=== PATIENT | female | born 1940 | race Caucasian/White ===

== ENCOUNTER 2016-08-12 22:56 | Inpatient (IN) | payer MEDICARE ==
[2016-08-12] MEDS ORDERED: IPRATROPIUM-ALBUTEROL 3 ML NEB INHALATION STA (23:21)
--- NOTE | 2016-08-12 23:29 | ED ---
SOB HPI - General Chief Complaint: Shortness of Breath Stated Complaint: Diff Breathing Time Seen by Provider: 08/12/16 23:01 Source: patient Mode of arrival: EMS Limitations: no limitations - History of Present Illness Initial Comments: This patient is a 75-year-old woman who presents with days to weeks of shortness of breath that seems to be getting steadily worse. She is also having cough with some yellowish sputum. Patient denies fever or chills, chest pain, change in urination or bowel movements, leg pain or swelling. Patient comes in tonight because she is no longer able to get around her house due to severe shortness of breath. Patient is not aware of having any lung disease. She does not see a ecd regularly. She does admit to probably greater than [id number] smoking history and currently smoking approximately one pack of cigarettes per day. MD Complaint: shortness of breath, cough -: days(s) Consistency: constant Improves With: nothing Worsens With: exertion Treatments Prior to Arrival: none - Related Data Home Medications Medication Instructions Recorded Confirmed Diazepam [Valium] 10 mg PO DAILY PRN 01/31/16 01/31/16 Fluticasone Nasal [place] [Flonase 1 spray EA NOSTRIL DAILY 01/31/16 01/31/16 Nasal [place]] Gabapentin [Neurontin] 300 mg PO TID 01/31/16 01/31/16 Previous Rx's Medication Instructions Recorded Atorvastatin Calcium [Lipitor] 40 mg PO HS #1 tab 01/01/15 Clindamycin [Cleocin] 450 mg PO Q8HR #90 capsule 01/31/16 Ibuprofen [Motrin] 600 mg PO Q6HR PRN #20 tab 01/31/16 Allergies Allergy/AdvReac Type Severity Reaction Status Date / Time No Known Allergies Allergy Verified 08/12/16 23:20 Review of Systems ROS Statement: Those systems with pertinent positive or pertinent negative responses have been documented in the HPI. ROS Other: All systems not noted in ROS Statement are negative. Constitutional: Reports: weakness (Generalized). Denies: fever, chills Respiratory: Reports: cough, dyspnea, wheezes. Denies: hemoptysis Cardiovascular: Denies: chest pain, palpitations, edema, syncope Gastrointestinal: Denies: abdominal pain, vomiting, diarrhea Genitourinary: Denies: dysuria, hematuria Musculoskeletal: Denies: back pain Skin: Denies: rash Neurological: Denies: headache, weakness, numbness Hematological/Lymphatic: Denies: easy bleeding Past Medical History Past Medical History: COPD, CVA/TIA, GERD/Reflux, Hyperlipidemia, Hypertension, Neurologic Disorder, Osteoarthritis (OA), Pneumonia, Renal Disease Additional Past Medical History / Comment(s): This patient has history of multiple sclerosis, hypertension, hyperlipidemia, depression, chronic pain with potential for narcotic overdose History of Any Multi-Drug Resistant Organisms: None Reported Past Surgical History: Hysterectomy, Orthopedic Surgery Additional Past Surgical History / Comment(s): Hysterectomy; Bilateral cataract removal x2 on the left side. Past Anesthesia/Blood Transfusion Reactions: No Reported Reaction Past Psychological History: Unable to Obtain Smoking Status: Current every day smoker Past Alcohol Use History: None Reported Past Drug Use History: None Reported - Past Family History Mother History Unknown: Yes Family Medical History: Renal Disease Father History Unknown: Yes Family Medical History: Myocardial Infarction ([place]) General Exam Limitations: no limitations General appearance: alert, in distress (Mild tachypnea) Head exam: Present: atraumatic, normocephalic Eye exam: Present: normal appearance ENT exam: Present: mucous membranes dry Respiratory exam: Present: respiratory distress (Mild tachypnea), wheezes, rales (Bilateral bases), rhonchi, decreased breath sounds, prolonged expiratory. Absent: stridor, accessory muscle use Cardiovascular Exam: Present: normal rhythm, tachycardia, systolic murmur ( Grade 1/6 systolic ejection murmur). Absent: diastolic murmur, rubs, gallop GI/Abdominal exam: Present: soft. Absent: distended, tenderness, guarding, rebound, mass Extremities exam: Present: normal inspection, normal capillary refill. Absent: pedal edema, calf tenderness Back exam: Present: normal inspection. Absent: CVA tenderness (R), CVA tenderness (L) Neurological exam: Present: alert Skin exam: Present: warm, dry, intact, normal color. Absent: rash Course Vital Signs 08/12/16 08/12/16 08/12/16 23:15 23:44 23:54 Temperature 96.7 F L Pulse Rate 101 H 89 90 Respiratory 22 Rate Blood Pressure 185/94 O2 Sat by Pulse 92 L Oximetry 08/13/16 00:15 Temperature Pulse Rate 94 Respiratory 20 Rate Blood Pressure 153/97 O2 Sat by Pulse 98 Oximetry Medical Decision Making - Lab Data Result diagrams: 08/12/16 23:47 08/12/16 23:47 Lab Results 08/12/16 08/12/16 08/12/16 Range/Units 23:45 23:47 23:47 WBC 6.4 (3.8-10.6) k/uL RBC 5.33 (3.80-5.40) m/uL Hgb 14.7 (11.4-16.0) gm/dL Hct 47.8 H (34.0-46.0) % MCV 89.6 (80.0-100.0) fL MCH 27.5 (25.0-35.0) pg MCHC 30.7 L (31.0-37.0) g/dL RDW 14.8 (11.5-15.5) % Plt Count 190 (150-450) k/uL Neutrophils % (Manual) 71.0 % Band Neutrophils % 1.0 % Lymphocytes % (Manual) 17.0 % Monocytes % (Manual) 4.0 % Eosinophils % (Manual) 7.0 % Neutrophils # (Manual) 4.6 (1.3-7.7) k/uL Lymphocytes # (Manual) 1.1 (1.0-4.8) k/uL Monocytes # (Manual) 0.3 (0-1.0) k/uL Eosinophils # (Manual) 0.4 (0-0.7) k/uL Nucleated RBCs 0 (0-0) /100 WBC Manual Slide Review Performed PT (9.0-12.0) sec INR (<1.1) APTT (22.0-30.0) sec D-Dimer (<0.60) mg/L FEU Sample Site RBRAC ABG pH 7.46 H (7.35-7.45) ABG pCO2 29 L (35-45) mmHg ABG pO2 70 L (83-108) mmHg ABG HCO3 20 L (21-25) mmol/L ABG Total CO2 21 (19-24) mmol/L ABG O2 Saturation 95.0 (94-97) % ABG Base Excess -3.0 mmol/L FiO2 21 % Sodium (137-145) mmol/L Potassium (3.5-5.1) mmol/L Chloride (98-107) mmol/L Carbon Dioxide (22-30) mmol/L Anion Gap mmol/L BUN (7-17) mg/dL Creatinine (0.52-1.04) mg/dL Est GFR (MDRD) Af Amer (>60 ml/min/1.73 sqM) Est GFR (MDRD) Non-Af (>60 ml/min/1.73 sqM) Glucose (74-99) mg/dL Plasma Lactic Acid Go (0.7-2.0) mmol/L Calcium (8.4-10.2) mg/dL Total Bilirubin (0.2-1.3) mg/dL AST (14-36) U/L ALT (9-52) U/L Alkaline Phosphatase (38-126) U/L Total Creatine Kinase <20 L (30-135) U/L CK-MB (CK-2) 0.6 (0.0-2.4) ng/mL CK-MB (CK-2) Rel Index 0.0 Troponin I <0.012 (0.000-0.034) ng/mL NT-Pro-B Natriuret Pep pg/mL Total Protein (6.3-8.2) g/dL Albumin (3.5-5.0) g/dL 08/12/16 08/12/16 08/12/16 Range/Units 23:47 23:47 23:47 WBC (3.8-10.6) k/uL RBC (3.80-5.40) m/uL Hgb (11.4-16.0) gm/dL Hct (34.0-46.0) % MCV (80.0-100.0) fL MCH (25.0-35.0) pg MCHC (31.0-37.0) g/dL RDW (11.5-15.5) % Plt Count (150-450) k/uL Neutrophils % (Manual) % Band Neutrophils % % Lymphocytes % (Manual) % Monocytes % (Manual) % Eosinophils % (Manual) % Neutrophils # (Manual) (1.3-7.7) k/uL Lymphocytes # (Manual) (1.0-4.8) k/uL Monocytes # (Manual) (0-1.0) k/uL Eosinophils # (Manual) (0-0.7) k/uL Nucleated RBCs (0-0) /100 WBC Manual Slide Review PT 10.4 (9.0-12.0) sec INR 1.0 (<1.1) APTT 22.4 (22.0-30.0) sec D-Dimer 1.95 H (<0.60) mg/L FEU Sample Site ABG pH (7.35-7.45) ABG pCO2 (35-45) mmHg ABG pO2 (83-108) mmHg ABG HCO3 (21-25) mmol/L ABG Total CO2 (19-24) mmol/L ABG O2 Saturation (94-97) % ABG Base Excess mmol/L FiO2 % Sodium 147 H (137-145) mmol/L Potassium 3.5 (3.5-5.1) mmol/L Chloride 112 H (98-107) mmol/L Carbon Dioxide 23 (22-30) mmol/L Anion Gap 12 mmol/L BUN 13 (7-17) mg/dL Creatinine 0.60 (0.52-1.04) mg/dL Est GFR (MDRD) Af Amer >60 (>60 ml/min/1.73 sqM) Est GFR (MDRD) Non-Af >60 (>60 ml/min/1.73 sqM) Glucose 101 H (74-99) mg/dL Plasma Lactic Acid Go (0.7-2.0) mmol/L Calcium 9.3 (8.4-10.2) mg/dL Total Bilirubin 1.9 H (0.2-1.3) mg/dL AST 40 H (14-36) U/L ALT 80 H (9-52) U/L Alkaline Phosphatase 326 H (38-126) U/L Total Creatine Kinase (30-135) U/L CK-MB (CK-2) (0.0-2.4) ng/mL CK-MB (CK-2) Rel Index Troponin I (0.000-0.034) ng/mL NT-Pro-B Natriuret Pep 361 pg/mL Total Protein 6.5 (6.3-8.2) g/dL Albumin 3.4 L (3.5-5.0) g/dL 08/12/16 Range/Units 23:47 WBC (3.8-10.6) k/uL RBC (3.80-5.40) m/uL Hgb (11.4-16.0) gm/dL Hct (34.0-46.0) % MCV (80.0-100.0) fL MCH (25.0-35.0) pg MCHC (31.0-37.0) g/dL RDW (11.5-15.5) % Plt Count (150-450) k/uL Neutrophils % (Manual) % Band Neutrophils % % Lymphocytes % (Manual) % Monocytes % (Manual) % Eosinophils % (Manual) % Neutrophils # (Manual) (1.3-7.7) k/uL Lymphocytes # (Manual) (1.0-4.8) k/uL Monocytes # (Manual) (0-1.0) k/uL Eosinophils # (Manual) (0-0.7) k/uL Nucleated RBCs (0-0) /100 WBC Manual Slide Review PT (9.0-12.0) sec INR (<1.1) APTT (22.0-30.0) sec D-Dimer (<0.60) mg/L FEU Sample Site ABG pH (7.35-7.45) ABG pCO2 (35-45) mmHg ABG pO2 (83-108) mmHg ABG HCO3 (21-25) mmol/L ABG Total CO2 (19-24) mmol/L ABG O2 Saturation (94-97) % ABG Base Excess mmol/L FiO2 % Sodium (137-145) mmol/L Potassium (3.5-5.1) mmol/L Chloride (98-107) mmol/L Carbon Dioxide (22-30) mmol/L Anion Gap mmol/L BUN (7-17) mg/dL Creatinine (0.52-1.04) mg/dL Est GFR (MDRD) Af Amer (>60 ml/min/1.73 sqM) Est GFR (MDRD) Non-Af (>60 ml/min/1.73 sqM) Glucose (74-99) mg/dL Plasma Lactic Acid Go 1.1 (0.7-2.0) mmol/L Calcium (8.4-10.2) mg/dL Total Bilirubin (0.2-1.3) mg/dL AST (14-36) U/L ALT (9-52) U/L Alkaline Phosphatase (38-126) U/L Total Creatine Kinase (30-135) U/L CK-MB (CK-2) (0.0-2.4) ng/mL CK-MB (CK-2) Rel Index Troponin I (0.000-0.034) ng/mL NT-Pro-B Natriuret Pep pg/mL Total Protein (6.3-8.2) g/dL Albumin (3.5-5.0) g/dL - EKG Data -: EKG Interpreted by Me EKG shows normal: sinus rhythm, axis (Normal), intervals (Normal), ST-T waves Rate: normal (Rate approximately 88 bpm) Interpretation: other (Possible old inferior infarct.) Disposition Clinical Impression: COPD (chronic obstructive pulmonary disease), Pneumonia Disposition: ADMITTED IP TO THIS HOSP Condition: Fair
[2016-08-12 23:56] LABS: ABG HCO3 20 mmol/L (21-25); ABG PCO2 29 mmHg (35-45); ABG PH 7.46 (7.35-7.45); ABG PO2 70 mmHg (83-108); ABG TCO2 21 mmol/L (19-24)
[2016-08-13 00:01] LABS: Aty Lym Flag Slight; CH 29.1; CHCM 32.6; HCT 47.8 % (34.0-46.0); HDW 3.04; HGB 14.7 gm/dL (11.4-16.0); MCH 27.5 pg (25.0-35.0); MCHC 30.7 g/dL (31.0-37.0); MCV 89.6 fL (80.0-100.0); Mean Platelet Volume 7.5; RBC 5.33 m/uL (3.80-5.40); RDW 14.8 % (11.5-15.5); WBC 6.4 k/uL (3.8-10.6); WBC (Perox) 6.28
[2016-08-13 00:08] LABS: ALT 80 U/L (9-52); AST 40 U/L (14-36); Alkaline Phosphatase 326 U/L (38-126); Anion Gap 12 mmol/L; Blood Urea Nitrogen 13 mg/dL (7-17); Calcium 9.3 mg/dL (8.4-10.2); Carbon Dioxide 23 mmol/L (22-30); Chloride 112 mmol/L (98-107); Glucose 101 mg/dL (74-99); Non-African American GFR(MDRD) >60 (>60 ml/min/1.73 sqM); Potassium 3.5 mmol/L (3.5-5.1); Sodium 147 mmol/L (137-145); Total Bilirubin 1.9 mg/dL (0.2-1.3); Total Protein 6.5 g/dL (6.3-8.2)
[2016-08-13 00:10] LABS: Creatine Kinase <20 U/L (30-135)
[2016-08-13 00:14] LABS: Partial Thromboplastin Time 22.4 sec (22.0-30.0); Prothrombin Time 10.4 sec (9.0-12.0)
[2016-08-13] MEDS ORDERED: RX INFO: IV CONTRAST WAS GIVEN 1 EACH MISC MISCELLANE PRN (00:16)
[2016-08-13 00:23] LABS: Creatine Kinase MB 0.6 ng/mL (0.0-2.4); Troponin I <0.012 ng/mL (0.000-0.034)
--- NOTE | 2016-08-13 00:31 | XR ---
EXAMINATION TYPE: XR chest 1V portable DATE OF EXAM: 08/13/2016 12:06 AM COMPARISON: 12/31/2014 HISTORY: Difficulty in breathing TECHNIQUE: Single frontal view of the chest is obtained. FINDINGS: Suggestion of mild bilateral pleural effusions and bibasilar lung infiltrates and atelectasis with po ssible mild CHF changes. Moderate cardiomegaly and atherosclerotic calcification is noted in the aort ic arch. Chronic lung changes are suggested. The osseous structures are intact. IMPRESSION: 1. Mild bilateral pleural effusions and bibasilar lung infiltrate and atelectasis and mild CHF change s are suggested. 2. Cardiomegaly.
[2016-08-13 00:43] LABS: Add Differential Manual Differential
[2016-08-13 00:46] LABS: Manual Review Performed; Nucleated Red Blood Cells 0 /100 WBC (0-0); Total Cells Counted 100
[2016-08-13] MEDS ORDERED: LEVOFLOXACIN 750MG-D5W PMX 750 MG in DEXTROSE/WATER 1 150ML.BAG IVPB STA (00:49)
--- NOTE | 2016-08-13 01:11 | CT ---
EXAMINATION TYPE: CT chest angio for PE DATE OF EXAM: 08/13/2016 12:41 AM COMPARISON: NONE HISTORY: DONALDO, elevated d-dimer R/O PE CT DLP: 413 mGycm Automated exposure control for dose reduction was used. CONTRAST: CT Chest for pulmonary embolism performed with with IV Contrast, patient injected with 70 mL of Omnip aque 350. FINDINGS: PULMONARY ARTERIES: THERE are multiple artifacts in the central and peripheral pulmonary arterial bra nches limiting the evaluation. No significant filling defects are noted in the main pulmonary arterie s and central branches to represent acute pulmonary embolism. LUNGS: Emphysematous changes are noted in both lungs. Mild scarring and atelectatic changes are prese nt bilaterally. Mild infiltrates are also noted in both lung bases. No focal lung consolidation is no eli. There is no pleural effusion or pneumothorax seen. The tracheobronchial tree is patent. There i s a 8mm calcified granuloma in the right lower lobe of lung posteriorly in the axial image 67 seen in with bone window better. MEDIASTINUM: . The ascending aorta measures 3.8 cm in greatest AP diameter with mild ectatic changes. Mild atherosclerotic calcification is noted in the aortic arch. Coronary arterial calcification is n oted. There is mild cardiomegaly. There are no greater than 1 cm hilar or mediastinal lymph nodes. No pericardial effusion is seen. Multilevel degenerative changes are present in the thoracic spine. OTHER: No additional significant abnormality is seen. IMPRESSION: 1. No definite evidence of acute pulmonary embolism. 2. Emphysematous changes and chronic lung changes bilaterally. 3. Mild infiltrates in both lung bases. 4. Small calcified granuloma in the right lung base.
[2016-08-13] MEDS ORDERED: ALBUTEROL NEBULIZED 2.5 MG/3 ML INHALATION PRN (01:34)
[2016-08-13] MEDS ORDERED: DIAZEPAM 5 MG TAB PO STA (02:24)
[2016-08-13] MEDS ORDERED: traMADol 50 MG TAB PO STA (02:24)
[2016-08-13] MEDS: NICOTINE 14MG/24HR PATCH TRANSDERM SCH (02:54)
[2016-08-13] MEDS: IPRATROPIUM-ALBUTEROL 3 ML NEB INHALATION SCH ×6 (07:19→23:36)
[2016-08-13] MEDS ORDERED: FLUTICASONE 50MCG/SPRAY NASAL 16GM EA NOSTRIL PRN (09:30)
[2016-08-13] MEDS ORDERED: DIPHENOX-ATROP 2.5-0.025 MG 1 EACH TAB PO PRN (09:30)
[2016-08-13] MEDS: traMADol 50 MG TAB PO SCH ×3 (09:51→21:58)
[2016-08-13] MEDS: predniSONE 20 MG TAB PO SCH (10:29)
[2016-08-13] MEDS: FUROSEMIDE 20 MG TAB PO SCH (10:30)
[2016-08-13] MEDS: GABAPENTIN 300 MG CAP PO SCH ×3 (10:30→21:58)
[2016-08-13 16:08] LABS: Appearance,Urine Clear (Clear); Bilirubin,Urine Negative (Negative); Glucose,Urine (UA) Negative (Negative); Ketones,Urine Negative (Negative); Leukocyte Esterase,Urine Negative (Negative); Nitrite,Urine Negative (Negative); Protein,Urine Trace (Negative); Specific Gravity,Urine 1.028 (1.001-1.035); UA Billing (MACRO vs. MICRO) CHEM
--- NOTE | 2016-08-13 16:08 | HP ---
DATE OF ADMISSION: 08/13/2016 CHIEF COMPLAINT: Shortness of breath. HISTORY OF PRESENT ILLNESS: This 75-year-old woman with a past medical history of multiple medical problems, including COPD, history of CVA, TIA, history of GERD, hyperlipidemia, history of DJD, history of pneumonia, history of multiple sclerosis, history of CVA with right-sided weakness, being followed by a primary physician in [place] in the outpatient setting, was complaining of shortness of breath, and patient came to [facility] and was admitted for further evaluation and treatment. The shortness of breath was related to exertion. An occasional cough was also reported. The patient had evaluation, and D-dimer was elevated at 1.95. Spiral CT scan showed no evidence of pulmonary embolism, but pneumonia is suspected. Patient admitted for further evaluation and treatment. There is no history of any fever, rigor or chills, no history of headache, loss of consciousness, seizures. Influenza has been not tested. PAST MEDICAL HISTORY: 1. History of COPD. 2. History of CVA, TIA. 3. GERD. 4. Hyperlipidemia. 5. History of DJD. 6. History of pneumonia. 7. History of multiple sclerosis. 8. Hysterectomy. HOME MEDICATIONS: 1. Demadex 10 mg p.o. daily. 2. Ultram 50 mg p.o. q.i.d. 3. Risperdal 0.5 mg at bedtime. 4. Embeda 1 tablet p.o. daily. 5. Flonase 1 spray daily p.r.n. 6. Lomotil 1 tablet q.i.d. p.r.n. 7. Durezol 1 drop left eye b.i.d. 8. Zocor 20 mg at bedtime. 9. Neurontin 300 mg p.o. t.i.d. 10. Valium 10 mg p.o. at bedtime p.r.n. ALLERGIES: NONE. FAMILY HISTORY: History of renal disease in the family. SOCIAL HISTORY: History of smoking on a daily basis. No history of alcohol intake. REVIEW OF SYSTEMS: ENT: No diminished hearing. No diminished vision. CARDIOVASCULAR: No angina, palpitations. RESPIRATORY SYSTEM: As mentioned earlier. GI: As mentioned earlier. : No dysuria. NERVOUS SYSTEM: No numbness or weakness. ALLERGY/IMMUNOLOGY: No asthma or hayfever. MUSCULOSKELETAL: As mentioned earlier. HEMATOLOGY/ONCOLOGY: No history of anemia. ENDOCRINE: No history of diabetes, hypothyroidism. CONSTITUTIONAL: As mentioned earlier. DERMATOLOGY: Negative. RHEUMATOLOGY: Negative. PSYCHIATRY: As mentioned earlier. PHYSICAL EXAMINATION: Patient is alert and oriented x3. Pulse is 117, blood pressure 142/81, respiration 20, temperature normal, pulse ox 94% on 3 L. HEENT: Conjunctivae normal. Oral mucosa moist. NECK: No jugular venous distention. No carotid bruit. No lymph node enlargement. CARDIOVASCULAR SYSTEM: S1 normal. S2 normal. No S3. No S4. RESPIRATORY SYSTEM: Breath sounds diminished at the bases. Breathing efforts are markedly increased. Bilateral scattered rhonchi and crackles. ABDOMEN: Soft, non-tender. No mass palpable. LEGS: No edema. No swelling. NERVOUS SYSTEM: Higher functions as mentioned earlier. Moves all 4 limbs. No focal motor or sensory deficit. LYMPHATICS: No lymph node palpable in neck, axillae or groin. SKIN: No ulcer, rash, bleeding. LABS: D-dimer is 1.95. WBC 6.4. ABG: pH 7.46, pCO2 is 29. Total bilirubin is 1.9. AST is 14. ALT is 80. Alkaline phosphatase is 326. ASSESSMENT: 1. Chronic obstructive pulmonary disease, acute exacerbation, with acute bilateral pneumonia, possibly Gram-negative. 2. Increased D-dimer. 3. Hypernatremia and mild dehydration, present on admission. 4. Increased AST, ALT, alkaline phosphatase with mild hepatitis. 5. History of chronic obstructive pulmonary disease. 6. History of cerebrovascular accident, transient ischemic attack. 7. History of gastroesophageal reflux disease. 8. Hyperlipidemia. 9. History of degenerative joint disease. 10. History of pneumonia. 11. History of multiple sclerosis. 12. History of chronic pain syndrome. 13. Gait dysfunction. 14. History of PEG tube insertion and removal. 15. History of bilateral cataracts. 16. History of depression per chart. 17. History of nicotine dependence, continued, ongoing. RECOMMENDATIONS AND DISCUSSION: In this 75-year-old woman who presented with multiple complex medical issues, we will monitor the patient closely, continue the current medications, continue symptomatic treatment, bronchodilators, empiric antibiotics, steroids. Otherwise, I would also recommend pulmonary consultation. Guarded prognosis because of multiple complex medical issues. Further recommendations to follow. Monitor fluid and electrolyte balance closely also. Home medications were checked and medication reconciliation was obtained. See orders for further details. Prognosis guarded.
[2016-08-13 20:56] LABS: ABG Base Excess -1.8 mmol/L; ABG HCO3 22 mmol/L (21-25); ABG PCO2 34 mmHg (35-45); ABG PH 7.42 (7.35-7.45); ABG PO2 83 mmHg (83-108); ABG TCO2 23 mmol/L (19-24)
[2016-08-13 21:15] LABS: Glucose,Whole Blood 128 mg/dL (75-99)
[2016-08-13] MEDS: ATORVASTATIN 10 MG TAB PO SCH (21:57)
[2016-08-13] MEDS: risperiDONE 0.5 MG TAB PO SCH (21:58)
[2016-08-13] MEDS: HEPARIN SODIUM,PORCINE 5,000 UNIT/ML 1 ML VIAL SQ SCH (22:00)
[2016-08-14] MEDS: NICOTINE 14MG/24HR PATCH TRANSDERM SCH ×2 (00:51→23:18)
[2016-08-14] MEDS: GABAPENTIN 300 MG CAP PO SCH ×4 (01:34→21:11)
[2016-08-14] MEDS: traMADol 50 MG TAB PO SCH ×3 (01:34→13:05)
[2016-08-14] MEDS: DIAZEPAM 5 MG TAB PO PRN ×2 (01:34→21:11)
[2016-08-14] MEDS: IPRATROPIUM-ALBUTEROL 3 ML NEB INHALATION SCH ×5 (03:49→20:40)
[2016-08-14 05:47] LABS: Basophils % (A) 0 %; CH 28.6; CHCM 31.8; Eosinophils # (A) 0.1 k/uL (0-0.7); Eosinophils % (A) 1 %; HCT 43.5 % (34.0-46.0); HDW 2.95; HGB 13.6 gm/dL (11.4-16.0); Hypochromasia Slight; Luc # (Auto) 0.33; Luc % (Auto) 3; Lymphocytes # (A) 1.3 k/uL (1.0-4.8); Lymphocytes % (A) 13 %; MCH 28.3 pg (25.0-35.0); MCHC 31.4 g/dL (31.0-37.0); MCV 90.3 fL (80.0-100.0); Mean Platelet Volume 6.3; Monocytes # (A) 0.6 k/uL (0-1.0); Monocytes % (A) 6 %; Neutrophils # (A) 7.6 k/uL (1.3-7.7); Neutrophils % (A) 77 %; RBC 4.81 m/uL (3.80-5.40); RDW 14.7 % (11.5-15.5); WBC (Perox) 10.07
[2016-08-14 06:00] LABS: ALT 63 U/L (9-52); AST 40 U/L (14-36); Alkaline Phosphatase 225 U/L (38-126); Anion Gap 8 mmol/L; Blood Urea Nitrogen 14 mg/dL (7-17); Calcium 9.4 mg/dL (8.4-10.2); Carbon Dioxide 25 mmol/L (22-30); Chloride 110 mmol/L (98-107); Glucose 118 mg/dL (74-99); Non-African American GFR(MDRD) >60 (>60 ml/min/1.73 sqM); Potassium 3.7 mmol/L (3.5-5.1); Sodium 143 mmol/L (137-145); Total Bilirubin 1.1 mg/dL (0.2-1.3); Total Protein 5.8 g/dL (6.3-8.2)
[2016-08-14] MEDS: FUROSEMIDE 20 MG TAB PO SCH (08:59)
[2016-08-14] MEDS: ATORVASTATIN 10 MG TAB PO SCH (08:59)
[2016-08-14] MEDS: HEPARIN SODIUM,PORCINE 5,000 UNIT/ML 1 ML VIAL SQ SCH ×2 (08:59→21:11)
[2016-08-14] MEDS: predniSONE 20 MG TAB PO SCH (08:59)
[2016-08-14] MEDS: LEVOFLOXACIN 500 MG TAB PO SCH (09:18)
--- NOTE | 2016-08-14 12:10 | P.CNPUL ---
History of Present Illness Consult date: 08/14/16 Reason for consult: dyspnea, COPD, pneumonia, pleural effusion Chief complaint: Shortness of breath difficulty breathing, COPD exacerbation History of present illness: This is a 75-year-old female presents to the emergency department with a couple days with of increasing shortness of breath. She apparently is also coughing producing yellow phlegm. She apparently did not have any fever or chills or chest pain. No nausea vomiting or diarrhea. The patient was seen in the emergency department and admitted with a COPD exacerbation. She does have a primary doctor. Does not see any of us in the pulmonary division. She has a very heavy tobacco history of at least 50 years about a pack a day may be more. She was smoking up until time she came into the hospital. Her past medical history is positive for COPD CVA GERD hyperlipidemia hypertension DJD pneumonia renal disease orthopedic procedures hysterectomy and bilateral cataract surgery. The patient also apparently has a history of multiple sclerosis. Review of Systems A 12 point review of system is positive for shortness of breath cough difficulty breathing chest tightness wheezing and some phlegm production under the pulmonary system. The rest of the 12 point review of system is unremarkable. Past Medical History Past Medical History: COPD, CVA/TIA, GERD/Reflux, Hyperlipidemia, Musculoskeletal Disorder, Neurologic Disorder, Osteoarthritis (OA), Pneumonia Additional Past Medical History / Comment(s): Multiple sclerosis, 2015 CVA with some R sided weakness arm/leg and slow speech and slight difficulty swallowing, hypertension and renal disease per PMH but pt denies, chronic pain mostly in bilateral legs. History of Any Multi-Drug Resistant Organisms: None Reported Past Surgical History: Hysterectomy, Orthopedic Surgery Additional Past Surgical History / Comment(s): Peg tube insertion (since removed ), bilateral cataract removal and twice on the left side, colonoscopy, left lower abdominal cystectomy. Past Anesthesia/Blood Transfusion Reactions: No Reported Reaction Past Psychological History: No Psychological Hx Reported Additional Psychological History / Comment(s): Per PMH, pt has depression but pt denies ever having a problem with depression. Pt lives with her spouse of 57yrs. She ambulates without device. She is independent. Smoking Status: Current every day smoker Past Alcohol Use History: None Reported Additional Past Alcohol Use History / Comment(s): Pt started smoking in 1959. She is a ppd smoker. Past Drug Use History: None Reported - Past Family History Mother History Unknown: Yes Family Medical History: No Reported History, Renal Disease Additional Family Medical History / Comment(s): Mother was healthy and lived to be 88yrs old. Father History Unknown: Yes Family Medical History: Osteoarthritis (OA) Additional Family Medical History / Comment(s): Pt states her father at the age of 68yrs due to his debilitating arthritis. Medications and Allergies Home Medications Medication Instructions Recorded Confirmed Type Diazepam [Valium] 10 mg PO HS PRN 01/31/16 08/13/16 History Gabapentin [Neurontin] 300 mg PO TID 01/31/16 08/13/16 History Difluprednate [Durezol] 1 drop LEFT EYE BID 08/13/16 08/13/16 History Diphenoxylate HCl/Atropine 1 tab PO QID PRN 08/13/16 08/13/16 History [Lomotil] Fluticasone Nasal [place] [Flonase 1 spray EA NOSTRIL DAILY PRN 08/13/16 08/13/16 History Nasal [place]] Morphine Sulfate/Naltrexone 1 tab PO DAILY 08/13/16 08/13/16 History [Embeda ER 30-1.2 mg Capsule] Simvastatin [Zocor] 20 mg PO HS 08/13/16 08/13/16 History Torsemide [Demadex] 10 mg PO DAILY 08/13/16 08/13/16 History risperiDONE [RisperDAL] 0.5 mg PO HS 08/13/16 08/13/16 History traMADol HCL [Ultram] 50 mg PO QID 08/13/16 08/13/16 History Allergies Allergy/AdvReac Type Severity Reaction Status Date / Time No Known Allergies Allergy Verified 08/13/16 08:25 Physical Exam Osteopathic Statement: *. No significant issues noted on an osteopathic structural exam other than those noted in the History and Physical/Consult. Vitals: Vital Signs Temp Pulse Pulse Resp BP Pulse Ox 08/14/16 12:02 104 H 08/14/16 11:52 104 H 08/14/16 08:29 104 H 08/14/16 08:10 108 H 08/14/16 07:00 92 18 93 L 08/14/16 00:00 18 08/13/16 23:00 97.3 F L 89 18 120/66 93 L 08/13/16 20:19 95 08/13/16 20:02 94 08/13/16 17:08 94 08/13/16 16:57 94 96 08/13/16 16:00 92 19 08/13/16 15:00 98.5 F 92 19 144/90 96 Intake and Output 08/13/16 08/14/16 08/14/16 22:59 06:59 14:59 Intake Total 360 Output Total 550 Balance -190 Intake: Oral 360 Output: Urine 550 Other: # Voids 1 1 No acute distress. No audible wheezing. She is wearing nasal O2. Oriented 3. HEENT examination is grossly unremarkable. She is wearing nasal O2. Membranes are moist. Supple. Full range of motion. No adenopathy. Cardiovascular examination reveals regular rhythm rate. Mildly tachycardic. Heart rate about 100. S1 and S2 normal. There is no murmur. Lungs are difficult to auscultate. She does does not take deep breaths. I do not hear a few scattered rhonchi. No distinct wheezes. No crackles. Breath sounds are significantly diminished suggesting more severe COPD. Abdomen soft. Extremities are intact. Results - Laboratory Findings CBC and BMP: 08/14/16 05:27 08/14/16 05:27 ABG ABG pH 7.42 (7.35-7.45) 08/13/16 20:50 ABG pCO2 34 mmHg (35-45) L 08/13/16 20:50 ABG pO2 83 mmHg (83-108) 08/13/16 20:50 ABG O2 Saturation 97.0 % (94-97) 08/13/16 20:50 PT/INR, D-dimer PT 10.4 sec (9.0-12.0) 08/12/16 23:47 INR 1.0 (<1.1) 08/12/16 23:47 D-Dimer 1.95 mg/L FEU (<0.60) H 08/12/16 23:47 Abnormal lab findings: Abnormal Labs 08/13/16 08/13/16 08/13/16 15:45 20:50 21:14 ABG pCO2 34 L Chloride Glucose POC Glucose (mg/dL) 128 H AST ALT Alkaline Phosphatase Total Protein Albumin Urine Protein Trace H 08/14/16 05:27 ABG pCO2 Chloride 110 H Glucose 118 H POC Glucose (mg/dL) AST 40 H ALT 63 H Alkaline Phosphatase 225 H Total Protein 5.8 L Albumin 2.9 L Urine Protein - Diagnostic Findings Chest x-ray: image reviewed (Chest x-ray labs and medications are reviewed.) Assessment and Plan (1) GERD (gastroesophageal reflux disease) Status: Acute (2) Hyperlipidemia Status: Acute (3) Hypertension Status: Acute (4) Multiple sclerosis Status: Acute (5) Cerebral anoxic injury Status: Acute (6) COPD (chronic obstructive pulmonary disease) Status: Acute Plan: Plan The patient weeps placed on standard medications including albuterol and Atrovent updrafts 4 times a day and when necessary. We'll also place her on Pulmicort 1 mg and Perforomist twice a day. She also should be she also should be on Solu-Medrol 60 mg every 6. We'll review her x-rays. We'll put on some sort of antibiotic. Additional recommendations suggestions are forthcoming. Prognosis is guarded. She will need to see a lung doctor post discharge. Time with Patient: Greater than 30
[2016-08-14] MEDS ORDERED: DICLOFENAC 0.1% OPHTH SOLN 2.5 ML BTL LEFT EYE SCH (13:15)
[2016-08-14] MEDS: MORPHINE SULFATE PO SCH (15:50)
[2016-08-14] MEDS: NALTREXONE PO SCH (15:50)
--- NOTE | 2016-08-14 16:24 | PN ---
DATE OF SERVICE: 08/14/2016 This 75 -year-old woman is admitted to the hospital with COPD acute exacerbation, improved significantly. No chest pain or palpitation. No fever. Dr. Blanton is following the patient closely. On exam, alert and oriented times three. Pulse 113, blood pressure is 129/85, respiratory rate 18, temperature 97.4, pulse ox 91% on room air. HEENT: Conjunctivae normal. NECK: No jugular venous distention. CARDIOVASCULAR: S1, S2 muffled. No S3, no S4. Tachycardiac. RESPIRATORY: Breath sounds diminished at the bases. Bilateral scattered rhonchi and crackles. ABDOMEN: Soft, nontender. No mass palpable. LEGS: No edema. No swelling. CENTRAL NERVOUS SYSTEM: Higher functions as mentioned earlier. Moves all four limbs. No focal deficits. LYMPHATICS: No lymph nodes palpable in the neck, axillae or groin. SKIN: No ulcer, rash or bleeding. LABS: CBC within normal limits. Sodium is 143, AST is 14. ALT is 63, alk phos is 225. Albumin is 2.9. Influenza negative. ASSESSMENT: 1. Chronic obstructive pulmonary disease acute exacerbation with acute bilateral pneumonia, possibly gram-negative. 2. Increased d-dimer, present on admission. No evidence of pulmonary embolism. 3. Hyponatremia, mild dehydration present on admission. 4. Increased AST, ALT, alkaline phosphatase and with mild hepatitis. 5. Sinus tachycardia, possibly. 6. History of chronic obstructive pulmonary disease. 7. History of cerebrovascular accident, transient ischemic attack. 8. History of gastroesophageal reflux disease. 9. Hyperlipidemia. 10. History of degenerative joint disease. 11. History of pneumonia. 12. History of multiple sclerosis. 13. History of chronic pain syndrome. 14. Gait dysfunction. 15. History of PEG tube insertion and removal. 16. History of bilateral cataracts. 17. History of depression per chart. 18. History of nicotine dependence, continued ongoing. 19. FULL CODE. RECOMMENDATIONS AND DISCUSSION: This 75 -year-old woman presented with multiple complex medical issues, we will monitor the patient closely. Continue the current medications, continue symptomatic treatment. Continue the bronchodilators, continue with empiric antibiotics. The patient is also on IV steroids. We will continue to monitor. Guarded prognosis because of multiple complex medical issues. Dr. Blanton's input appreciated. Medications reconciliation was done. Further recommendations to follow.
[2016-08-14] MEDS: traMADol 50 MG TAB PO PRN ×2 (17:05→21:10)
[2016-08-14] MEDS: methylPREDNISolone SOD SUCCI 125 MG/2 ML VIAL IV SCH ×2 (18:46→23:18)
[2016-08-14] MEDS: POTASSIUM CHLORIDE ER 20 MEQ TAB.ER PO SCH ×3 (18:49→23:18)
[2016-08-14] MEDS: BUDESONIDE 1 MG/2 ML NEBU INHALATION SCH (20:40)
[2016-08-14] MEDS: FORMOTEROL FUMARATE 20 MCG/2 ML NEBU INHALATION SCH (20:40)
[2016-08-14] MEDS: DUREZOL 0.05% LEFT EYE SCH (21:11)
[2016-08-14] MEDS: risperiDONE 0.5 MG TAB PO SCH (21:11)
[2016-08-15] MEDS: traMADol 50 MG TAB PO PRN ×5 (04:10→20:50)
[2016-08-15] MEDS: IPRATROPIUM-ALBUTEROL 3 ML NEB INHALATION SCH ×6 (04:39→21:05)
[2016-08-15] MEDS: methylPREDNISolone SOD SUCCI 125 MG/2 ML VIAL IV SCH (05:55)
[2016-08-15] MEDS: FORMOTEROL FUMARATE 20 MCG/2 ML NEBU INHALATION SCH ×2 (07:55→20:59)
[2016-08-15] MEDS: BUDESONIDE 1 MG/2 ML NEBU INHALATION SCH ×2 (07:55→20:59)
[2016-08-15] MEDS: GABAPENTIN 300 MG CAP PO SCH ×3 (08:14→20:49)
[2016-08-15] MEDS: DUREZOL 0.05% LEFT EYE SCH ×2 (08:14→20:49)
[2016-08-15] MEDS: LEVOFLOXACIN 500 MG TAB PO SCH (08:15)
[2016-08-15] MEDS: HEPARIN SODIUM,PORCINE 5,000 UNIT/ML 1 ML VIAL SQ SCH ×2 (08:15→20:50)
[2016-08-15] MEDS: FUROSEMIDE 20 MG TAB PO SCH (08:17)
[2016-08-15 09:44] LABS: Basophils % (A) 0 %; CH 28.4; CHCM 30.9; Eosinophils % (A) 0 %; HCT 48.7 % (34.0-46.0); HDW 2.81; HGB 15.1 gm/dL (11.4-16.0); Hypochromasia Moderate; Luc # (Auto) 0.16; Luc % (Auto) 2; Lymphocytes % (A) 10 %; MCH 28.7 pg (25.0-35.0); MCHC 31.1 g/dL (31.0-37.0); MCV 92.2 fL (80.0-100.0); Monocytes # (A) 0.4 k/uL (0-1.0); Monocytes % (A) 3 %; Neutrophils # (A) 8.7 k/uL (1.3-7.7); Neutrophils % (A) 85 %; RBC 5.28 m/uL (3.80-5.40); RDW 14.6 % (11.5-15.5); WBC 10.2 k/uL (3.8-10.6); WBC (Perox) 10.14
[2016-08-15] MEDS: DICLOFENAC 0.1% OPHTH SOLN 2.5 ML BTL LEFT EYE SCH ×2 (09:49→20:49)
[2016-08-15 09:51] LABS: ALT 76 U/L (9-52); AST 44 U/L (14-36); Alkaline Phosphatase 223 U/L (38-126); Anion Gap 12 mmol/L; Blood Urea Nitrogen 22 mg/dL (7-17); Calcium 9.8 mg/dL (8.4-10.2); Carbon Dioxide 22 mmol/L (22-30); Chloride 106 mmol/L (98-107); Glucose 137 mg/dL (74-99); Non-African American GFR(MDRD) >60 (>60 ml/min/1.73 sqM); Potassium 4.7 mmol/L (3.5-5.1); Sodium 140 mmol/L (137-145); Total Bilirubin 1.3 mg/dL (0.2-1.3); Total Protein 6.6 g/dL (6.3-8.2)
[2016-08-15] MEDS: predniSONE 20 MG TAB PO SCH (12:31)
--- NOTE | 2016-08-15 13:33 | P.PN ---
Subjective This is a 75-year-old female presents to the emergency department with a couple days with of increasing shortness of breath. She apparently is also coughing producing yellow phlegm. She apparently did not have any fever or chills or chest pain. No nausea vomiting or diarrhea. The patient was seen in the emergency department and admitted with a COPD exacerbation. She does have a primary doctor. Does not see any of us in the pulmonary division. She has a very heavy tobacco history of at least 50 years about a pack a day may be more. She was smoking up until time she came into the hospital. Her past medical history is positive for COPD CVA GERD hyperlipidemia hypertension DJD pneumonia renal disease orthopedic procedures hysterectomy and bilateral cataract surgery. The patient also apparently has a history of multiple sclerosis. She is seen again today in follow-up on 08/15/2016 on the regular medical floor. She is awake and alert in no acute distress. She states she is breathing easier today as compared to yesterday. No worsening shortness of breath, cough or congestion. She has been afebrile. Hemodynamically stable. Maintaining good O2 saturations in the mid 90s on 2 L/m per nasal cannula. Blood cultures revealed no growth to date. Influenza screen is negative. No leukocytosis. Objective - Vital Signs Vital signs: Vital Signs Temp 97.2 F L 08/15/16 07:00 Pulse 100 08/15/16 12:00 Resp 18 08/15/16 07:00 BP 110/74 08/15/16 07:00 Pulse Ox 95 08/15/16 07:00 Intake & Output 08/14/16 08/15/16 08/15/16 18:59 06:59 18:59 Intake Total 480 Balance 480 Intake: Oral 480 Other: Voiding Method Toilet Toilet Toilet # Voids 1 2 # Bowel Movements 0 - Exam GENERAL EXAM: Alert, active, comfortable in no apparent distress. HEAD: Normocephalic. EYES: Normal reaction of pupils, equal size. NOSE: Clear with pink turbinates. THROAT: No erythema or exudates. NECK: No masses, no JVD. CHEST: No chest wall deformity. LUNGS: Equal air entry with faint end expiratory wheeze. Diminished.. CVS: S1 and S2 normal with no audible murmurs, regular rhythm. ABDOMEN: No hepatosplenomegaly, normal bowel sounds, no guarding or rigidity. SPINE: No scoliosis or deformity SKIN: No rashes CENTRAL NERVOUS SYSTEM: No focal deficits, tone is normal in all 4 extremities. Extremities: There is no significant peripheral edema. No clubbing, no cyanosis. Peripheral pulses are intact. - Labs CBC & Chem 7: 08/15/16 08:48 08/15/16 08:48 Labs: Abnormal Lab Results - Last 24 Hours (Table) 08/15/16 08/15/16 Range/Units 08:48 08:48 Hct 48.7 H (34.0-46.0) % Neutrophils # 8.7 H (1.3-7.7) k/uL BUN 22 H (7-17) mg/dL Glucose 137 H (74-99) mg/dL AST 44 H (14-36) U/L ALT 76 H (9-52) U/L Alkaline Phosphatase 223 H (38-126) U/L Microbiology - Last 24 Hours (Table) 08/13/16 02:39 Blood Culture - Preliminary Blood No Growth after 48 hours Assessment and Plan Plan: Impression: #1 Acute exacerbation of chronic obstructive pulmonary disease. #2 chronic and ongoing tobacco dependence for greater than 50 years at 1 pack per day. #3 Hyperlipidemia. #4 Hypertension. #5 Multiple sclerosis. Plan: The patient was seen and evaluated by Dr. Blanton. We'll discontinue her IV Solu- Medrol and start 40 mg of prednisone today. Plan is for most likely discharge in the a.m. In the interim, we will increase her activity as tolerated. We'll continue with her other medications including bronchodilators along with Pulmicort and Perforomist inhalations twice a day. She remains on empiric and antibiotics in the form of Levaquin. She would benefit from an outpatient workup including full pulmonary function testing to evaluate the severity of her COPD. She is also educated regarding the importance of complete smoking cessation. A NicoDerm patches in place. We will continue to follow and make further recommendations based on her clinical status.
--- NOTE | 2016-08-15 19:17 | PN ---
DATE OF SERVICE: 08/15/2016 This 75-year-old woman was admitted with COPD acute exacerbation is improving significantly. No chest pain, no palpitation. No fever. Dr. Blanton is following the patient closely. On exam, alert and oriented x3. Pulse 101, blood pressure 117/79, respirations 18, temperature 97.4, pulse ox 86% on room air. HEENT: Conjunctivae normal. NECK: No jugular venous distention. CARDIOVASCULAR: S1 and S2, muffled. RESPIRATORY: Breath sounds diminished at the bases. Bilateral scattered rhonchi and crackles. Breathing efforts are slightly increased. ABDOMEN: Soft, nontender. LEGS: No edema, no swelling. NERVOUS SYSTEM: No focal deficits. LABS: CBC within normal limits. Sodium 140, potassium 4.7. AST was 44, ALT 76 and alkaline phosphatase was 223. ASSESSMENT: 1. Chronic obstructive pulmonary disease, acute exacerbation with acute bilateral pneumonia, possibly gram-negative. 2. Increased d-dimer, present on admission. No evidence of pulmonary embolism. 3. Hyponatremia with mild dehydration present on admission. 4. Increased AST, ALT, alkaline phosphatase with mild hepatitis. 5. Sinus tachycardia, possibly. 6. History of chronic obstructive pulmonary disease. 7. History of cerebrovascular accident, transient ischemic attack. 8. History of gastroesophageal reflux disease. 9. Hyperlipidemia. 10. History of degenerative joint disease. 11. History of pneumonia. 12. History of multiple sclerosis. 13. History of chronic pain syndrome. 14. Gait dysfunction. 15. History of PEG tube insertion with removal. 16. History of bilateral cataracts. 17. History of depression per chart. 18. History of nicotine dependence, continued ongoing. 19. FULL CODE. RECOMMENDATIONS AND DISCUSSION: I recommend to continue current medications, continue to monitor, continue symptomatic treatment. Otherwise at this time, I recommend repeat labs. Closely monitor, follow with Dr. Blanton. Taper the steroids. Further recommendations to follow.
[2016-08-15] MEDS: risperiDONE 0.5 MG TAB PO SCH (20:49)
[2016-08-15] MEDS: ATORVASTATIN 10 MG TAB PO SCH (20:50)
[2016-08-15] MEDS: DIAZEPAM 5 MG TAB PO PRN (20:50)
[2016-08-15] MEDS ORDERED: IPRATROPIUM-ALBUTEROL 3 ML NEB INHALATION PRN (21:06)
[2016-08-16] MEDS: traMADol 50 MG TAB PO PRN ×6 (01:00→21:21)
[2016-08-16] MEDS: NICOTINE 14MG/24HR PATCH TRANSDERM SCH (01:02)
[2016-08-16 07:44] LABS: Basophils % (A) 0 %; CH 28.8; Eosinophils % (A) 0 %; HCT 43.2 % (34.0-46.0); HDW 2.75; HGB 13.5 gm/dL (11.4-16.0); Hypochromasia Slight; Luc # (Auto) 0.24; Luc % (Auto) 2; Lymphocytes # (A) 1.7 k/uL (1.0-4.8); Lymphocytes % (A) 16 %; MCH 28.3 pg (25.0-35.0); MCHC 31.3 g/dL (31.0-37.0); MCV 90.2 fL (80.0-100.0); Mean Platelet Volume 6.5; Monocytes # (A) 0.6 k/uL (0-1.0); Monocytes % (A) 5 %; Neutrophils # (A) 8.3 k/uL (1.3-7.7); Neutrophils % (A) 77 %; RBC 4.79 m/uL (3.80-5.40); RDW 14.7 % (11.5-15.5); WBC 10.9 k/uL (3.8-10.6); WBC (Perox) 11.48
[2016-08-16 07:53] LABS: ALT 72 U/L (9-52); AST 51 U/L (14-36); Alkaline Phosphatase 170 U/L (38-126); Anion Gap 9 mmol/L; Blood Urea Nitrogen 20 mg/dL (7-17); Calcium 9.1 mg/dL (8.4-10.2); Carbon Dioxide 26 mmol/L (22-30); Chloride 104 mmol/L (98-107); Glucose 94 mg/dL (74-99); Non-African American GFR(MDRD) >60 (>60 ml/min/1.73 sqM); Potassium 4.1 mmol/L (3.5-5.1); Sodium 139 mmol/L (137-145); Total Bilirubin 0.9 mg/dL (0.2-1.3)
[2016-08-16] MEDS: BUDESONIDE 1 MG/2 ML NEBU INHALATION SCH ×2 (08:20→20:26)
[2016-08-16] MEDS: IPRATROPIUM-ALBUTEROL 3 ML NEB INHALATION SCH ×4 (08:20→20:26)
[2016-08-16] MEDS: FORMOTEROL FUMARATE 20 MCG/2 ML NEBU INHALATION SCH ×2 (08:20→20:26)
[2016-08-16] MEDS: HEPARIN SODIUM,PORCINE 5,000 UNIT/ML 1 ML VIAL SQ SCH ×2 (09:43→21:11)
[2016-08-16] MEDS: GABAPENTIN 300 MG CAP PO SCH ×3 (09:43→21:10)
[2016-08-16] MEDS: LEVOFLOXACIN 500 MG TAB PO SCH (09:43)
[2016-08-16] MEDS: predniSONE 20 MG TAB PO SCH (09:43)
[2016-08-16] MEDS: DUREZOL 0.05% LEFT EYE SCH ×2 (09:44→21:11)
[2016-08-16] MEDS: FUROSEMIDE 20 MG TAB PO SCH (09:44)
[2016-08-16] MEDS: DICLOFENAC 0.1% OPHTH SOLN 2.5 ML BTL LEFT EYE SCH ×2 (09:44→21:11)
[2016-08-16] MEDS ORDERED: PNEUMOCOCCAL VACC-PNEUMOVAX 23 25 MCG/0.5 ML VIAL IM ONE (11:13)
[2016-08-16] MEDS ORDERED: INFLUENZA VACCINE (3YR+) 60 MCG/0.5 ML SYRINGE IM ONE (11:13)
--- NOTE | 2016-08-16 12:45 | P.PN ---
Subjective Progress note dated 08/16/2016 75-year-old female who was admitted with a diagnosis of COPD exacerbation. She also has a history of CVA GERD hyperlipidemia hypertension DJD chronic kidney disease pneumonia and hysterectomy. Anyway the patient is doing better. From our perspective could be discharged home today or tomorrow. She seems want to continue to stay here all of she seemed pretty comfortable. She does not appear to be any distress. No audible wheezing. Doesn't appear to be coughing up much. No phlegm production. We did speak to Dr. Sumner about her and did maintain that she could probably be discharged today. Objective - Vital Signs Vital signs: Vital Signs Temp 97.1 F L 08/16/16 07:00 Pulse 92 08/16/16 12:00 Resp 18 08/16/16 07:00 BP 116/78 08/16/16 07:00 Pulse Ox 90 L 08/16/16 10:46 Intake & Output 08/15/16 08/16/16 08/16/16 18:59 06:59 18:59 Intake Total 440 Balance 440 Intake: Oral 440 Other: Voiding Method Toilet # Voids 3 1 # Bowel Movements 0 - Exam No acute distress, oriented 3. Wearing nasal O2. HEENT examination is grossly unremarkable. Mucous membranes are moist. No oral lesions. Next Neck supple. Full range of motion. No adenopathy or thyromegaly. Cardiovascular examination reveals regular rhythm rate. S1 and S2 normal. No murmur. Lungs reveal few scattered mild rhonchi. No wheezes or crackles. Breath sounds are slightly diminished. Next Abdomen soft bowel sounds are heard. Extremities are intact. - Labs CBC & Chem 7: 08/16/16 07:21 08/16/16 07:21 Labs: Abnormal Lab Results - Last 24 Hours (Table) 08/16/16 08/16/16 Range/Units 07:21 07:21 WBC 10.9 H (3.8-10.6) k/uL Neutrophils # 8.3 H (1.3-7.7) k/uL BUN 20 H (7-17) mg/dL AST 51 H (14-36) U/L ALT 72 H (9-52) U/L Alkaline Phosphatase 170 H (38-126) U/L Total Protein 6.0 L (6.3-8.2) g/dL Albumin 3.2 L (3.5-5.0) g/dL Microbiology - Last 24 Hours (Table) 08/13/16 02:39 Blood Culture - Preliminary Blood No Growth after 72 hours Assessment and Plan (1) GERD (gastroesophageal reflux disease) Status: Acute (2) Hyperlipidemia Status: Acute (3) Hypertension Status: Acute (4) Multiple sclerosis Status: Acute (5) Cerebral anoxic injury Status: Acute (6) COPD (chronic obstructive pulmonary disease) Status: Acute Plan: Plan The patient weeps placed on standard medications including albuterol and Atrovent updrafts 4 times a day and when necessary. We'll also place her on Pulmicort 1 mg and Perforomist twice a day. She also should be she also should be on Solu-Medrol 60 mg every 6. We'll review her x-rays. We'll put on some sort of antibiotic. Additional recommendations suggestions are forthcoming. Prognosis is guarded. She will need to see a lung doctor post discharge. Plan dated 08/16/2016 The patient's doing well from our perspective. The patient could be discharged home. We'll allow Dr. Sumner to make that decision. She is discharged she should go home on a prednisone taper beginning with 40 mg for 4 days 30 mg 4 days 20 mg 4 days 10 mg 4 days and stop. She also go home on a short course of antibiotics. I would also favor one of the current combination medications which contain and inhaled corticosteroid and long-acting beta agonist. Either Advair or Symbicort will be adequate. Finally, she needs a short acting beta agonists and probably a short acting muscarinic antagonist her nebulizer machine. She should follow-up with one of us in the office. Time with Patient: Less than 30
[2016-08-16 14:58] LABS: Hepatitis B Surface Ag Index 0.08
[2016-08-16 15:03] LABS: Hepatitis B Core IgM Index 0.07
[2016-08-16 15:15] LABS: Hepatitis C Virus IgG Index 0.02
[2016-08-16 15:16] LABS: Hepatitis C Virus IgG Ab Negative (Negative)
--- NOTE | 2016-08-16 19:24 | PN ---
DATE OF SERVICE: 08/16/2016 This 75-year-old woman was admitted with COPD acute exacerbation, has improved significantly. Patient is still complaining of tiredness and weakness. No chest pain or palpitations. Patient's steroids have been tapered by Dr. Blanton, who is following the patient closely. On exam, alert and oriented x3. Pulse is 92, blood pressure is 116/78, respiration 18, temp 97.4, pulse ox 91% on 2L. HEENT: Conjunctivae normal. NECK: No jugular venous distension. CARDIOVASCULAR: S1 and S2 muffled. RESPIRATORY: Breath sounds diminished in the bases. Bilateral scattered rhonchi and expiratory wheezing and crackles. ABDOMEN: Soft, nontender. LEGS: No edema. NERVOUS: Nonfocal. LABS: WBC 10.9, hemoglobin is 13.5. AST 51, ALT 72, alk phos is 170. Albumin is 3.2. ASSESSMENT: 1. Chronic obstructive pulmonary disease acute exacerbation with acute bilateral pneumonia, possibly gram-negative with early sepsis, present on admission. 2. Increased D-dimer, present on admission. No evidence of pulmonary embolism. 3. Hyponatremia mild dehydration, present on admission. 4. Increased AST, ALT, alkaline phosphatase indicating mild hepatitis. 5. Sinus tachycardia possibly. 6. History of chronic obstructive pulmonary disease. 7. History of cerebrovascular accident, transient ischemic attack. 8. History of gastroesophageal reflux disease. 9. Hyperlipidemia. 10. History of degenerative joint disease. 11. History of pneumonia. 12. History of multiple sclerosis. 13. History of chronic pain syndrome. 14. History of gait dysfunction. 15. History of percutaneous endoscopic gastrostomy tube with insertion and removal. 16. History of bilateral cataracts. 17. History of depression per chart. 18. History of nicotine dependence, continued ongoing. 19. FULL CODE. RECOMMENDATIONS AND DISCUSSION: In this 75-year-old woman who presented with multiple complex medical issues, will monitor the patient closely. Continue with the bronchodilators. Continue with empiric antibiotics. Will taper the steroids. LFTs are still elevated. I would also recommend an acute hepatitis panel as well. Otherwise, continue to monitor. Will also obtain a PT, OT evaluation for possible ECF rehab. Prognosis guarded. Further recommendations to follow. Discussed with Dr. Blanton. [facility]
[2016-08-16] MEDS: risperiDONE 0.5 MG TAB PO SCH (21:10)
[2016-08-16] MEDS: ATORVASTATIN 10 MG TAB PO SCH (21:10)
[2016-08-16] MEDS: DIAZEPAM 5 MG TAB PO PRN (21:20)
[2016-08-17] MEDS: traMADol 50 MG TAB PO PRN ×6 (01:32→22:39)
[2016-08-17] MEDS: NICOTINE 14MG/24HR PATCH TRANSDERM SCH ×2 (01:33→21:02)
[2016-08-17] MEDS: DUREZOL 0.05% LEFT EYE SCH ×2 (07:48→21:03)
[2016-08-17] MEDS: GABAPENTIN 300 MG CAP PO SCH ×3 (07:49→21:02)
[2016-08-17] MEDS: DICLOFENAC 0.1% OPHTH SOLN 2.5 ML BTL LEFT EYE SCH ×2 (07:49→21:03)
[2016-08-17] MEDS: HEPARIN SODIUM,PORCINE 5,000 UNIT/ML 1 ML VIAL SQ SCH ×2 (07:49→21:03)
[2016-08-17] MEDS: predniSONE 20 MG TAB PO SCH (07:49)
[2016-08-17] MEDS: LEVOFLOXACIN 500 MG TAB PO SCH (07:50)
[2016-08-17] MEDS ORDERED: BISACODYL 5 MG TABLET.DR PO STA (07:53)
[2016-08-17] MEDS: BUDESONIDE 1 MG/2 ML NEBU INHALATION SCH ×2 (07:55→20:27)
[2016-08-17] MEDS: FORMOTEROL FUMARATE 20 MCG/2 ML NEBU INHALATION SCH ×2 (07:55→20:27)
[2016-08-17] MEDS: IPRATROPIUM-ALBUTEROL 3 ML NEB INHALATION SCH ×4 (07:55→20:27)
[2016-08-17 08:47] LABS: Basophils # (A) 0.1 k/uL (0-0.2); Basophils % (A) 1 %; CHCM 31.8; Eosinophils # (A) 0.1 k/uL (0-0.7); Eosinophils % (A) 1 %; HCT 43.7 % (34.0-46.0); HDW 2.67; HGB 13.8 gm/dL (11.4-16.0); Hypochromasia Slight; Luc % (Auto) 2; Lymphocytes % (A) 21 %; MCH 28.9 pg (25.0-35.0); MCHC 31.6 g/dL (31.0-37.0); MCV 91.5 fL (80.0-100.0); Mean Platelet Volume 7.6; Monocytes # (A) 0.6 k/uL (0-1.0); Monocytes % (A) 6 %; Neutrophils # (A) 6.6 k/uL (1.3-7.7); Neutrophils % (A) 70 %; RBC 4.78 m/uL (3.80-5.40); RDW 14.7 % (11.5-15.5); WBC 9.5 k/uL (3.8-10.6); WBC (Perox) 9.45
[2016-08-17 08:56] LABS: ALT 97 U/L (9-52); AST 61 U/L (14-36); Alkaline Phosphatase 189 U/L (38-126); Anion Gap 9 mmol/L; Blood Urea Nitrogen 18 mg/dL (7-17); Carbon Dioxide 27 mmol/L (22-30); Chloride 103 mmol/L (98-107); Glucose 72 mg/dL (74-99); Non-African American GFR(MDRD) >60 (>60 ml/min/1.73 sqM); Potassium 4.3 mmol/L (3.5-5.1); Sodium 139 mmol/L (137-145); Total Bilirubin 0.9 mg/dL (0.2-1.3); Total Protein 6.2 g/dL (6.3-8.2)
--- NOTE | 2016-08-17 13:57 | P.PN ---
Subjective Progress note dated 08/16/2016 75-year-old female who was admitted with a diagnosis of COPD exacerbation. She also has a history of CVA GERD hyperlipidemia hypertension DJD chronic kidney disease pneumonia and hysterectomy. Anyway the patient is doing better. From our perspective could be discharged home today or tomorrow. She seems want to continue to stay here all of she seemed pretty comfortable. She does not appear to be any distress. No audible wheezing. Doesn't appear to be coughing up much. No phlegm production. We did speak to Dr. Sumner about her and did maintain that she could probably be discharged today. Progress note dated 08/17/2016 75-year-old female with admitted with a diagnosis of COPD exacerbation. She has a history of CVA GERD hyperlipidemia hypertension DJD chronic kidney disease pneumonia and hysterectomy. The patient is doing much better. Feeling much better. She could be discharged home. She is hoping to Dr. Sumner lesser stay another day. Anyway, she is eating her lunch at the time of the evaluation. No respiratory distress. No audible wheezing. No coughing. Denies bringing up any phlegm. No fever no chills. No nausea vomiting or diarrhea. Objective - Vital Signs Vital signs: Vital Signs Temp 96.9 F L 08/17/16 07:00 Pulse 96 08/17/16 12:36 Resp 22 08/17/16 07:00 BP 98/62 08/17/16 07:00 Pulse Ox 92 L 08/17/16 07:00 Intake & Output 08/16/16 08/17/16 08/17/16 18:59 06:59 18:59 Intake Total 240 240 Balance 240 240 Intake: Oral 240 240 Other: # Voids 4 2 1 # Bowel Movements 1 - Exam No acute distress, oriented 3. Wearing nasal O2. HEENT examination is grossly unremarkable. Mucous membranes are moist. No oral lesions. Next Neck supple. Full range of motion. No adenopathy or thyromegaly. Cardiovascular examination reveals regular rhythm rate. S1 and S2 normal. No murmur. Lungs reveal few scattered mild rhonchi. No wheezes or crackles. Breath sounds are slightly diminished. Abdomen soft bowel sounds are heard. Extremities are intact. - Labs CBC & Chem 7: 08/17/16 07:18 08/17/16 07:18 Labs: Abnormal Lab Results - Last 24 Hours (Table) 08/17/16 Range/Units 07:18 BUN 18 H (7-17) mg/dL Glucose 72 L (74-99) mg/dL AST 61 H (14-36) U/L ALT 97 H (9-52) U/L Alkaline Phosphatase 189 H (38-126) U/L Total Protein 6.2 L (6.3-8.2) g/dL Albumin 3.3 L (3.5-5.0) g/dL Microbiology - Last 24 Hours (Table) 08/13/16 02:39 Blood Culture - Preliminary Blood No Growth after 96 hours Assessment and Plan (1) GERD (gastroesophageal reflux disease) Status: Acute (2) Hyperlipidemia Status: Acute (3) Hypertension Status: Acute (4) Multiple sclerosis Status: Acute (5) Cerebral anoxic injury Status: Acute (6) COPD (chronic obstructive pulmonary disease) Status: Acute Plan: Plan The patient weeps placed on standard medications including albuterol and Atrovent updrafts 4 times a day and when necessary. We'll also place her on Pulmicort 1 mg and Perforomist twice a day. She also should be she also should be on Solu-Medrol 60 mg every 6. We'll review her x-rays. We'll put on some sort of antibiotic. Additional recommendations suggestions are forthcoming. Prognosis is guarded. She will need to see a lung doctor post discharge. Plan dated 08/16/2016 The patient's doing well from our perspective. The patient could be discharged home. We'll allow Dr. Sumner to make that decision. She is discharged she should go home on a prednisone taper beginning with 40 mg for 4 days 30 mg 4 days 20 mg 4 days 10 mg 4 days and stop. She also go home on a short course of antibiotics. I would also favor one of the current combination medications which contain and inhaled corticosteroid and long-acting beta agonist. Either Advair or Symbicort will be adequate. Finally, she needs a short acting beta agonists and probably a short acting muscarinic antagonist her nebulizer machine. She should follow-up with one of us in the office. Plan dated 08/17/2016 The patient's doing well. From my perspective, the pulmonary perspective, the patient could be discharged home. The patient feels well. Waiting for Dr. Sumner. The patient's hoping Dr. Sumner keeps her 1 additional day. Again she is feeling much improved. No significant cough wheezing shortness of breath. Not coughing up any phlegm. She states that she is very weak and not ready to be discharged. Time with Patient: Less than 30
[2016-08-17] MEDS: DOCUSATE 100 MG CAP PO SCH ×2 (18:30→21:03)
[2016-08-17] MEDS: ATORVASTATIN 10 MG TAB PO SCH (21:02)
[2016-08-17] MEDS: risperiDONE 0.5 MG TAB PO SCH (21:02)
[2016-08-17] MEDS: DIAZEPAM 5 MG TAB PO PRN (21:03)
[2016-08-18] MEDS: traMADol 50 MG TAB PO PRN ×4 (02:34→13:48)
[2016-08-18 07:49] VITALS: RESP 20
[2016-08-18] MEDS: FORMOTEROL FUMARATE 20 MCG/2 ML NEBU INHALATION SCH (07:58)
[2016-08-18] MEDS: IPRATROPIUM-ALBUTEROL 3 ML NEB INHALATION SCH ×2 (07:58→12:05)
[2016-08-18] MEDS: BUDESONIDE 1 MG/2 ML NEBU INHALATION SCH (07:58)
--- NOTE | 2016-08-18 09:07 | PN ---
DATE OF SERVICE: 08/17/2016 This is a 75-year-old woman who was admitted with COPD, acute exacerbation, with acute bilateral pneumonia, is still complaining of tiredness and weakness. No chest pain, no palpitation, no fever. On exam, alert and oriented x3. Pulse 100, blood pressure 131/85, respirations 20, temperature is 97.7, pulse ox 94% on 2 L. HEENT: Conjunctivae normal. NECK: No jugular venous distension. CARDIOVASCULAR: S1, S2, muffled. RESPIRATIONS: Breath sounds diminished at the bases, bilateral scattered rhonchi, no crackles. Abdomen is soft, nontender. EXTREMITIES: Legs no edema, no swelling. Labs are CBC within normal limits. AST is 61, ALT is 97, the hepatitis panel is negative. ASSESSMENT: 1. Chronic obstructive pulmonary disease acute exacerbation with acute bilateral pneumonia, possibly gram-negative with early sepsis, present on admission. 2. Increased d-dimer present on admission. No evidence of pulmonary embolus. 3. Hyponatremia with mild dehydration present on admission. 4. Increased AST, ALT, alkaline phosphatase and possible mild hepatitis. 5. Sinus tachycardia possibly. 6. History of chronic obstructive pulmonary disease. 7. History of cerebrovascular accident, transient ischemic attack. 8. History of gastroesophageal reflux disease. 9. Hyperlipidemia. 10. History of degenerative joint disease. 11. History of pneumonia. 12. History of multiple sclerosis. 13. History of chronic pain syndrome. 14. History of gait dysfunction. 15. History of PEG tube placement and insertion and removal. 16. History of bilateral cataracts. 17. History of depression per chart. 18. History of nicotine dependence, continued ongoing. 19. FULL CODE. RECOMMENDATION: Recommend to continue with the current medications, continue with the symptomatic treatment. Continue to taper the steroids, bronchodilators and empiric antibiotics. Also recommend ultrasound of the abdomen also to complete the work-up because of the high LFTs. Will continue to monitor and further recommendations to follow.
[2016-08-18 09:26] LABS: Basophils % (A) 0 %; CH 28.8; CHCM 31.8; Eosinophils # (A) 0.2 k/uL (0-0.7); Eosinophils % (A) 2 %; HCT 47.2 % (34.0-46.0); HGB 14.5 gm/dL (11.4-16.0); Hypochromasia Slight; Luc # (Auto) 0.19; Luc % (Auto) 2; Lymphocytes % (A) 24 %; MCH 27.9 pg (25.0-35.0); MCHC 30.8 g/dL (31.0-37.0); MCV 90.7 fL (80.0-100.0); Mean Platelet Volume 6.6; Monocytes # (A) 0.4 k/uL (0-1.0); Monocytes % (A) 5 %; Neutrophils # (A) 5.6 k/uL (1.3-7.7); Neutrophils % (A) 66 %; RBC 5.21 m/uL (3.80-5.40); RDW 14.6 % (11.5-15.5); WBC 8.5 k/uL (3.8-10.6); WBC (Perox) 8.31
[2016-08-18] MEDS: DICLOFENAC 0.1% OPHTH SOLN 2.5 ML BTL LEFT EYE SCH (09:27)
[2016-08-18] MEDS: DOCUSATE 100 MG CAP PO SCH (09:28)
[2016-08-18] MEDS: HEPARIN SODIUM,PORCINE 5,000 UNIT/ML 1 ML VIAL SQ SCH (09:28)
[2016-08-18] MEDS: DUREZOL 0.05% LEFT EYE SCH (09:29)
[2016-08-18] MEDS: GABAPENTIN 300 MG CAP PO SCH (09:29)
[2016-08-18] MEDS ORDERED: BISACODYL 5 MG TABLET.DR PO STA (09:29)
[2016-08-18] MEDS: LEVOFLOXACIN 500 MG TAB PO SCH (09:29)
[2016-08-18] MEDS: predniSONE 20 MG TAB PO SCH (09:29)
[2016-08-18] MEDS ORDERED: BISACODYL 10 MG SUPP RECTAL STA (09:30)
[2016-08-18 09:47] LABS: ALT 103 U/L (9-52); AST 58 U/L (14-36); Alkaline Phosphatase 167 U/L (38-126); Anion Gap 9 mmol/L; Blood Urea Nitrogen 15 mg/dL (7-17); Carbon Dioxide 28 mmol/L (22-30); Chloride 103 mmol/L (98-107); Glucose 86 mg/dL (74-99); Non-African American GFR(MDRD) >60 (>60 ml/min/1.73 sqM); Potassium 4.2 mmol/L (3.5-5.1); Sodium 140 mmol/L (137-145); Total Bilirubin 0.9 mg/dL (0.2-1.3); Total Protein 6.4 g/dL (6.3-8.2)
--- NOTE | 2016-08-18 11:29 | US ---
EXAMINATION TYPE: US liver DATE OF EXAM: 08/18/2016 9:00 AM COMPARISON: NONE CLINICAL HISTORY: 75-year-old female with elevated LFTs. TECHNIQUE: Multiple sonographic images of the right upper quadrant are obtained. FINDINGS: Liver Length: 16.4 cm Gallbladder Wall: 0.2 cm CBD: 0.5 cm Right Kidney: 12.0 x 4.0 x 5.3 cm Pancreas: Tail obscured by overlying bowel gas. Visualized portions show no gross abnormality. Liver: Limited visualization of some portions of the liver due to patient breathing. Visualized port ions show no gross abnormality. Gallbladder: No abnormal gallbladder distention, wall thickening, or pericholecystic fluid. There is an echogenic focus measuring 11 x 9 mm along the posterior gallbladder wall not seen on left lateral decubitus view. Evidence for sonographic Vela's sign: no CBD: Within normal limits. Right Kidney: No hydronephrosis. IMPRESSION: 1. Limited views of the liver due to patient breathing. No gross abnormality of the visualized portio ns of the liver. 2. Either an 11 x 9 mm polyp or calculus along the posterior gallbladder wall. Recommend 3-6 month fo llow-up gallbladder ultrasound to reassess.
[2016-08-18 15:41] VITALS: BP 119/73; PULSE 97; TEMP 97.4
--- NOTE | 2016-08-18 16:17 | DS ---
DATE OF ADMISSION: 08/13/2016 DATE OF DISCHARGE: FINAL DIAGNOSES: 1. Chronic obstructive pulmonary disease exacerbation, with acute bilateral pneumonia, possibly gram-negative with early sepsis present on admission. 2. Increased d-dimer present on admission no history of pulmonary embolism. 3. Possible gallbladder polyp. 4. Hyponatremia with mild dehydration present on admission. 5. Hypovolemic hyponatremia. 6. Increased AST, ALT and alkaline phosphatase with possible mild hepatitis. 7. Sinus tachycardia possibly. 8. History of chronic obstructive pulmonary disease. 9. Cerebrovascular accident, transient ischemic attack. 10. History of gastroesophageal reflux disease. 11. Hyperlipidemia. 12. History of degenerative joint disease. 13. History of pneumonia. 14. History of multiple sclerosis. 15. History of chronic pain syndrome. 16. History of gait dysfunction. 17. History of PEG tube placement and insertion removal. 18. History of bilateral cataracts. 19. History of depression. 20. Remote history of nicotine dependence, continued ongoing. 21. FULL CODE. DISCHARGE DISPOSITION: The patient will be discharged in stable condition with guarded prognosis. Total time taken 35 minutes. HISTORY OF PRESENT ILLNESS: This 75-year-old woman with past medical history of multiple medical problems, was admitted with COPD exacerbation, also on multiple other medical issues including hyponatremia, increased LFTs also which is improving. The patient underwent an ultrasound of the liver, which showed possibly polyp or calculus along the posterior gallbladder wall, recommended outpatient follow-up. On examination, vital signs stable. CARDIOVASCULAR: S1, S2 muffled. Respiratory: A few scattered rhonchi. ABDOMEN: Soft. Nervous system: No focal deficits. The patient was seen Dr. Blanton who recommended the patient can be discharged. DISCHARGE ADVICE AND MEDICATIONS: 1. Diet is cardiac. 2. Activity limited until follow-up. 3. Follow-up with the primary physician in 2 to 3 days in [place]. 4. Follow-up with Dr. Blanton as recommended. 5. Symbicort 160/4.5, 2 puffs b.i.d. 6. Valium 10 mg q.h.s. p.r.n. 7. Diclofenac 0.1% b.i.d. 8. Durezol one drop left eye. 9. Diphenoxylate 1 tablets q.i.d. p.r.n. 10. Fluticasone spray daily p.r.n. 11. Neurontin 300 mg p.o. t.i.d. 12. Albuterol/Atrovent nebulizer q.i.d. and p.r.n. 13. Levaquin 500 mg p.o. daily for 5 days. 14. Morphine sulfate naltrexone 1 tablet p.o. daily. 15. Habitrol 14 daily. 16. Zocor 20 mg q.h.s. 17. Demadex 10 mg p.o. daily. 18. Prednisone 40 mg daily for 3 days, 30 for 3 days, 20 for 3 days, 10 for 3 days and stop. 19. Risperdal 0.5 mg q.h.s. 20. Ultram 50 mg q.4 p.r.n.
== END 2016-08-18 16:11 | disposition home health service (06) | DRG 871 ==
LOC: EC 22:56 → 4MS4W 08-13 01:34 → 6SEL 08-13 07:31 → 4MS4W 08-14 12:05
PROVIDERS: ADMIT Hospitalist; ATTEND Hospitalist
PROC: 3E0234Z Introduction of Serum, Toxoid and Vaccine into Muscle, Percutaneous Approach (ICD-10-PCS; principal; 2016-08-16)
PROC: 3E0234Z Introduction of Serum, Toxoid and Vaccine into Muscle, Percutaneous Approach (ICD-10-PCS; 2016-08-16)
DX: A41.50 Gram-negative sepsis, unspecified (principal); J18.9 Pneumonia, unspecified organism; E87.0 Hyperosmolality and hypernatremia; I69.351 Hemiplegia and hemiparesis following cerebral infarction affecting right dominant side; G35 Multiple sclerosis; K75.9 Inflammatory liver disease, unspecified; I69.328 Other speech and language deficits following cerebral infarction; J44.0 Chronic obstructive pulmonary disease with (acute) lower respiratory infection; J44.1 Chronic obstructive pulmonary disease with (acute) exacerbation; E86.0 Dehydration; E86.1 Hypovolemia; G89.4 Chronic pain syndrome; N18.9 Chronic kidney disease, unspecified; I12.9 Hypertensive chronic kidney disease with stage 1 through stage 4 chronic kidney disease, or unspecified chronic kidney disease; R93.2 Abnormal findings on diagnostic imaging of liver and biliary tract; R00.0 Tachycardia, unspecified; K21.9 Gastro-esophageal reflux disease without esophagitis; F17.210 Nicotine dependence, cigarettes, uncomplicated; E78.5 Hyperlipidemia, unspecified; F32.9 Major depressive disorder, single episode, unspecified; M19.90 Unspecified osteoarthritis, unspecified site; R53.1 Weakness; Z82.49 Family history of ischemic heart disease and other diseases of the circulatory system; Z23 Encounter for immunization; Z87.01 Personal history of pneumonia (recurrent); Z71.6 Tobacco abuse counseling; Z79.891 Long term (current) use of opiate analgesic; Z79.51 Long term (current) use of inhaled steroids; Z79.899 Other long term (current) drug therapy; Z98.42 Cataract extraction status, left eye; Z98.41 Cataract extraction status, right eye; Z90.710 Acquired absence of both cervix and uterus; Z84.1 Family history of disorders of kidney and ureter
CPT/HCPCS: 36415; 36600; 71010; 71275; 76705; 80053; 80074; 81003; 82550; 82553; 82805; 83605; 83735; 83880; 84484; 85025; 85379; 85610; 85730; 87040; 87502; 90686; 90732; 93005; 94640; 96365; 96366; 99285

== ENCOUNTER 2016-12-01 02:44 | Inpatient (IN) | payer MEDICARE ==
[2016-12-01] MEDS ORDERED: SODIUM CHLORIDE 0.9% 500 ML IV ONE (03:29)
[2016-12-01 03:38] LABS: Glucose,Whole Blood 129 mg/dL (75-99)
[2016-12-01 04:27] LABS: INR 1.3 (<1.1); Partial Thromboplastin Time 24.7 sec (22.0-30.0); Prothrombin Time 12.6 sec (9.0-12.0)
--- NOTE | 2016-12-01 04:27 | CT ---
EXAM: CT Head Without Intravenous Contrast CLINICAL HISTORY: Reason: altered mental status TECHNIQUE: Axial computed tomography images of the head/brain without intravenous contrast. CTDI is 57.4 mGy and DLP is 978.2 mGy-cm. This CT exam was performed using one or more of the following dose reduction techniques: automated exposure control, adjustment of the mA and/or kV according to patient size, and/or use of iterative reconstruction technique. COMPARISON: CT head dated 12/26/2014 FINDINGS: Brain: Marked areas of hypoattenuation within the supratentorial white matter, which has increased as compared to the prior, suggesting chronic small vessel ischemic disease. Remote infarct with left MCA territory and age indeterminate infarct within the left occipital lobe. A small superimposed acute infarct is not excluded. No hemorrhage. Ventricles: Unremarkable. No ventriculomegaly. Bones/joints: Unremarkable. No acute fracture. Soft tissues: Unremarkable. Sinuses: Mild mucosal thickening of the paranasal sinuses. Mastoid air cells: Unremarkable as visualized. No mastoid effusion. IMPRESSION: Marked areas of hypoattenuation within the supratentorial white matter, which has increased as compared to the prior, suggesting chronic small vessel ischemic disease. Remote infarct with left MCA territory and age indeterminate infarct within the left occipital lobe. A small superimposed acute infarct is not excluded. Consider MRI for further evaluation.
--- NOTE | 2016-12-01 04:29 | XR ---
EXAM: XR Chest, 1 View CLINICAL HISTORY: Reason: altered mental status TECHNIQUE: Frontal view of the chest. COMPARISON: Chest x-ray dated 12/31/2014 FINDINGS: Lungs: Bibasilar opacities which may represent a combination of pleural effusion and atelectasis. Pneumonia is not excluded. Probable mild pulmonary vascular congestion. Pleural space: See above. Heart: Moderate enlargement of the cardiomediastinal silhouette, which is unchanged. Mediastinum: See above. Bones/joints: Unremarkable. IMPRESSION: 1. Bibasilar opacities which may represent a combination of pleural effusion and atelectasis. Pneumonia is not excluded. 2. Probable mild pulmonary vascular congestion.
[2016-12-01 04:30] LABS: Anisocytosis Slight; Basophils % (A) 0 %; CHCM 32.6; Eosinophils # (A) 0.1 k/uL (0-0.7); Eosinophils % (A) 2 %; HDW 3.62; HGB 12.9 gm/dL (11.4-16.0); Hypochromasia Slight; Luc # (Auto) 0.23; Luc % (Auto) 3; Lymphocytes # (A) 1.1 k/uL (1.0-4.8); Lymphocytes % (A) 15 %; MCH 27.4 pg (25.0-35.0); MCV 83.1 fL (80.0-100.0); Monocytes # (A) 0.5 k/uL (0-1.0); Monocytes % (A) 7 %; Neutrophils # (A) 5.2 k/uL (1.3-7.7); Neutrophils % (A) 73 %; Poikilocytosis Slight; WBC 7.2 k/uL (3.8-10.6); WBC (Perox) 7.53
[2016-12-01 04:39] LABS: Appearance,Urine Cloudy (Clear); Bacteria,Urine Moderate /hpf; Bilirubin,Urine Negative (Negative); Glucose,Urine (UA) Negative (Negative); Ketones,Urine Negative (Negative); Leukocyte Esterase,Urine Large (Negative); Mucus,Urine Few /hpf; Nitrite,Urine Positive (Negative); PH, Urine 6.5 (5.0-8.0); Particle Count 118931; Protein,Urine 1+ (Negative); RBC,Urine 20 /hpf (0-5); Specific Gravity,Urine 1.015 (1.001-1.035); UA Billing (MACRO vs. MICRO) MICRO; WBC,Urine >182 /hpf (0-5)
[2016-12-01] MEDS ORDERED: IPRATROPIUM-ALBUTEROL 3 ML NEB INHALATION STA (05:23)
[2016-12-01 05:27] LABS: ALT 27 U/L (9-52); AST 12 U/L (14-36); Alkaline Phosphatase 84 U/L (38-126); Anion Gap 6 mmol/L; Blood Urea Nitrogen 16 mg/dL (7-17); Calcium 7.8 mg/dL (8.4-10.2); Carbon Dioxide 28 mmol/L (22-30); Chloride 105 mmol/L (98-107); Glucose 83 mg/dL (74-99); Non-African American GFR(MDRD) >60 (>60 ml/min/1.73 sqM); Potassium 4.3 mmol/L (3.5-5.1); Sodium 139 mmol/L (137-145); Total Bilirubin 0.9 mg/dL (0.2-1.3)
[2016-12-01] MEDS ORDERED: NALOXONE 0.4 MG/ML 1 ML VIAL IV PRN (06:52)
[2016-12-01] MEDS ORDERED: ACETAMINOPHEN TAB 325 MG TAB PO PRN (06:52)
--- NOTE | 2016-12-01 06:56 | ED ---
Altered Mental Status HPI - General Chief Complaint: Altered Mental Status Stated Complaint: Overdose Time Seen by Provider: 12/01/16 03:05 Source: patient, EMS Mode of arrival: EMS Limitations: altered mental status - History of Present Illness Initial Comments: This patient is a 75-year-old woman brought in after her felt that she was not having adequate improvement in her mental status. The patient's has reportedly taken a number of extra doses of gabapentin approximately 3-4 days ago. She was very somnolent and sleeping for most of the past 2 days. The patient does have history of overusing her a prescription medications that she does take for back pain. The patient's became concerned because she has just been sleeping for the most part the past 2 days. The patient is denying complaints. MD Complaint: altered mental status, confusion Onset/Timin -: days(s) Severity: moderate Consistency of Symptoms: constant Context: other (Prescription medication abuse) Associated Symptoms: denies other symptoms - Related Data Home Medications Medication Instructions Recorded Confirmed Diazepam [Valium] 10 mg PO HS PRN 01/31/16 12/01/16 Gabapentin [Neurontin] 300 mg PO TID 01/31/16 12/01/16 risperiDONE [RisperDAL] 0.5 mg PO HS 08/13/16 12/01/16 Morphine Sulfate/Naltrexone 1 tab PO DAILY 12/01/16 12/01/16 [Embeda ER 50-2 mg Capsule] metroNIDAZOLE [Metronidazole] 500 mg PO Q8HR 12/01/16 12/01/16 Allergies Allergy/AdvReac Type Severity Reaction Status Date / Time No Known Allergies Allergy Verified 12/01/16 02:47 Review of Systems ROS Statement: Those systems with pertinent positive or pertinent negative responses have been documented in the HPI. ROS Other: All systems not noted in ROS Statement are negative. Limitations: ROS unobtainable due to patients medical condition Respiratory: Denies: cough, dyspnea Cardiovascular: Denies: chest pain Gastrointestinal: Denies: abdominal pain, vomiting Musculoskeletal: Reports: back pain (Chronic) Skin: Denies: rash Neurological: Denies: headache Psychiatric: Denies: suicidal thoughts Past Medical History Past Medical History: COPD, CVA/TIA, GERD/Reflux, Hyperlipidemia, Musculoskeletal Disorder, Neurologic Disorder, Osteoarthritis (OA), Pneumonia Additional Past Medical History / Comment(s): Multiple sclerosis, 2015 CVA with some R sided weakness arm/leg and slow speech and slight difficulty swallowing, hypertension and renal disease per PMH but pt denies, chronic pain mostly in bilateral legs. History of Any Multi-Drug Resistant Organisms: None Reported Past Surgical History: Hysterectomy, Orthopedic Surgery Additional Past Surgical History / Comment(s): Peg tube insertion (since removed ), bilateral cataract removal and twice on the left side, colonoscopy, left lower abdominal cystectomy. Past Anesthesia/Blood Transfusion Reactions: No Reported Reaction Past Psychological History: No Psychological Hx Reported Additional Psychological History / Comment(s): Per PMH, pt has depression but pt denies ever having a problem with depression. Pt lives with her spouse of 57yrs. She ambulates without device. She is independent. Smoking Status: Current every day smoker Past Alcohol Use History: None Reported Additional Past Alcohol Use History / Comment(s): Pt started smoking in 1959. She is a ppd smoker. Past Drug Use History: None Reported - Past Family History Mother History Unknown: Yes Family Medical History: No Reported History, Renal Disease Additional Family Medical History / Comment(s): Mother was healthy and lived to be 88yrs old. Father History Unknown: Yes Family Medical History: Osteoarthritis (OA) Additional Family Medical History / Comment(s): Pt states her father at the age of 68yrs due to his debilitating arthritis. General Exam Limitations: altered mental status General appearance: appears intoxicated, other (Patient is somnolent but arousable to verbal stimuli.) Head exam: Present: atraumatic, normocephalic Eye exam: Present: normal appearance, nystagmus. Absent: scleral icterus, conjunctival injection ENT exam: Present: mucous membranes dry Neck exam: Present: normal inspection, full ROM. Absent: tenderness Respiratory exam: Present: rhonchi. Absent: respiratory distress, wheezes, rales, chest wall tenderness Cardiovascular Exam: Present: regular rate, normal rhythm, normal heart sounds. Absent: bradycardia, tachycardia, systolic murmur, diastolic murmur, rubs, gallop GI/Abdominal exam: Present: soft. Absent: distended, tenderness, guarding, rebound, rigid Extremities exam: Present: normal capillary refill, other (There are mild chronic venous stasis changes bilaterally). Absent: pedal edema, calf tenderness Back exam: Present: normal inspection. Absent: CVA tenderness (R), CVA tenderness (L) Neurological exam: Present: altered (Patient is somnolent but does arouse to verbal stimuli.), CN II-XII intact. Absent: oriented X3 (Oriented to person and place but not the exact date.), motor sensory deficit Skin exam: Present: warm, dry, intact, normal color. Absent: rash Course Vital Signs 12/01/16 12/01/16 12/01/16 02:47 04:18 04:55 Temperature 100.2 F H Pulse Rate 99 96 101 H Respiratory 20 18 18 Rate Blood Pressure 123/57 99/56 96/71 O2 Sat by Pulse 91 L 95 96 Oximetry 12/01/16 12/01/16 12/01/16 05:33 05:41 05:50 Temperature 98.9 F Pulse Rate 99 96 82 Respiratory 18 Rate Blood Pressure 96/57 O2 Sat by Pulse 96 Oximetry 12/01/16 07:32 Temperature 98.6 F Pulse Rate 107 H Respiratory 20 Rate Blood Pressure 117/67 O2 Sat by Pulse 98 Oximetry Medical Decision Making - Lab Data Result diagrams: 12/01/16 03:06 12/01/16 04:45 Lab Results 12/01/16 12/01/16 12/01/16 Range/Units 03:06 03:06 03:06 WBC 7.2 (3.8-10.6) k/uL RBC 4.70 (3.80-5.40) m/uL Hgb 12.9 (11.4-16.0) gm/dL Hct 39.0 (34.0-46.0) % MCV 83.1 (80.0-100.0) fL MCH 27.4 (25.0-35.0) pg MCHC 33.0 (31.0-37.0) g/dL RDW 17.0 H (11.5-15.5) % Plt Count 209 (150-450) k/uL Neutrophils % 73 % Lymphocytes % 15 % Monocytes % 7 % Eosinophils % 2 % Basophils % 0 % Neutrophils # 5.2 (1.3-7.7) k/uL Lymphocytes # 1.1 (1.0-4.8) k/uL Monocytes # 0.5 (0-1.0) k/uL Eosinophils # 0.1 (0-0.7) k/uL Basophils # 0.0 (0-0.2) k/uL Hypochromasia Slight Poikilocytosis Slight Anisocytosis Slight PT 12.6 H (9.0-12.0) sec INR 1.3 (<1.1) APTT 24.7 (22.0-30.0) sec Sodium (137-145) mmol/L Potassium (3.5-5.1) mmol/L Chloride (98-107) mmol/L Carbon Dioxide (22-30) mmol/L Anion Gap mmol/L BUN (7-17) mg/dL Creatinine (0.52-1.04) mg/dL Est GFR (MDRD) Af Amer (>60 ml/min/1.73 sqM) Est GFR (MDRD) Non-Af (>60 ml/min/1.73 sqM) Glucose (74-99) mg/dL POC Glucose (mg/dL) (75-99) mg/dL POC Glu [employer]dnance Engineering Technician ID Plasma Lactic Acid Go 0.8 (0.7-2.0) mmol/L Calcium (8.4-10.2) mg/dL Total Bilirubin (0.2-1.3) mg/dL AST (14-36) U/L ALT (9-52) U/L Alkaline Phosphatase (38-126) U/L Ammonia 32 H (<30) umol/L Troponin I (0.000-0.034) ng/mL Total Protein (6.3-8.2) g/dL Albumin (3.5-5.0) g/dL Urine Color Urine Appearance (Clear) Urine pH (5.0-8.0) Ur Specific [place] (1.001-1.035) Urine Protein (Negative) Urine Glucose (UA) (Negative) Urine Ketones (Negative) Urine Blood (Negative) Urine Nitrite (Negative) Urine Bilirubin (Negative) Urine Urobilinogen (<2.0) mg/dL Ur Leukocyte Esterase (Negative) Urine RBC (0-5) /hpf Urine WBC (0-5) /hpf Urine WBC Clumps (None) /hpf Urine Bacteria (None) /hpf Urine Mucus (None) /hpf Urine Opiates Screen (NotDetected) Ur Oxycodone Screen (NotDetected) Urine Methadone Screen (NotDetected) Ur Propoxyphene Screen (NotDetected) Ur Barbiturates Screen (NotDetected) U Tricyclic Antidepress (NotDetected) Ur Phencyclidine Scrn (NotDetected) Ur Amphetamines Screen (NotDetected) U Methamphetamines Scrn (NotDetected) U Benzodiazepines Scrn (NotDetected) Urine Cocaine Screen (NotDetected) U Marijuana (THC) Screen (NotDetected) 12/01/16 12/01/16 12/01/16 Range/Units 03:36 04:12 04:45 WBC (3.8-10.6) k/uL RBC (3.80-5.40) m/uL Hgb (11.4-16.0) gm/dL Hct (34.0-46.0) % MCV (80.0-100.0) fL MCH (25.0-35.0) pg MCHC (31.0-37.0) g/dL RDW (11.5-15.5) % Plt Count (150-450) k/uL Neutrophils % % Lymphocytes % % Monocytes % % Eosinophils % % Basophils % % Neutrophils # (1.3-7.7) k/uL Lymphocytes # (1.0-4.8) k/uL Monocytes # (0-1.0) k/uL Eosinophils # (0-0.7) k/uL Basophils # (0-0.2) k/uL Hypochromasia Poikilocytosis Anisocytosis PT (9.0-12.0) sec INR (<1.1) APTT (22.0-30.0) sec Sodium 139 (137-145) mmol/L Potassium 4.3 (3.5-5.1) mmol/L Chloride 105 (98-107) mmol/L Carbon Dioxide 28 (22-30) mmol/L Anion Gap 6 mmol/L BUN 16 (7-17) mg/dL Creatinine 0.80 (0.52-1.04) mg/dL Est GFR (MDRD) Af Amer >60 (>60 ml/min/1.73 sqM) Est GFR (MDRD) Non-Af >60 (>60 ml/min/1.73 sqM) Glucose 83 (74-99) mg/dL POC Glucose (mg/dL) 129 H (75-99) mg/dL POC Glu Ordnance Engineering Technician ID Kercher, Sara Plasma Lactic Acid Go (0.7-2.0) mmol/L Calcium 7.8 L (8.4-10.2) mg/dL Total Bilirubin 0.9 (0.2-1.3) mg/dL AST 12 L (14-36) U/L ALT 27 (9-52) U/L Alkaline Phosphatase 84 (38-126) U/L Ammonia (<30) umol/L Troponin I (0.000-0.034) ng/mL Total Protein 5.0 L (6.3-8.2) g/dL Albumin 2.5 L (3.5-5.0) g/dL Urine Color Yellow Urine Appearance Cloudy H (Clear) Urine pH 6.5 (5.0-8.0) Ur Specific [place] 1.015 (1.001-1.035) Urine Protein 1+ H (Negative) Urine Glucose (UA) Negative (Negative) Urine Ketones Negative (Negative) Urine Blood Small H (Negative) Urine Nitrite Positive H (Negative) Urine Bilirubin Negative (Negative) Urine Urobilinogen 3.0 (<2.0) mg/dL Ur Leukocyte Esterase Large H (Negative) Urine RBC 20 H (0-5) /hpf Urine WBC >182 H (0-5) /hpf Urine WBC Clumps Few H (None) /hpf Urine Bacteria Moderate H (None) /hpf Urine Mucus Few H (None) /hpf Urine Opiates Screen Detected H (NotDetected) Ur Oxycodone Screen Not Detected (NotDetected) Urine Methadone Screen Not Detected (NotDetected) Ur Propoxyphene Screen Not Detected (NotDetected) Ur Barbiturates Screen Not Detected (NotDetected) U Tricyclic Antidepress Not Detected (NotDetected) Ur Phencyclidine Scrn Not Detected (NotDetected) Ur Amphetamines Screen Not Detected (NotDetected) U Methamphetamines Scrn Not Detected (NotDetected) U Benzodiazepines Scrn Detected H (NotDetected) Urine Cocaine Screen Not Detected (NotDetected) U Marijuana (THC) Screen Not Detected (NotDetected) 12/01/16 Range/Units 04:45 WBC (3.8-10.6) k/uL RBC (3.80-5.40) m/uL Hgb (11.4-16.0) gm/dL Hct (34.0-46.0) % MCV (80.0-100.0) fL MCH (25.0-35.0) pg MCHC (31.0-37.0) g/dL RDW (11.5-15.5) % Plt Count (150-450) k/uL Neutrophils % % Lymphocytes % % Monocytes % % Eosinophils % % Basophils % % Neutrophils # (1.3-7.7) k/uL Lymphocytes # (1.0-4.8) k/uL Monocytes # (0-1.0) k/uL Eosinophils # (0-0.7) k/uL Basophils # (0-0.2) k/uL Hypochromasia Poikilocytosis Anisocytosis PT (9.0-12.0) sec INR (<1.1) APTT (22.0-30.0) sec Sodium (137-145) mmol/L Potassium (3.5-5.1) mmol/L Chloride (98-107) mmol/L Carbon Dioxide (22-30) mmol/L Anion Gap mmol/L BUN (7-17) mg/dL Creatinine (0.52-1.04) mg/dL Est GFR (MDRD) Af Amer (>60 ml/min/1.73 sqM) Est GFR (MDRD) Non-Af (>60 ml/min/1.73 sqM) Glucose (74-99) mg/dL POC Glucose (mg/dL) (75-99) mg/dL POC Glu Ordnance Engineering Technician ID Plasma Lactic Acid Go (0.7-2.0) mmol/L Calcium (8.4-10.2) mg/dL Total Bilirubin (0.2-1.3) mg/dL AST (14-36) U/L ALT (9-52) U/L Alkaline Phosphatase (38-126) U/L Ammonia (<30) umol/L Troponin I 0.166 H* (0.000-0.034) ng/mL Total Protein (6.3-8.2) g/dL Albumin (3.5-5.0) g/dL Urine Color Urine Appearance (Clear) Urine pH (5.0-8.0) Ur Specific [place] (1.001-1.035) Urine Protein (Negative) Urine Glucose (UA) (Negative) Urine Ketones (Negative) Urine Blood (Negative) Urine Nitrite (Negative) Urine Bilirubin (Negative) Urine Urobilinogen (<2.0) mg/dL Ur Leukocyte Esterase (Negative) Urine RBC (0-5) /hpf Urine WBC (0-5) /hpf Urine WBC Clumps (None) /hpf Urine Bacteria (None) /hpf Urine Mucus (None) /hpf Urine Opiates Screen (NotDetected) Ur Oxycodone Screen (NotDetected) Urine Methadone Screen (NotDetected) Ur Propoxyphene Screen (NotDetected) Ur Barbiturates Screen (NotDetected) U Tricyclic Antidepress (NotDetected) Ur Phencyclidine Scrn (NotDetected) Ur Amphetamines Screen (NotDetected) U Methamphetamines Scrn (NotDetected) U Benzodiazepines Scrn (NotDetected) Urine Cocaine Screen (NotDetected) U Marijuana (THC) Screen (NotDetected) - EKG Data -: EKG Interpreted by Me EKG shows normal: sinus rhythm, axis (Normal), QRS complexes (Low voltage QRS complexes) Rate: normal Interpretation: other (Underlying rhythm is sinus with a few PVCs) Disposition Clinical Impression: Altered mental status, Drug overdose, Urinary tract infection Disposition: ADMITTED IP TO THIS [facility] Condition: Fair
[2016-12-01] MEDS ORDERED: LORazepam 2 MG/ML SYRINGE IV STA (07:00)
[2016-12-01] MEDS ORDERED: LORazepam 2 MG/ML SYRINGE IM STA (07:17)
[2016-12-01] MEDS: SODIUM CHLORIDE 0.9% 1,000 ML IV SCH (09:24)
[2016-12-01] MEDS: FAMOTIDINE 20 MG TAB PO SCH ×2 (11:37→21:02)
[2016-12-01 11:44] LABS: Acetaminophen <10.0 ug/mL; Salicylate <1.0 mg/dL
[2016-12-01] MEDS ORDERED: DIAZEPAM 5 MG TAB PO PRN (15:25)
[2016-12-01] MEDS: GABAPENTIN 300 MG CAP PO SCH ×2 (17:06→21:02)
[2016-12-01] MEDS ORDERED: ASPIRIN 81 MG CHEW PO STA (18:19)
[2016-12-01] MEDS ORDERED: IPRATROPIUM-ALBUTEROL 3 ML NEB INHALATION PRN (18:28)
[2016-12-01] MEDS ORDERED: risperiDONE 0.5 MG TAB PO SCH (21:00)
[2016-12-01] MEDS: METOPROLOL TARTRATE 12.5 MG TAB PO SCH (21:02)
[2016-12-01] MEDS: ENOXAPARIN 40 MG/0.4 ML SYRINGE SQ SCH (21:07)
[2016-12-02] MEDS ORDERED: FUROSEMIDE 10 MG/ML 4 ML VIAL IV STA (00:12)
--- NOTE | 2016-12-02 05:44 | HP ---
DATE OF ADMISSION: REASON FOR ADMISSION: Change in mental status. HISTORY OF PRESENTING ILLNESS: This is a 75-year-old female known to have a diagnosis of multiple sclerosis, peripheral neuropathy, was brought into the hospital by her who felt that patient has been progressively getting worse over the last few weeks. Patient's states that she has been sleeping pretty much the entire month. Her mental status and her functional status has gotten progressively worse. Patient apparently has taken a total of 450, 300 mg gabapentin tablets within a period of month. Patient is recommended to take gabapentin 300 mg 5 times daily, however, states that she has not been having a good day, hence then overusing the medication. Patient is on other narcotics. However, those are apparently locked away in a safe by the patient's . States that she was not trying to hurt herself. However, states she does not feel well hence takes the medications to help her get over her condition. The patient's is at bedside states that he is extremely worried that he would find her and hence brought her in to the hospital for ongoing care. Patient has had a history of previous stroke with right-sided residual weakness. However, is able to perform all her ADLs and is able to ambulate with a walker at home. The patient denies having any headaches, blurry vision, nausea, vomiting, urinary urgency or frequency. Patient's UA does appear to be abnormal. Due to her mental status, will start the patient empirically on Rocephin at this time. Fourteen-point review of systems was done; none pertinent other than what was mentioned above. Home medications include: 1. Diazepam. 2. Gabapentin. 3. Risperdal. 4. Morphine. 5. Naltrexone. 6. Flagyl. ALLERGIES: No known drug allergies. PAST MEDICAL HISTORY: COPD, CVA, ongoing tobacco use, dyslipidemia, multiple sclerosis.CKD stage II. Surgeries include previous PEG tube insertion, colonoscopy, abdominal cystectomy, bilateral cataract removal, hysterectomy, orthopedic surgery. SOCIAL HISTORY: Ongoing tobacco use. No significant alcohol use and drug use as reported above. FAMILY HISTORY: Not pertinent to the current admission. PHYSICAL EXAM: VITALS: Temperature is 100.2, heart rate is 96, blood pressures 99/56, saturating 95% on 3 L supplemental oxygen. GENERAL APPEARANCE: NSAID he is drowsy. Oral were is arousable to verbal stimuli. HEAD: Atraumatic, normocephalic. Pupils equal, round, and react to light and accommodation. LUNGS: Silent chest, however, no wheezing, rhonchi or crackles appreciated. Does appear to have a cough on deep inspiration. CARDIOVASCULAR EXAM: Regular rate and rhythm. No murmurs appreciated. ABDOMEN: Soft, nontender, no organomegaly. LOWER EXTREMITIES: No edema noted. NEURO: No focal motor or sensory deficits noted. Strength is 5 out of 5. Cranial nerves 2 through 12 grossly intact. Laboratory data include hemoglobin 12.9, hematocrit 39, white count of 7.2, platelets of 209. Sodium 139, potassium 4.3, chloride 105, bicarb 28. BUN 16, creatinine 0.80. Troponin of ( ). Drug screen was positive for benzodiazepines. ASSESSMENT AND PLAN: 1. Acute toxic encephalopathy due to overuse of Neurontin. 2. Sinus tachyarrhythmia with multiple premature ventricular contractions. 3. Indeterminate troponin leak. 4. History of multiple sclerosis. 5. Previous history of stroke. 6. Hypertension. 7. Urinary tract infection. 8. Chronic back pain with opioid overuse. PLAN: With the patient's above-stated reason for overuse of Neurontin and causing significant danger to her health, I did discuss with the patient that she will be evaluated by psychiatrist if she would benefit from an admission for her current situation. We will start the patient on Rocephin at this time. Await urine cultures. Due to the PVCs, an echocardiogram will be obtained and the patient will be started on metoprolol 12.5 mg p.o. b.i.d. The patient denies having chest pain. The troponin leak is likely due to altered mental status and some degree of hypoxia. Chronic hypoxic respiratory failure. Deep venous thrombosis prophylaxis will be ensured. PT, OT consultation will be obtained. Social work consult will also be obtained. This was discussed with the patient and the family.
[2016-12-02 07:02] LABS: Anisocytosis Slight; Basophils % (A) 0 %; Eosinophils # (A) 0.1 k/uL (0-0.7); Eosinophils % (A) 2 %; HCT 39.9 % (34.0-46.0); HDW 3.68; HGB 12.6 gm/dL (11.4-16.0); Hypochromasia Moderate; Luc # (Auto) 0.17; Luc % (Auto) 3; Lymphocytes # (A) 0.7 k/uL (1.0-4.8); Lymphocytes % (A) 14 %; MCH 26.8 pg (25.0-35.0); MCHC 31.7 g/dL (31.0-37.0); MCV 84.6 fL (80.0-100.0); Mean Platelet Volume 7.1; Monocytes # (A) 0.3 k/uL (0-1.0); Monocytes % (A) 5 %; Neutrophils # (A) 3.7 k/uL (1.3-7.7); Neutrophils % (A) 76 %; Poikilocytosis Slight; RBC 4.71 m/uL (3.80-5.40); RDW 16.9 % (11.5-15.5); WBC 4.9 k/uL (3.8-10.6); WBC (Perox) 5.29
[2016-12-02 07:06] LABS: ALT 26 U/L (9-52); AST 16 U/L (14-36); Alkaline Phosphatase 77 U/L (38-126); Anion Gap 8 mmol/L; Blood Urea Nitrogen 13 mg/dL (7-17); Calcium 7.8 mg/dL (8.4-10.2); Carbon Dioxide 25 mmol/L (22-30); Chloride 105 mmol/L (98-107); Glucose 65 mg/dL (74-99); Non-African American GFR(MDRD) >60 (>60 ml/min/1.73 sqM); Potassium 3.9 mmol/L (3.5-5.1); Sodium 138 mmol/L (137-145); Total Bilirubin 0.9 mg/dL (0.2-1.3); Total Protein 5.1 g/dL (6.3-8.2)
[2016-12-02] MEDS: METOPROLOL TARTRATE 12.5 MG TAB PO SCH ×2 (08:30→21:55)
[2016-12-02] MEDS: FAMOTIDINE 20 MG TAB PO SCH ×2 (08:30→21:55)
[2016-12-02] MEDS: GABAPENTIN 300 MG CAP PO SCH ×3 (08:30→21:56)
[2016-12-02] MEDS: SODIUM CHLORIDE 0.9% 1,000 ML IV SCH (08:31)
[2016-12-02] MEDS: ASPIRIN 81 MG CHEW PO SCH (08:31)
[2016-12-02] MEDS: ENOXAPARIN 40 MG/0.4 ML SYRINGE SQ SCH (08:31)
--- NOTE | 2016-12-02 09:26 | XR ---
EXAMINATION TYPE: XR chest 1V portable DATE OF EXAM: 12/02/2016 CLINICAL HISTORY: Difficulty breathing progress study. TECHNIQUE: Single AP portable upright view of the chest is obtained. COMPARISON: Chest x-ray from one day earlier FINDINGS: There is persistent cardiomegaly with small bilateral pleural effusions and bibasilar atel ectasis and/or infiltrate. Upper lungs remain clear without pneumothorax. There is atherosclerotic th oracic aorta. Osseous structures are demineralized. IMPRESSION: Overall stable findings, cardiomegaly with small bilateral pleural effusions and patchy bibasilar atelectasis and/or infiltrate all redemonstrated.
--- NOTE | 2016-12-02 10:28 | ECHOF ---
Referral Reason:HTN MEASUREMENTS -------- HEIGHT: 165.1 cm WEIGHT: 113.4 kg BP: RVIDd: 2.8 cm (< 3.3) IVSd: 1.4 cm (0.6 - 1.1) LVIDd: 5.4 cm (3.9 - 5.3) LVPWd: 0.9 cm (0.6 - 1.1) IVSs: 1.5 cm LVIDs: 3.9 cm LVPWs: 1.3 cm Ao Diam: 3.0 cm (2.0 - 3.7) AV Cusp: 2.0 cm (1.5 - 2.6) LA Diam: 4.4 cm (2.7 - 3.8) MV EXCURSION: 17.701 mm (> 18.000) MV EF SLOPE: 70 mm/s (70 - 150) EPSS: 0.7 cm MV E Camron: 0.80 m/s MV DecT: 214 ms MV A [place]ron: 0.96 m/s MV E/A Ratio: 0.83 RAP: 5.00 mmHg RVSP: 47.20 mmHg FINDINGS -------- Sinus rhythm. This was a technically adequate study. There is mild concentric left ventricular hypertrophy. Overall left ventricular systolic function is low-normal with, an EF between 50 - 55 %. The right ventricle is normal in size. The right atrial size is normal. There is mild aortic valve sclerosis. There is no evidence of aortic regurgitation. Mild mitral annular calcification present. Mild mitral regurgitation is present. Mild tricuspid regurgitation present. There is no evidence of pulmonary hypertension. The right ventricular systolic pressure, as measured by Doppler, is 47.20mmHg. There is no pulmonic regurgitation present. The aortic root size is normal. There is a small, generalized pericardial effusion present. CONCLUSIONS -------- 1. There is mild concentric left ventricular hypertrophy. 2. Overall left ventricular systolic function is low-normal with, an EF between 50 - 55 %. 3. There is mild aortic valve sclerosis. 4. Mild mitral annular calcification present. 5. Mild mitral regurgitation is present. 6. Mild tricuspid regurgitation present. 7. There is no evidence of pulmonary hypertension. 8. The right ventricular systolic pressure, as measured by Doppler, is 47.20mmHg. 9. There is a small, generalized pericardial effusion present. FIG CAPRIFIER: Mona Rodriguez RDCS
[2016-12-02] MEDS ORDERED: DIAZEPAM 5 MG TAB PO PRN (11:44)
--- NOTE | 2016-12-02 14:49 | CONS ---
DATE OF CONSULTATION: REASON FOR CONSULTATION: Change in mental status. Rule out depression. HISTORY OF PRESENT ILLNESS: Patient is 75-year-old white female living with her of more than 57 years who was admitted to the hospital for change in her mental status. Patient stated that she was diagnosed with multiple sclerosis more than 25 years ago and she was stable on injection; however, she could not afford the talavera and since then she has been feeling physically worse. Patient denied any depressive symptoms, but she stated that for the last 3 or 4 months, she started having trouble sleeping at night, very restless and nervous and anxious especially at night and her primary care physician did start her on Redcgs20 mg at bedtime, Risperdal 0.5 at bedtime and he increased her Neurontin from 300 mg 3 times a day to 5 times daily. Patient stated that since then she has been feeling more tired, more fatigued, very forgetful and confused. She denied any suicidal or homicidal ideation, but she does not feel that her medication is helping her multiple sclerosis. Patient stated that she has been on morphine for many years for chronic pain and according to her "my is keeping the morphine and I don't overuse it." Regarding past psychiatric history, she denied any previous inpatient or outpatient treatment; however, as I mentioned before it seems that she was started on Risperdal and Valium just 3 months ago. She stated that she has been having chronic anxiety and chronic insomnia, but this is related to her physical condition. ALLERGIES: There is no known drug allergy. PAST MEDICAL HISTORY: There is history of CVA, multiple sclerosis COPD, dyslipidemia, chronic kidney disease stage II, substance abuse history. She has been smoking between 1 to 2 packs a day. BRIEF SOCIAL HISTORY: She stated that she has been for 59 years. They have 4 grownup children, 3 daughters and 1 son. 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 She stated that her has been main support for her. He is the one who is doing most of the house chores. LAB DATA: At the time of the admission, the drug screen was positive for opiate and benzodiazepine, but as I mentioned before, patient has been on morphine and Valium. MENTAL STATUS EXAMINATION: Patient is overweight, white female who looks her stated age, short hair. She is pleasant, cooperative; however, she is confused. She could not tell me what is today's date, but she was able to tell me that she is in [facility]. There is some dysarthria. Her speech is nonspontaneous, decreased in productivity. She denied any suicidal or homicide ideation. She denied any depressive symptoms. She denied any psychotic feature. As I mentioned before, she stated that she has been having chronic insomnia. She was concerned about not able to afford treatment for her multiple sclerosis and as she said, "it seems that my current indications are not working." COGNITIVE FUNCTION: Patient is not able to remember any objects after 5 minutes. She is able to spell world forward but backwards she could not. As I mentioned before, she was alert, oriented to place, and person but not to the date. Insight and judgment are limited. IMPRESSION AND ASSESSMENT: 1. Delirium reaction or acute encephalomyopathy, multifactorial due to opium, benzodiazepine, Neurontin. 2. Urinary tract infection. RECOMMENDATION: 1. Treatment of underlying reason. 2. I discontinued the Valium as long-acting benzodiazepine and I did start her on low dose of Ativan. Will monitor any withdrawal symptoms from benzodiazepine as she has been on Valium for 3 months. 3. I do recommend to wean her off morphine. 4. I do not recommend high dose of Neurontin. 5. Patient needs to be referred back neurologist regarding treatment of her multiple sclerosis. Patient does not need any inpatient psychiatric hospitalization as she is not in danger to hurt herself or hurt others. Her cognitive function need to be reevaluated when we cut down the morphine and her Valium and Neurontin. Thank you for this consultation.
--- NOTE | 2016-12-02 18:34 | P.PN ---
Subjective REASON FOR ADMISSION: Change in mental status. HISTORY OF PRESENTING ILLNESS: This is a 75-year-old female known to have a diagnosis of multiple sclerosis, peripheral neuropathy, was brought into the hospital by her who felt that patient has been progressively getting worse over the last few weeks. Patient's states that she has been sleeping pretty much the entire month. Her mental status and her functional status has gotten progressively worse. Patient apparently has taken a total of 450, 300 mg gabapentin tablets within a period of month. Patient is recommended to take gabapentin 300 mg 5 times daily, however, states that she has not been having a good day, hence then overusing the medication. Patient is on other narcotics. However, those are apparently locked away in a safe by the patient's . States that she was not trying to hurt herself. However, states she does not feel well hence takes the medications to help her get over her condition. The patient's is at bedside states that he is extremely worried that he would find her and hence brought her in to the hospital for ongoing care. Patient has had a history of previous stroke with right-sided residual weakness. However, is able to perform all her ADLs and is able to ambulate with a walker at home. The patient denies having any headaches, blurry vision, nausea, vomiting, urinary urgency or frequency. Patient's UA does appear to be abnormal. Due to her mental status, will start the patient empirically on Rocephin at this time. Fourteen-point review of systems was done; none pertinent other than what was mentioned above. 12/02/16 sitter at bedside arousable gets angry when I started discussing her medication overdose states she wants to go home PHYSICAL EXAM: GENERAL APPEARANCE: she is drowsy. arousable to verbal stimuli. HEAD: Atraumatic, normocephalic. Pupils equal, round, and react to light and accommodation. LUNGS: Silent chest, however, no wheezing, rhonchi or crackles appreciated. Does appear to have a cough on deep inspiration. CARDIOVASCULAR EXAM: Regular rate and rhythm. No murmurs appreciated. ABDOMEN: Soft, nontender, no organomegaly. LOWER EXTREMITIES: No edema noted. NEURO: No focal motor or sensory deficits noted. Strength is 5 out of 5. Cranial nerves 2 through 12 grossly intact. Objective - Vital Signs Vital signs: Vital Signs Temp 97.7 F 12/02/16 16:00 Pulse 81 12/02/16 16:00 Resp 16 12/02/16 16:00 BP 142/84 12/02/16 16:00 Pulse Ox 94 L 12/02/16 16:00 Intake & Output 12/01/16 12/02/16 12/02/16 18:59 06:59 18:59 Intake Total 120 Balance 120 Weight 191 kg Intake: Oral 120 Other: Voiding Method Bedpan Bedpan Incontinent Incontinent # Voids 2 3 # Bowel Movements 0 - Labs CBC & Chem 7: 12/02/16 06:25 12/02/16 06:25 Labs: Abnormal Lab Results - Last 24 Hours (Table) 12/02/16 12/02/16 Range/Units 06:25 06:25 RDW 16.9 H (11.5-15.5) % Lymphocytes # 0.7 L (1.0-4.8) k/uL Glucose 65 L (74-99) mg/dL Calcium 7.8 L (8.4-10.2) mg/dL Total Protein 5.1 L (6.3-8.2) g/dL Albumin 2.6 L (3.5-5.0) g/dL TSH 0.407 L (0.465-4.680) mIU/L Microbiology - Last 24 Hours (Table) 12/01/16 04:12 Urine Culture - Preliminary Urine,Catheterized Gram Neg Bacilli 12/01/16 03:06 Blood Culture - Preliminary Blood No Growth after 24 hours Assessment and Plan Plan: ASSESSMENT AND PLAN: 1. Acute toxic encephalopathy due to overuse of Neurontin. 2. Sinus tachyarrhythmia with multiple premature ventricular contractions. 3. Indeterminate troponin leak. 4. History of multiple sclerosis. 5. Previous history of stroke. 6. Hypertension. 7. Urinary tract infection. 8. Chronic back pain with opioid overuse. 7. Moderate pulmonary HTN RVSP 47. PLAN: reviewed psychiatry recs neurontin dose was decreased ativan was restarted in place of valium slow taper of morphine PT/OT recs will discuss disposition cristal Deep venous thrombosis prophylaxis will be ensured. PT, OT consultation will be obtained. Social work consult will also be obtained. This was discussed with the patient and the family.
[2016-12-02] MEDS ORDERED: LORazepam 2 MG/ML SYRINGE IM ONE (20:00)
[2016-12-02] MEDS ORDERED: HALOPERIDOL 1 MG TAB PO ONE (20:00)
--- NOTE | 2016-12-02 20:14 | P.CNNES ---
History of Present Illness Consult date: 12/02/16 Requesting physician: Amelia Villavicencio Reason for Consult: Altered Mental Status, Overdose, UTI Chief complaint: Altered Mental Status History of Present Illness: Neurology is being requested to consult on a 75-year-old female Her altered mental status. The patient has known diagnosis of multiple sclerosis, peripheral neuropathy was brought to the hospital by her spouse. Spouse felt that over the past several weeks patient has been declining. Patient has been sleeping most hours a day for approximately an entire month. Mental status, functional status have gotten progressively worse. Patient is prescribed gabapentin 300 mg 5 times a day. However the patient consumed 450 300 mg gabapentin tablets within a period of 3-4 weeks. Patient is on narcotics/ opioids for pain. Spouse has those medications locked away in a household safe. Spouse also states she has been extremely agitated over the last several weeks. Psychiatry has been consulted on the patient and has discontinued medication while she has been inpatient. Patient denies that she is trying to hurt herself. However he states that she is not feeling well and is taking medication to help her get over her physical complaints. Patient has a history of prior CVA with right-sided deficits including right residual weakness. is at the bedside with the patient. Patient is in no acute distress. Patient is alert and oriented 2. Patient was extremely agitated was provider and much of the information obtained was obtained from the spouse at the bedside. Review of Systems All systems not noted previously in HPI are negative. 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 History of Any Multi-Drug Resistant Organisms: None Reported Past Surgical History: Hysterectomy, Orthopedic Surgery Additional Past Surgical History / Comment(s): Peg tube insertion (since removed ), bilateral cataract removal and twice on the left side, colonoscopy, left lower abdominal cystectomy. Past Anesthesia/Blood Transfusion Reactions: No Reported Reaction Past Psychological History: No Psychological Hx Reported Additional Psychological History / Comment(s): Per PMH, pt has depression but pt has denied in past admission. Pt lives with her spouse of 57yrs. She ambulates without device. She is independent. Smoking Status: Current every day smoker Past Alcohol Use History: None Reported Additional Past Alcohol Use History / Comment(s): Pt started smoking in 1959. She is a ppd smoker. Past Drug Use History: Prescription Drug Abuse - Past Family History Mother History Unknown: Yes Family Medical History: No Reported History, Renal Disease Additional Family Medical History / Comment(s): Mother was healthy and lived to be 88yrs old. Father History Unknown: Yes Family Medical History: Osteoarthritis (OA) Additional Family Medical History / Comment(s): Pt states her father at the age of 68yrs due to his debilitating arthritis. Medications and Allergies Home Medications Medication Instructions Recorded Confirmed Type Diazepam [Valium] 10 mg PO HS PRN 01/31/16 12/01/16 History Gabapentin [Neurontin] 300 mg PO 5XD 01/31/16 12/01/16 History risperiDONE [RisperDAL] 0.5 mg PO HS 08/13/16 12/01/16 History Atorvastatin [Lipitor] 40 mg PO DAILY 12/01/16 12/01/16 History Fluticasone Nasal [place] [Flonase 1 spray EA NOSTRIL DAILY 12/01/16 12/01/16 History Nasal [place]] Morphine Sulfate/Naltrexone 1 tab PO DAILY PRN 12/01/16 12/01/16 History [Embeda ER 50-2 mg Capsule] Qnasl 40mcg 1 spray EA NOSTRIL DAILY 12/01/16 12/01/16 History metroNIDAZOLE [Flagyl] 500 mg PO Q8HR 12/01/16 12/01/16 History Allergies Allergy/AdvReac Type Severity Reaction Status Date / Time No Known Allergies Allergy Verified 12/01/16 02:47 Physical Examination - Vital Signs Vital Signs: Vital Signs Temp Pulse Resp BP Pulse Ox 12/02/16 16:00 97.7 F 81 16 142/84 94 L 12/02/16 12:15 16 95 12/02/16 12:09 97.5 F L 64 16 128/78 96 12/02/16 08:00 97.6 F 63 16 121/71 95 12/02/16 04:18 97.8 F 81 20 108/71 95 12/02/16 00:00 108 H 22 110/71 92 L 12/01/16 20:00 98.1 F 75 18 107/73 94 L Intake and Output 12/02/16 12/02/16 12/02/16 06:59 14:59 22:59 Intake Total 120 Balance 120 Intake: Oral 120 Other: Voiding Method Bedpan Bedpan Incontinent Incontinent # Voids 2 1 3 # Bowel Movements 0 0 Weight 191 kg Constitutional: AOx2, extremely uncooperative, used profanity toward provider HEENT: NC/AT, no facial asymmetry is seen. Throat: Supple, no masses Respiratory: No increased work of breathing Cardiac: Regular rate and Rhythm GI: non tender, non distended Musculoskeletal: Unable to perform physical exam due to patient lack of cooperation and family assistance in patient's room. Neurological: CN II-XII in tact, patient was AOx2, mild dysarthria, no seizure activity note on physical exam. Integementary: no rash, no erythema Psychiatric: angry/agitated, uncooperative Unable to perform comprehensive physical exam due to patient lack of cooperation and family assistance in patient's room. Results - Laboratory Findings CBC and BMP: 12/02/16 06:25 12/02/16 06:25 Abnormal Lab Findings: Abnormal Labs 12/01/16 12/01/16 12/01/16 03:06 03:06 03:06 RDW 17.0 H Lymphocytes # PT 12.6 H Glucose POC Glucose (mg/dL) Calcium AST Ammonia 32 H Troponin I Total Protein Albumin TSH Urine Appearance Urine Protein Urine Blood Urine Nitrite Ur Leukocyte Esterase Urine RBC Urine WBC Urine WBC Clumps Urine Bacteria Urine Mucus Urine Opiates Screen U Benzodiazepines Scrn 12/01/16 12/01/16 12/01/16 03:36 04:12 04:45 RDW Lymphocytes # PT Glucose POC Glucose (mg/dL) 129 H Calcium 7.8 L AST 12 L Ammonia Troponin I Total Protein 5.0 L Albumin 2.5 L TSH Urine Appearance Cloudy H Urine Protein 1+ H Urine Blood Small H Urine Nitrite Positive H Ur Leukocyte Esterase Large H Urine RBC 20 H Urine WBC >182 H Urine WBC Clumps Few H Urine Bacteria Moderate H Urine Mucus Few H Urine Opiates Screen Detected H U Benzodiazepines Scrn Detected H 12/01/16 12/02/16 12/02/16 04:45 06:25 06:25 RDW 16.9 H Lymphocytes # 0.7 L PT Glucose 65 L POC Glucose (mg/dL) Calcium 7.8 L AST Ammonia Troponin I 0.166 H* Total Protein 5.1 L Albumin 2.6 L TSH 0.407 L Urine Appearance Urine Protein Urine Blood Urine Nitrite Ur Leukocyte Esterase Urine RBC Urine WBC Urine WBC Clumps Urine Bacteria Urine Mucus Urine Opiates Screen U Benzodiazepines Scrn Assessment and Plan (1) Misuse of prescription only drugs Status: Acute (2) CVA (cerebrovascular accident) Status: Acute (3) Altered mental status Status: Acute (4) Multiple sclerosis Status: Acute Plan: 1. Misuse of prescription medications/drugs 2. Possible CVA/rule out acute infarct 3. Altered mental status secondary to urinary tract infection and misuse of prescription drugs 4. Multiple sclerosis Patient has a documented misuse of gabapentin verified by patient admission and family present stating that prescription medications are also kept in a secured environment away from the patient. Psychiatric consult has been placed and psych has evaluated the patient. Defer to their recommendations regarding ongoing management. CT of the brain notes remote infarct with a left MCA territory and age- indeterminate infarct within the left occipital lobe. Small superimposed acute infarct is not excluded. Consider MRI. Based on radiology suggestion and recommendations, MRI of the brain with and without contrast has been ordered. Further recommendations once the results of imaging are received and reviewed. Serum Homocystine level, lipid panel have been ordered. Continue neuro checks as ordered. Continue aspirin as ordered. Patient's altered mental status is multifactorial due to misuse of prescription medication and noted urinary tract infection based on urinalysis. Recommend ongoing treatment for underlying cause. Patient's history of multiple sclerosis is somewhat unclear. Patient states she does have a history of multiple sclerosis but is unwilling to provide any further information. It is noted that she is not currently on multiple sclerosis-related medications. At this time we're unable to confirm the diagnosis and/or severity of her multiple sclerosis. Further workup and management outpatient can be conducted at a later date. It does not appear that the patient is any acute distress related to her multiple sclerosis at this time. Neurology will continue to follow and provide updates as needed or warranted. Please feel free to contact our office with any further questions.
[2016-12-02] MEDS ORDERED: LORazepam 0.5 MG TAB PO SCH (21:00)
[2016-12-02 21:08] LABS: Cholesterol 104 mg/dL (<200); HDL Cholesterol 22 mg/dL (40-60); Triglycerides 94 mg/dL (<150)
[2016-12-03 03:35] VITALS: RESP 18
[2016-12-03 06:12] LABS: Anisocytosis Slight; Basophils % (A) 1 %; CH 26.6; Eosinophils # (A) 0.1 k/uL (0-0.7); Eosinophils % (A) 1 %; HCT 41.8 % (34.0-46.0); HDW 3.67; Hypochromasia Moderate; Luc # (Auto) 0.15; Luc % (Auto) 3; Lymphocytes # (A) 0.7 k/uL (1.0-4.8); Lymphocytes % (A) 12 %; MCH 26.8 pg (25.0-35.0); MCHC 31.1 g/dL (31.0-37.0); MCV 86.2 fL (80.0-100.0); Mean Platelet Volume 7.3; Monocytes # (A) 0.4 k/uL (0-1.0); Monocytes % (A) 6 %; Neutrophils # (A) 4.5 k/uL (1.3-7.7); Neutrophils % (A) 77 %; Poikilocytosis Slight; RBC 4.84 m/uL (3.80-5.40); RDW 16.8 % (11.5-15.5); WBC 5.8 k/uL (3.8-10.6); WBC (Perox) 6.07
[2016-12-03] MEDS: SODIUM CHLORIDE 0.9% 1,000 ML IV SCH (09:28)
[2016-12-03] MEDS: ASPIRIN 81 MG CHEW PO SCH (09:29)
[2016-12-03] MEDS: ENOXAPARIN 40 MG/0.4 ML SYRINGE SQ SCH (09:29)
[2016-12-03] MEDS: GABAPENTIN 300 MG CAP PO SCH (09:29)
[2016-12-03] MEDS: FAMOTIDINE 20 MG TAB PO SCH (09:29)
[2016-12-03] MEDS: METOPROLOL TARTRATE 12.5 MG TAB PO SCH (09:30)
[2016-12-03] MEDS ORDERED: LORazepam 2 MG/ML SYRINGE ONE (11:42)
[2016-12-03 12:59] VITALS: BP 133/74; PULSE 73; TEMP 96.1
--- NOTE | 2016-12-03 19:16 | P.DS ---
Providers Date of admission: 12/01/16 06:52 Attending physician: Fabio Sumner Consults: 12/01/16 15:07 Consult Physician Urgent Consulting Provider: Chelle Lechuga Consult Reason/Comments: overdose Do you want consulting provider notified?: Already Contacted 12/01/16 21:22 Consult Physician Urgent Consulting Provider: Donal Hill Consult Reason/Comments: AMS, r/o stroke/tia Do you want consulting provider notified?: Yes Primary care physician: [facility] Hospital Course: REASON FOR ADMISSION: Change in mental status. HISTORY OF PRESENTING ILLNESS: This is a 75-year-old female known to have a diagnosis of multiple sclerosis, peripheral neuropathy, was brought into the hospital by her who felt that patient has been progressively getting worse over the last few weeks. Patient's states that she has been sleeping pretty much the entire month. Her mental status and her functional status has gotten progressively worse. Patient apparently has taken a total of 450, 300 mg gabapentin tablets within a period of month. Patient is recommended to take gabapentin 300 mg 5 times daily, however, states that she has not been having a good day, hence then overusing the medication. Patient is on other narcotics. However, those are apparently locked away in a safe by the patient's . States that she was not trying to hurt herself. However, states she does not feel well hence takes the medications to help her get over her condition. The patient's is at bedside states that he is extremely worried that he would find her and hence brought her in to the hospital for ongoing care. Patient has had a history of previous stroke with right-sided residual weakness. However, is able to perform all her ADLs and is able to ambulate with a walker at home. The patient denies having any headaches, blurry vision, nausea, vomiting, urinary urgency or frequency. Patient's UA does appear to be abnormal. Due to her mental status, will start the patient empirically on Rocephin at this time. Fourteen-point review of systems was done; none pertinent other than what was mentioned above. 12/02/16 sitter at bedside arousable gets angry when I started discussing her medication overdose states she wants to go home 12/03/16 more awake doing well denies having any problems PHYSICAL EXAM: GENERAL APPEARANCE: she is drowsy. arousable to verbal stimuli. HEAD: Atraumatic, normocephalic. Pupils equal, round, and react to light and accommodation. LUNGS: Silent chest, however, no wheezing, rhonchi or crackles appreciated. Does appear to have a cough on deep inspiration. CARDIOVASCULAR EXAM: Regular rate and rhythm. No murmurs appreciated. ABDOMEN: Soft, nontender, no organomegaly. LOWER EXTREMITIES: No edema noted. NEURO: No focal motor or sensory deficits noted. Strength is 5 out of 5. Cranial nerves 2 through 12 grossly intact. ASSESSMENT AND PLAN: 1. Acute toxic encephalopathy due to overuse of Neurontin. 2. Sinus tachyarrhythmia with multiple premature ventricular contractions. 3. Indeterminate troponin leak. 4. History of multiple sclerosis. 5. Previous history of stroke. 6. Hypertension. 7. Urinary tract infection. 8. Chronic back pain with opioid overuse. 7. Moderate pulmonary HTN RVSP 47. PLAN: discussed with the neurontin dose is decreased dc valium pt will need monitered medication intake, which the the pt verbalized to work on discussed placement with concern for safety Psych and neurology has evaluated the pt MRI was recommended however no focal signs clinically improved hence will dc home Patient Condition at Discharge: Fair Plan - Discharge Summary New Discharge Prescriptions: New Gabapentin [Neurontin] 300 mg PO TID #30 cap LORazepam [Ativan] 0.5 mg PO HS #10 tab Cefuroxime [Ceftin] 250 mg PO BID #10 tablet Continue risperiDONE [RisperDAL] 0.5 mg PO HS Morphine Sulfate/Naltrexone [[place] ER 50-2 mg Capsule] 1 tab PO DAILY PRN PRN Reason: Pain Atorvastatin [Lipitor] 40 mg PO DAILY Fluticasone Nasal [place] [Flonase Nasal [place]] 1 spray EA NOSTRIL DAILY Qnasl 40mcg 1 spray EA NOSTRIL DAILY Discontinued Diazepam [Valium] 10 mg PO HS PRN PRN Reason: Anxiety Gabapentin [Neurontin] 300 mg PO 5XD metroNIDAZOLE [Flagyl] 500 mg PO Q8HR Discharge Medication List risperiDONE [RisperDAL] 0.5 mg PO HS 08/13/16 [History] Atorvastatin [Lipitor] 40 mg PO DAILY 12/01/16 [History] Fluticasone Nasal [place] [Flonase Nasal [place]] 1 spray EA NOSTRIL DAILY 12/01/16 [History] Morphine Sulfate/Naltrexone [[place] ER 50-2 mg Capsule] 1 tab PO DAILY PRN 12/01 [History] Qnasl 40mcg 1 spray EA NOSTRIL DAILY 12/01/16 [History] Cefuroxime [Ceftin] 250 mg PO BID #10 tablet 12/03/16 [Rx] Gabapentin [Neurontin] 300 mg PO TID #30 cap 12/03/16 [Rx] LORazepam [Ativan] 0.5 mg PO HS #10 tab 12/03/16 [Rx] Follow up Appointment(s)/Referral(s): Joby Champagne MD [Primary Care Provider] - 1-2 days (office closed, call to make an appointment) Discharge Disposition: HOME WITH HOME HEALTH SERVICES
== END 2016-12-03 14:08 | disposition home health service (06) | DRG 917 ==
LOC: EC 02:44 → 6SEL 06:52
PROVIDERS: ADMIT Hospitalist; ATTEND Hospitalist
DX: T42.6X1A Poisoning by other antiepileptic and sedative-hypnotic drugs, accidental (unintentional), initial encounter (principal); G92 Toxic encephalopathy; J96.11 Chronic respiratory failure with hypoxia; I69.351 Hemiplegia and hemiparesis following cerebral infarction affecting right dominant side; Z68.44 Body mass index [BMI] 60.0-69.9, adult; N39.0 Urinary tract infection, site not specified; G35 Multiple sclerosis; I27.2 Other secondary pulmonary hypertension; J44.9 Chronic obstructive pulmonary disease, unspecified; G62.9 Polyneuropathy, unspecified; I49.3 Ventricular premature depolarization; E78.5 Hyperlipidemia, unspecified; N18.2 Chronic kidney disease, stage 2 (mild); I12.9 Hypertensive chronic kidney disease with stage 1 through stage 4 chronic kidney disease, or unspecified chronic kidney disease; F32.9 Major depressive disorder, single episode, unspecified; G89.29 Other chronic pain; M54.9 Dorsalgia, unspecified; K21.9 Gastro-esophageal reflux disease without esophagitis; M19.91 Primary osteoarthritis, unspecified site; Z90.710 Acquired absence of both cervix and uterus; Z98.42 Cataract extraction status, left eye; Z98.41 Cataract extraction status, right eye; Y92.019 Unspecified place in single-family (private) house as the place of occurrence of the external cause; F17.200 Nicotine dependence, unspecified, uncomplicated; Z79.899 Other long term (current) drug therapy; F41.9 Anxiety disorder, unspecified; F51.04 Psychophysiologic insomnia; E66.3 Overweight
CPT/HCPCS: 36415; 70450; 71010; 80053; 80061; 80306; 81001; 82140; 83090; 83520; 83605; 83880; 84439; 84443; 84484; 85025; 85610; 85730; 87040; 87077; 87086; 87186; 93005; 93306; 94640; 96365; 96372; 96375; 99285

== ENCOUNTER 2016-12-04 00:55 | Inpatient (IN) | payer MEDICARE ==
[2016-12-04] MEDS ORDERED: SODIUM CHLORIDE 0.9% 1,000 ML IV STA (01:58)
[2016-12-04] MEDS ORDERED: methylPREDNISolone SOD SUCCI 125 MG/2 ML VIAL IV STA (01:58)
[2016-12-04] MEDS ORDERED: FUROSEMIDE 10 MG/ML 4 ML VIAL IV STA (01:58)
[2016-12-04] MEDS ORDERED: IPRATROPIUM-ALBUTEROL 3 ML NEB INHALATION STA (01:58)
[2016-12-04] MEDS ORDERED: MORPHINE SULFATE 4 MG/ML SYRINGE IVP STA ×2 (02:00→05:23)
[2016-12-04] MEDS ORDERED: NITROGLYCERIN OINT 1 INCH/GM PACKET TOPICAL STA (02:05)
[2016-12-04 02:26] LABS: Anion Gap 11 mmol/L; Calcium 8.5 mg/dL (8.4-10.2); Carbon Dioxide 25 mmol/L (22-30); Chloride 107 mmol/L (98-107); Glucose 83 mg/dL (74-99); Non-African American GFR(MDRD) >60 (>60 ml/min/1.73 sqM); Sodium 143 mmol/L (137-145); Total Bilirubin 0.9 mg/dL (0.2-1.3); Total Protein 6.2 g/dL (6.3-8.2)
[2016-12-04 02:30] LABS: Anisocytosis Slight; Basophils % (A) 1 %; CH 26.9; CHCM 31.2; Eosinophils # (A) 0.1 k/uL (0-0.7); Eosinophils % (A) 1 %; HCT 46.5 % (34.0-46.0); HDW 3.78; HGB 14.4 gm/dL (11.4-16.0); Hypochromasia Moderate; Luc # (Auto) 0.16; Luc % (Auto) 2; Lymphocytes # (A) 0.8 k/uL (1.0-4.8); Lymphocytes % (A) 11 %; MCH 26.7 pg (25.0-35.0); MCHC 30.9 g/dL (31.0-37.0); MCV 86.3 fL (80.0-100.0); Mean Platelet Volume 6.9; Monocytes # (A) 0.4 k/uL (0-1.0); Monocytes % (A) 5 %; Neutrophils # (A) 5.9 k/uL (1.3-7.7); Neutrophils % (A) 80 %; Poikilocytosis Slight; RBC 5.39 m/uL (3.80-5.40); RDW 17.1 % (11.5-15.5); WBC 7.3 k/uL (3.8-10.6); WBC (Perox) 7.14
[2016-12-04 02:34] LABS: ALT 24 U/L (9-52); AST 18 U/L (14-36); Alkaline Phosphatase 98 U/L (38-126); Blood Urea Nitrogen 17 mg/dL (7-17); Potassium 4.5 mmol/L (3.5-5.1)
[2016-12-04 02:42] LABS: INR 1.3 (<1.1); Prothrombin Time 12.6 sec (9.0-12.0)
[2016-12-04 02:53] LABS: Troponin I 0.069 ng/mL (0.000-0.034)
[2016-12-04 02:57] LABS: Partial Thromboplastin Time 20.4 sec (22.0-30.0)
[2016-12-04] MEDS ORDERED: RX INFO: IV CONTRAST WAS GIVEN 1 EACH MISC MISCELLANE PRN (03:56)
--- NOTE | 2016-12-04 03:58 | XR ---
EXAM: XR Chest, 2 Views CLINICAL HISTORY: Reason: difficulty breathing TECHNIQUE: Frontal and lateral views of the chest. COMPARISON: Chest x-ray dated 12/31/2014 FINDINGS: Lungs: Bibasilar opacities likely representing pleural effusions and adjacent atelectasis. Pneumonia is not excluded. Mild pulmonary vascular congestion. Pleural space: See above. Heart: Stable enlargement of the cardiomediastinal silhouette. Bones/joints: Degenerative changes of the osseous structures. IMPRESSION: 1. Bibasilar opacities likely representing pleural effusions and adjacent atelectasis. Pneumonia is not excluded. 2. Mild pulmonary vascular congestion.
[2016-12-04] MEDS ORDERED: AZITHROMYCIN 500 MG in SODIUM CHLORIDE 0.9% 250 ML IVPB STA (04:03)
[2016-12-04] MEDS ORDERED: cefTRIAXone 2,000 MG in SODIUM CHLORIDE 0.9% 100 ML IVPB STA (04:03)
--- NOTE | 2016-12-04 05:43 | CT ---
EXAM: CT Angiography Chest With Intravenous Contrast CLINICAL HISTORY: Rule out pulmonary embolus TECHNIQUE: Axial computed tomographic angiography images of the chest with intravenous contrast using pulmonary embolism protocol. CTDI is 3.2, 3.2, 71, 12.2 mGy and DLP is 476.10 mGy-cm. This CT exam was performed using one or more of the following dose reduction techniques: automated exposure control, adjustment of the mA and/or kV according to patient size, and/or use of iterative reconstruction technique. MIP reconstructed images were created and reviewed. COMPARISON: CT chest. Protocol dated 08/13/2016 FINDINGS: Pulmonary arteries: Bilateral central and segmental pulmonary emboli. No saddle embolus. Mild right heart strain. Aorta: No acute findings. No thoracic aortic aneurysm. Lungs: Moderate right and small left pleural effusion. Bibasilar atelectasis. Subpleural consolidation within the right middle lobe which may represent pulmonary infarct. Centrilobular emphysema. Pleural space: See above. Heart: Small pericardial effusion. Coronary artery calcifications. No evidence of RV dysfunction. Bones/joints: Multiple remote healed anterior right rib fractures. No dislocation. Soft tissues: Unremarkable. Lymph nodes: Unremarkable. No enlarged lymph nodes. Kidneys and ureters: Probable simple cyst within the right kidney. IMPRESSION: 1. Bilateral central and segmental pulmonary emboli. No saddle embolus. Mild right heart strain. 2. Moderate right and small left pleural effusion. Bibasilar atelectasis. 3. Subpleural consolidation within the right middle lobe which likely represents a pulmonary infarct. [employer] 12/04/16 05:57 Verify Receipt Verified receipt with MANJINDER Laboy. Report given to Dr. Ogden on 12/04 05:57 (-04:00)
--- NOTE | 2016-12-04 06:08 | ED ---
SOB HPI - General Chief Complaint: Shortness of Breath Stated Complaint: DONALDO Time Seen by Provider: 12/04/16 01:15 Source: patient Mode of arrival: EMS Limitations: no limitations - History of Present Illness Initial Comments: 25 years old female presents with a chest pain or shortness of breath chest pain or shortness of breath started this afternoon, she was quite distressed on arrival respiratory rate is 26. Chest pain gets worse when she takes a deep breath and some fever and chills and chest pain is 10 over 10. Denies any abdominal pain no frequency urgency dysuria - Related Data Home Medications Medication Instructions Recorded Confirmed risperiDONE [RisperDAL] 0.5 mg PO HS 08/13/16 12/04/16 Morphine Sulfate/Naltrexone 1 each PO DAILY 12/04/16 12/04/16 [Embeda ER 50-2 mg Capsule] Previous Rx's Medication Instructions Recorded Cefuroxime [Ceftin] 250 mg PO BID #10 tablet 12/03/16 LORazepam [Ativan] 0.5 mg PO HS #10 tab 12/03/16 Allergies Allergy/AdvReac Type Severity Reaction Status Date / Time No Known Allergies Allergy Verified 12/01/16 02:47 Review of Systems ROS Statement: Those systems with pertinent positive or pertinent negative responses have been documented in the HPI. ROS Other: All systems not noted in ROS Statement are negative. 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 History of Any Multi-Drug Resistant Organisms: None Reported Past Surgical History: Hysterectomy, Orthopedic Surgery Additional Past Surgical History / Comment(s): Peg tube insertion (since removed ), bilateral cataract removal and twice on the left side, colonoscopy, left lower abdominal cystectomy. Past Anesthesia/Blood Transfusion Reactions: No Reported Reaction Past Psychological History: No Psychological Hx Reported Additional Psychological History / Comment(s): Per PMH, pt has depression but pt has denied in past admission. Pt lives with her spouse of 57yrs. She ambulates without device. She is independent. Smoking Status: Current every day smoker Past Alcohol Use History: None Reported Additional Past Alcohol Use History / Comment(s): Pt started smoking in 1959. She is a ppd smoker. Past Drug Use History: Prescription Drug Abuse - Past Family History Mother History Unknown: Yes Family Medical History: No Reported History, Renal Disease Additional Family Medical History / Comment(s): Mother was healthy and lived to be 88yrs old. Father History Unknown: Yes Family Medical History: Osteoarthritis (OA) Additional Family Medical History / Comment(s): Pt states her father at the age of 68yrs due to his debilitating arthritis. General Exam - General Exam Comments Initial Comments: General: The patient is awake and alert, in order distress breathing ash Skin: Skin is warm and dry and no rashes or lesions are noted. Eye: Pupils are equal, round and reactive to light, extra-ocular movements are intact; there is normal conjunctiva bilaterally. Ears, nose, mouth and throat: There are moist mucous membranes and no oral lesions. Neck: The neck is supple, there is no tenderness Cardiovascular: There is a regular rate and rhythm. No murmur, rub or gallop is appreciated. Respiratory: To auscultation bilateral, it is crackles bilaterally Gastrointestinal: Soft, non-distended, non-tender abdomen without masses or organomegaly noted. There is no rebound or guarding present. Bowel sounds are unremarkable. Back: There is no tenderness to palpation in the midline. There is no obvious deformity. Musculoskeletal: Normal ROM, no tenderness, There is no pedal edema. There is no calf tenderness or swelling. No cords were appreciated. Neurological: CN II-XII intact, Cranial nerves III through XII are intact. There are no obvious motor or sensory deficits. Coordination appears grossly intact. Speech is normal. Psychiatric: Cooperative, appropriate mood & affect, normal judgment. Limitations: no limitations Course Vital Signs 12/04/16 12/04/16 12/04/16 00:56 01:05 01:50 Temperature 96.9 F L Pulse Rate 94 97 Respiratory 26 H 18 Rate Blood Pressure 128/83 128/83 O2 Sat by Pulse 89 L 94 L 6 L Oximetry 12/04/16 12/04/16 12/04/16 02:06 02:21 02:43 Temperature Pulse Rate 99 81 79 Respiratory 18 Rate Blood Pressure 117/77 O2 Sat by Pulse 97 Oximetry 06/08/17 06/08/17 03:50 05:07 Temperature Pulse Rate 87 87 Respiratory 18 18 Rate Blood Pressure 111/65 119/74 O2 Sat by Pulse 96 95 Oximetry EKG is sinus rhythm with a ventricular rate of 90 DC interval is 132 QRS duration is 74 QT/QTc is 46/496 review of this EKG reveals T-wave inversion in lead 3 and noticed some T-wave inversion in V4 V5 and V6 also see T-wave inversion in V2 and V3 as well, was compared with the old EKG the T-wave inversions were noticed in the old EKG as well Medical Decision Making - Lab Data Result diagrams: 12/04/16 02:07 12/04/16 02:07 Lab Results 12/04/16 12/04/16 12/04/16 Range/Units 02:07 02:07 02:07 WBC 7.3 (3.8-10.6) k/uL RBC 5.39 (3.80-5.40) m/uL Hgb 14.4 (11.4-16.0) gm/dL Hct 46.5 H (34.0-46.0) % MCV 86.3 (80.0-100.0) fL MCH 26.7 (25.0-35.0) pg MCHC 30.9 L (31.0-37.0) g/dL RDW 17.1 H (11.5-15.5) % Plt Count 282 (150-450) k/uL Neutrophils % 80 % Lymphocytes % 11 % Monocytes % 5 % Eosinophils % 1 % Basophils % 1 % Neutrophils # 5.9 (1.3-7.7) k/uL Lymphocytes # 0.8 L (1.0-4.8) k/uL Monocytes # 0.4 (0-1.0) k/uL Eosinophils # 0.1 (0-0.7) k/uL Basophils # 0.0 (0-0.2) k/uL Hypochromasia Moderate Poikilocytosis Slight Anisocytosis Slight PT (9.0-12.0) sec INR (<1.1) APTT (22.0-30.0) sec D-Dimer (<0.60) mg/L FEU Sodium 143 (137-145) mmol/L Potassium 4.5 (3.5-5.1) mmol/L Chloride 107 (98-107) mmol/L Carbon Dioxide 25 (22-30) mmol/L Anion Gap 11 mmol/L BUN 17 (7-17) mg/dL Creatinine 0.70 (0.52-1.04) mg/dL Est GFR (MDRD) Af Amer >60 (>60 ml/min/1.73 sqM) Est GFR (MDRD) Non-Af >60 (>60 ml/min/1.73 sqM) Glucose 83 (74-99) mg/dL Calcium 8.5 (8.4-10.2) mg/dL Total Bilirubin 0.9 (0.2-1.3) mg/dL AST 18 (14-36) U/L ALT 24 (9-52) U/L Alkaline Phosphatase 98 (38-126) U/L Total Creatine Kinase 32 (30-135) U/L CK-MB (CK-2) 1.0 (0.0-2.4) ng/mL CK-MB (CK-2) Rel Index 3.1 Troponin I 0.069 H* (0.000-0.034) ng/mL NT-Pro-B Natriuret Pep pg/mL Total Protein 6.2 L (6.3-8.2) g/dL Albumin 3.3 L (3.5-5.0) g/dL 12/04/16 12/04/16 Range/Units 02:07 02:07 WBC (3.8-10.6) k/uL RBC (3.80-5.40) m/uL Hgb (11.4-16.0) gm/dL Hct (34.0-46.0) % MCV (80.0-100.0) fL MCH (25.0-35.0) pg MCHC (31.0-37.0) g/dL RDW (11.5-15.5) % Plt Count (150-450) k/uL Neutrophils % % Lymphocytes % % Monocytes % % Eosinophils % % Basophils % % Neutrophils # (1.3-7.7) k/uL Lymphocytes # (1.0-4.8) k/uL Monocytes # (0-1.0) k/uL Eosinophils # (0-0.7) k/uL Basophils # (0-0.2) k/uL Hypochromasia Poikilocytosis Anisocytosis PT 12.6 H (9.0-12.0) sec INR 1.3 (<1.1) APTT 20.4 L (22.0-30.0) sec D-Dimer 6.92 H (<0.60) mg/L FEU Sodium (137-145) mmol/L Potassium (3.5-5.1) mmol/L Chloride (98-107) mmol/L Carbon Dioxide (22-30) mmol/L Anion Gap mmol/L BUN (7-17) mg/dL Creatinine (0.52-1.04) mg/dL Est GFR (MDRD) Af Amer (>60 ml/min/1.73 sqM) Est GFR (MDRD) Non-Af (>60 ml/min/1.73 sqM) Glucose (74-99) mg/dL Calcium (8.4-10.2) mg/dL Total Bilirubin (0.2-1.3) mg/dL AST (14-36) U/L ALT (9-52) U/L Alkaline Phosphatase (38-126) U/L Total Creatine Kinase (30-135) U/L CK-MB (CK-2) (0.0-2.4) ng/mL CK-MB (CK-2) Rel Index Troponin I (0.000-0.034) ng/mL NT-Pro-B Natriuret Pep 2610 pg/mL Total Protein (6.3-8.2) g/dL Albumin (3.5-5.0) g/dL Critical Care Time Total Critical Care Time: 60 Critical Care Time: She came in with the wound distress respiratory distress respiratory rate was 26 on arrival, blood work showed a elevated d-dimer and CT angiogram confirmed the PE she is going to be heparinized chest x-ray confirmed her CHF as well as pneumonia and on top of that to her EKG is consistent with ischemic heart disease and troponin is elevated as well she is given be heparinized in the ER consistent with a PE then begin a consult cardiology recurrent chronic also pulmonary medicine Disposition Clinical Impression: Pulmonary embolus, Myocardial infarction, Pneumonia, CHF (congestive heart failure) Disposition: ADMITTED IP TO THIS [facility] Referrals: Joby Champagne MD [Primary Care Provider] - 1-2 days
[2016-12-04] MEDS ORDERED: NITROGLYCERIN SL TABS 0.4 MG TAB SUBLINGUAL PRN (06:09)
[2016-12-04] MEDS ORDERED: HEPARIN SODIUM,PORCINE 10,000 UNIT/ML 1 ML VIAL IV ONE (06:13)
[2016-12-04] MEDS ORDERED: HEPARIN SODIUM,PORCINE/D5W PMX 25,000 UNIT in DEXTROSE/WATER 1 500ML.BAG IV SCH (06:13)
[2016-12-04] MEDS ORDERED: HEPARIN SODIUM,PORCINE 5,000 UNIT/ML 1 ML VIAL IV PRN (06:13)
[2016-12-04 07:36] LABS: Glucose,Whole Blood 133 mg/dL (75-99)
--- NOTE | 2016-12-04 08:56 | P.CNPUL ---
History of Present Illness Consult date: 12/04/16 Reason for consult: pulmonary embolism History of present illness: 75 years old female presents with a chest pain or shortness of breath chest pain or shortness of breath started this afternoon, she was quite distressed on arrival to ED and the respiratory rate is 26. Chest pain gets worse when she takes a deep breath and some fever and chills and chest pain is 10 over 10. The patient is known to us. She has been hospitalized on several occasions here at [facility]. In fact I been involved in her care approximately year ago which presented with altered mental status. She has quite advanced MS. She apparently has been able to ambulate and take care of herself however her overall performance and functional status is been gradually getting worse. The patient came in to the hospital on 12/01/2016 and her admission was because of progressive weakness and diminished level of consciousness and altered mentation. At that time this presentation was attributed to increase Neurontin intake as the patient was taken 10 mg of Neurontin 5 times a day. There was also suspicion that the patient was utilizing her medication. Patient is also on narcotics for chronic pain. This has been a problem and the patient's medications are locked away in a safe by the patient's knowing that she has the potential of overutilizing her medication. Note that the patient is also on a combination of Valium 10 mg at bedtime and Risperdal 0.5 mg at bedtime in conjunction with Neurontin. The patient has been also on oxycodone for pain control. She denied having any suicidal ideation. She stated that whenever she does not feel that that she takes extra medication. In any rate, the patient's condition improved and the patient was discharged home on on 12/03. UA was abnormal. She was given a dose of Rocephin at that time. She was given a diagnosis of toxic metabolic encephalopathy with possibly overutilizing of medications/Neurontin. She also had some indeterminant troponin leak During this current admission, the patient was seen initially in the ED. Based on ongoing shortness of breath and chest pain a CT angios the chest was done and it showed bilateral segmental pulmonary emboli. In addition there is evidence of a small right-sided pleural effusion and bibasilar atelectasis more so on the right. There is also a area of pleural base consolidation in the right midlung area probably related to an underlying pulmonary infarction. Her echocardiogram that was done on 12/02/2016 showed a normal ejection fraction of 50-55%. The patient also had evidence of mild pulmonary hypertension with adequate systolic pressure estimated to be 47 mmHg. There was a small generalized pericardial effusion. He is hemodynamically stable. Her pain and shortness of breath has subsided. She is on oxygen at 4 L/m nasal cannula maintain a saturation above 90%. Legs are non-swollen. No calf pain or tenderness. No previous history of DVT or pulmonary embolism. Review of Systems All systems: negative Constitutional: Denies chills, Denies fever Eyes: denies blurred vision, denies pain Ears, nose, mouth and throat: Denies headache, Denies sore throat Cardiovascular: Reports chest pain, Reports decreased exercise tolerance, Reports dyspnea on exertion, Reports shortness of breath Respiratory: Reports cough, Reports dyspnea, Reports pleurisy Gastrointestinal: Denies abdominal pain, Denies diarrhea, Denies nausea, Denies vomiting Genitourinary: Denies dysuria, Denies hematuria Musculoskeletal: Denies myalgias Integumentary: Denies pruritus, Denies rash Neurological: Reports lack of coordination, Reports numbness, Reports weakness Psychiatric: Denies anxiety, Denies depression Endocrine: Denies fatigue, Denies weight change Past Medical History Past Medical History: COPD, CVA/TIA, GERD/Reflux, Hyperlipidemia, Musculoskeletal Disorder, Neurologic Disorder, Osteoarthritis (OA), Pneumonia Additional Past Medical History / Comment(s): Multiple sclerosis, 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/leg and slow speech and slight difficulty swallowing, hypertension and chronic pain involving the lower extremities bilaterally, hypertension, hyperlipidemia History of Any Multi-Drug Resistant Organisms: None Reported Past Surgical History: Hysterectomy, Orthopedic Surgery Additional Past Surgical History / Comment(s): Peg tube insertion (removed), bilateral cataract removal and twice on the left side, colonoscopy, wrist surgery Past Anesthesia/Blood Transfusion Reactions: No Reported Reaction Past Psychological History: No Psychological Hx Reported Additional Psychological History / Comment(s): Per PMH, pt has depression but pt has denied in past admission. Pt lives with her spouse of 57yrs. She ambulates without device. She is independent. Smoking Status: Current every day smoker Past Alcohol Use History: None Reported Additional Past Alcohol Use History / Comment(s): Pt started smoking in 1959. She is been smoking much less. She claims that she has not smoked for around 2 weeks. She smokes sporadically one or 2 cigarettes on a daily basis. Past Drug Use History: Prescription Drug Abuse - Past Family History Mother History Unknown: Yes Family Medical History: No Reported History, Renal Disease Additional Family Medical History / Comment(s): Mother was healthy and lived to be 88yrs old. Father History Unknown: Yes Family Medical History: Osteoarthritis (OA) Additional Family Medical History / Comment(s): Pt states her father at the age of 68yrs due to his debilitating arthritis. Medications and Allergies Home Medications Medication Instructions Recorded Confirmed Type risperiDONE [RisperDAL] 0.5 mg PO HS 08/13/16 12/04/16 History Morphine Sulfate/Naltrexone 1 each PO DAILY 12/04/16 12/04/16 History [Embeda ER 50-2 mg Capsule] Allergies Allergy/AdvReac Type Severity Reaction Status Date / Time No Known Allergies Allergy Verified 12/01/16 02:47 Physical Exam Vitals: Vital Signs Temp Pulse Resp BP Pulse Ox 12/04/16 07:13 98.7 F 106 H 20 132/67 94 L 12/04/16 06:07 108 H 22 118/69 94 L 12/04/16 05:07 87 18 119/74 95 12/04/16 03:50 87 18 111/65 96 12/04/16 02:43 79 18 117/77 97 12/04/16 02:21 81 12/04/16 02:06 99 12/04/16 01:50 97 18 128/83 6 L 12/04/16 01:05 94 L 12/04/16 00:56 96.9 F L 94 26 H 128/83 89 L Intake and Output 12/03/16 12/04/16 12/04/16 22:59 06:59 14:59 Output Total 700 Balance -700 Output: Urine 700 Other: Weight 83.915 kg Head exam was generally normal. There was no scleral icterus or corneal arcus. Mucous membranes were moist.Neck was supple and without jugular venous distension, thyromegaly, or carotid bruits. Carotids were easily palpable bilaterally. There was no adenopathy. Lung sounds are diminished bilaterally. Although the lung bases. Heart sounds are regular, positive S1-S2, there is some accentuation of the second heart sound, no cervical murmurs appreciated.Abdominal exam revealed normal bowel sounds. The abdomen was soft, non-tender, and without masses, organomegaly, or appreciable enlargement of the abdominal aorta. Extremities are within normal limits. There is no cyanosis or clubbing. A lipoma over the left posterior calf. Right lower extremity could be slightly swollen compared to the left. Neurologically, the patient has motor weakness and motor function the lower extremities are all 4/5. She is fully awake and alert. No focal neurological deficits at this point Results - Laboratory Findings CBC and BMP: 12/04/16 02:07 12/04/16 02:07 PT/INR, D-dimer PT 12.6 sec (9.0-12.0) H 12/04/16 02:07 INR 1.3 (<1.1) 12/04/16 02:07 D-Dimer 6.92 mg/L FEU (<0.60) H 12/04/16 02:07 Abnormal lab findings: Abnormal Labs 12/04/16 12/04/16 12/04/16 02:07 02:07 02:07 Hct 46.5 H MCHC 30.9 L RDW 17.1 H Lymphocytes # 0.8 L PT APTT D-Dimer POC Glucose (mg/dL) Troponin I 0.069 H* Total Protein 6.2 L Albumin 3.3 L 12/04/16 12/04/16 02:07 07:34 Hct MCHC RDW Lymphocytes # PT 12.6 H APTT 20.4 L D-Dimer 6.92 H POC Glucose (mg/dL) 133 H Troponin I Total Protein Albumin - Diagnostic Findings Chest x-ray: image reviewed Assessment and Plan Plan: Assessment 1 acute bilateral pulmonary embolism with suspected pulmonary infarct along the right lung 2 small right-sided pleural effusion, likely reactive secondary to pulmonary embolism 3 suspect lower extremity DVT, awaiting Dopplers 4 multiple sclerosis with significant limitation in exercise capacity. The patient has been leading essentially at Center lifestyle patient moves around with the help of a walker. She may potentially also at an increased risk of fall. 5 recent catheterization for altered mental status, drug induced as the patient is on a combination of Risperdal, morphine, gabapentin, Ativan 6. and leak secondary to pulmonary embolism 7 history of CVA with right-sided residual weakness 8 hypertension 9 preserved LV function based on an echocardiogram that was done on 12/02/2016 with [id number] degree of secondary pulmonary hypertension 10 chronic back pain and lower oximetry pain 11 Kleb pneumonia urine checked infection. The patient received Rocephin and Ceftin. We'll complete the course of Ceftin for now Plan Continue IV heparin for now. Establish an IV access. Obtain Doppler of the lower extremities. Keep oxygen at 4 L/m nasal cannula and gradually wean it down as tolerated. She will likely need long-term anticoagulation and we will investigate this patient's candidacy and insurance authorization for oral anticoagulations including Xarelto or eliquis. We'll watch suspicion for another 12 hours here in the ICU and if stable she can be moved to a medical floor with telemetry.
[2016-12-04] MEDS ORDERED: NALTREXONE PO SCH (09:00)
[2016-12-04] MEDS ORDERED: MORPHINE SULFATE PO SCH (09:00)
[2016-12-04 09:12] LABS: Troponin I 0.058 ng/mL (0.000-0.034)
[2016-12-04] MEDS ORDERED: MORPHINE SULFATE ER 30 MG TABLET PO SCH (09:45)
[2016-12-04] MEDS: CEFUROXIME 250 MG TAB PO SCH ×2 (09:59→20:49)
[2016-12-04] MEDS ORDERED: PANTOPRAZOLE 40 MG/10 ML VIAL IVP SCH (10:15)
[2016-12-04] MEDS: ASPIRIN 325 MG TAB PO SCH (10:48)
[2016-12-04 11:03] VITALS: BMI 29.8
--- NOTE | 2016-12-04 11:49 | CONS ---
DATE OF CONSULTATION: Maida is a 75-year-old lady who was admitted to hospital with shortness of breath. She was recently in the hospital and was discharged home following an accidental overdose of her pain meds. She had chest discomfort, got worse with deep breathing, 10/10 intensity, sudden onset. She underwent a CT scan of the chest that revealed bilateral pulmonary embolism. Patient is currently on IV heparin and is doing well. Denies any chest pain or difficulty in breathing. Labs show that the d-dimer is up at 6.9. Troponin is elevated at 0.06 and 0.05. Past medical history is significant for dyslipidemia, multiple sclerosis. Current medications include Demadex, Risperdal, Ativan, Flonase, Ceftin and Lipitor. ALLERGIES: There are no known drug allergies. Family history is negative for premature coronary artery disease. SOCIAL HISTORY: Negative for current smoking, EtOH abuse or drug abuse. REVIEW OF SYSTEMS: HEENT is unremarkable. CARDIAC: As described above. RESPIRATORY: Negative. GI: Negative. GENITOURINARY: Negative. ALLERGY/IMMUNOLOGY: Negative. SKIN: Negative. MUSCULOSKELETAL: Significant for arthritis. PSYCHOSOCIAL: Negative. ENDOCRINE: Negative. CONSTITUTIONAL: Negative. ONCOLOGICAL: Negative. The rest of the system review is not relevant. On exam, patient is comfortable, O2 sat is 94% on room air. Heart rate is around 80 to 90 beats per minute, blood pressure is 132/67, respiratory rate is 18. Chest exam reveals good air entry bilaterally. Heart exam reveals first and second heart sounds. No gallop. Abdomen is soft. Exam of extremities did not reveal any edema. Peripheral pulses are felt. Labs show a BNP of 2610. ASSESSMENT: Acute bilateral pulmonary embolism with elevated d-dimer and troponin. PLAN: I will continue the patient on IV heparin if she has the coverage. We will switch her to Xarelto tomorrow morning. I will obtain a 2-D echo on her to assess for RV strain.
--- NOTE | 2016-12-04 13:08 | US ---
EXAMINATION TYPE: US venous doppler duplex LE DATE OF EXAM: 12/04/2016 12:20 PM COMPARISON: NONE CLINICAL HISTORY: PE. SIDE PERFORMED: Bilateral TECHNIQUE: The lower extremity deep venous system is examined utilizing real time linear array sonog ester with graded compression, doppler sonography and color-flow sonography. VESSELS IMAGED: External Iliac Vein (EIV) Common Femoral Vein Deep Femoral Vein Greater Saphenous Vein * Femoral Vein Popliteal Vein Small Saphenous Vein * Proximal Calf Veins (* superficial vessels) Right Leg: Echogenic debris seen within deep femoral vein and was not fully compressible, other vess els in study were negative for DVT Left Leg: Echogenic debris seen within deep femoral vein and was not fully compressible, other vesse ls in study were negative for DVT IMPRESSION: Suspect acute DVT in visualized portion of deep femoral veins bilaterally which are nonco mpressible with heterogeneous hyperechoic material expanding lumen causing diminished flow.
[2016-12-04 14:50] LABS: Creatine Kinase MB 0.7 ng/mL (0.0-2.4)
[2016-12-04 15:10] LABS: Troponin I 0.047 ng/mL (0.000-0.034)
[2016-12-04] MEDS: GABAPENTIN 300 MG CAP PO SCH ×2 (16:22→20:48)
[2016-12-04] MEDS: RIVAROXABAN 15 MG TAB PO SCH (18:34)
[2016-12-04] MEDS: MORPHINE SULFATE ER 15 MG TABLET PO SCH (20:48)
[2016-12-04] MEDS: risperiDONE 0.5 MG TAB PO SCH (20:48)
[2016-12-04] MEDS: LORazepam 1 MG TAB PO SCH (20:49)
[2016-12-04] MEDS ORDERED: LORazepam 0.5 MG TAB PO SCH (21:00)
[2016-12-05] MEDS: MORPHINE SULFATE 2 MG/ML SYRINGE IVP PRN (01:22)
[2016-12-05] MEDS: RIVAROXABAN 15 MG TAB PO SCH ×2 (06:31→15:34)
[2016-12-05] MEDS: PANTOPRAZOLE 40 MG TABLET PO SCH (06:31)
[2016-12-05 06:33] LABS: Anisocytosis Slight; Basophils % (A) 0 %; CH 26.2; CHCM 30.6; Eosinophils % (A) 0 %; HCT 39.3 % (34.0-46.0); HDW 3.67; HGB 12.3 gm/dL (11.4-16.0); Hypochromasia Marked; Luc # (Auto) 0.15; Luc % (Auto) 2; Lymphocytes # (A) 0.9 k/uL (1.0-4.8); Lymphocytes % (A) 12 %; MCH 26.8 pg (25.0-35.0); MCHC 31.2 g/dL (31.0-37.0); MCV 85.7 fL (80.0-100.0); Mean Platelet Volume 7.5; Monocytes # (A) 0.3 k/uL (0-1.0); Monocytes % (A) 4 %; Neutrophils % (A) 81 %; Poikilocytosis Slight; RBC 4.59 m/uL (3.80-5.40); RDW 16.7 % (11.5-15.5); WBC 7.4 k/uL (3.8-10.6); WBC (Perox) 7.65
[2016-12-05 06:42] LABS: Cholesterol 126 mg/dL (<200); HDL Cholesterol 28 mg/dL (40-60); Triglycerides 86 mg/dL (<150)
[2016-12-05] MEDS: MORPHINE SULFATE ER 15 MG TABLET PO SCH ×2 (08:20→20:56)
[2016-12-05] MEDS: CEFUROXIME 250 MG TAB PO SCH ×2 (08:21→20:55)
[2016-12-05] MEDS: ASPIRIN 325 MG TAB PO SCH (08:21)
[2016-12-05] MEDS: GABAPENTIN 300 MG CAP PO SCH ×3 (08:21→21:26)
--- NOTE | 2016-12-05 09:57 | HP ---
DATE OF ADMISSION: REASON FOR ADMISSION: Chest pain and difficulty in breathing. HISTORY OF PRESENT ILLNESS: This is a 75-year-old female that was discharged from my service a day prior to her current admission. Patient at that time was brought into the hospital for change in mental status. This was attributed to patient abusing her medications including Neurontin, Valium and morphine. At that time patient was noted to have some dehydration, which was corrected. Patient did have a troponin leak at the time of 0.155. Denied having any chest pain or difficulty in breathing at that admission. I did obtain an echocardiogram on 12/02/2016 showed a right ventricular systolic pressure of 47. Patient was an ongoing smoker, hence, attributed it to mild to moderate pulmonary hypertension due to underlying COPD. Patient was discharged home in a stable condition; however, on 12/03/2016, the patient noted to have sudden onset chest pain with difficulty in breathing at that time. Hence was brought into the hospital by her . In the emergency room, patient was evaluated was noted to have an elevated D-dimer and hence a CT angiogram was done, which showed subsegmental PE on both sides. Patient is currently on 4 L supplemental oxygen. States her chest pain is improved today. Denies having any headaches, blurry vision, nausea, vomiting, urinary urgency or frequency. Of note, patient was given Rocephin during the last admission, was discharged on Ceftin due to a urine culture that was positive for ( ). Patient is more awake currently on 4 L supplemental oxygen. REVIEW OF SYSTEMS: A fourteen-point review of system was done; none pertinent other than what was mentioned above. 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 SURGICAL HISTORY: Orthopedic surgery, hysterectomy, PEG tube insertion, bilateral cataract removal. SOCIAL HISTORY: Ongoing tobacco use, a pack of cigarettes daily. Prescription drug abuse. No alcohol abuse is reported. FAMILY HISTORY: Not pertinent to the current admission. Home medications include: 1. Embeda ER. 2. Ativan 0.5 mg bedtime. 3. Neurontin p.o. 300 mg t.i.d. 4. Ceftin 250 mg p.o. b.i.d. 5. Gabapentin. 6. Protonix. ALLERGIES: No known drug allergies. PHYSICAL EXAM: VITALS: Temperature is 97.9, heart rate 70 to 106, blood pressure is 96/63, saturating 97% on 4 L supplemental oxygen. GENERAL APPEARANCE: Alert and oriented x3. Does appear to make some inappropriate comments. NECK: Supple. No JVD. LUNGS: Good air movement. Clear to auscultation. No rhonchi or wheezing. No crackles. HEART: S1, S2 heard. Regular rate and rhythm. No murmurs appreciated. ABDOMEN: Soft, nontender, no organomegaly. Bowel sounds are intact. LOWER EXTREMITIES: Left sided increased swelling, however, no significant tenderness bilaterally. NEURO: No focal motor or sensory deficits noted. PSYCH: More awake than on prior evaluation in the past admission. LABORATORY DATA: Hemoglobin 14.4, hematocrit 46.5, white count of 7.3, platelets of 282. D-dimer is 6.92. Sodium 143, potassium 4.5, chloride 107, bicarb 25. BUN 17 and creatinine 0.70. Peak troponin of 0.058. ASSESSMENT AND PLAN: 1. Acute bilateral pulmonary embolism. This could be documented as a provoked event as patient has been immobile for the last month due to medication abuse. 2. Chronic obstructive pulmonary disease. 3. Acute hypoxic respiratory failure secondary to above. 4. Recent toxic encephalopathy, which is improved. 5. Multiple sclerosis. 6. Previous cerebrovascular accident with right-sided weakness and slurred speech. 7. Mild to moderate pulmonary hypertension. 8. A recent urinary tract infection with ( ). PLAN: I will start the patient on Xarelto. It cost approximately $27.00 per month Titrate down oxygen. We will continue Ceftin from the previous admission to complete course. Patient will be titrated down on pain medications. Will start with morphine 15 mg p.o. q.12 hours. Continue Ativan 1 mg p.o. at bedtime. Gabapentin 300 mg p.o. t.i.d. Continue ongoing care. Repeat echo was ordered. Question of if there is increased right ventricular strain. Will follow. Did discuss the case with the patient and the fish technologist as well. Will follow.
--- NOTE | 2016-12-05 10:17 | ECHOF ---
Referral Reason:pulmonar embolism MEASUREMENTS -------- HEIGHT: 167.6 cm WEIGHT: 83.9 kg BP: 130/69 RVIDd: 3.1 cm (< 3.3) IVSd: 0.9 cm (0.6 - 1.1) LVIDd: 4.4 cm (3.9 - 5.3) LVPWd: 1.1 cm (0.6 - 1.1) IVSs: 1.5 cm LVIDs: 3.0 cm LVPWs: 1.4 cm LA Diam: 3.1 cm (2.7 - 3.8) LAESV Index (A-L): 27.97 ml/m Ao Diam: 3.5 cm (2.0 - 3.7) AV Cusp: 1.9 cm (1.5 - 2.6) MV EXCURSION: 11.106 mm (> 18.000) MV EF SLOPE: 21 mm/s (70 - 150) EPSS: 0.5 cm MV E Camron: 0.77 m/s MV DecT: 397 ms MV A Camron: 1.15 m/s MV E/A Ratio: 0.66 AV maxP.95 mmHg AV maxP.95 mmHg AV meanP.56 mmHg RAP: 5.00 mmHg RVSP: 37.19 mmHg FINDINGS -------- Sinus rhythm with extra systolic beats. This was a technically adequate study. The left ventricular size is normal. Left ventricular wall thickness is normal. Overall left ventricular systolic function is normal with, an EF between 55 - 60 %. The right ventricle is normal in size. Normal LA size by volume 22+/-6 ml/m2. The right atrium is normal in size. There is mild aortic valve sclerosis. Trace to mild aortic regurgitation. The mitral valve leaflets are mildly thickened. Mild mitral annular calcification present. Mild tricuspid regurgitation present. There is mild pulmonary hypertension. The right ventricular systolic pressure, as measured by Doppler, is 37.19mmHg. Trace/mild (physiologic) pulmonic regurgitation. The aortic root size is normal. Normal inferior vena cava with normal inspiratory collapse consistent with estimated right atrial pressure of 5 mmHg. There is a small, generalized pericardial effusion present. CONCLUSIONS -------- 1. Sinus rhythm with extra systolic beats. 2. Trace to mild aortic regurgitation. 3. The mitral valve leaflets are mildly thickened. 4. Mild mitral annular calcification present. 5. Mild tricuspid regurgitation present. 6. There is mild pulmonary hypertension. 7. The right ventricular systolic pressure, as measured by Doppler, is 37.19mmHg. 8. Trace/mild (physiologic) pulmonic regurgitation. 9. The aortic root size is normal. 10. Normal inferior vena cava with normal inspiratory collapse consistent with estimated right atrial pressure of 5 mmHg. 11. There is a small, generalized pericardial effusion present. 12. This was a technically adequate study. 13. The left ventricular size is normal. 14. Left ventricular wall thickness is normal. 15. Overall left ventricular systolic function is normal with, an EF between 55 - 60 %. 16. The right ventricle is normal in size. 17. Normal LA size by volume 22+/-6 ml/m2. 18. The right atrium is normal in size. 19. There is mild aortic valve sclerosis. WET WASHER MACHINE: Rosemarie Lewis RDCS
--- NOTE | 2016-12-05 12:18 | P.PN ---
Subjective 75 years old female presents with a chest pain or shortness of breath chest pain or shortness of breath started this afternoon, she was quite distressed on arrival to ED and the respiratory rate is 26. Chest pain gets worse when she takes a deep breath and some fever and chills and chest pain is 10 over 10. The patient is known to us. She has been hospitalized on several occasions here at [facility]. In fact I been involved in her care approximately year ago which presented with altered mental status. She has quite advanced MS. She apparently has been able to ambulate and take care of herself however her overall performance and functional status is been gradually getting worse. The patient came in to the hospital on 12/01/2016 and her admission was because of progressive weakness and diminished level of consciousness and altered mentation. At that time this presentation was attributed to increase Neurontin intake as the patient was taken 10 mg of Neurontin 5 times a day. There was also suspicion that the patient was utilizing her medication. Patient is also on narcotics for chronic pain. This has been a problem and the patient's medications are locked away in a safe by the patient's knowing that she has the potential of overutilizing her medication. Note that the patient is also on a combination of Valium 10 mg at bedtime and Risperdal 0.5 mg at bedtime in conjunction with Neurontin. The patient has been also on oxycodone for pain control. She denied having any suicidal ideation. She stated that whenever she does not feel that that she takes extra medication. In any rate, the patient's condition improved and the patient was discharged home on on 12/03. UA was abnormal. She was given a dose of Rocephin at that time. She was given a diagnosis of toxic metabolic encephalopathy with possibly overutilizing of medications/Neurontin. She also had some indeterminant troponin leak During this current admission, the patient was seen initially in the ED. Based on ongoing shortness of breath and chest pain a CT angios the chest was done and it showed bilateral segmental pulmonary emboli. In addition there is evidence of a small right-sided pleural effusion and bibasilar atelectasis more so on the right. There is also a area of pleural base consolidation in the right midlung area probably related to an underlying pulmonary infarction. Her echocardiogram that was done on 12/02/2016 showed a normal ejection fraction of 50-55%. The patient also had evidence of mild pulmonary hypertension with adequate systolic pressure estimated to be 47 mmHg. There was a small generalized pericardial effusion. He is hemodynamically stable. Her pain and shortness of breath has subsided. She is on oxygen at 4 L/m nasal cannula maintain a saturation above 90%. Legs are non-swollen. No calf pain or tenderness. No previous history of DVT or pulmonary embolism. The patient is seen again today 12/05/2016 in follow-up on the selective care unit. She is awake and alert in no acute distress. She is breathing easier today as compared to yesterday. She is still requiring 4 L/m per nasal cannula to maintain O2 saturations in the 90s. She denies any significant chest discomfort. No dizziness or lightheadedness. She's been up ambulate with assistance without difficulty and dyspnea on exertion. Objective - Vital Signs Vital signs: Vital Signs Temp 98.8 F 12/05/16 08:00 Pulse 79 12/05/16 08:00 Resp 18 12/05/16 08:00 BP 93/54 12/05/16 08:00 Pulse Ox 99 12/05/16 08:00 Intake & Output 12/04/16 12/05/16 12/05/16 18:59 06:59 18:59 Intake Total 403.889 60 150 Output Total 1100 275 275 Balance -696.111 -215 -125 Weight 83.915 kg 88 kg Intake: IV 60 Sodium Chloride 0.9% 1, 60 000 ml @ 20 mls/hr IV . Q24H [facility] Rx#:[id number] Intake, IV Titration 403.889 Amount Heparin Sodium,Porcine/ 323.889 D5w Pmx 25,000 unit In Dextrose/Water 1 500ml. bag @ 18 UNITS/KG/HR 30.2 mls/hr IV .[id number] [facility] Rx#:[id number] Sodium Chloride 0.9% 1, 80 000 ml @ 20 mls/hr IV . Q24H [facility] Rx#:[id number] Oral 150 Output: Urine 1100 275 275 Other: Voiding Method Indwelling Catheter Indwelling Catheter Indwelling Catheter # Voids 1 1 - Exam Head exam was generally normal. There was no scleral icterus or corneal arcus. Mucous membranes were moist.Neck was supple and without jugular venous distension, thyromegaly, or carotid bruits. Carotids were easily palpable bilaterally. There was no adenopathy. Lung sounds are diminished bilaterally. Although the lung bases. Heart sounds are regular, positive S1-S2, there is some accentuation of the second heart sound, no cervical murmurs appreciated.Abdominal exam revealed normal bowel sounds. The abdomen was soft, non-tender, and without masses, organomegaly, or appreciable enlargement of the abdominal aorta. Extremities are within normal limits. There is no cyanosis or clubbing. A lipoma over the left posterior calf. Right lower extremity could be slightly swollen compared to the left. Neurologically, the patient has motor weakness and motor function the lower extremities are all 4/5. She is fully awake and alert. No focal neurological deficits at this point - Labs CBC & Chem 7: 12/05/16 06:00 12/04/16 02:07 Labs: Abnormal Lab Results - Last 24 Hours (Table) 12/04/16 12/04/16 12/05/16 Range/Units 13:51 13:51 06:00 RDW (11.5-15.5) % Lymphocytes # (1.0-4.8) k/uL APTT 78.7 H (22.0-30.0) sec Total Creatine Kinase 28 L (30-135) U/L Troponin I 0.047 H* (0.000-0.034) ng/mL HDL Cholesterol 28 L (40-60) mg/dL 12/05/16 Range/Units 06:00 RDW 16.7 H (11.5-15.5) % Lymphocytes # 0.9 L (1.0-4.8) k/uL APTT (22.0-30.0) sec Total Creatine Kinase (30-135) U/L Troponin I (0.000-0.034) ng/mL HDL Cholesterol (40-60) mg/dL Assessment and Plan Plan: Assessment 1 acute bilateral pulmonary embolism with suspected pulmonary infarct along the right lung 2 small right-sided pleural effusion, likely reactive secondary to pulmonary embolism 3 suspect lower extremity DVT, awaiting Dopplers 4 multiple sclerosis with significant limitation in exercise capacity. The patient has been leading essentially at Center lifestyle patient moves around with the help of a walker. She may potentially also at an increased risk of fall. 5 recent catheterization for altered mental status, drug induced as the patient is on a combination of Risperdal, morphine, gabapentin, Ativan 6. and leak secondary to pulmonary embolism 7 history of CVA with right-sided residual weakness 8 hypertension 9 preserved LV function based on an echocardiogram that was done on 12/02/2016 with [id number] degree of secondary pulmonary hypertension 10 chronic back pain and lower oximetry pain 11 Kleb pneumonia urine checked infection. The patient received Rocephin and Ceftin. We'll complete the course of Ceftin for now Plan The patient was seen and evaluated by Dr. Lopez. We'll continue with her current medications. We will increase her activity as tolerated. We'll continue to follow.
--- NOTE | 2016-12-05 12:24 | P.PN ---
Subjective Principal diagnosis: PE This is a 75-year-old female admitted to the hospital with symptoms of shortness of breath. CT of the chest revealed bilateral pulmonary embolism. EKG showed normal sinus rhythm with S1 Q3 T3 pattern. Patient was seen and examined this morning, feels well overall. Breathing is improved. Blood pressure 94/54, heart rate in the 70s IV heparin is discontinued and patient has been started on xarelto 15 mg one tablet by mouth twice a day. She will continue this dose for 21 days, then be put on xarelto 20 mg daily. Echocardiogram with Doppler study was performed which revealed an ejection fraction of 55-60%. Small pericardial effusion is noted, mild tricuspid regurg , normal RV and LA size. Objective - Vital Signs Vital signs: Vital Signs Temp 98.8 F 12/05/16 08:00 Pulse 79 12/05/16 08:00 Resp 18 12/05/16 08:00 BP 93/54 12/05/16 08:00 Pulse Ox 99 12/05/16 08:00 Intake & Output 12/04/16 12/05/16 12/05/16 18:59 06:59 18:59 Intake Total 403.889 60 150 Output Total 1100 275 275 Balance -696.111 -215 -125 Weight 83.915 kg 88 kg Intake: IV 60 Sodium Chloride 0.9% 1, 60 000 ml @ 20 mls/hr IV . Q24H [facility] Rx#:[id number] Intake, IV Titration 403.889 Amount Heparin Sodium,Porcine/ 323.889 D5w Pmx 25,000 unit In Dextrose/Water 1 500ml. bag @ 18 UNITS/KG/HR 30.2 mls/hr IV .[id number] [facility] Rx#:[id number] Sodium Chloride 0.9% 1, 80 000 ml @ 20 mls/hr IV . Q24H [facility] Rx#:[id number] Oral 150 Output: Urine 1100 275 275 Other: Voiding Method Indwelling Catheter Indwelling Catheter Indwelling Catheter # Voids 1 1 - Exam PHYSICAL EXAMINATION: HEENT: Head is atraumatic, normocephalic. Pupils equal, round. Neck is supple. There is no elevated jugular venous pressure. HEART EXAMINATION: Heart S1, S2 normal. No murmur or gallop heard. CHEST EXAMINATION: Lungs are clear to auscultation and precussion. No chest wall tenderness is noted on palpation or with deep breathing. ABDOMEN: Soft, nontender. Bowel sounds are heard. No organomegaly noted. EXTREMITIES: 2+ peripheral pulses with trace evidence of peripheral edema and no calf tenderness noted. NEUROLOGIC patient is awake, alert and oriented -3. . - Labs CBC & Chem 7: 12/05/16 06:00 12/04/16 02:07 Labs: Abnormal Lab Results - Last 24 Hours (Table) 12/04/16 12/04/16 12/05/16 Range/Units 13:51 13:51 06:00 RDW (11.5-15.5) % Lymphocytes # (1.0-4.8) k/uL APTT 78.7 H (22.0-30.0) sec Total Creatine Kinase 28 L (30-135) U/L Troponin I 0.047 H* (0.000-0.034) ng/mL HDL Cholesterol 28 L (40-60) mg/dL 12/05/16 Range/Units 06:00 RDW 16.7 H (11.5-15.5) % Lymphocytes # 0.9 L (1.0-4.8) k/uL APTT (22.0-30.0) sec Total Creatine Kinase (30-135) U/L Troponin I (0.000-0.034) ng/mL HDL Cholesterol (40-60) mg/dL Assessment and Plan Plan: Assessment and plan #1 bilateral pulmonary embolisms, currently on Xarelto for anticoagulation. #2 positive acute DVT in the femoral veins bilaterally #3 prior TIA #4 COPD #5 multiple sclerosis #6 hypertension #7 hyperlipidemia #8 nicotine dependence Plan Patient will be continued on xarelto 15 mg one tablet by mouth twice a day for 21 days, then she will start on xarelto 20 mg daily. We will make her a follow- up appointment to see Dr. Guerrero in the office in 4 weeks. We will follow her with you now on an as-needed basis only, please don't hesitate to call with any questions. DNP note has been reviewed, I agree with a documented findings and plan of care. Patient was seen and examined.
--- NOTE | 2016-12-05 17:24 | P.PN ---
Subjective DATE OF ADMISSION: REASON FOR ADMISSION: Chest pain and difficulty in breathing. HISTORY OF PRESENT ILLNESS: This is a 75-year-old female that was discharged from my service a day prior to her current admission. Patient at that time was brought into the hospital for change in mental status. This was attributed to patient abusing her medications including Neurontin, Valium and morphine. At that time patient was noted to have some dehydration, which was corrected. Patient did have a troponin leak at the time of 0.155. Denied having any chest pain or difficulty in breathing at that admission. I did obtain an echocardiogram on 12/02/2016 showed a right ventricular systolic pressure of 47. Patient was an ongoing smoker, hence, attributed it to mild to moderate pulmonary hypertension due to underlying COPD. Patient was discharged home in a stable condition; however, on 12/03/2016, the patient noted to have sudden onset chest pain with difficulty in breathing at that time. Hence was brought into the hospital by her . In the emergency room, patient was evaluated was noted to have an elevated D-dimer and hence a CT angiogram was done, which showed subsegmental PE on both sides. Patient is currently on 4 L supplemental oxygen. States her chest pain is improved today. Denies having any headaches, blurry vision, nausea, vomiting, urinary urgency or frequency. Of note, patient was given Rocephin during the last admission, was discharged on Ceftin due to a urine culture that was positive for K. pneumoniae 12/05/16 on 3 l, doing well symptoms are better controlled no chest pain, shahnaz, nausea, vomiting, diarrhea reported PHYSICAL EXAM: GENERAL APPEARANCE: Alert and oriented x3. Does appear to make some inappropriate comments. NECK: Supple. No JVD. LUNGS: Good air movement. Clear to auscultation. No rhonchi or wheezing. No crackles. HEART: S1, S2 heard. Regular rate and rhythm. No murmurs appreciated. ABDOMEN: Soft, nontender, no organomegaly. Bowel sounds are intact. LOWER EXTREMITIES: Left sided increased swelling, however, no significant tenderness bilaterally. NEURO: No focal motor or sensory deficits noted. PSYCH: More awake than on prior evaluation in the past admission. Objective - Vital Signs Vital signs: Vital Signs Temp 98.3 F 12/05/16 16:00 Pulse 77 12/05/16 16:00 Resp 18 12/05/16 16:00 BP 108/62 12/05/16 16:00 Pulse Ox 94 L 12/05/16 16:00 Intake & Output 12/04/16 12/05/16 12/05/16 18:59 06:59 18:59 Intake Total 403.889 60 555 Output Total 1100 275 525 Balance -696.111 -215 30 Weight 83.915 kg 88 kg Intake: IV 60 80 Sodium Chloride 0.9% 1, 60 80 000 ml @ 20 mls/hr IV . Q24H [facility] Rx#:[id number] Intake, IV Titration 403.889 Amount Heparin Sodium,Porcine/ 323.889 D5w Pmx 25,000 unit In Dextrose/Water 1 500ml. bag @ 18 UNITS/KG/HR 30.2 mls/hr IV .[id number] [facility] Rx#:[id number] Sodium Chloride 0.9% 1, 80 000 ml @ 20 mls/hr IV . Q24H [facility] Rx#:[id number] Oral 475 Output: Urine 1100 275 525 Other: Voiding Method Indwelling Catheter Indwelling Catheter Indwelling Catheter # Voids 1 1 - Labs CBC & Chem 7: 12/05/16 06:00 12/04/16 02:07 Labs: Abnormal Lab Results - Last 24 Hours (Table) 12/05/16 12/05/16 Range/Units 06:00 06:00 RDW 16.7 H (11.5-15.5) % Lymphocytes # 0.9 L (1.0-4.8) k/uL HDL Cholesterol 28 L (40-60) mg/dL Assessment and Plan Plan: ASSESSMENT AND PLAN: 1. Acute bilateral pulmonary embolism. This could be documented as a provoked event as patient has been immobile for the last month due to medication abuse. 2. Chronic obstructive pulmonary disease. 3. Acute hypoxic respiratory failure secondary to above. 4. Recent toxic encephalopathy, which is improved. 5. Multiple sclerosis. 6. Previous cerebrovascular accident with right-sided weakness and slurred speech. 7. Mild to moderate pulmonary hypertension. 8. A recent urinary tract infection with K. pneumoniae PLAN: xarelto encourage ambulation continue ceftin medications were changed in regards to neurontin , ativan and morphine xr. Pt/OT Likely dc home [facility] depending on her activity tolerance. pt doesnot want to go to rehab
[2016-12-05] MEDS: risperiDONE 0.5 MG TAB PO SCH (20:55)
[2016-12-05] MEDS: LORazepam 1 MG TAB PO SCH (20:56)
[2016-12-06] MEDS: MORPHINE SULFATE 2 MG/ML SYRINGE IVP PRN (02:22)
[2016-12-06 05:22] VITALS: RESP 18
[2016-12-06 06:16] LABS: Anisocytosis Slight; Basophils % (A) 0 %; CH 26.3; CHCM 30.5; Eosinophils # (A) 0.1 k/uL (0-0.7); Eosinophils % (A) 2 %; HCT 39.7 % (34.0-46.0); HDW 3.63; HGB 12.2 gm/dL (11.4-16.0); Hypochromasia Marked; Luc # (Auto) 0.13; Luc % (Auto) 2; Lymphocytes # (A) 1.3 k/uL (1.0-4.8); Lymphocytes % (A) 23 %; MCH 26.4 pg (25.0-35.0); MCHC 30.6 g/dL (31.0-37.0); MCV 86.3 fL (80.0-100.0); Monocytes # (A) 0.4 k/uL (0-1.0); Monocytes % (A) 6 %; Neutrophils # (A) 3.7 k/uL (1.3-7.7); Neutrophils % (A) 66 %; Poikilocytosis Slight; RDW 16.6 % (11.5-15.5); WBC 5.6 k/uL (3.8-10.6); WBC (Perox) 6.19
[2016-12-06] MEDS: PANTOPRAZOLE 40 MG TABLET PO SCH (06:31)
[2016-12-06] MEDS: RIVAROXABAN 15 MG TAB PO SCH ×2 (06:31→15:47)
[2016-12-06] MEDS: GABAPENTIN 300 MG CAP PO SCH ×3 (08:25→21:23)
[2016-12-06] MEDS: ASPIRIN 81 MG CHEW PO SCH (08:25)
[2016-12-06] MEDS: CEFUROXIME 250 MG TAB PO SCH ×2 (08:25→21:23)
[2016-12-06] MEDS: MORPHINE SULFATE ER 15 MG TABLET PO SCH ×2 (08:28→21:22)
--- NOTE | 2016-12-06 12:52 | P.PN ---
Subjective 75 years old female presents with a chest pain or shortness of breath chest pain or shortness of breath started this afternoon, she was quite distressed on arrival to ED and the respiratory rate is 26. Chest pain gets worse when she takes a deep breath and some fever and chills and chest pain is 10 over 10. The patient is known to us. She has been hospitalized on several occasions here at [facility]. In fact I been involved in her care approximately year ago which presented with altered mental status. She has quite advanced MS. She apparently has been able to ambulate and take care of herself however her overall performance and functional status is been gradually getting worse. The patient came in to the hospital on 12/01/2016 and her admission was because of progressive weakness and diminished level of consciousness and altered mentation. At that time this presentation was attributed to increase Neurontin intake as the patient was taken 10 mg of Neurontin 5 times a day. There was also suspicion that the patient was utilizing her medication. Patient is also on narcotics for chronic pain. This has been a problem and the patient's medications are locked away in a safe by the patient's knowing that she has the potential of overutilizing her medication. Note that the patient is also on a combination of Valium 10 mg at bedtime and Risperdal 0.5 mg at bedtime in conjunction with Neurontin. The patient has been also on oxycodone for pain control. She denied having any suicidal ideation. She stated that whenever she does not feel that that she takes extra medication. In any rate, the patient's condition improved and the patient was discharged home on on 12/03. UA was abnormal. She was given a dose of Rocephin at that time. She was given a diagnosis of toxic metabolic encephalopathy with possibly overutilizing of medications/Neurontin. She also had some indeterminant troponin leak During this current admission, the patient was seen initially in the ED. Based on ongoing shortness of breath and chest pain a CT angios the chest was done and it showed bilateral segmental pulmonary emboli. In addition there is evidence of a small right-sided pleural effusion and bibasilar atelectasis more so on the right. There is also a area of pleural base consolidation in the right midlung area probably related to an underlying pulmonary infarction. Her echocardiogram that was done on 12/02/2016 showed a normal ejection fraction of 50-55%. The patient also had evidence of mild pulmonary hypertension with adequate systolic pressure estimated to be 47 mmHg. There was a small generalized pericardial effusion. He is hemodynamically stable. Her pain and shortness of breath has subsided. She is on oxygen at 4 L/m nasal cannula maintain a saturation above 90%. Legs are non-swollen. No calf pain or tenderness. No previous history of DVT or pulmonary embolism. The patient is seen again today 12/05/2016 in follow-up on the selective care unit. She is awake and alert in no acute distress. She is breathing easier today as compared to yesterday. She is still requiring 4 L/m per nasal cannula to maintain O2 saturations in the 90s. She denies any significant chest discomfort. No dizziness or lightheadedness. She's been up ambulate with assistance without difficulty and dyspnea on exertion. The patient was seen again today 12/06/2016 in follow-up on the selective care unit. She is currently sitting up in bed. She is awake and alert in no acute distress. She denies any worsening shortness of breath, cough or congestion. She is afebrile. Hemodynamically stable. She is maintaining O2 saturations in the 90s on 3 L/m per nasal cannula. She remains on ceftin. Continuing on Xarelto. Objective - Vital Signs Vital signs: Vital Signs Temp 97.4 F L 12/06/16 04:00 Pulse 70 12/06/16 04:00 Resp 18 12/06/16 04:00 BP 94/63 12/06/16 04:00 Pulse Ox 95 12/06/16 04:00 Intake & Output 12/05/16 12/06/16 12/06/16 18:59 06:59 18:59 Intake Total 705 Output Total 1125 1225 Balance -420 -1225 Weight 83.2 kg Intake: IV 80 Sodium Chloride 0.9% 1, 80 000 ml @ 20 mls/hr IV . Q24H STA Rx#:[id number] Oral 625 Output: Urine 1125 1225 Uretheral (Sarkar) 1225 Other: Voiding Method Indwelling Catheter Indwelling Catheter # Voids 1 2 - Exam Head exam was generally normal. There was no scleral icterus or corneal arcus. Mucous membranes were moist.Neck was supple and without jugular venous distension, thyromegaly, or carotid bruits. Carotids were easily palpable bilaterally. There was no adenopathy. Lung sounds are diminished bilaterally. Although the lung bases. Heart sounds are regular, positive S1-S2, there is some accentuation of the second heart sound, no cervical murmurs appreciated.Abdominal exam revealed normal bowel sounds. The abdomen was soft, non-tender, and without masses, organomegaly, or appreciable enlargement of the abdominal aorta. Extremities are within normal limits. There is no cyanosis or clubbing. A lipoma over the left posterior calf. Right lower extremity could be slightly swollen compared to the left. Neurologically, the patient has motor weakness and motor function the lower extremities are all 4/5. She is fully awake and alert. No focal neurological deficits at this point - Labs CBC & Chem 7: 12/06/16 05:39 12/04/16 02:07 Labs: Abnormal Lab Results - Last 24 Hours (Table) 12/06/16 Range/Units 05:39 MCHC 30.6 L (31.0-37.0) g/dL RDW 16.6 H (11.5-15.5) % Assessment and Plan Plan: Assessment 1 acute bilateral pulmonary embolism with suspected pulmonary infarct along the right lung 2 small right-sided pleural effusion, likely reactive secondary to pulmonary embolism 3 suspect lower extremity DVT, awaiting Dopplers 4 multiple sclerosis with significant limitation in exercise capacity. The patient has been leading essentially at Center lifestyle patient moves around with the help of a walker. She may potentially also at an increased risk of fall. 5 recent catheterization for altered mental status, drug induced as the patient is on a combination of Risperdal, morphine, gabapentin, Ativan 6. and leak secondary to pulmonary embolism 7 history of CVA with right-sided residual weakness 8 hypertension 9 preserved LV function based on an echocardiogram that was done on 12/02/2016 with [id number] degree of secondary pulmonary hypertension 10 chronic back pain and lower oximetry pain 11 Kleb pneumonia urine checked infection. The patient received Rocephin and Ceftin. We'll complete the course of Ceftin for now Plan The patient was seen and evaluated by Dr. Lopez. We'll continue with her current medications. She is stable from the pulmonary standpoint. We'll continue with Xarelto. We'll see the patient on as-needed basis.
[2016-12-06] MEDS ORDERED: HYDROmorphone 1 MG/ML 1 ML SYRINGE IVP PRN (18:47)
[2016-12-06] MEDS: IPRATROPIUM-ALBUTEROL 3 ML NEB INHALATION SCH (20:25)
[2016-12-06] MEDS: LORazepam 1 MG TAB PO SCH (21:22)
[2016-12-06] MEDS: risperiDONE 0.5 MG TAB PO SCH (21:23)
[2016-12-07] MEDS: PANTOPRAZOLE 40 MG TABLET PO SCH (06:39)
[2016-12-07] MEDS: RIVAROXABAN 15 MG TAB PO SCH ×2 (06:39→15:59)
[2016-12-07 06:45] LABS: Anisocytosis Slight; Basophils % (A) 0 %; CH 26.1; CHCM 30.7; Eosinophils # (A) 0.2 k/uL (0-0.7); Eosinophils % (A) 4 %; HCT 39.9 % (34.0-46.0); HDW 3.75; HGB 12.9 gm/dL (11.4-16.0); Hypochromasia Marked; Luc # (Auto) 0.18; Luc % (Auto) 3; Lymphocytes # (A) 1.2 k/uL (1.0-4.8); Lymphocytes % (A) 19 %; MCH 27.5 pg (25.0-35.0); MCHC 32.3 g/dL (31.0-37.0); MCV 85.3 fL (80.0-100.0); Mean Platelet Volume 6.4; Monocytes # (A) 0.3 k/uL (0-1.0); Monocytes % (A) 5 %; Neutrophils # (A) 4.4 k/uL (1.3-7.7); Neutrophils % (A) 70 %; Poikilocytosis Slight; RBC 4.68 m/uL (3.80-5.40); RDW 16.4 % (11.5-15.5); WBC 6.3 k/uL (3.8-10.6); WBC (Perox) 6.87
[2016-12-07 07:29] LABS: Anion Gap 7 mmol/L; Blood Urea Nitrogen 14 mg/dL (7-17); Carbon Dioxide 26 mmol/L (22-30); Chloride 108 mmol/L (98-107); Glucose 79 mg/dL (74-99); Non-African American GFR(MDRD) >60 (>60 ml/min/1.73 sqM); Potassium 3.9 mmol/L (3.5-5.1); Sodium 141 mmol/L (137-145)
[2016-12-07] MEDS: IPRATROPIUM-ALBUTEROL 3 ML NEB INHALATION SCH ×3 (08:23→16:25)
[2016-12-07] MEDS: ASPIRIN 81 MG CHEW PO SCH (08:55)
[2016-12-07] MEDS: CEFUROXIME 250 MG TAB PO SCH (08:55)
[2016-12-07] MEDS: GABAPENTIN 300 MG CAP PO SCH ×2 (08:55→15:59)
[2016-12-07] MEDS: MORPHINE SULFATE ER 15 MG TABLET PO SCH (08:57)
--- NOTE | 2016-12-07 09:54 | PN ---
DATE OF SERVICE: 12/06/2016 INTERVAL HISTORY: Mrs. Maida Cisse is a 75-year-old female with a past medical history of chronic obstructive pulmonary disease, multiple sclerosis, and previous cerebrovascular accident with right-sided weakness and slurred speech, admitted to the hospital for sudden onset of chest pain with and difficulty in breathing. Patient had a recent hospital stay for change in mental status, which was attributed due to her abuse with pain medications, which include Neurontin, Valium and morphine. At her previous admission she was also having some dehydration, which was corrected with IV fluids and mild troponin leak. During this admission, the patient did have D-dimer and had a CT angio which was positive for subsegmental PE on both sides and so the patient has been started on anticoagulation and admitted to the hospital. Patient's anticoagulation has been changed to Xarelto, she is currently on it now. She is also on Cefotan for her recent urinary tract infection with Klebsiella pneumonia. Today the patient is lying in bed. She complains of chest pain bilaterally. No aggravating or relieving factors. States the pain is 2/10 and requests that she gets some pain medications. The patient does have history of narcotic abuse. REVIEW OF SYSTEMS: CONSTITUTIONAL: Denies having fevers, chills or rigors. RESPIRATORY: No cough. No difficulty in breathing. CARDIAC: Nonspecific chest pain. No palpitations. GI: No abdominal pain, nausea, vomiting, or diarrhea. : No dysuria or hematuria. MEDICATIONS: Reviewed. On examination, patient's vital signs are temperature 98.5, heart rate 79, respiratory rate 18, blood pressure 99 to 55, saturating at 94% on 3L oxygen. GENERAL: Patient appears to be no acute distress. APPLICATION SUPPORT ANALYST: Alert, awake, oriented x3. No focal neurological deficits. HEAD: Atraumatic, normocephalic. NECK: No JVD. LUNGS: Bilateral air entry positive. Positive for coarse breath sounds in all lung olvera. Mild wheezing bilaterally. HEART: S1, S2 heard. ABDOMEN: Soft, nontender, no organomegaly. Bowel sounds positive. EXTREMITIES: Left-sided increased swelling. No significant tenderness bilaterally. PSYCHIATRIC: Appropriate mood and affect. LABS: White count of 5.6, hemoglobin is 12.2, platelets of 314, sodium 143, potassium 4.5, chloride 105, bicarb 25, BUN 17, creatinine 0.70. Troponin 0.047. ASSESSMENT AND PLAN: 1. Acute bilateral pulmonary embolism, could be due to ( ) as the patient has been immobile for the past one month due to medication abuse. 2. Chronic obstructive pulmonary disease. 3. Acute hypoxic respiratory failure secondary to #1. 4. Recent toxic encephalopathy, which is improved. 5. Multiple sclerosis. 6. Previous cerebrovascular accident with right-sided weakness and slurring of speech. 7. Mild to moderate pulmonary hypertension. 8. Recent urinary tract infection with Klebsiella pneumoniae. PLAN: The patient's anticoagulation has been changed to Xarelto. Will continue with Ceftin for UTI. PT and OT on board and likely the patient to be discharged in the next 24 to 48 members. The patient does not want to go to rehab. acid conditioning worker on board. Further recommendations depending on the progress of the patient.
--- NOTE | 2016-12-07 12:22 | P.PN ---
Subjective 75 years old female presents with a chest pain or shortness of breath chest pain or shortness of breath started this afternoon, she was quite distressed on arrival to ED and the respiratory rate is 26. Chest pain gets worse when she takes a deep breath and some fever and chills and chest pain is 10 over 10. The patient is known to us. She has been hospitalized on several occasions here at [facility]. In fact I been involved in her care approximately year ago which presented with altered mental status. She has quite advanced MS. She apparently has been able to ambulate and take care of herself however her overall performance and functional status is been gradually getting worse. The patient came in to the hospital on 12/01/2016 and her admission was because of progressive weakness and diminished level of consciousness and altered mentation. At that time this presentation was attributed to increase Neurontin intake as the patient was taken 10 mg of Neurontin 5 times a day. There was also suspicion that the patient was utilizing her medication. Patient is also on narcotics for chronic pain. This has been a problem and the patient's medications are locked away in a safe by the patient's knowing that she has the potential of overutilizing her medication. Note that the patient is also on a combination of Valium 10 mg at bedtime and Risperdal 0.5 mg at bedtime in conjunction with Neurontin. The patient has been also on oxycodone for pain control. She denied having any suicidal ideation. She stated that whenever she does not feel that that she takes extra medication. In any rate, the patient's condition improved and the patient was discharged home on on 12/03. UA was abnormal. She was given a dose of Rocephin at that time. She was given a diagnosis of toxic metabolic encephalopathy with possibly overutilizing of medications/Neurontin. She also had some indeterminant troponin leak During this current admission, the patient was seen initially in the ED. Based on ongoing shortness of breath and chest pain a CT angios the chest was done and it showed bilateral segmental pulmonary emboli. In addition there is evidence of a small right-sided pleural effusion and bibasilar atelectasis more so on the right. There is also a area of pleural base consolidation in the right midlung area probably related to an underlying pulmonary infarction. Her echocardiogram that was done on 12/02/2016 showed a normal ejection fraction of 50-55%. The patient also had evidence of mild pulmonary hypertension with adequate systolic pressure estimated to be 47 mmHg. There was a small generalized pericardial effusion. He is hemodynamically stable. Her pain and shortness of breath has subsided. She is on oxygen at 4 L/m nasal cannula maintain a saturation above 90%. Legs are non-swollen. No calf pain or tenderness. No previous history of DVT or pulmonary embolism. The patient is seen again today 12/05/2016 in follow-up on the selective care unit. She is awake and alert in no acute distress. She is breathing easier today as compared to yesterday. She is still requiring 4 L/m per nasal cannula to maintain O2 saturations in the 90s. She denies any significant chest discomfort. No dizziness or lightheadedness. She's been up ambulate with assistance without difficulty and dyspnea on exertion. The patient was seen again today 12/06/2016 in follow-up on the selective care unit. She is currently sitting up in bed. She is awake and alert in no acute distress. She denies any worsening shortness of breath, cough or congestion. She is afebrile. Hemodynamically stable. She is maintaining O2 saturations in the 90s on 3 L/m per nasal cannula. She remains on ceftin. Continuing on Xarelto. On 12/07/2016 the patient has no specific complaints. The patient is Xarelto. No respiratory difficulties. Hemodynamically stable. Neurologically stable in addition. Objective - Vital Signs Vital signs: Vital Signs Temp 97.7 F 12/07/16 04:00 Pulse 72 12/07/16 11:40 Resp 18 12/07/16 04:00 BP 98/69 12/07/16 04:00 Pulse Ox 97 12/07/16 08:26 Intake & Output 12/06/16 12/07/16 12/07/16 18:59 06:59 18:59 Intake Total 600 Balance 600 Weight 77.3 kg Intake: Oral 600 Other: Voiding Method Toilet # Voids 3 - Exam Head exam was generally normal. There was no scleral icterus or corneal arcus. Mucous membranes were moist.Neck was supple and without jugular venous distension, thyromegaly, or carotid bruits. Carotids were easily palpable bilaterally. There was no adenopathy. Lung sounds are diminished bilaterally. Although the lung bases. Heart sounds are regular, positive S1-S2, there is some accentuation of the second heart sound, no cervical murmurs appreciated.Abdominal exam revealed normal bowel sounds. The abdomen was soft, non-tender, and without masses, organomegaly, or appreciable enlargement of the abdominal aorta. Extremities are within normal limits. There is no cyanosis or clubbing. A lipoma over the left posterior calf. Right lower extremity could be slightly swollen compared to the left. Neurologically, the patient has motor weakness and motor function the lower extremities are all 4/5. She is fully awake and alert. No focal neurological deficits at this point - Labs CBC & Chem 7: 12/07/16 06:09 12/07/16 06:09 Labs: Abnormal Lab Results - Last 24 Hours (Table) 12/07/16 12/07/16 Range/Units 06: 06:09 RDW 16.4 H (11.5-15.5) % Chloride 108 H (98-107) mmol/L Creatinine 0.50 L (0.52-1.04) mg/dL Calcium 8.0 L (8.4-10.2) mg/dL Assessment and Plan Plan: Assessment 1 acute bilateral pulmonary embolism with suspected pulmonary infarct along the right lung, currently on Xarelto 2 small right-sided pleural effusion, likely reactive secondary to pulmonary embolism 3 suspect lower extremity DVT, and the Doppler showed a suspected acute DVT in the visualized portion of the different femoral veins bilaterally 4 multiple sclerosis with significant limitation in exercise capacity. The patient has been leading essentially at [facility] lifestyle patient moves around with the help of a walker. She may potentially also at an increased risk of fall. 5 recent catheterization for altered mental status, drug induced as the patient is on a combination of Risperdal, morphine, gabapentin, Ativan 6. 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 The patient received Rocephin and Ceftin. We'll complete the course of Ceftin for now Plan Continue Xarelto. Continue Ceftin. Wean FiO2 as tolerated. Discharge planning is in progress.
[2016-12-07 16:25] VITALS: BP 135/71; PULSE 82; TEMP 97.4
--- NOTE | 2016-12-09 08:42 | DS ---
DATE OF ADMISSION: 12/04/2016 DATE OF DISCHARGE: 12/07/2016 DATE OF SERVICE: 12/07/2016 HOSPITAL COURSE: Ms. Cisse is a 75-year-old female with a past medical history of COPD, multiple sclerosis, previous CVA with right-sided weakness and slurred speech, admitted to the hospital for sudden onset of chest pain or difficulty in breathing. The patient had a recent hospital stay for change in mental status which was attributed to her abuse of narcotics which included Neurontin, Valium and morphine. As per her previous admission, she was also having some dehydration which was corrected with IV fluids and mild troponin leak. During this admission, the patient did have elevated D-dimer and had a CT angiogram of the chest, which was positive for subsegmental PE on both the sides and so the patient has been started on anticoagulation with heparin. The patient's anticoagulation has been changed to Xarelto and she was also continued on Ceftin for her recent UTI with Klebsiella pneumoniae. Patient's symptoms did resolve and she was also evaluated by Pulmonary, Dr. Lopez, today and the patient is back to her normal baseline status and wants to go home. Earlier there was a discussion for rehab placement, but the patient denied to go to rehab, so she is being discharged home. She states that she has home health care and also that her helps her at home. Patient's vitals at the time of discharge: Temperature 97.4, heart rate 82, respiratory rate 18, blood pressure 135/71, saturating at 96% on 3 L of nasal cannula. HEAD: Atraumatic, normocephalic. EYES: Pupils round, and reactive to light. LUNGS: Bilateral breath sounds are positive. No wheeze or crackles. CARDIAC: S1, S2 heard. ABDOMEN: Soft, nontender. EXTREMITIES: No pitting edema. Lipoma on the left posterior calf. PRODUCTION MACHINIST: Alert, awake, oriented x3. No focal deficits. PATIENT'S DISCHARGE DIAGNOSES: 1. Acute bilateral pulmonary embolism. 2. Chronic obstructive pulmonary disease. 3. Acute hypoxic respiratory failure secondary to #1. 4. Recent toxic encephalopathy, which is improved. 5. Multiple sclerosis. 6. Previous cerebrovascular accident with right-sided weakness and slurring of speech. 7. Mild to moderate pulmonary hypertension. 8. Recent urinary tract infection with Klebsiella pneumoniae. PATIENT'S DISCHARGE MEDICATIONS: 1. Risperdal 0.5 mg p.o. q.h.s. 2. Ceftin 250 mg p.o. b.i.d., 10 tablets. 3. Ativan 0.5 mg p.o. q.h.s. 4. Lipitor 40 mg p.o. daily. 5. Flonase one to two sprays in each nostril p.r.n. for nasal congestion. 6. Morphine sulfate./naltrexone 50/2 mg capsule 1 tablet p.o. daily. 7. Torsemide 10 mg p.o. daily. 8. Aspirin 81 mg p.o. daily. 9. Xarelto 15 mg b.i.d. for 17 days and thereafter 20 mg p.o. daily. Patient is advised to follow with her PCP, Dr. Joby Champagne, in 1 to 2 days. Patient is being discharged home. She states that she has home health care and also advised to seek medical attention if there are any signs of difficulty in breathing or any bleeding. More than 35 minutes spent towards the discharge of the patient.
== END 2016-12-07 17:33 | disposition home health service (06) | DRG 175 ==
LOC: EC 00:55 → 6ICU 06:09 → 6SEL 19:26
PROVIDERS: ADMIT Hospitalist; ATTEND Hospitalist
DX: I26.99 Other pulmonary embolism without acute cor pulmonale (principal); J96.01 Acute respiratory failure with hypoxia; I31.3 Pericardial effusion (noninflammatory); J90 Pleural effusion, not elsewhere classified; I82.419 Acute embolism and thrombosis of unspecified femoral vein; I69.351 Hemiplegia and hemiparesis following cerebral infarction affecting right dominant side; J98.11 Atelectasis; I27.2 Other secondary pulmonary hypertension; G35 Multiple sclerosis; D17.9 Benign lipomatous neoplasm, unspecified; E78.5 Hyperlipidemia, unspecified; F17.210 Nicotine dependence, cigarettes, uncomplicated; G89.29 Other chronic pain; I07.1 Rheumatic tricuspid insufficiency; I10 Essential (primary) hypertension; J44.9 Chronic obstructive pulmonary disease, unspecified; K21.9 Gastro-esophageal reflux disease without esophagitis; Z79.82 Long term (current) use of aspirin; Z79.891 Long term (current) use of opiate analgesic; Z79.899 Other long term (current) drug therapy
CPT/HCPCS: 36415; 71020; 71275; 80048; 80053; 80061; 82550; 82553; 83880; 84484; 85025; 85379; 85610; 85730; 93005; 93306; 93970; 94640; 94760; 96365; 96366; 96375; 96376; 99291

== ENCOUNTER 2017-08-30 19:42 | Inpatient (IN) | payer MEDICARE ==
[2017-08-30] MEDS ORDERED: IPRATROPIUM 0.5 MG/2.5 ML NEBU INHALATION STA (19:59)
[2017-08-30] MEDS ORDERED: methylPREDNISolone SOD SUCCI 125 MG/2 ML VIAL IV STA (19:59)
[2017-08-30] MEDS ORDERED: ALBUTEROL NEBULIZED 2.5 MG/3 ML INHALATION STA (19:59)
[2017-08-30] MEDS ORDERED: HYDROcodone/APAP 5-325MG 1 EACH TAB PO STA (20:04)
[2017-08-30 20:23] LABS: Anisocytosis Slight; Basophils % (A) 1 %; Eosinophils # (A) 0.1 k/uL (0-0.7); Eosinophils % (A) 2 %; HCT 31.8 % (34.0-46.0); HGB 9.7 gm/dL (11.4-16.0); Hypochromasia Marked; Lymphocytes # (A) 1.7 k/uL (1.0-4.8); Lymphocytes % (A) 24 %; MCH 22.7 pg (25.0-35.0); MCHC 30.4 g/dL (31.0-37.0); MCV 74.7 fL (80.0-100.0); Mean Platelet Volume 6.7; Microcytosis Moderate; Monocytes # (A) 0.5 k/uL (0-1.0); Monocytes % (A) 7 %; Neutrophils # (A) 4.6 k/uL (1.3-7.7); Neutrophils % (A) 64 %; Platelet Count 308 k/uL (150-450); Poikilocytosis Slight; RBC 4.26 m/uL (3.80-5.40); RDW 19.2 % (11.5-15.5); WBC 7.1 k/uL (3.8-10.6)
--- NOTE | 2017-08-30 20:23 | ED ---
General Adult HPI - General Chief complaint: Shortness of Breath Stated complaint: DONALDO Time Seen by Provider: 08/30/17 19:50 Source: patient, EMS, RN notes reviewed, old records reviewed Mode of arrival: EMS Limitations: no limitations - History of Present Illness Initial comments: 76-year-old female history of COPD presents with worsening cough and dyspnea over the past several days. Patient has been using her home albuterol with minimal relief. She does wear oxygen at home, 2 L at night. She has had subjective fever and chills. She does complain of some central chest pain worse with cough. Denies abdominal pain denies nausea vomiting. Denies URI symptoms. Patient has had chronic lower extremity swelling, she states this is unchanged from baseline. - Related Data Home Medications Medication Instructions Recorded Confirmed Atorvastatin [Lipitor] 40 mg PO HS 12/04/16 08/30/17 Torsemide [Demadex] 10 mg PO HS 12/04/16 08/30/17 Albuterol Inhaler [Ventolin Hfa 1 - 2 puff INHALATION RT-Q6H PRN 08/30/17 Inhaler] Aspirin 81 mg PO HS 08/30/17 08/30/17 Budesonide/Formoterol Fumarate 2 puff INHALATION RT-BID 08/30/17 08/30/17 [Symbicort 160-4.5 Mcg Inhaler] Cetirizine HCl [Zyrtec] 10 mg PO DAILY PRN 08/30/17 08/30/17 DULoxetine HCL [Cymbalta] 60 mg PO DAILY 08/30/17 08/30/17 LORazepam [Ativan] 0.5 mg PO DAILY PRN 08/30/17 08/30/17 Morphine Sulfate/Naltrexone 1 cap PO DAILY PRN 08/30/17 08/30/17 [Embeda ER 60-2.4 mg Capsule] Rivaroxaban [Xarelto] 20 mg PO HS 08/30/17 08/30/17 Allergies Allergy/AdvReac Type Severity Reaction Status Date / Time No Known Allergies Allergy Verified 08/30/17 20:20 Review of Systems ROS Statement: Those systems with pertinent positive or pertinent negative responses have been documented in the HPI. ROS Other: All systems not noted in ROS Statement are negative. 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 Past Anesthesia/Blood Transfusion Reactions: No Reported Reaction Past Psychological History: No Psychological Hx Reported Smoking Status: Current every day smoker Past Alcohol Use History: None Reported Past Drug Use History: Prescription Drug Abuse - Past Family History Mother History Unknown: Yes Family Medical History: No Reported History, Renal Disease Additional Family Medical History / Comment(s): Mother was healthy and lived to be 88yrs old. Father History Unknown: Yes Family Medical History: Osteoarthritis (OA) Additional Family Medical History / Comment(s): Pt states her father at the age of 68yrs due to his debilitating arthritis. General Exam Limitations: no limitations Head exam: Present: atraumatic, normocephalic Eye exam: Present: normal appearance, PERRL, EOMI ENT exam: Present: normal exam Neck exam: Present: normal inspection. Absent: tenderness, meningismus Respiratory exam: Present: respiratory distress, wheezes, rhonchi, decreased breath sounds Cardiovascular Exam: Present: regular rate, normal rhythm GI/Abdominal exam: Present: soft. Absent: distended, tenderness, guarding Extremities exam: Present: normal capillary refill, pedal edema Neurological exam: Present: alert, oriented X3 Psychiatric exam: Present: normal affect, normal mood Skin exam: Present: warm, dry, intact. Absent: cyanosis, diaphoretic Course Vital Signs 08/30/17 08/30/17 08/30/17 19:43 20:21 20:57 Temperature 100.3 F H Pulse Rate 96 81 100 Respiratory 20 20 Rate Blood Pressure 151/86 142/80 O2 Sat by Pulse 99 99 Oximetry 08/30/17 21:19 Temperature Pulse Rate 102 H Respiratory Rate Blood Pressure O2 Sat by Pulse Oximetry EKG Findings - EKG Comments: EKG Findings:: EKG shows sinus rhythm with PAC, low voltage ventricular rate 97 , AR 140, QRS duration 76, QTC 434, no ST segment elevation Medical Decision Making - Medical Decision Making 76-year-old female history of COPD presents with worsening cough and dyspnea. Patient decreased air entry and wheezing on examination. Laboratory studies are obtained, normal white blood cell count, hemoglobin 9.7, troponin negative at less than normal limits. Influenza is negative. BNP 1000. Patient does have lower extremity edema. Chest x-ray shows infiltrate lung bases, worse on the left, there is blunting of costophrenic angles. Patient is febrile, she will be started on antibiotics for community acquired pneumonia. She'll be treated for COPD exacerbation. - Lab Data Result diagrams: 08/30/17 20:08 08/30/17 20:08 Lab Results 08/30/17 08/30/17 08/30/17 Range/Units 20:08 20:08 20:08 WBC 7.1 (3.8-10.6) k/uL RBC 4.26 (3.80-5.40) m/uL Hgb 9.7 L (11.4-16.0) gm/dL Hct 31.8 L (34.0-46.0) % MCV 74.7 L (80.0-100.0) fL MCH 22.7 L (25.0-35.0) pg MCHC 30.4 L (31.0-37.0) g/dL RDW 19.2 H (11.5-15.5) % Plt Count 308 (150-450) k/uL Neutrophils % 64 % Lymphocytes % 24 % Monocytes % 7 % Eosinophils % 2 % Basophils % 1 % Neutrophils # 4.6 (1.3-7.7) k/uL Lymphocytes # 1.7 (1.0-4.8) k/uL Monocytes # 0.5 (0-1.0) k/uL Eosinophils # 0.1 (0-0.7) k/uL Basophils # 0.0 (0-0.2) k/uL Hypochromasia Marked Poikilocytosis Slight Anisocytosis Slight Microcytosis Moderate PT (9.0-12.0) sec INR (<1.2) APTT (22.0-30.0) sec Sodium 141 (137-145) mmol/L Potassium 3.8 (3.5-5.1) mmol/L Chloride 108 H (98-107) mmol/L Carbon Dioxide 28 (22-30) mmol/L Anion Gap 5 mmol/L BUN 8 (7-17) mg/dL Creatinine 0.50 L (0.52-1.04) mg/dL Est GFR (MDRD) Af Amer >60 (>60 ml/min/1.73 sqM) Est GFR (MDRD) Non-Af >60 (>60 ml/min/1.73 sqM) Glucose 85 (74-99) mg/dL Plasma Lactic Acid Go (0.7-2.0) mmol/L Calcium 8.5 (8.4-10.2) mg/dL Magnesium 1.8 (1.6-2.3) mg/dL Total Bilirubin 0.8 (0.2-1.3) mg/dL AST 14 (14-36) U/L ALT 18 (9-52) U/L Alkaline Phosphatase 123 (38-126) U/L Total Creatine Kinase 31 (30-135) U/L CK-MB (CK-2) 0.4 (0.0-2.4) ng/mL CK-MB (CK-2) Rel Index 1.3 Troponin I <0.012 (0.000-0.034) ng/mL NT-Pro-B Natriuret Pep pg/mL Total Protein 5.7 L (6.3-8.2) g/dL Albumin 2.8 L (3.5-5.0) g/dL Influenza Type A RNA (Not Detectd) Influenza Type B (PCR) (Not Detectd) 08/30/17 08/30/17 08/30/17 Range/Units 20:08 20:08 20:08 WBC (3.8-10.6) k/uL RBC (3.80-5.40) m/uL Hgb (11.4-16.0) gm/dL Hct (34.0-46.0) % MCV (80.0-100.0) fL MCH (25.0-35.0) pg MCHC (31.0-37.0) g/dL RDW (11.5-15.5) % Plt Count (150-450) k/uL Neutrophils % % Lymphocytes % % Monocytes % % Eosinophils % % Basophils % % Neutrophils # (1.3-7.7) k/uL Lymphocytes # (1.0-4.8) k/uL Monocytes # (0-1.0) k/uL Eosinophils # (0-0.7) k/uL Basophils # (0-0.2) k/uL Hypochromasia Poikilocytosis Anisocytosis Microcytosis PT 10.6 (9.0-12.0) sec INR 1.1 (<1.2) APTT 22.3 (22.0-30.0) sec Sodium (137-145) mmol/L Potassium (3.5-5.1) mmol/L Chloride (98-107) mmol/L Carbon Dioxide (22-30) mmol/L Anion Gap mmol/L BUN (7-17) mg/dL Creatinine (0.52-1.04) mg/dL Est GFR (MDRD) Af Amer (>60 ml/min/1.73 sqM) Est GFR (MDRD) Non-Af (>60 ml/min/1.73 sqM) Glucose (74-99) mg/dL Plasma Lactic Acid Go (0.7-2.0) mmol/L Calcium (8.4-10.2) mg/dL Magnesium (1.6-2.3) mg/dL Total Bilirubin (0.2-1.3) mg/dL AST (14-36) U/L ALT (9-52) U/L Alkaline Phosphatase (38-126) U/L Total Creatine Kinase (30-135) U/L CK-MB (CK-2) (0.0-2.4) ng/mL CK-MB (CK-2) Rel Index Troponin I (0.000-0.034) ng/mL NT-Pro-B Natriuret Pep 1000 pg/mL Total Protein (6.3-8.2) g/dL Albumin (3.5-5.0) g/dL Influenza Type A RNA Not Detected (Not Detectd) Influenza Type B (PCR) Not Detected (Not Detectd) 08/30/17 Range/Units 20:08 WBC (3.8-10.6) k/uL RBC (3.80-5.40) m/uL Hgb (11.4-16.0) gm/dL Hct (34.0-46.0) % MCV (80.0-100.0) fL MCH (25.0-35.0) pg MCHC (31.0-37.0) g/dL RDW (11.5-15.5) % Plt Count (150-450) k/uL Neutrophils % % Lymphocytes % % Monocytes % % Eosinophils % % Basophils % % Neutrophils # (1.3-7.7) k/uL Lymphocytes # (1.0-4.8) k/uL Monocytes # (0-1.0) k/uL Eosinophils # (0-0.7) k/uL Basophils # (0-0.2) k/uL Hypochromasia Poikilocytosis Anisocytosis Microcytosis PT (9.0-12.0) sec INR (<1.2) APTT (22.0-30.0) sec Sodium (137-145) mmol/L Potassium (3.5-5.1) mmol/L Chloride (98-107) mmol/L Carbon Dioxide (22-30) mmol/L Anion Gap mmol/L BUN (7-17) mg/dL Creatinine (0.52-1.04) mg/dL Est GFR (MDRD) Af Amer (>60 ml/min/1.73 sqM) Est GFR (MDRD) Non-Af (>60 ml/min/1.73 sqM) Glucose (74-99) mg/dL Plasma Lactic Acid Go 0.8 (0.7-2.0) mmol/L Calcium (8.4-10.2) mg/dL Magnesium (1.6-2.3) mg/dL Total Bilirubin (0.2-1.3) mg/dL AST (14-36) U/L ALT (9-52) U/L Alkaline Phosphatase (38-126) U/L Total Creatine Kinase (30-135) U/L CK-MB (CK-2) (0.0-2.4) ng/mL CK-MB (CK-2) Rel Index Troponin I (0.000-0.034) ng/mL NT-Pro-B Natriuret Pep pg/mL Total Protein (6.3-8.2) g/dL Albumin (3.5-5.0) g/dL Influenza Type A RNA (Not Detectd) Influenza Type B (PCR) (Not Detectd) Disposition Clinical Impression: COPD (chronic obstructive pulmonary disease), Community acquired pneumonia Disposition: ADMITTED IP TO THIS HOSP Condition: Stable Referrals: Joby Champagne MD [Primary Care Provider] - 1-2 days Decision to Admit Reason: Admit from EC Decision Date: 08/30/17 Decision Time: 21:30
[2017-08-30 20:32] LABS: INR 1.1 (<1.2); Partial Thromboplastin Time 22.3 sec (22.0-30.0); Prothrombin Time 10.6 sec (9.0-12.0)
[2017-08-30 20:34] LABS: ALT 18 U/L (9-52); AST 14 U/L (14-36); Albumin 2.8 g/dL (3.5-5.0); Alkaline Phosphatase 123 U/L (38-126); Anion Gap 5 mmol/L; Blood Urea Nitrogen 8 mg/dL (7-17); Calcium 8.5 mg/dL (8.4-10.2); Carbon Dioxide 28 mmol/L (22-30); Chloride 108 mmol/L (98-107); Glucose 85 mg/dL (74-99); Potassium 3.8 mmol/L (3.5-5.1); Sodium 141 mmol/L (137-145); Total Bilirubin 0.8 mg/dL (0.2-1.3); Total Protein 5.7 g/dL (6.3-8.2)
[2017-08-30 20:49] LABS: Creatine Kinase 31 U/L (30-135)
[2017-08-30 21:02] LABS: Creatine Kinase MB 0.4 ng/mL (0.0-2.4); Troponin I <0.012 ng/mL (0.000-0.034)
--- NOTE | 2017-08-30 21:13 | XR ---
EXAMINATION TYPE: XR chest 2V DATE OF EXAM: 08/30/2017 COMPARISON: 12/04/2016 HISTORY: Emphysema. Difficulty breathing. TECHNIQUE: Frontal and lateral views of the chest are obtained. FINDINGS: There is blunting of costophrenic angles. There is some patchy infiltrate at the lung base s and more on the left side. There is mild pulmonary congestion. Heart is enlarged. IMPRESSION: Congestive heart failure with basilar pulmonary infiltrates. There is probably increased infiltrate at the left lung base compared to old exam.
[2017-08-30] MEDS ORDERED: MORPHINE SULFATE 4 MG/ML SYRINGE IVP STA (21:21)
[2017-08-30 21:28] LABS: Appearance,Urine Clear (Clear); Bilirubin,Urine Negative (Negative); Blood,Urine Negative (Negative); Color,Urine Yellow; Glucose,Urine (UA) Negative (Negative); Ketones,Urine Negative (Negative); Leukocyte Esterase,Urine Negative (Negative); Protein,Urine Negative (Negative); Specific Gravity,Urine 1.007 (1.001-1.035)
[2017-08-30] MEDS ORDERED: IPRATROPIUM-ALBUTEROL 3 ML NEB INHALATION PRN (21:31)
[2017-08-30] MEDS ORDERED: AZITHROMYCIN 500 MG in SODIUM CHLORIDE 0.9% 250 ML IVPB STA (21:34)
[2017-08-30] MEDS ORDERED: cefTRIAXone IN SWFI 1,000 MG/10 ML SYRINGE IVP STA (21:34)
[2017-08-31] MEDS: ATORVASTATIN 40 MG TAB PO SCH ×2 (01:01→21:10)
[2017-08-31] MEDS: TORSEMIDE 20 MG TAB PO SCH ×2 (01:01→21:11)
[2017-08-31] MEDS: RIVAROXABAN 20 MG TAB PO SCH ×2 (01:01→21:10)
[2017-08-31] MEDS: risperiDONE 0.5 MG TAB PO SCH ×2 (01:01→21:10)
[2017-08-31] MEDS: HYDROcodone/APAP 5-325MG 1 EACH TAB PO PRN ×4 (01:02→19:06)
[2017-08-31] MEDS ORDERED: IPRATROPIUM-ALBUTEROL 3 ML NEB INHALATION PRN (01:25)
[2017-08-31] MEDS: LORazepam 0.5 MG TAB PO SCH ×2 (01:31→21:10)
[2017-08-31] MEDS: NICOTINE 21MG/24HR PATCH TRANSDERM SCH (07:05)
[2017-08-31] MEDS: IPRATROPIUM-ALBUTEROL 3 ML NEB INHALATION SCH ×4 (07:11→19:44)
[2017-08-31 07:36] LABS: Anion Gap 10 mmol/L; Blood Urea Nitrogen 13 mg/dL (7-17); Calcium 8.5 mg/dL (8.4-10.2); Carbon Dioxide 27 mmol/L (22-30); Chloride 103 mmol/L (98-107); Glucose 151 mg/dL (74-99); Potassium 3.6 mmol/L (3.5-5.1); Sodium 140 mmol/L (137-145)
[2017-08-31 08:22] LABS: Anisocytosis Slight; Basophils % (A) 0 %; Eosinophils % (A) 0 %; HCT 36.3 % (34.0-46.0); HGB 10.2 gm/dL (11.4-16.0); Hypochromasia Marked; Lymphocytes # (A) 0.6 k/uL (1.0-4.8); Lymphocytes % (A) 13 %; MCH 22.5 pg (25.0-35.0); MCHC 28.1 g/dL (31.0-37.0); Mean Platelet Volume 6.8; Microcytosis Slight; Monocytes # (A) 0.1 k/uL (0-1.0); Monocytes % (A) 3 %; Neutrophils # (A) 4.1 k/uL (1.3-7.7); Neutrophils % (A) 83 %; Platelet Count 364 k/uL (150-450); Poikilocytosis Slight; RBC 4.53 m/uL (3.80-5.40); RDW 18.8 % (11.5-15.5); WBC 4.9 k/uL (3.8-10.6)
[2017-08-31 08:24] LABS: MCV 80.2 fL (80.0-100.0)
[2017-08-31] MEDS ORDERED: predniSONE 20 MG TAB PO SCH (09:00)
[2017-08-31] MEDS ORDERED: NALTREXONE PO SCH (09:00)
[2017-08-31] MEDS ORDERED: MORPHINE SULFATE PO SCH (09:00)
[2017-08-31] MEDS ORDERED: LORATADINE 10 MG TAB PO PRN (11:25)
[2017-08-31 11:44] LABS: Glucose,Whole Blood 163 mg/dL (75-99)
[2017-08-31] MEDS: DULoxetine HCL 60 MG CAPSULE.DR PO SCH (12:06)
[2017-08-31] MEDS: ASPIRIN 81 MG PO SCH (12:07)
[2017-08-31] MEDS: methylPREDNISolone SOD SUCCI 125 MG/2 ML VIAL IV SCH ×3 (12:07→23:43)
[2017-08-31] MEDS: INSULIN ASPART 100 UNIT/ML 1 ML 10 ML VIAL SQ SCH ×3 (12:38→21:13)
[2017-08-31] MEDS: NALTREXONE PO SCH (15:18)
[2017-08-31] MEDS: MORPHINE SULFATE PO SCH (15:18)
[2017-08-31] MEDS ORDERED: ALPRAZolam 0.25 MG TAB PO PRN (16:36)
[2017-08-31 17:42] LABS: Glucose,Whole Blood 149 mg/dL (75-99)
--- NOTE | 2017-08-31 18:17 | HP ---
HISTORY AND PHYSICAL CHIEF COMPLAINT: Shortness of breath with cough. HISTORY OF PRESENT ILLNESS: This 75-year-old woman with a past medical history of multiple medical problems including history of CVA, TIA, COPD, hypertension, hyperlipidemia, history of myocardial infarction, DJD, history of pulmonary embolism, multiple being followed by Dr. Godinez in the outpatient setting was admitted for increased shortness of breath, cough and sputum for the past several days. A chest x-ray was done in the ER which showed some bibasilar infiltrate. The possibility of pneumonia is considered. Patient is admitted to the hospital further evaluation and treatment. There is no history of fever, rigors, or chills. No history of headache, loss of consciousness or seizures. PAST MEDICAL HISTORY: History of COPD, CVA, TIA, GERD, hypertension, history of CAD, history of pneumonia, pulmonary embolism, multiple sclerosis. MEDS: Medications prior to admission include home medications are : 1. Ativan 0.5 mg q.h.s. 2. Risperdal 0.5 mg q.h.s. 3. Aspirin 81 mg. 4. Morphine sulfate 1 capsule p.o. daily p.r.n. 5. Cymbalta 60 mg p.o. daily. 6. Demadex 10 mg q.h.s. p.r.n. 7. Xarelto 10 mg p.o. q.h.s. 8. Zetia 10 mg daily p.r.n. 9. Symbicort 160/4.5 2 puffs b.i.d. 10.Lipitor 40 mg. 11.Ventolin HFA 1-2 puffs q.6h p.r.n. ALLERGIES: None. FAMILY HISTORY: History of renal disease in the family. SOCIAL HISTORY: History of smoking. No history of alcohol intake. REVIEW OF SYSTEMS: ENT: Diminished hearing and vision. Cardiovascular: No angina or palpitations. Respirations: Mentioned earlier. GI no nausea or vomiting. no dysuria. Nervous system: No numbness or weakness. ALLERGY/IMMUNOLOGY: As mentioned. Hematology/Oncology: No history of anemia. Endocrine: No history of diabetes, hypothyroidism. Constitutional: As mentioned earlier. Rheumatology: Negative. Dermatology: Negative Psychiatric: As mentioned earlier. PHYSICAL EXAMINATION: The pulse is 92, blood pressure 130/83, respiratory 20, temperature 98 degrees, pulse ox is 97% on 2 L. T-max 100.2. HEENT: Conjunctivae normal. Oral mucosa moist. Neck is no jugular venous distention. No carotid bruit. No lymph node enlargement. Cardiovascular S1, S2 muffled. Respiratory: Breath sounds diminished in the bases. A few scattered rhonchi. Expiratory wheezing also heard. ABDOMEN: Soft, nontender. No mass palpable. Legs are no edema. No swelling. Nervous system: Higher functions as mentioned earlier. Moves all four limbs. No focal deficits. Lymphatics: No lymph nodes palpable in the neck, axillae or groin. Skin: No ulcer, rash or bleeding. LABS: WBC 4.2, hemoglobin 10.2. Otherwise glucose 151. ASSESSMENT: 1. Chronic obstructive pulmonary disease exacerbation acute bilateral pneumonia possibly gram-negative pneumonia. 2. Anemia microcytic chronic anemia, possibly nutritional. Rule out gastrointestinal bleed. 3. History of cerebrovascular accident/transient ischemic attack. 4. History of gastroesophageal reflux disease. 5. History of chronic obstructive pulmonary disease. 6. Hypertension. 7. Hyperlipidemia. 8. History of degenerative joint disease. 9. History of pneumonia. 10.History of pulmonary embolus. 11.History of multiple sclerosis. 12.History of hypertension. 13.History of chronic pain syndrome. 14.History of hysterectomy. 15.History of depression per chart. 16.History of ongoing nicotine dependence. RECOMMENDATIONS AND DISCUSSION: This 76-year-old woman who presented with multiple complex medical issues, we will monitor the patient closely. Continue the current medications. Continue symptomatic treatment. Broad-spectrum IV antibiotics. Pulmonary consultation. extensive bronchodilator treatment, IV steroids, monitor blood sugars closely. Guarded prognosis because of multiple complex medical problems. We will also obtain cultures also. Prognosis guarded because of multiple complex medical conditions. Further recommendations to follow. See orders for details. Home medications reconciled. Discussed with the staff. MMODL / IJN: [id number] / ALEISHA
[2017-08-31] MEDS: FORMOTEROL FUMARATE 20 MCG/2 ML NEBU INHALATION SCH (19:44)
[2017-08-31] MEDS: BUDESONIDE 1 MG/2 ML NEBU INHALATION SCH (19:44)
[2017-08-31 20:10] LABS: Glucose,Whole Blood 147 mg/dL (75-99)
[2017-08-31 21:09] LABS: Hemoglobin A1C 5.1 % (4.0-6.0)
[2017-08-31] MEDS: AZITHROMYCIN 500 MG in SODIUM CHLORIDE 0.9% 250 ML IVPB SCH (21:11)
[2017-08-31] MEDS: MELATONIN 3 MG TABLET PO SCH (21:11)
[2017-08-31] MEDS: cefTRIAXone IN SWFI 1,000 MG/10 ML SYRINGE IVP SCH (21:12)
[2017-09-01] MEDS: HYDROcodone/APAP 5-325MG 1 EACH TAB PO PRN ×4 (00:59→18:24)
[2017-09-01] MEDS: methylPREDNISolone SOD SUCCI 125 MG/2 ML VIAL IV SCH ×4 (05:58→23:12)
[2017-09-01 07:21] LABS: Glucose,Whole Blood 152 mg/dL (75-99)
[2017-09-01 07:38] LABS: Anisocytosis Slight; Basophils % (A) 0 %; Eosinophils % (A) 0 %; HCT 30.1 % (34.0-46.0); HGB 9.2 gm/dL (11.4-16.0); Hypochromasia Marked; Lymphocytes # (A) 0.6 k/uL (1.0-4.8); Lymphocytes % (A) 10 %; MCH 23.4 pg (25.0-35.0); MCHC 30.7 g/dL (31.0-37.0); MCV 76.3 fL (80.0-100.0); Mean Platelet Volume 7.1; Microcytosis Moderate; Monocytes # (A) 0.3 k/uL (0-1.0); Monocytes % (A) 4 %; Neutrophils # (A) 5.4 k/uL (1.3-7.7); Neutrophils % (A) 85 %; Platelet Count 321 k/uL (150-450); Poikilocytosis Slight; RBC 3.94 m/uL (3.80-5.40); RDW 18.8 % (11.5-15.5); WBC 6.3 k/uL (3.8-10.6)
[2017-09-01] MEDS: INSULIN ASPART 100 UNIT/ML 1 ML 10 ML VIAL SQ SCH ×4 (07:50→21:59)
[2017-09-01] MEDS: NICOTINE 21MG/24HR PATCH TRANSDERM SCH (07:51)
[2017-09-01] MEDS: PANTOPRAZOLE 40 MG TABLET PO SCH (07:51)
[2017-09-01] MEDS: ASPIRIN 81 MG PO SCH (07:52)
[2017-09-01] MEDS: DULoxetine HCL 60 MG CAPSULE.DR PO SCH (07:52)
[2017-09-01 07:55] LABS: Anion Gap 8 mmol/L; Blood Urea Nitrogen 17 mg/dL (7-17); Carbon Dioxide 24 mmol/L (22-30); Chloride 104 mmol/L (98-107); Glucose 126 mg/dL (74-99); Sodium 136 mmol/L (137-145)
[2017-09-01 08:01] LABS: Potassium 4.4 mmol/L (3.5-5.1)
[2017-09-01] MEDS: IPRATROPIUM-ALBUTEROL 3 ML NEB INHALATION SCH ×4 (08:19→19:40)
[2017-09-01] MEDS: FORMOTEROL FUMARATE 20 MCG/2 ML NEBU INHALATION SCH ×2 (08:19→19:40)
[2017-09-01] MEDS: BUDESONIDE 1 MG/2 ML NEBU INHALATION SCH ×2 (08:19→19:40)
[2017-09-01] MEDS: NALTREXONE PO SCH (09:09)
[2017-09-01] MEDS: MORPHINE SULFATE PO SCH (09:09)
[2017-09-01 11:32] LABS: Glucose,Whole Blood 128 mg/dL (75-99)
--- NOTE | 2017-09-01 12:27 | P.CNPUL ---
History of Present Illness Consult date: 09/01/17 Reason for consult: dyspnea, COPD, pneumonia History of present illness: A 76-year-old female patient is known to me from previous hospitalizations. The patient has history of multiple sclerosis. I've also evaluate this patient during an earlier hospitalization for bilateral pulmonary embolism and the patient has been maintained on Xarelto on long-term basis. The patient is a chronic smoker pH is oxygen dependent and she wears oxygen 2 L/m nasal cannula. She has been smoking up to a pack of cigarettes a day. Her maintenance inhalers are Symbicort 160/4.52 puffs twice a day and Ventolin rescue inhaler on as-needed basis. The patient came into the hospital because of increased shortness of breath, cough, chest tightness and wheezing. There is some chest discomfort also special with deep breathing. No nausea no vomiting for now abdominal pain. No hemoptysis. No worsening in lower extremity edema although the patient has some degree of edema in the legs bilaterally. Chest x-ray was done and there may be some infiltration of the lung bases especially on the left. A superimposed pneumonia cannot be completely scolded. Note that the patient had a temperature 100.3 at a time of admission. She remained hemodynamically stable with pulse ox above 90% on room air. Her white cell count was nonelevated and the patient's renal function was also within normal limits. No reported aspiration and despite her MS the patient has been able to swallow without any major difficulties. She is currently hospitalized for an acute COPD exacerbation and possible pneumonia. Review of Systems All systems: negative Constitutional: Denies chills, Denies fever Eyes: denies blurred vision, denies pain Ears, nose, mouth and throat: Denies headache, Denies sore throat Cardiovascular: Reports chest pain, Reports decreased exercise tolerance, Reports dyspnea on exertion, Reports shortness of breath Respiratory: Reports cough, Reports dyspnea, Reports pleurisy Gastrointestinal: Denies abdominal pain, Denies diarrhea, Denies nausea, Denies vomiting Genitourinary: Denies dysuria, Denies hematuria Musculoskeletal: Denies myalgias Integumentary: Denies pruritus, Denies rash Neurological: Reports lack of coordination, Reports numbness, Reports weakness Psychiatric: Denies anxiety, Denies depression Endocrine: Denies fatigue, Denies weight change Past Medical History Past Medical History: COPD, CVA/TIA, GERD/Reflux, Hyperlipidemia, Hypertension, Musculoskeletal Disorder, Neurologic Disorder, Osteoarthritis (OA), Pneumonia, Pulmonary Embolus (PE) Additional Past Medical History / Comment(s): Multiple sclerosis, bilateral segmental pulmonary embolism currently on Xarelto, 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/leg and slow speech and slight difficulty swallowing, hypertension and chronic pain involving the lower extremities bilaterally, hypertension, hyperlipidemia, osteoarthritis, COPD, chronic lower extremity edema, moderate degree of pulmonary hypertension with a PA pressure of 47 and a preserved LV function, chronic narcotic use for pain and the patient has the tendency of overutilizing her painkillers History of Any Multi-Drug Resistant Organisms: None Reported Past Surgical History: Hysterectomy Additional Past Surgical History / Comment(s): Peg tube insertion (removed), bilateral cataract removal and twice on the left side, colonoscopy. Past Anesthesia/Blood Transfusion Reactions: No Reported Reaction Past Psychological History: No Psychological Hx Reported Additional Psychological History / Comment(s): Per PMH, pt has depression but pt has denied in past admission. Pt lives with her spouse of 57yrs. She ambulates without device. She is independent. Smoking Status: Heavy tobacco smoker Past Alcohol Use History: None Reported Additional Past Alcohol Use History / Comment(s): Pt started smoking in 1959. smokes 2 ppd Past Drug Use History: Prescription Drug Abuse - Past Family History Mother History Unknown: Yes Family Medical History: No Reported History, Renal Disease Additional Family Medical History / Comment(s): Mother was healthy and lived to be 88yrs old. Father History Unknown: Yes Family Medical History: Osteoarthritis (OA) Additional Family Medical History / Comment(s): Pt states her father at the age of 68yrs due to his debilitating arthritis. Medications and Allergies Home Medications Medication Instructions Recorded Confirmed Type Atorvastatin [Lipitor] 40 mg PO HS 12/04/16 08/30/17 History Torsemide [Demadex] 10 mg PO HS 12/04/16 08/30/17 History Albuterol Inhaler [Ventolin Hfa 1 - 2 puff INHALATION RT-Q6H PRN 08/30/17 History Inhaler] Aspirin 81 mg PO DAILY 08/30/17 08/30/17 History Budesonide/Formoterol Fumarate 2 puff INHALATION RT-BID 08/30/17 08/30/17 History [Symbicort 160-4.5 Mcg Inhaler] Cetirizine HCl [Zyrtec] 10 mg PO DAILY PRN 08/30/17 08/30/17 History DULoxetine HCL [Cymbalta] 60 mg PO DAILY 08/30/17 08/30/17 History LORazepam [Ativan] 0.5 mg PO HS 08/30/17 08/30/17 History Morphine Sulfate/Naltrexone 1 cap PO DAILY PRN 08/30/17 08/30/17 History [Embeda ER 60-2.4 mg Capsule] Rivaroxaban [Xarelto] 20 mg PO HS 08/30/17 08/30/17 History risperiDONE [RisperDAL] 0.5 mg PO HS 08/30/17 08/30/17 History Allergies Allergy/AdvReac Type Severity Reaction Status Date / Time No Known Allergies Allergy Verified 08/30/17 20:20 Physical Exam Vitals: Vital Signs Temp Pulse Pulse Resp BP Pulse Ox 09/01/17 08:41 92 09/01/17 08:30 92 09/01/17 08:19 92 09/01/17 07:00 117 H 18 115/81 94 L 08/31/17 21:50 98.1 F 92 20 113/67 99 08/31/17 20:05 92 08/31/17 19:58 92 08/31/17 19:46 92 08/31/17 15:00 98 F 92 20 134/83 97 08/31/17 14:55 16 Intake and Output 08/31/17 09/01/17 09/01/17 22:59 06:59 14:59 Other: Voiding Method Toilet Toilet # Voids 1 5 Gen. appearance the patient, comfortable no acute distress. The patient is awake and alert. She is able to move all 4 extremities. No facial asymmetry at this point. She has some motor weakness in lower extremities as stated later on. Head exam was generally normal. There was no scleral icterus or corneal arcus. Mucous membranes were moist.Neck was supple and without jugular venous distension, thyromegaly, or carotid bruits. Carotids were easily palpable bilaterally. There was no adenopathy. Lung sounds are diminished bilaterally. The patient has bilateral expiratory wheezes heard throughout the lung olvera.. Heart sounds are regular, positive S1-S2, there is some accentuation of the second heart sound, no cervical murmurs appreciated.Abdominal exam revealed normal bowel sounds. The abdomen was soft, non-tender, and without masses, organomegaly, or appreciable enlargement of the abdominal aorta. Extremities are within normal limits. There is no cyanosis or clubbing. A lipoma over the left posterior calf. Right lower extremity could be slightly swollen compared to the left. Neurologically, the patient has motor weakness and motor function the lower extremities are all 4/5. She is fully awake and alert. No focal neurological deficits at this point Results - Laboratory Findings CBC and BMP: 09/01/17 06:57 09/01/17 06:57 PT/INR, D-dimer PT 10.6 sec (9.0-12.0) 08/30/17 20:08 INR 1.1 (<1.2) 08/30/17 20:08 Abnormal lab findings: Abnormal Labs 08/30/17 08/30/17 08/31/17 20:08 20:08 06:48 Hgb 9.7 L 10.2 L Hct 31.8 L MCV 74.7 L MCH 22.7 L 22.5 L MCHC 30.4 L 28.1 L RDW 19.2 H 18.8 H Lymphocytes # 0.6 L Sodium Chloride 108 H Creatinine 0.50 L Glucose POC Glucose (mg/dL) Calcium Total Protein 5.7 L Albumin 2.8 L 08/31/17 08/31/17 08/31/17 06:48 11:42 17:33 Hgb Hct MCV MCH MCHC RDW Lymphocytes # Sodium Chloride Creatinine Glucose 151 H POC Glucose (mg/dL) 163 H 149 H Calcium Total Protein Albumin 08/31/17 09/01/17 09/01/17 20:08 06:57 06:57 Hgb 9.2 L Hct 30.1 L MCV 76.3 L MCH 23.4 L MCHC 30.7 L RDW 18.8 H Lymphocytes # 0.6 L Sodium 136 L Chloride Creatinine Glucose 126 H POC Glucose (mg/dL) 147 H Calcium 8.0 L Total Protein Albumin 09/01/17 09/01/17 07:02 11:30 Hgb Hct MCV MCH MCHC RDW Lymphocytes # Sodium Chloride Creatinine Glucose POC Glucose (mg/dL) 152 H 128 H Calcium Total Protein Albumin - Diagnostic Findings Chest x-ray: image reviewed Assessment and Plan Plan: Assessment 1 acute COPD exacerbation with limited infiltration of lung bases, suspect bilateral pneumonia 2 history of pulmonary embolism maintained on long-term and to coagulation with Xarelto 3 chronic lower extremities edema 4 multiple sclerosis with significant limitation in exercise capacity. The patient has been leading essentially at Center lifestyle patient moves around with the help of a walker. She may potentially also at an increased risk of fall. 5 previous catheterization for altered mental status, drug induced as the patient is on a combination of Risperdal, morphine, gabapentin, Ativan 6.Chronic smoking 7 history of CVA with right-sided residual weakness 8 hypertension 9 preserved LV function based on an echocardiogram that was done on 12/02/2016 with [id number] degree of secondary pulmonary hypertension 10 chronic back pain Plan Continue Rocephin and Zithromax. Continue IV Solu-Medrol. Continue bronchodilators around the clock. Smoking cessation counseling was done. Aspiration precautions. We'll continue to follow.
[2017-09-01 17:11] LABS: Glucose,Whole Blood 142 mg/dL (75-99)
[2017-09-01] MEDS: risperiDONE 0.5 MG TAB PO SCH (17:45)
--- NOTE | 2017-09-01 18:42 | PN ---
PROGRESS NOTE DATE OF SERVICE: 09/01/2017 This 76-year-old woman who was admitted with bilateral pneumonia, COPD exacerbation, is being closely monitored. The patient is on steroids, antibiotics and bronchodilators. Dr. Lopez is following the patient closely. No cough. The patient still has shortness of breath. On exam, alert and oriented x3. Pulse is 88, blood pressure 115/81, respiration 18, temperature normal, pulse ox 94% on room air. HEENT: Conjunctivae normal. NECK: No jugular venous distention. CARDIOVASCULAR SYSTEM: S1, S2 muffled. RESPIRATORY SYSTEM: Breath sounds diminished at the bases. Bilateral scattered rhonchi and crackles. Expiratory wheezing also present. ABDOMEN: Soft, nontender. LEGS: No edema. No swelling. NERVOUS SYSTEM: No focal deficit. Diffusely weak. LABS: WBC 6.3, hemoglobin 9.2, sodium 136, calcium 8. ASSESSMENT: 1. Chronic obstructive pulmonary disease, acute exacerbation, with acute bilateral pneumonia, possibly Gram-negative pneumonia. 2. Anemia; microcytic anemia, possibly nutritional. Rule out GI bleed. 3. History of cerebrovascular accident, transient ischemic attack. 4. Gait dysfunction. 5. Gastroesophageal reflux disease. 6. Chronic obstructive pulmonary disease. 7. Hypertension. 8. Hyperlipidemia. 9. History of degenerative joint disease. 10.History of pneumonia. 11.History of pulmonary embolism, on Xarelto. 12.History of multiple sclerosis. 13.History of hypertension. 14.History of chronic pain syndrome. 15.History of hysterectomy. 16.History of depression. 17.History of ongoing continued nicotine dependence. RECOMMENDATIONS AND DISCUSSION: In this 76-year-old woman who presented with multiple medical problems, we will monitor the patient closely, continue the current medications, continue with symptomatic treatment. We will continue with the steroids. I would also recommend antibiotics, PT/OT evaluation and social services counselor to evaluate the home situation. Guarded prognosis because of multiple complex medical issues. Further recommendations to follow. See orders for further details. Continue with Xarelto. Dr. Lopez's input appreciated. MMRENITAL / KAVITAN: [id number] /
[2017-09-01 20:34] LABS: Glucose,Whole Blood 151 mg/dL (75-99)
[2017-09-01] MEDS: MELATONIN 3 MG TABLET PO SCH (21:58)
[2017-09-01] MEDS: TORSEMIDE 20 MG TAB PO SCH (21:58)
[2017-09-01] MEDS: RIVAROXABAN 20 MG TAB PO SCH (21:58)
[2017-09-01] MEDS: ATORVASTATIN 40 MG TAB PO SCH (21:58)
[2017-09-01] MEDS: AZITHROMYCIN 500 MG in SODIUM CHLORIDE 0.9% 250 ML IVPB SCH (21:59)
[2017-09-01] MEDS: LORazepam 0.5 MG TAB PO SCH (21:59)
[2017-09-01] MEDS: cefTRIAXone IN SWFI 1,000 MG/10 ML SYRINGE IVP SCH (21:59)
[2017-09-02] MEDS: HYDROcodone/APAP 5-325MG 1 EACH TAB PO PRN ×3 (01:14→13:35)
[2017-09-02] MEDS: methylPREDNISolone SOD SUCCI 125 MG/2 ML VIAL IV SCH ×2 (05:36→12:35)
[2017-09-02 07:17] LABS: Glucose,Whole Blood 146 mg/dL (75-99)
[2017-09-02] MEDS: PANTOPRAZOLE 40 MG TABLET PO SCH (07:39)
[2017-09-02] MEDS: DULoxetine HCL 60 MG CAPSULE.DR PO SCH (07:39)
[2017-09-02] MEDS: ASPIRIN 81 MG PO SCH (07:39)
[2017-09-02] MEDS: INSULIN ASPART 100 UNIT/ML 1 ML 10 ML VIAL SQ SCH ×2 (07:43→12:35)
[2017-09-02] MEDS: BUDESONIDE 1 MG/2 ML NEBU INHALATION SCH (07:47)
[2017-09-02] MEDS: IPRATROPIUM-ALBUTEROL 3 ML NEB INHALATION SCH ×2 (07:47→11:48)
[2017-09-02] MEDS: FORMOTEROL FUMARATE 20 MCG/2 ML NEBU INHALATION SCH (07:47)
[2017-09-02 08:30] VITALS: BP 130/80; RESP 18; TEMP 98.5
[2017-09-02] MEDS: NALTREXONE PO SCH (08:49)
[2017-09-02] MEDS: MORPHINE SULFATE PO SCH (08:49)
[2017-09-02] MEDS: NICOTINE 21MG/24HR PATCH TRANSDERM SCH (08:52)
[2017-09-02 08:53] LABS: Anisocytosis Slight; Basophils % (A) 0 %; Eosinophils % (A) 0 %; HGB 10.2 gm/dL (11.4-16.0); Hypochromasia Marked; Lymphocytes # (A) 0.6 k/uL (1.0-4.8); Lymphocytes % (A) 8 %; MCH 22.7 pg (25.0-35.0); MCHC 30.8 g/dL (31.0-37.0); MCV 73.9 fL (80.0-100.0); Microcytosis Moderate; Monocytes # (A) 0.3 k/uL (0-1.0); Monocytes % (A) 5 %; Neutrophils # (A) 5.5 k/uL (1.3-7.7); Neutrophils % (A) 85 %; Platelet Count 328 k/uL (150-450); Poikilocytosis Slight; RBC 4.47 m/uL (3.80-5.40); RDW 18.5 % (11.5-15.5); WBC 6.5 k/uL (3.8-10.6)
[2017-09-02 09:57] LABS: Anion Gap 9 mmol/L; Blood Urea Nitrogen 20 mg/dL (7-17); Calcium 8.5 mg/dL (8.4-10.2); Carbon Dioxide 30 mmol/L (22-30); Chloride 100 mmol/L (98-107); Glucose 128 mg/dL (74-99); Potassium 3.4 mmol/L (3.5-5.1); Sodium 139 mmol/L (137-145)
[2017-09-02 11:20] LABS: Glucose,Whole Blood 134 mg/dL (75-99)
[2017-09-02 11:58] VITALS: PULSE 82
--- NOTE | 2017-09-02 15:55 | P.PN ---
Subjective Progress Note Date: 09/02/17 Principal diagnosis: COPD exacerbation with limited infiltration of the lung bases, suspected bilateral pneumonia. A 76-year-old female patient is known to me from previous hospitalizations. The patient has history of multiple sclerosis. I've also evaluate this patient during an earlier hospitalization for bilateral pulmonary embolism and the patient has been maintained on Xarelto on long-term basis. The patient is a chronic smoker pH is oxygen dependent and she wears oxygen 2 L/m nasal cannula. She has been smoking up to a pack of cigarettes a day. Her maintenance inhalers are Symbicort 160/4.52 puffs twice a day and Ventolin rescue inhaler on as-needed basis. The patient came into the hospital because of increased shortness of breath, cough, chest tightness and wheezing. There is some chest discomfort also special with deep breathing. No nausea no vomiting for now abdominal pain. No hemoptysis. No worsening in lower extremity edema although the patient has some degree of edema in the legs bilaterally. Chest x-ray was done and there may be some infiltration of the lung bases especially on the left. A superimposed pneumonia cannot be completely scolded. Note that the patient had a temperature 100.3 at a time of admission. She remained hemodynamically stable with pulse ox above 90% on room air. Her white cell count was nonelevated and the patient's renal function was also within normal limits. No reported aspiration and despite her MS the patient has been able to swallow without any major difficulties. She is currently hospitalized for an acute COPD exacerbation and possible pneumonia. On 09/02/2017 patient follow-up. She denies any acute distress, denies any dyspnea, lung sounds are clear to auscultation. No rhonchi or wheezing noted. No chest congestion, no sputum production. No febrile episodes, but signs are stable, currently on room air, on 2 L per cannula she was 95%. Blood culture remained negative. Today's blood work shows WBC within normal limits at 6.5, hemoglobin of 10.2, potassium is 3.4. Patient has been on a combination of Zithromax and Rocephin, IV Solu-Medrol, nebulized treatments. She has been ambulating in hallway, tolerating activity well. Question to go home today. From pulmonary standpoint patient is stable for discharge home, we'll need follow-up appointment with Dr. Lopez in the office in one week. Objective - Vital Signs Vital signs: Vital Signs Temp 98.5 F 09/02/17 07:00 Pulse 82 09/02/17 11:57 Resp 18 09/02/17 07:00 BP 130/80 09/02/17 07:00 Pulse Ox 95 09/02/17 07:00 Intake & Output 09/01/17 09/02/17 09/02/17 18:59 06:59 18:59 Intake Total 400 250 Balance 400 250 Weight 68.039 kg Intake: Intake, IV Titration 250 Amount Azithromycin 500 mg In 250 Sodium Chloride 0.9% 250 ml @ 125 mls/hr IVPB Q24H [facility] Rx#:[id number] Oral 400 Other: Voiding Method Toilet Toilet Toilet # Voids 3 2 3 # Bowel Movements 1 - Exam GENERAL EXAM: Alert, 76-year-old white female comfortable in no apparent distress. HEAD: Normocephalic/atraumatic. EYES: Normal reaction of pupils, equal size. Conjunctiva pink, sclera white. NOSE: Clear with pink turbinates. THROAT: No erythema or exudates. NECK: No masses, no JVD, no thyroid enlargement, no adenopathy. CHEST: No chest wall deformity. Symmetrical expansion. LUNGS: Equal air entry with no crackles, wheeze, rhonchi or dullness. CVS: Regular rate and rhythm, normal S1 and S2, no gallops, no murmurs, no rubs ABDOMEN: Soft, nontender. No hepatosplenomegaly, normal bowel sounds, no guarding or rigidity. EXTREMITIES: No clubbing, no edema, no cyanosis, 2+ pulses and upper and lower extremities. MUSCULOSKELETAL: Muscle strength and tone normal. SPINE: No scoliosis or deformity SKIN: No rashes CENTRAL NERVOUS SYSTEM: Alert and oriented -3. No focal deficits, tone is normal in all 4 extremities. PSYCHIATRIC: Alert and oriented -3. Appropriate affect. Intact judgment and insight. - Labs CBC & Chem 7: 09/02/17 07:53 09/02/17 07:53 Labs: Abnormal Lab Results - Last 24 Hours (Table) 09/01/17 09/01/17 09/02/17 Range/Units 17:09 20:14 07:09 Hgb (11.4-16.0) gm/dL Hct (34.0-46.0) % MCV (80.0-100.0) fL MCH (25.0-35.0) pg MCHC (31.0-37.0) g/dL RDW (11.5-15.5) % Lymphocytes # (1.0-4.8) k/uL Potassium (3.5-5.1) mmol/L BUN (7-17) mg/dL Glucose (74-99) mg/dL POC Glucose (mg/dL) 142 H 151 H 146 H (75-99) mg/dL 09/02/17 09/02/17 09/02/17 Range/Units 07:53 07:53 11:17 Hgb 10.2 L (11.4-16.0) gm/dL Hct 33.0 L (34.0-46.0) % MCV 73.9 L (80.0-100.0) fL MCH 22.7 L (25.0-35.0) pg MCHC 30.8 L (31.0-37.0) g/dL RDW 18.5 H (11.5-15.5) % Lymphocytes # 0.6 L (1.0-4.8) k/uL Potassium 3.4 L (3.5-5.1) mmol/L BUN 20 H (7-17) mg/dL Glucose 128 H (74-99) mg/dL POC Glucose (mg/dL) 134 H (75-99) mg/dL Microbiology - Last 24 Hours (Table) 09/01/17 01:02 Urine Culture - Final Urine,Voided 08/30/17 20:08 Blood Culture - Preliminary Blood No Growth after 48 hours Assessment and Plan Plan: Assessment: 1 acute COPD exacerbation with limited infiltration of lung bases, suspect bilateral pneumonia 2 history of pulmonary embolism maintained on long-term and to coagulation with Xarelto 3 chronic lower extremities edema 4 multiple sclerosis with significant limitation in exercise capacity. The patient has been leading essentially at Center lifestyle patient moves around with the help of a walker. She may potentially also at an increased risk of fall. 5 previous catheterization for altered mental status, drug induced as the patient is on a combination of Risperdal, morphine, gabapentin, Ativan 6.Chronic smoking 7 history of CVA with right-sided residual weakness 8 hypertension 9 preserved LV function based on an echocardiogram that was done on 12/02/2016 with [id number] degree of secondary pulmonary hypertension 10 chronic back pain Plan Patient has improved, vital signs are stable, patient is afebrile. She is on room air, ambulating, tolerating activity well. She has been treated with a combination of Rocephin and Zithromax, IV Solu-Medrol, and nebulized treatments. Microbiology is negative, patient is stable for discharge home today, follow up with Dr. Lopez in the office in one week. I performed a history & physical examination of the patient and discussed their management with my nurse practitioner, Yesica Green. I reviewed the nurse practitioner's note and agree with the documented findings and plan of care. Lung sounds are clear. The findings and the impression was discussed with the patient. I attest to the documentation by the nurse practitioner. Time with Patient: Less than 30
[2017-09-02] MEDS ORDERED: AZITHROMYCIN 500 MG TAB PO SCH (21:00)
--- NOTE | 2017-09-02 22:58 | DS ---
DISCHARGE SUMMARY DATE OF SERVICE: 09/02/2017. FINAL DIAGNOSES: 1. Chronic obstructive pulmonary disease acute exacerbation with acute bilateral pneumonia, possibly gram-negative pneumonia. 2. Anemia, macrocytic anemia, possibly nutritional. 3. History of cerebrovascular accident, transient ischemic attack. 4. Gait dysfunction. 5. Gastroesophageal reflux disease. 6. Chronic obstructive pulmonary disease. 7. Hypertension. 8. Hyperlipidemia. 9. History of degenerative joint disease. 10.History of pneumonia. 11.History of pulmonary embolism on Xarelto. 12.History of multiple sclerosis. 13.History of hypertension. 14.History of chronic pain syndrome. 15.History of hysterectomy. 16.History of depression. 17.History of ongoing nicotine dependence. DISCHARGE DISPOSITION: The patient will be discharged in stable condition with guarded prognosis once discharge is cleared by Dr. Lopez. HISTORY OF PRESENT ILLNESS: This 76-year-old woman with a past history of multiple medical problems admitted with bilateral pneumonia, COPD acute exacerbation, history of bronchodilators, steroids and antibiotics. Patient improved significantly. EXAM: Vitals were stable. CARDIOVASCULAR: S1, S2 muffled. RESPIRATORY: A few rhonchi. ABDOMEN: Soft. DISCHARGE ADVICE AND MEDICATIONS: 1. Diet is cardiac. 2. Activity limited until followup. 3. Follow up with Dr. Champagne in 2-3 days. 4. Follow up with Dr. Lopez as advised. 5. Medications areas follows:. a. Albuterol 1-2 puffs every 6 hours p.r.n. b. Aspirin 81 mg p.o. daily. c. Lipitor 40 mg q.h.s. d. Zithromax 500 mg q.h.s. e. Symbicort 2 puffs b.i.d. f. Zyrtec 10 mg p.o. daily. g. Cymbalta 60 mg p.o. daily. h. DuoNeb q.i.d. and p.r.n. i. Ativan 0.5 mg q.h.s. j. Morphine sulfate p.o. daily. k. Habitrol 21 daily. l. Protonix 40 mg daily. m.Prednisone taper 40 mg daily for 3 days, 30 for 3 days, 20 for 3 days, 10 for 3 days and then stop. n. Risperdal 0.5 mg q.h.s. o. Xarelto 20 mg q.h.s. q. Demadex 10 mg p.o. q.h.s. Once again, the patient will be discharged in stable condition with a guarded prognosis. MMTOMMY / KAVITAN: [id number] / MTDD
== END 2017-09-02 15:40 | disposition home health service (06) | DRG 190 ==
LOC: EC 19:42 → 5MS5E 21:31
PROVIDERS: ADMIT Hospitalist; ATTEND Hospitalist
DX: J44.1 Chronic obstructive pulmonary disease with (acute) exacerbation (principal); J15.6 Pneumonia due to other Gram-negative bacteria; I69.951 Hemiplegia and hemiparesis following unspecified cerebrovascular disease affecting right dominant side; I27.29 Other secondary pulmonary hypertension; J44.0 Chronic obstructive pulmonary disease with (acute) lower respiratory infection; G35 Multiple sclerosis; D53.9 Nutritional anemia, unspecified; E78.5 Hyperlipidemia, unspecified; F17.210 Nicotine dependence, cigarettes, uncomplicated; G89.4 Chronic pain syndrome; I10 Essential (primary) hypertension; I25.10 Atherosclerotic heart disease of native coronary artery without angina pectoris; I25.2 Old myocardial infarction; K21.9 Gastro-esophageal reflux disease without esophagitis; F32.9 Major depressive disorder, single episode, unspecified; M19.90 Unspecified osteoarthritis, unspecified site; M79.89 Other specified soft tissue disorders; M54.9 Dorsalgia, unspecified; I69.928 Other speech and language deficits following unspecified cerebrovascular disease; H54.7 Unspecified visual loss; H91.90 Unspecified hearing loss, unspecified ear; R26.9 Unspecified abnormalities of gait and mobility; Z79.01 Long term (current) use of anticoagulants; Z79.51 Long term (current) use of inhaled steroids; Z79.82 Long term (current) use of aspirin; Z79.899 Other long term (current) drug therapy; Z90.710 Acquired absence of both cervix and uterus; Z99.81 Dependence on supplemental oxygen; Z87.01 Personal history of pneumonia (recurrent); Z86.711 Personal history of pulmonary embolism
CPT/HCPCS: 36415; 71046; 80048; 80053; 81003; 82550; 82553; 83036; 83605; 83735; 83880; 84484; 85025; 85610; 85730; 87040; 87086; 87502; 93005; 94640; 96374; 96375; 99285

== ENCOUNTER 2018-01-19 15:52 | Inpatient (IN) | payer MEDICARE ==
[2018-01-19] MEDS ORDERED: IPRATROPIUM-ALBUTEROL 3 ML NEB INHALATION STA (15:59)
[2018-01-19] MEDS ORDERED: methylPREDNISolone SOD SUCCI 125 MG/2 ML VIAL IV STA (15:59)
--- NOTE | 2018-01-19 16:12 | ED ---
General Adult HPI - General Chief complaint: Shortness of Breath Stated complaint: DONALDO Time Seen by Provider: 01/19/18 15:58 Source: patient, EMS, RN notes reviewed, old records reviewed Mode of arrival: EMS Limitations: no limitations - History of Present Illness Initial comments: This is a 77-year-old female the ER for evasive shortness of breath, patient is a poor strain secondary to clinical condition and age. Patient's brought in by EMS for continued shortness of breath, initially on BiPAP secondary low pulse ox. Patient continued to complain of shortness of breath, but again otherwise is unable to tell accurate history - Related Data Home Medications Medication Instructions Recorded Confirmed Atorvastatin [Lipitor] 40 mg PO HS 12/04/16 01/19/18 Aspirin 81 mg PO DAILY 08/30/17 01/19/18 Budesonide/Formoterol Fumarate 2 puff INHALATION RT-BID 08/30/17 01/19/18 [Symbicort 160-4.5 Mcg Inhaler] Cetirizine HCl [Zyrtec] 10 mg PO DAILY PRN 08/30/17 01/19/18 DULoxetine HCL [Cymbalta] 60 mg PO DAILY 08/30/17 01/19/18 LORazepam [Ativan] 0.5 mg PO HS 08/30/17 01/19/18 Morphine Sulfate/Naltrexone 1 cap PO DAILY PRN 08/30/17 01/19/18 [Embeda ER 60-2.4 mg Capsule] Rivaroxaban [Xarelto] 20 mg PO HS 08/30/17 01/19/18 risperiDONE [RisperDAL] 0.5 mg PO HS 08/30/17 01/19/18 Albuterol Inhaler [Ventolin Hfa 1 - 2 puff INHALATION RT-QID 01/19/18 01/19/18 Inhaler] Gabapentin [Neurontin] 300 mg PO 5XD 01/19/18 01/19/18 Previous Rx's Medication Instructions Recorded rOPINIRole HCL [Requip] 0.25 mg PO HS #30 tab 09/02/17 Allergies Allergy/AdvReac Type Severity Reaction Status Date / Time No Known Allergies Allergy Verified 01/19/18 17:11 Review of Systems ROS Statement: Those systems with pertinent positive or pertinent negative responses have been documented in the HPI. ROS Other: All systems not noted in ROS Statement are negative. Past Medical History Past Medical History: COPD, CVA/TIA, GERD/Reflux, Hyperlipidemia, Hypertension, Musculoskeletal Disorder, Neurologic Disorder, Osteoarthritis (OA), Pneumonia, Pulmonary Embolus (PE) Additional Past Medical History / Comment(s): Multiple sclerosis, bilateral segmental pulmonary embolism currently on Xarelto, 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/leg and slow speech and slight difficulty swallowing, hypertension and chronic pain involving the lower extremities bilaterally, hypertension, hyperlipidemia, osteoarthritis, COPD, chronic lower extremity edema, moderate degree of pulmonary hypertension with a PA pressure of 47 and a preserved LV function, chronic narcotic use for pain and the patient has the tendency of overutilizing her painkillers History of Any Multi-Drug Resistant Organisms: None Reported Past Surgical History: Hysterectomy Additional Past Surgical History / Comment(s): Peg tube insertion (removed), bilateral cataract removal and twice on the left side, colonoscopy. Past Anesthesia/Blood Transfusion Reactions: No Reported Reaction Past Psychological History: No Psychological Hx Reported Smoking Status: Heavy tobacco smoker Past Alcohol Use History: None Reported Past Drug Use History: Prescription Drug Abuse - Past Family History Mother History Unknown: Yes Family Medical History: No Reported History, Renal Disease Additional Family Medical History / Comment(s): Mother was healthy and lived to be 88yrs old. Father History Unknown: Yes Family Medical History: Osteoarthritis (OA) Additional Family Medical History / Comment(s): Pt states her father at the age of 68yrs due to his debilitating arthritis. General Exam Limitations: no limitations General appearance: alert, in no apparent distress, anxious Head exam: Present: atraumatic, normocephalic, normal inspection Eye exam: Present: normal appearance, PERRL, EOMI. Absent: scleral icterus, conjunctival injection, periorbital swelling ENT exam: Present: normal exam, mucous membranes moist Neck exam: Present: normal inspection. Absent: tenderness, meningismus, lymphadenopathy Respiratory exam: Present: respiratory distress, wheezes, accessory muscle use, decreased breath sounds, prolonged expiratory. Absent: normal lung sounds bilaterally, rales, rhonchi, stridor Cardiovascular Exam: Present: normal rhythm, tachycardia, normal heart sounds. Absent: systolic murmur, diastolic murmur, rubs, gallop, clicks GI/Abdominal exam: Present: soft, normal bowel sounds. Absent: distended, tenderness, guarding, rebound, rigid Extremities exam: Present: normal inspection, full ROM, normal capillary refill. Absent: tenderness, pedal edema, joint swelling, calf tenderness Back exam: Present: normal inspection Neurological exam: Present: alert, oriented X3, CN II-XII intact Psychiatric exam: Present: normal affect, normal mood Skin exam: Present: warm, dry, intact, normal color. Absent: rash Course Vital Signs 01/19/18 01/19/18 01/19/18 15:58 16:01 16:10 Temperature 99.1 F Pulse Rate 122 H 92 Respiratory 20 22 Rate Blood Pressure 142/62 O2 Sat by Pulse 98 Oximetry 01/19/18 01/19/18 01/19/18 16:27 16:43 18:01 Temperature 98.6 F 98.0 F Pulse Rate 97 105 H 95 Respiratory 22 22 Rate Blood Pressure 109/57 109/59 O2 Sat by Pulse 91 L 93 L Oximetry - Reevaluation(s) Reevaluation #1: 01/19/18 17:29 Patient taken off BiPAP, maintaining pulse ox EKG Findings - EKG Comments: EKG Findings:: EKG shows sinus rhythm rate of 91, VT 136, QRS 76, QTc 420 Medical Decision Making - Medical Decision Making 77 female the ER with acute respiratory failure, respiratory disease COPD CHF combination. Patient will be admitted to the hospital for continued breathing treatments and monitoring of cardiopulmonary state - Lab Data Result diagrams: 01/19/18 16:10 01/19/18 16:10 Lab Results 01/19/18 01/19/18 01/19/18 Range/Units 16:10 16:10 16:10 WBC 11.6 H (3.8-10.6) k/uL RBC 3.98 (3.80-5.40) m/uL Hgb 7.8 L (11.4-16.0) gm/dL Hct 27.4 L (34.0-46.0) % MCV 68.8 L (80.0-100.0) fL MCH 19.6 L (25.0-35.0) pg MCHC 28.5 L (31.0-37.0) g/dL RDW 21.3 H (11.5-15.5) % Plt Count 383 (150-450) k/uL Neutrophils % 75 % Lymphocytes % 12 % Monocytes % 8 % Eosinophils % 1 % Basophils % 0 % Neutrophils # 8.8 H (1.3-7.7) k/uL Lymphocytes # 1.4 (1.0-4.8) k/uL Monocytes # 0.9 (0-1.0) k/uL Eosinophils # 0.1 (0-0.7) k/uL Basophils # 0.0 (0-0.2) k/uL Hypochromasia Marked Poikilocytosis Slight Anisocytosis Moderate Microcytosis Marked PT (9.0-12.0) sec INR (<1.2) APTT (22.0-30.0) sec D-Dimer (<0.60) mg/L FEU Sodium 134 L (137-145) mmol/L Potassium 4.7 (3.5-5.1) mmol/L Chloride 102 (98-107) mmol/L Carbon Dioxide 27 (22-30) mmol/L Anion Gap 5 mmol/L BUN 18 H (7-17) mg/dL Creatinine 0.63 (0.52-1.04) mg/dL Est GFR (CKD-EPI)AfAm >90 (>60 ml/min/1.73 sqM) Est GFR (CKD-EPI)NonAf 87 (>60 ml/min/1.73 sqM) Glucose 83 (74-99) mg/dL Calcium 7.6 L (8.4-10.2) mg/dL Magnesium 1.9 (1.6-2.3) mg/dL Total Bilirubin 0.7 (0.2-1.3) mg/dL AST 23 (14-36) U/L ALT 29 (9-52) U/L Alkaline Phosphatase 141 H (38-126) U/L Total Creatine Kinase 194 H (30-135) U/L CK-MB (CK-2) 1.0 (0.0-2.4) ng/mL CK-MB (CK-2) Rel Index 0.5 Troponin I <0.012 (0.000-0.034) ng/mL NT-Pro-B Natriuret Pep pg/mL Total Protein 5.0 L (6.3-8.2) g/dL Albumin 2.2 L (3.5-5.0) g/dL 01/19/18 01/19/18 Range/Units 16:10 16:50 WBC (3.8-10.6) k/uL RBC (3.80-5.40) m/uL Hgb (11.4-16.0) gm/dL Hct (34.0-46.0) % MCV (80.0-100.0) fL MCH (25.0-35.0) pg MCHC (31.0-37.0) g/dL RDW (11.5-15.5) % Plt Count (150-450) k/uL Neutrophils % % Lymphocytes % % Monocytes % % Eosinophils % % Basophils % % Neutrophils # (1.3-7.7) k/uL Lymphocytes # (1.0-4.8) k/uL Monocytes # (0-1.0) k/uL Eosinophils # (0-0.7) k/uL Basophils # (0-0.2) k/uL Hypochromasia Poikilocytosis Anisocytosis Microcytosis PT 14.0 H (9.0-12.0) sec INR 1.5 H (<1.2) APTT 29.8 (22.0-30.0) sec D-Dimer 0.52 (<0.60) mg/L FEU Sodium (137-145) mmol/L Potassium (3.5-5.1) mmol/L Chloride (98-107) mmol/L Carbon Dioxide (22-30) mmol/L Anion Gap mmol/L BUN (7-17) mg/dL Creatinine (0.52-1.04) mg/dL Est GFR (CKD-EPI)AfAm (>60 ml/min/1.73 sqM) Est GFR (CKD-EPI)NonAf (>60 ml/min/1.73 sqM) Glucose (74-99) mg/dL Calcium (8.4-10.2) mg/dL Magnesium (1.6-2.3) mg/dL Total Bilirubin (0.2-1.3) mg/dL AST (14-36) U/L ALT (9-52) U/L Alkaline Phosphatase (38-126) U/L Total Creatine Kinase (30-135) U/L CK-MB (CK-2) (0.0-2.4) ng/mL CK-MB (CK-2) Rel Index Troponin I (0.000-0.034) ng/mL NT-Pro-B Natriuret Pep 449 pg/mL Total Protein (6.3-8.2) g/dL Albumin (3.5-5.0) g/dL - Radiology Data Radiology results: report reviewed (Chest x-ray is reviewed), image reviewed Disposition Clinical Impression: COPD (chronic obstructive pulmonary disease), Acute exacerbation of chronic obstructive airways disease, CHF (congestive heart failure) Disposition: ADMITTED IP TO THIS [facility] Condition: Serious Is patient prescribed a controlled substance at d/c from ED?: No
[2018-01-19 16:30] LABS: Anisocytosis Moderate; Basophils % (A) 0 %; Eosinophils # (A) 0.1 k/uL (0-0.7); Eosinophils % (A) 1 %; HCT 27.4 % (34.0-46.0); HGB 7.8 gm/dL (11.4-16.0); Hypochromasia Marked; Lymphocytes # (A) 1.4 k/uL (1.0-4.8); Lymphocytes % (A) 12 %; MCH 19.6 pg (25.0-35.0); MCHC 28.5 g/dL (31.0-37.0); MCV 68.8 fL (80.0-100.0); Mean Platelet Volume 6.5; Microcytosis Marked; Monocytes # (A) 0.9 k/uL (0-1.0); Monocytes % (A) 8 %; Neutrophils # (A) 8.8 k/uL (1.3-7.7); Neutrophils % (A) 75 %; Platelet Count 383 k/uL (150-450); Poikilocytosis Slight; RBC 3.98 m/uL (3.80-5.40); RDW 21.3 % (11.5-15.5); WBC 11.6 k/uL (3.8-10.6)
[2018-01-19 16:38] LABS: ALT 29 U/L (9-52); AST 23 U/L (14-36); Albumin 2.2 g/dL (3.5-5.0); Alkaline Phosphatase 141 U/L (38-126); Anion Gap 5 mmol/L; Blood Urea Nitrogen 18 mg/dL (7-17); Calcium 7.6 mg/dL (8.4-10.2); Carbon Dioxide 27 mmol/L (22-30); Chloride 102 mmol/L (98-107); Glucose 83 mg/dL (74-99); Magnesium 1.9 mg/dL (1.6-2.3); Potassium 4.7 mmol/L (3.5-5.1); Sodium 134 mmol/L (137-145); Total Bilirubin 0.7 mg/dL (0.2-1.3)
[2018-01-19 16:50] LABS: Creatine Kinase 194 U/L (30-135)
[2018-01-19 17:03] LABS: Troponin I <0.012 ng/mL (0.000-0.034)
[2018-01-19 17:25] LABS: D-Dimer 0.52 mg/L FEU (<0.60); INR 1.5 (<1.2); Partial Thromboplastin Time 29.8 sec (22.0-30.0)
[2018-01-19] MEDS ORDERED: SODIUM CHLORIDE 0.9% 1,000 ML IV SCH (17:30)
--- NOTE | 2018-01-19 18:55 | XR ---
EXAMINATION TYPE: XR chest 2V DATE OF EXAM: 01/19/2018 COMPARISON: 08/30/2017 HISTORY: Difficulty breathing TECHNIQUE: Frontal and lateral views of the chest are obtained. FINDINGS: The heart is enlarged. There is pulmonary vascular congestion. There is blunting of costop hrenic angles and also fluid in the fissures. The bones are osteopenic. IMPRESSION: Congestive heart failure with pleural effusions. Fluid appears increased compared to las t exam. Lower lobe pneumonia is possible.
[2018-01-19] MEDS ORDERED: FUROSEMIDE 10 MG/ML 4 ML VIAL IV STA (19:01)
--- NOTE | 2018-01-19 20:24 | P.HPIM ---
History of Present Illness H&P Date: 01/19/18 Chief Complaint: Shortness of breath This is a 77-year-old female with history of long-standing COPD and chronic respiratory failure with 2 L home oxygen around the clock, chronically ill, who presented with complaint of shortness of breath. Patient is a poor historian and very hard of hearing and again through the patient in the room with her present who helped obtaining the history. Patient is chronically short of breath but for the last 2-3 days her shortness of breath became worse. She was short of breath even at rest. Her oxygen saturation was low her usual home dose of oxygen. Her usual breathing treatments were not helping. She also developed sensation of chest congestion and cough but was not able to cough anything up. Also noticed significant increase of swelling in her legs and her arms pitting in nature. She also notices that she is not able to lay flat and she would prop herself up 2-3 pillows overnight. She denied any fever, chills, URI like symptoms, chest pains or palpitations. Be on her usual home medications he didn't try anything else for her symptoms. She usually takes Lasix but this was not improving her swelling. In view of this she was brought to emergency department where she was given IV Lasix, breathing treatment, Solu-Medrol after which and BiPAP after which she started improving and currently she is quite comfortable and off of the BiPAP. Chest x-ray showed bilateral pleural effusion small with some pulmonary vascular congestion. Interestingly her hemoglobin was 7.8 which is down from 10 few months ago. Her indices are low and she has been diagnosed with iron deficiency for which she is taking iron supplementation. Patient denies any melena or any blood in her stool. The parents reports good appetite. Denies any history of colonoscopy. Review of Systems Constitutional: Denies chills, Denies chronic pain, Denies daytime sleepiness, Denies fatigue, Denies fever, Denies lethargy, Denies malaise, Denies night sweats, Denies poor appetite Ears: bilateral: decreased hearing Ears, nose, mouth and throat: Denies sore throat Cardiovascular: Reports as per HPI Respiratory: Reports as per HPI Gastrointestinal: Denies abdominal pain, Denies BRBPR, Denies change in bowel habits, Denies coffee ground emesis, Denies constipation, Denies diarrhea, Denies hematemesis, Denies hematochezia, Denies melena Genitourinary: Denies hematuria Musculoskeletal: Reports gait dysfunction, Denies leg numbness/tingling Integumentary: Denies pruritus, Denies rash Neurological: Denies headaches, Denies syncope Psychiatric: Denies anxiety Endocrine: Denies cold intolerance, Denies heat intolerance Past Medical History Past Medical History: COPD, CVA/TIA, GERD/Reflux, Hyperlipidemia, Hypertension, Musculoskeletal Disorder, Neurologic Disorder, Osteoarthritis (OA), Pneumonia, Pulmonary Embolus (PE) Additional Past Medical History / Comment(s): Multiple sclerosis, bilateral segmental pulmonary embolism currently on Xarelto, 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 and slow speech and slight difficulty swallowing, hypertension and chronic pain involving the lower extremities bilaterally, hypertension, hyperlipidemia, osteoarthritis, COPD, chronic lower extremity edema, moderate degree of pulmonary hypertension with a PA pressure of 47 and a preserved LV function, chronic narcotic use for pain and the patient has the tendency of overutilizing her painkillers History of Any Multi-Drug Resistant Organisms: None Reported Past Surgical History: Hysterectomy Additional Past Surgical History / Comment(s): Peg tube insertion (removed), bilateral cataract removal and twice on the left side, colonoscopy. Past Anesthesia/Blood Transfusion Reactions: No Reported Reaction Past Psychological History: No Psychological Hx Reported Smoking Status: Heavy tobacco smoker Past Alcohol Use History: None Reported Past Drug Use History: Prescription Drug Abuse - Past Family History Mother History Unknown: Yes Family Medical History: No Reported History, Renal Disease Additional Family Medical History / Comment(s): Mother was healthy and lived to be 88yrs old. Father History Unknown: Yes Family Medical History: Osteoarthritis (OA) Additional Family Medical History / Comment(s): Pt states her father at the age of 68yrs due to his debilitating arthritis. Medications and Allergies Home Medications Medication Instructions Recorded Confirmed Type Atorvastatin [Lipitor] 40 mg PO HS 12/04/16 01/19/18 History Aspirin 81 mg PO DAILY 08/30/17 01/19/18 History Budesonide/Formoterol Fumarate 2 puff INHALATION RT-BID 08/30/17 01/19/18 History [Symbicort 160-4.5 Mcg Inhaler] Cetirizine HCl [Zyrtec] 10 mg PO DAILY PRN 08/30/17 01/19/18 History DULoxetine HCL [Cymbalta] 60 mg PO DAILY 08/30/17 01/19/18 History LORazepam [Ativan] 0.5 mg PO HS 08/30/17 01/19/18 History Morphine Sulfate/Naltrexone 1 cap PO DAILY PRN 08/30/17 01/19/18 History [Embeda ER 60-2.4 mg Capsule] Rivaroxaban [Xarelto] 20 mg PO HS 08/30/17 01/19/18 History risperiDONE [RisperDAL] 0.5 mg PO HS 08/30/17 01/19/18 History rOPINIRole HCL [Requip] 0.25 mg PO HS #30 tab 09/02/17 01/19/18 Rx Albuterol Inhaler [Ventolin Hfa 1 - 2 puff INHALATION RT-QID 01/19/18 01/19/18 History Inhaler] Gabapentin [Neurontin] 300 mg PO 5XD 01/19/18 01/19/18 History Allergies Allergy/AdvReac Type Severity Reaction Status Date / Time No Known Allergies Allergy Verified 01/19/18 17:11 Physical Exam Vitals: Vital Signs Temp Pulse Resp BP Pulse Ox 01/19/18 19:00 73 22 106/63 98 01/19/18 18:01 98.0 F 95 22 109/59 93 L 01/19/18 16:43 98.6 F 105 H 22 109/57 91 L 01/19/18 16:27 97 01/19/18 16:10 92 01/19/18 16:01 22 01/19/18 15:58 99.1 F 122 H 20 142/62 98 Intake and Output 01/19/18 01/19/18 01/19/18 06:59 14:59 22:59 Other: Weight 86.772 kg GENERAL: vital signs reviewed Patient is awake alert and orientated and nonappearing distress HEENT: Undramatic normocephalic no facial asymmetry anicteric sclera moist mucous membranes without any lesions neck is supple without any masses or thyromegaly some neck vein pulsations noted Chest: Respiratory effort is normal and there is no any respiratory distress, breath sounds are diminished throughout and especially in both bases, she has inspiratory rhonchi throughout and expiratory wheezes bilaterally Cardiovascular: Regular rhythm and rate S1-S2 very faint aortic murmur no rubs or gallops noted Abdomen: There are some abdominal distention but generally abdomen is soft nontender no organomegaly appreciated no flank tenderness Extremities 2+ pitting edema bilaterally; no cough tenderness or warmth or erythema: Some hyperpigmentation in the lower extremities with dayo d orange appearance of the skin Neurological examination: Cranial nerves II-12 are generally intact. There is no asterixis Musculoskeletal: Joints without any warmth or deformity Results CBC & Chem 7: 01/19/18 16:10 01/19/18 16:10 Labs: Abnormal Lab Results - Last 24 Hours (Table) 01/19/18 01/19/18 01/19/18 Range/Units 16:10 16:10 16:10 WBC 11.6 H (3.8-10.6) k/uL Hgb 7.8 L (11.4-16.0) gm/dL Hct 27.4 L (34.0-46.0) % MCV 68.8 L (80.0-100.0) fL MCH 19.6 L (25.0-35.0) pg MCHC 28.5 L (31.0-37.0) g/dL RDW 21.3 H (11.5-15.5) % Neutrophils # 8.8 H (1.3-7.7) k/uL PT (9.0-12.0) sec INR (<1.2) Sodium 134 L (137-145) mmol/L BUN 18 H (7-17) mg/dL Calcium 7.6 L (8.4-10.2) mg/dL Alkaline Phosphatase 141 H (38-126) U/L Total Creatine Kinase 194 H (30-135) U/L Total Protein 5.0 L (6.3-8.2) g/dL Albumin 2.2 L (3.5-5.0) g/dL 01/19/18 Range/Units 16:50 WBC (3.8-10.6) k/uL Hgb (11.4-16.0) gm/dL Hct (34.0-46.0) % MCV (80.0-100.0) fL MCH (25.0-35.0) pg MCHC (31.0-37.0) g/dL RDW (11.5-15.5) % Neutrophils # (1.3-7.7) k/uL PT 14.0 H (9.0-12.0) sec INR 1.5 H (<1.2) Sodium (137-145) mmol/L BUN (7-17) mg/dL Calcium (8.4-10.2) mg/dL Alkaline Phosphatase (38-126) U/L Total Creatine Kinase (30-135) U/L Total Protein (6.3-8.2) g/dL Albumin (3.5-5.0) g/dL Abdominal x-ray: report reviewed, image reviewed Thrombosis Risk Factor Assmnt - DVT/VTE Prophylaxis DVT/VTE Prophylaxis: Pharmacologic Prophylaxis ordered Assessment and Plan Plan: 1. Acute on chronic hypoxic respiratory failure Multifactorial due to combination of COPD and clinically CHF exacerbation with fluid overload and worsening anemia Recent echo showed preserved EF and no significant diastolic dysfunction. Also showed small pericardial effusion. Patient appears to have anasarca and also noted to have low albumin which could be contributing to the fluid overload Continue IV Lasix for diuresis and steroid burst with breathing treatments Continue oxygen supplementation and currently she is off of the BiPAP Pulmonary consultation Limited echo to evaluate the status of her pericardial effusion In view of her anasarca we'll obtain albumin 3 albumin urine protein and liver function and TSH Patient may need transfusion and we will monitor her hemoglobin 2. Acute on chronic microcytic anemia History all iron deficiency Given patient's overall functional status and comorbidities did not have colonoscopy She is on anticoagulation for deep DVT and PE in the past Hold Xarelto for now, monitor hemoglobin, recheck iron studies and if very low may need IV infusions of iron 3. Hypoalbuminemia with anasarca Check urine protein and liver function 4. Chronic debility and polypharmacy Physical occupational therapy will be ordered Will hold home medication with seductive effects in view of worsening of her respiratory status Time with Patient: Greater than 30
[2018-01-19 20:42] LABS: Appearance,Urine Clear (Clear); Bilirubin,Urine Negative (Negative); Blood,Urine Negative (Negative); Color,Urine Light Yellow; Glucose,Urine (UA) Negative (Negative); Ketones,Urine Negative (Negative); Leukocyte Esterase,Urine Negative (Negative); Nitrite,Urine Negative (Negative); PH, Urine 5.5 (5.0-8.0); Protein,Urine Negative (Negative); Specific Gravity,Urine 1.006 (1.001-1.035); Urobilinogen,Urine <2.0 mg/dL (<2.0)
[2018-01-19] MEDS: IPRATROPIUM-ALBUTEROL 3 ML NEB INHALATION SCH (20:52)
[2018-01-19] MEDS: ATORVASTATIN 40 MG TAB PO SCH (22:02)
[2018-01-19] MEDS: FUROSEMIDE 10 MG/ML 4 ML VIAL IV SCH (22:56)
[2018-01-19] MEDS: methylPREDNISolone SOD SUCCI 125 MG/2 ML VIAL IV SCH (23:11)
[2018-01-19] MEDS: HYDROcodone/APAP 5-325MG 1 EACH TAB PO PRN (23:23)
[2018-01-20] MEDS: methylPREDNISolone SOD SUCCI 125 MG/2 ML VIAL IV SCH ×3 (05:41→18:30)
[2018-01-20] MEDS: SYMBICORT 160-4.5 MCG INHALER INHALATION SCH ×2 (07:05→18:40)
[2018-01-20] MEDS: IPRATROPIUM-ALBUTEROL 3 ML NEB INHALATION SCH ×4 (07:05→18:41)
[2018-01-20 07:22] LABS: Anion Gap 3 mmol/L; Blood Urea Nitrogen 19 mg/dL (7-17); Calcium 7.1 mg/dL (8.4-10.2); Carbon Dioxide 28 mmol/L (22-30); Chloride 102 mmol/L (98-107); Glucose 123 mg/dL (74-99); Magnesium 1.8 mg/dL (1.6-2.3); Potassium 3.9 mmol/L (3.5-5.1); Sodium 133 mmol/L (137-145)
[2018-01-20] MEDS: ASPIRIN 81 MG PO SCH (08:43)
[2018-01-20] MEDS: DULoxetine HCL 60 MG CAPSULE.DR PO SCH (08:43)
[2018-01-20] MEDS ORDERED: METOLAZONE 2.5 MG TAB PO SCH (09:00)
[2018-01-20] MEDS ORDERED: ENOXAPARIN 40 MG/0.4 ML SYRINGE SQ SCH (09:00)
[2018-01-20] MEDS ORDERED: FUROSEMIDE 10 MG/ML 4 ML VIAL IV SCH (09:00)
[2018-01-20 09:57] LABS: Anisocytosis Moderate; HCT 26.2 % (34.0-46.0); HGB 7.4 gm/dL (11.4-16.0); Hypochromasia Marked; MCH 19.6 pg (25.0-35.0); MCHC 28.3 g/dL (31.0-37.0); MCV 69.4 fL (80.0-100.0); Mean Platelet Volume 6.1; Microcytosis Marked; Platelet Count 372 k/uL (150-450); Poikilocytosis Slight; RBC 3.77 m/uL (3.80-5.40); RDW 21.1 % (11.5-15.5); WBC 4.7 k/uL (3.8-10.6)
[2018-01-20 10:08] LABS: Reticulocyte % 3.1 % (0.5-2.0)
[2018-01-20] MEDS: FUROSEMIDE 10 MG/ML 4 ML VIAL IV SCH ×2 (11:11→21:09)
--- NOTE | 2018-01-20 11:14 | ECHOF ---
Referral Reason:RODRIGUEZ, martin, eval for pericard effusion MEASUREMENTS -------- HEIGHT: 165.1 cm WEIGHT: 80.7 kg BP: 106/6 RVIDd: 3.1 cm (< 3.3) IVSd: 1.4 cm (0.6 - 1.1) LVIDd: 4.5 cm (3.9 - 5.3) LVPWd: 1.3 cm (0.6 - 1.1) IVSs: 1.7 cm LVIDs: 2.8 cm LVPWs: 1.7 cm LA Diam: 3.4 cm (2.7 - 3.8) LAESV Index (A-L): 34.12 ml/m Ao Diam: 3.4 cm (2.0 - 3.7) AV Cusp: 1.9 cm (1.5 - 2.6) MV EXCURSION: 17.701 mm (> 18.000) MV EF SLOPE: 82 mm/s (70 - 150) EPSS: 0.8 cm MV E Camron: 0.97 m/s MV DecT: 273 ms MV A Camron: 1.16 m/s MV E/A Ratio: 0.84 AV maxP.67 mmHg AV meanP.72 mmHg RAP: 5.00 mmHg RVSP: 37.58 mmHg FINDINGS -------- Sinus rhythm with extra systolic beats. This was a technically adequate study. The left ventricular size is normal. There is moderate concentric left ventricular hypertrophy. O verall left ventricular systolic function is normal with, an EF between 55 - 60 %. The right ventricle is normal in size. LA is moderately dilated 34-39 ml/m2 The right atrium is normal in size. There is mild aortic valve sclerosis. Peak/mean gradient across the Aortic Valve is 14.67mmHg / 6.7 2mmHg. The mitral valve leaflets are mildly thickened. Mild mitral annular calcification present. There is trace to mild mitral regurgitation. Mild tricuspid regurgitation present. There is mild pulmonary hypertension. The right ventricular systolic pressure, as measured by Doppler, is 37.58mmHg. The pulmonic valve was not well visualized. The aortic root size is normal. Normal inferior vena cava with normal inspiratory collapse consistent with estimated right atrial pre ssure of 5 mmHg. The inferior vena cava is mildly dilated. There is a small pericardial effusion located near the left ventricle. CONCLUSIONS -------- 1. Sinus rhythm with extra systolic beats. 2. This was a technically adequate study. 3. The left ventricular size is normal. 4. There is moderate concentric left ventricular hypertrophy. 5. Overall left ventricular systolic function is normal with, an EF between 55 - 60 %. 6. The right ventricle is normal in size. 7. LA is moderately dilated 34-39 ml/m2 8. The right atrium is normal in size. 9. There is mild aortic valve sclerosis. 10. Peak/mean gradient across the Aortic Valve is 14.67mmHg / 6.72mmHg. 11. The mitral valve leaflets are mildly thickened. 12. Mild mitral annular calcification present. 13. There is trace to mild mitral regurgitation. 14. Mild tricuspid regurgitation present. 15. There is mild pulmonary hypertension. 16. The right ventricular systolic pressure, as measured by Doppler, is 37.58mmHg. 17. The pulmonic valve was not well visualized. 18. The aortic root size is normal. 19. Normal inferior vena cava with normal inspiratory collapse consistent with estimated right atrial pressure of 5 mmHg. 20. The inferior vena cava is mildly dilated. 21. There is a small pericardial effusion located near the left ventricle. HOUSEKEEPER SUPERVISOR: Rosemarie Lewis RDCS
--- NOTE | 2018-01-20 11:27 | P.CNPUL ---
History of Present Illness Consult date: 01/20/18 Reason for consult: dyspnea, cough, COPD, hypoxemia, abnormal CXR/CT Chief complaint: Shortness of breath History of present illness: Pulmonary consult dated 01/20/2018 This is a 77-year-old female with a long-standing history of COPD from heavy tobacco use. She's been smoking for many many years at 1 pack a day. She continues to smoke. In addition, she apparently has a history of CVA, GERD, hyperlipidemia, hypertension, DJD, pneumonia, pulmonary embolism, multiple sclerosis, anemia, and OF other medical problems. The patient also suffers from moderate pulmonary hypertension. The patient also apparently appears to be overutilizing painkillers according to the primary service. She is a very poor historian. She has always. It's very difficult to understand her. She appears to have been admitted with a diagnosis of shortness of breath likely from underlying COPD and CHF. She is chronically on oxygen therapy at 2 L/m. Over the last couple days prior to admission she became more short of breath. She had chest congestion and cough. No phlegm production. She has also had significant lower extremity edema. She apparently also suffers from orthopnea. In the emergency department, she was placed on IV Lasix breathing treatment Solu-Medrol and BiPAP. She seemed to improve. She was anemic with hemoglobin 7.8. Review of Systems The patient's very hard of hearing and there is a language barrier. She appears to have primarily shortness breath chest congestion and nonproductive cough. His hard to gain any other history from her. Past Medical History Past Medical History: COPD, CVA/TIA, GERD/Reflux, Hyperlipidemia, Hypertension, Musculoskeletal Disorder, Neurologic Disorder, Osteoarthritis (OA), Pneumonia, Pulmonary Embolus (PE) Additional Past Medical History / Comment(s): Multiple sclerosis, bilateral segmental pulmonary embolism currently on Xarelto, 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/leg and slow speech and slight difficulty swallowing, hypertension and chronic pain involving the lower extremities bilaterally, hypertension, hyperlipidemia, osteoarthritis, COPD, chronic lower extremity edema, moderate degree of pulmonary hypertension with a PA pressure of 47 and a preserved LV function, chronic narcotic use for pain and the patient has the tendency of overutilizing her painkillers History of Any Multi-Drug Resistant Organisms: None Reported Past Surgical History: Hysterectomy Additional Past Surgical History / Comment(s): Peg tube insertion (removed), bilateral cataract removal and twice on the left side, colonoscopy. Past Anesthesia/Blood Transfusion Reactions: No Reported Reaction Past Psychological History: No Psychological Hx Reported Smoking Status: Heavy tobacco smoker Past Alcohol Use History: None Reported Past Drug Use History: Prescription Drug Abuse - Past Family History Mother History Unknown: Yes Family Medical History: No Reported History, Renal Disease Additional Family Medical History / Comment(s): Mother was healthy and lived to be 88yrs old. Father History Unknown: Yes Family Medical History: Osteoarthritis (OA) Additional Family Medical History / Comment(s): Pt states her father at the age of 68yrs due to his debilitating arthritis. Medications and Allergies Home Medications Medication Instructions Recorded Confirmed Type Atorvastatin [Lipitor] 40 mg PO HS 12/04/16 01/19/18 History Aspirin 81 mg PO DAILY 08/30/17 01/19/18 History Budesonide/Formoterol Fumarate 2 puff INHALATION RT-BID 08/30/17 01/19/18 History [Symbicort 160-4.5 Mcg Inhaler] Cetirizine HCl [Zyrtec] 10 mg PO DAILY PRN 08/30/17 01/19/18 History DULoxetine HCL [Cymbalta] 60 mg PO DAILY 08/30/17 01/19/18 History LORazepam [Ativan] 0.5 mg PO HS 08/30/17 01/19/18 History Morphine Sulfate/Naltrexone 1 cap PO DAILY PRN 08/30/17 01/19/18 History [Embeda ER 60-2.4 mg Capsule] Rivaroxaban [Xarelto] 20 mg PO HS 08/30/17 01/19/18 History risperiDONE [RisperDAL] 0.5 mg PO HS 08/30/17 01/19/18 History rOPINIRole HCL [Requip] 0.25 mg PO HS #30 tab 09/02/17 01/19/18 Rx Albuterol Inhaler [Ventolin Hfa 1 - 2 puff INHALATION RT-QID 01/19/18 01/19/18 History Inhaler] Gabapentin [Neurontin] 300 mg PO 5XD 01/19/18 01/19/18 History Allergies Allergy/AdvReac Type Severity Reaction Status Date / Time No Known Allergies Allergy Verified 01/19/18 17:11 Physical Exam Osteopathic Statement: *. No significant issues noted on an osteopathic structural exam other than those noted in the History and Physical/Consult. Vitals: Vital Signs Temp Pulse Resp BP BP BP Pulse Ox 01/20/18 08:00 98.5 F 20 104/55 90 L 01/20/18 07:15 93 01/20/18 07:05 92 01/20/18 04:00 98.1 F 20 106/66 94 L 01/20/18 00:00 20 01/19/18 23:03 98.1 F 20 112/58 94 L 01/19/18 21:52 99.3 F 20 109/62 95 01/19/18 19:00 73 22 106/63 98 01/19/18 18:01 98.0 F 95 22 109/59 93 L 01/19/18 16:43 98.6 F 105 H 22 109/57 91 L 01/19/18 16:27 97 01/19/18 16:10 92 01/19/18 16:01 22 01/19/18 15:58 99.1 F 122 H 20 142/62 98 Intake and Output 01/19/18 01/20/18 01/20/18 22:59 06:59 14:59 Intake Total 30 100 Balance 30 100 Intake: IV 30 Invasive Line 1 10 Invasive Line 2 20 Oral 100 Other: Voiding Method Diaper Diaper # Voids 1 1 Weight 86.772 kg 81 kg 81 kg No acute distress, oriented 3. Nasal O2 in place. HEENT examination is grossly unremarkable. Mucous membranes are moist. No oral lesions. Neck supple. Full range of motion. No adenopathy thyromegaly or neck vein distention. Cardiovascular examination reveals regular rhythm rate. S1-S2 normal. No S3 or S4. Soft murmur noted. Heart sounds are distant. Lungs reveal diminished breath sounds. Some crackles at the bases. There are some coarse diffuse rhonchi and few scattered bibasilar crackles. Breath sounds equal bilaterally. Abdomen soft bowel sounds are heard. No masses or tenderness. Extremities are intact. There is significant lower extremity edema with pitting. It's 2+. There is also some chronic venous stasis changes. Skin is without rash or lesion. Neurologic examination is difficult to evaluate. Results - Laboratory Findings CBC and BMP: 01/20/18 09:26 01/20/18 06:31 PT/INR, D-dimer PT 14.0 sec (9.0-12.0) H 01/19/18 16:50 INR 1.5 (<1.2) H 01/19/18 16:50 D-Dimer 0.52 mg/L FEU (<0.60) 01/19/18 16:50 Abnormal lab findings: Abnormal Labs 01/19/18 01/19/18 01/19/18 16:10 16:10 16:10 WBC 11.6 H RBC Hgb 7.8 L Hct 27.4 L MCV 68.8 L MCH 19.6 L MCHC 28.5 L RDW 21.3 H Neutrophils # 8.8 H Retic Count PT INR Sodium 134 L BUN 18 H Glucose Calcium 7.6 L Alkaline Phosphatase 141 H Total Creatine Kinase 194 H Total Protein 5.0 L Albumin 2.2 L 01/19/18 01/20/18 01/20/18 16:50 06:31 09:26 WBC RBC 3.77 L Hgb 7.4 L Hct 26.2 L MCV 69.4 L MCH 19.6 L MCHC 28.3 L RDW 21.1 H Neutrophils # Retic Count 3.1 H PT 14.0 H INR 1.5 H Sodium 133 L BUN 19 H Glucose 123 H Calcium 7.1 L Alkaline Phosphatase Total Creatine Kinase Total Protein Albumin - Diagnostic Findings Chest x-ray: report reviewed (Labs x-rays a medications are all reviewed.), image reviewed Assessment and Plan Assessment: Assessment Shortness of breath, likely multifactorial, in part related to underlying COPD exacerbation but also congestive heart failure. I doubt infection at this time. History of COPD from heavy tobacco use which is ongoing History of CVA History of GERD Hyperlipidemia by history Hypertension by history History of multiple sclerosis History of DJD Previous history of pulmonary embolism Moderate pulmonary hypertension Multiple other medical problems and comorbidities Plan: Plan dated 01/20/2018 Her chest x-ray is consistent with fluid overload. This was also the interpretation of the radiologist. The patient's medications are reviewed. Labs are reviewed. Her white count is 4.7 hemoglobin is 7.4 hematocrit 26.2 and platelet count 372,000. The patient's sodium was 133 potassium chloride CO2 anion gap and renal function is off relatively normal. Urine is clear. N- terminal proBNP was only 449. From the pulmonary standpoint, she is on Symbicort 160/4.5, 2 puffs twice a day albuterol and Atrovent updrafts 4 times a day and when necessary and Solu-Medrol 60 mg every 6. This is all appropriate. There is no antibiotic and I believe that's the right decision. Additional recommendations and suggestions are forthcoming. She is also on IV Lasix. CODE STATUS should be addressed. Apparently she has a DO NOT RESUSCITATE according to the primary service. Additional recommendations and suggestions are forthcoming. Time with Patient: Greater than 30
[2018-01-20 11:53] LABS: Iron Saturation 2.39 (12.00-45.00)
--- NOTE | 2018-01-20 12:18 | P.PN ---
Subjective Progress Note Date: 01/20/18 Principal diagnosis: Acute on chronic hypoxic respiratory failure Patient is awake and alert today. She is a very poor historian. She is oriented to herself and to the place only. She is still having a lot of congestion. Objective - Vital Signs Vital signs: Vital Signs Temp 98.5 F 01/20/18 08:00 Pulse 93 01/20/18 07:15 Resp 20 01/20/18 08:00 BP 104/55 01/20/18 08:00 Pulse Ox 90 L 01/20/18 08:00 Intake & Output 01/19/18 01/20/18 01/20/18 18:59 06:59 18:59 Intake Total 30 100 Balance 30 100 Weight 86.772 kg 81 kg 81 kg Intake: IV 30 Invasive Line 1 10 Invasive Line 2 20 Oral 100 Other: Voiding Method Diaper Diaper # Voids 1 - Exam General: The patient is awake and alert, in no distress. She appears chronically ill Eye: there is normal conjunctiva bilaterally. Neck: The neck is supple, there is no JVD. Cardiovascular: Normal S1-S2, no S3-S4, no murmurs. Respiratory: Lungs with mild end expiratory wheezing and diffuse rales all over the chest Gastrointestinal: Abdomen is soft, nontender Musculoskeletal: There is +2 pedal edema. Left upper extremity appear significantly swollen and edematous compared to the right Skin: Skin is warm and dry - Labs CBC & Chem 7: 01/20/18 09:26 01/20/18 06:31 Labs: Abnormal Lab Results - Last 24 Hours (Table) 01/19/18 01/19/18 01/19/18 Range/Units 16:10 16:10 16:10 WBC 11.6 H (3.8-10.6) k/uL RBC (3.80-5.40) m/uL Hgb 7.8 L (11.4-16.0) gm/dL Hct 27.4 L (34.0-46.0) % MCV 68.8 L (80.0-100.0) fL MCH 19.6 L (25.0-35.0) pg MCHC 28.5 L (31.0-37.0) g/dL RDW 21.3 H (11.5-15.5) % Neutrophils # 8.8 H (1.3-7.7) k/uL Retic Count (0.5-2.0) % PT (9.0-12.0) sec INR (<1.2) Sodium 134 L (137-145) mmol/L BUN 18 H (7-17) mg/dL Glucose (74-99) mg/dL Calcium 7.6 L (8.4-10.2) mg/dL Alkaline Phosphatase 141 H (38-126) U/L Total Creatine Kinase 194 H (30-135) U/L Total Protein 5.0 L (6.3-8.2) g/dL Albumin 2.2 L (3.5-5.0) g/dL 01/19/18 01/20/18 01/20/18 Range/Units 16:50 06:31 09:26 WBC (3.8-10.6) k/uL RBC 3.77 L (3.80-5.40) m/uL Hgb 7.4 L (11.4-16.0) gm/dL Hct 26.2 L (34.0-46.0) % MCV 69.4 L (80.0-100.0) fL MCH 19.6 L (25.0-35.0) pg MCHC 28.3 L (31.0-37.0) g/dL RDW 21.1 H (11.5-15.5) % Neutrophils # (1.3-7.7) k/uL Retic Count 3.1 H (0.5-2.0) % PT 14.0 H (9.0-12.0) sec INR 1.5 H (<1.2) Sodium 133 L (137-145) mmol/L BUN 19 H (7-17) mg/dL Glucose 123 H (74-99) mg/dL Calcium 7.1 L (8.4-10.2) mg/dL Alkaline Phosphatase (38-126) U/L Total Creatine Kinase (30-135) U/L Total Protein (6.3-8.2) g/dL Albumin (3.5-5.0) g/dL Assessment and Plan Assessment: 1. Acute on chronic hypoxic respiratory failure on home O2: Most likely secondary to fluid overload with chest x-ray showing evidence of pleural effusion 2. Acute COPD exacerbation seen and evaluated by pulmonology, appreciate recommendation. Continue steroid and bronchodilators 3. Chronic venous insufficiency/lower extremity edema 4. Acute diastolic heart failure exacerbation with mild pulmonary hypertension : Started on Lasix 40 mg twice daily. We will monitor I's and O's and daily weight. Echocardiogram showed preserved ejection fraction 5. History of pulmonary embolism on anticoagulation chronically with Rivaroxaban. We will continue cautiously for now given worsening anemia. No evidence of ongoing bleed. 6. Underlying cognitive impairment 7. Moderate to severe protein/calorie malnutrition: Started on Ensure Plus 3 times a day. We will continue to follow albumin level 8. Tobacco abuse: Counseled to quit. Ordered nicotine patch. 9. Underlying multiple sclerosis 10. Acute on chronic microcytic anemia, most likely iron deficiency. Iron studies pending. We will consider IV iron replacement during this hospitalization 11. Worsening swelling involving left upper extremity, I would obtain Doppler ultrasound to rule out DVT even though less likely given patient is on anticoagulation. Advise for arm elevation. Today, I discussed CODE STATUS with her over the phone. He expressed that her wishes and his history be full code. He said in case she is brain he does not want her to be ''kept alive using the machines''. For the time being, patient is full code. Today, I reviewed her medication list and lab work results. We will continue current regimen.
--- NOTE | 2018-01-20 15:43 | US ---
EXAMINATION TYPE: US venous doppler duplex UE LT DATE OF EXAM: 01/20/2018 COMPARISON: NONE CLINICAL HISTORY: swelling r/o DVT. Patient is very confused. She does have a wrapping on her forearm and noticeable arm swelling. SIDE PERFORMED: Left Left Arm: Vessels that were visualized appear to be negative for DVT or SVT, unable to fully assess f orearm due to wrappings and patients inability to stay still. IMPRESSION: 1. Left upper extremity ultrasound negative for deep venous thrombosis.
[2018-01-20] MEDS: ATORVASTATIN 40 MG TAB PO SCH (21:09)
[2018-01-20] MEDS: RIVAROXABAN 20 MG TAB PO SCH (21:10)
[2018-01-20] MEDS: risperiDONE 0.5 MG TAB PO SCH (21:11)
[2018-01-21] MEDS ORDERED: METOPROLOL TARTRATE 25 MG TAB ONE
[2018-01-21] MEDS ORDERED: methylPREDNISolone SOD SUCCI 125 MG/2 ML VIAL ONE
[2018-01-21 03:47] LABS: Glucose,Whole Blood 146 mg/dL (75-99)
[2018-01-21] MEDS: methylPREDNISolone SOD SUCCI 125 MG/2 ML VIAL IV SCH ×3 (05:03→11:55)
[2018-01-21 06:08] LABS: Glucose,Whole Blood 133 mg/dL (75-99)
[2018-01-21 06:20] LABS: Anisocytosis Moderate; Basophils % (A) 0 %; Eosinophils % (A) 0 %; HCT 25.2 % (34.0-46.0); HGB 7.4 gm/dL (11.4-16.0); Hypochromasia Marked; Lymphocytes # (A) 0.5 k/uL (1.0-4.8); Lymphocytes % (A) 8 %; MCH 20.4 pg (25.0-35.0); MCHC 29.5 g/dL (31.0-37.0); MCV 69.3 fL (80.0-100.0); Mean Platelet Volume 5.9; Microcytosis Marked; Monocytes # (A) 0.3 k/uL (0-1.0); Monocytes % (A) 5 %; Neutrophils # (A) 6.1 k/uL (1.3-7.7); Neutrophils % (A) 86 %; Platelet Count 326 k/uL (150-450); Poikilocytosis Slight; RBC 3.64 m/uL (3.80-5.40); RDW 21.5 % (11.5-15.5); WBC 7.2 k/uL (3.8-10.6)
[2018-01-21 06:58] LABS: ALT 26 U/L (9-52); AST 24 U/L (14-36); Albumin 2.2 g/dL (3.5-5.0); Alkaline Phosphatase 109 U/L (38-126); Anion Gap 8 mmol/L; Blood Urea Nitrogen 22 mg/dL (7-17); Calcium 7.8 mg/dL (8.4-10.2); Carbon Dioxide 28 mmol/L (22-30); Chloride 100 mmol/L (98-107); Glucose 107 mg/dL (74-99); Magnesium 1.7 mg/dL (1.6-2.3); Potassium 3.3 mmol/L (3.5-5.1); Sodium 136 mmol/L (137-145); Total Bilirubin 0.7 mg/dL (0.2-1.3); Total Protein 4.8 g/dL (6.3-8.2)
[2018-01-21] MEDS: SYMBICORT 160-4.5 MCG INHALER INHALATION SCH ×2 (07:05→18:43)
[2018-01-21] MEDS: IPRATROPIUM-ALBUTEROL 3 ML NEB INHALATION SCH ×4 (07:05→18:43)
[2018-01-21] MEDS: NICOTINE 14MG/24HR PATCH TRANSDERM SCH (08:27)
[2018-01-21] MEDS: ASPIRIN 81 MG PO SCH (08:27)
[2018-01-21] MEDS: DULoxetine HCL 60 MG CAPSULE.DR PO SCH (08:27)
[2018-01-21] MEDS: FUROSEMIDE 10 MG/ML 4 ML VIAL IV SCH ×2 (08:27→21:15)
[2018-01-21 11:53] LABS: Glucose,Whole Blood 129 mg/dL (75-99)
--- NOTE | 2018-01-21 12:23 | P.PN ---
Subjective Progress Note Date: 01/21/18 Principal diagnosis: Acute on chronic hypoxic respiratory failure Patient is awake and alert today. She is a very poor historian. She is still having a lot of congestion. No family members at bedside Objective - Vital Signs Vital signs: Vital Signs Temp 98.2 F 01/21/18 12:00 Pulse 82 01/21/18 12:00 Resp 18 01/21/18 12:00 BP 111/72 01/21/18 12:00 Pulse Ox 95 01/21/18 12:00 Intake & Output 01/20/18 01/21/18 01/21/18 18:59 06:59 18:59 Intake Total 220 220 60 Balance 220 220 60 Weight 81 kg 79.5 kg Intake: IV 20 Invasive Line 3 20 Oral 220 200 60 Other: Voiding Method Diaper Diaper Diaper # Voids 2 1 - Exam General: The patient is awake and alert, in no distress. She appears chronically ill Eye: there is normal conjunctiva bilaterally. Neck: The neck is supple, there is no JVD. Cardiovascular: Normal S1-S2, no S3-S4, no murmurs. Respiratory: Lungs with diffuse rales all over the chest Gastrointestinal: Abdomen is soft, nontender Musculoskeletal: There is +1 pedal edema. Skin: Skin is warm and dry - Labs CBC & Chem 7: 01/21/18 05:42 01/21/18 05:42 Labs: Abnormal Lab Results - Last 24 Hours (Table) 01/19/18 01/21/18 01/21/18 Range/Units 16:10 00:19 05:42 RBC 3.64 L (3.80-5.40) m/uL Hgb 7.4 L (11.4-16.0) gm/dL Hct 25.2 L (34.0-46.0) % MCV 69.3 L (80.0-100.0) fL MCH 20.4 L (25.0-35.0) pg MCHC 29.5 L (31.0-37.0) g/dL RDW 21.5 H (11.5-15.5) % Lymphocytes # 0.5 L (1.0-4.8) k/uL Sodium (137-145) mmol/L Potassium (3.5-5.1) mmol/L BUN (7-17) mg/dL Glucose (74-99) mg/dL POC Glucose (mg/dL) 146 H (75-99) mg/dL Calcium (8.4-10.2) mg/dL Iron 8 L (50-170) ug/dL Iron Saturation 2.39 L (12.00-45.00) Total Protein (6.3-8.2) g/dL Albumin (3.5-5.0) g/dL 01/21/18 01/21/18 01/21/18 Range/Units 05:42 06:07 11:51 RBC (3.80-5.40) m/uL Hgb (11.4-16.0) gm/dL Hct (34.0-46.0) % MCV (80.0-100.0) fL MCH (25.0-35.0) pg MCHC (31.0-37.0) g/dL RDW (11.5-15.5) % Lymphocytes # (1.0-4.8) k/uL Sodium 136 L (137-145) mmol/L Potassium 3.3 L (3.5-5.1) mmol/L BUN 22 H (7-17) mg/dL Glucose 107 H (74-99) mg/dL POC Glucose (mg/dL) 133 H 129 H (75-99) mg/dL Calcium 7.8 L (8.4-10.2) mg/dL Iron (50-170) ug/dL Iron Saturation (12.00-45.00) Total Protein 4.8 L (6.3-8.2) g/dL Albumin 2.2 L (3.5-5.0) g/dL Assessment and Plan Assessment: 1. Acute on chronic hypoxic respiratory failure on home O2: Most likely secondary to fluid overload with chest x-ray showing evidence of pleural effusion 2. Acute COPD exacerbation seen and evaluated by pulmonology, appreciate recommendation. Continue steroid and bronchodilators 3. Chronic venous insufficiency/lower extremity edema 4. Acute diastolic heart failure exacerbation with mild pulmonary hypertension : Started on Lasix 40 mg IV twice daily. We will monitor I's and O's and daily weight. Echocardiogram showed preserved ejection fraction 5. History of pulmonary embolism on anticoagulation chronically with Rivaroxaban. We will continue cautiously for now given worsening anemia. No evidence of ongoing bleed. 6. Underlying cognitive impairment 7. Moderate to severe protein/calorie malnutrition: Started on Ensure Plus 3 times a day. We will continue to follow albumin level 8. Tobacco abuse: Counseled to quit. Ordered nicotine patch. 9. Underlying multiple sclerosis 10. Acute on chronic microcytic anemia, most likely iron deficiency. Iron studies reviewed. We will order one time IV iron replacement during this hospitalization 11. Worsening swelling involving left upper extremity, Doppler ultrasound negative for DVT 12. CODE STATUS: Patient is a full code, discussed with her over the phone on admission. 13. Physical debility, seen and evaluated by PT/OT. 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 We will continue current regimen.
[2018-01-21] MEDS: FERROUS SULFATE 325 MG TAB PO SCH ×2 (13:07→18:49)
[2018-01-21] MEDS: POTASSIUM CHLORIDE ER 10 MEQ TAB.ER.PRT PO SCH ×2 (13:07→21:15)
--- NOTE | 2018-01-21 15:13 | P.PN ---
Subjective Progress Note Date: 01/21/18 Principal diagnosis: Shortness of breath related to COPD exacerbation, and congestive heart failure Pulmonary consult dated 01/20/2018 This is a 77-year-old female with a long-standing history of COPD from heavy tobacco use. She's been smoking for many many years at 1 pack a day. She continues to smoke. In addition, she apparently has a history of CVA, GERD, hyperlipidemia, hypertension, DJD, pneumonia, pulmonary embolism, multiple sclerosis, anemia, and OF other medical problems. The patient also suffers from moderate pulmonary hypertension. The patient also apparently appears to be overutilizing painkillers according to the primary service. She is a very poor historian. She has always. It's very difficult to understand her. She appears to have been admitted with a diagnosis of shortness of breath likely from underlying COPD and CHF. She is chronically on oxygen therapy at 2 L/m. Over the last couple days prior to admission she became more short of breath. She had chest congestion and cough. No phlegm production. She has also had significant lower extremity edema. She apparently also suffers from orthopnea. In the emergency department, she was placed on IV Lasix breathing treatment Solu-Medrol and BiPAP. She seemed to improve. She was anemic with hemoglobin 7.8. 01/21/2018 patient seen in follow-up on selective care unit. She is resting comfortably in bed, congestive cough, lung sounds reveal diffuse rhonchi bilaterally. Not able to bring up much sputum. Denies worsening dyspnea, no evidence of respiratory distress, no use of accessory muscles. Remains on 3 L per nasal cannula and her pulse ox is 95%, she is afebrile, hemodynamically stable. Today's labs were noted, no leukocytosis, hemoglobin is 7.4, sodium is 136, potassium is 3.3, is supplemented. Remains on IV diuretics, today's weight is 79.5 kg, she is incontinent of urine, therefore we have no accurate fluid balance. Continues on nebulized bronchodilator's, Symbicort nicotine patch and her IV steroids have been switched to oral prednisone. Objective - Vital Signs Vital signs: Vital Signs Temp 98.2 F 01/21/18 12:00 Pulse 82 01/21/18 12:00 Resp 18 01/21/18 12:00 BP 111/72 01/21/18 12:00 Pulse Ox 95 01/21/18 12:00 Intake & Output 01/20/18 01/21/18 01/21/18 18:59 06:59 18:59 Intake Total 220 220 60 Balance 220 220 60 Weight 81 kg 79.5 kg 79.5 kg Intake: IV 20 Invasive Line 3 20 Oral 220 200 60 Other: Voiding Method Diaper Diaper Diaper # Voids 2 1 2 # Bowel Movements 1 - Exam No acute distress, oriented 3. Nasal O2 in place. HEENT examination is grossly unremarkable. Mucous membranes are moist. No oral lesions. Neck supple. Full range of motion. No adenopathy thyromegaly or neck vein distention. Cardiovascular examination reveals regular rhythm rate. S1-S2 normal. No S3 or S4. Soft murmur noted. Heart sounds are distant. Lungs reveal diminished breath sounds. Diffuse rhonchi bilaterally, no respiratory distress. Abdomen soft bowel sounds are heard. No masses or tenderness. Extremities are intact. There is significant lower extremity edema with pitting. It's 2+. There is also some chronic venous stasis changes. Skin is without rash or lesion. Neurologic examination is difficult to evaluate. - Labs CBC & Chem 7: 01/21/18 05:42 01/21/18 05:42 Labs: Abnormal Lab Results - Last 24 Hours (Table) 01/21/18 01/21/18 01/21/18 Range/Units 00:19 05:42 05:42 RBC 3.64 L (3.80-5.40) m/uL Hgb 7.4 L (11.4-16.0) gm/dL Hct 25.2 L (34.0-46.0) % MCV 69.3 L (80.0-100.0) fL MCH 20.4 L (25.0-35.0) pg MCHC 29.5 L (31.0-37.0) g/dL RDW 21.5 H (11.5-15.5) % Lymphocytes # 0.5 L (1.0-4.8) k/uL Sodium 136 L (137-145) mmol/L Potassium 3.3 L (3.5-5.1) mmol/L BUN 22 H (7-17) mg/dL Glucose 107 H (74-99) mg/dL POC Glucose (mg/dL) 146 H (75-99) mg/dL Calcium 7.8 L (8.4-10.2) mg/dL Total Protein 4.8 L (6.3-8.2) g/dL Albumin 2.2 L (3.5-5.0) g/dL 01/21/18 01/21/18 Range/Units 06:07 11:51 RBC (3.80-5.40) m/uL Hgb (11.4-16.0) gm/dL Hct (34.0-46.0) % MCV (80.0-100.0) fL MCH (25.0-35.0) pg MCHC (31.0-37.0) g/dL RDW (11.5-15.5) % Lymphocytes # (1.0-4.8) k/uL Sodium (137-145) mmol/L Potassium (3.5-5.1) mmol/L BUN (7-17) mg/dL Glucose (74-99) mg/dL POC Glucose (mg/dL) 133 H 129 H (75-99) mg/dL Calcium (8.4-10.2) mg/dL Total Protein (6.3-8.2) g/dL Albumin (3.5-5.0) g/dL Assessment and Plan Plan: Assessment: Shortness of breath, likely multifactorial, in part related to underlying COPD exacerbation but also congestive heart failure. I doubt infection at this time. History of COPD from heavy tobacco use which is ongoing History of CVA History of GERD Hyperlipidemia by history Hypertension by history History of multiple sclerosis History of DJD Previous history of pulmonary embolism Moderate pulmonary hypertension Multiple other medical problems and comorbidities Plan: Continue current medical treatment, continue nebulized bronchodilators, oral prednisone. Smoking cessation was strongly encouraged. Patient is still remains congested on today's exam. Continue with IV diuresis, daily weights, and accurate I & O's. I performed a history & physical examination of the patient and discussed their management with my nurse practitioner, Yesica Green. I reviewed the nurse practitioner's note and agree with the documented findings and plan of care. Lung sounds are positive for diffuse rhonchi bilaterally. The findings and the impression was discussed with the patient. I attest to the documentation by the nurse practitioner. Time with Patient: Less than 30
[2018-01-21 16:41] LABS: Glucose,Whole Blood 126 mg/dL (75-99)
[2018-01-21 20:57] LABS: Glucose,Whole Blood 137 mg/dL (75-99)
[2018-01-21] MEDS: ATORVASTATIN 40 MG TAB PO SCH (21:14)
[2018-01-21] MEDS: RIVAROXABAN 20 MG TAB PO SCH (21:15)
[2018-01-21] MEDS: risperiDONE 0.5 MG TAB PO SCH (21:15)
[2018-01-21] MEDS: HYDROcodone/APAP 5-325MG 1 EACH TAB PO PRN (21:19)
[2018-01-22 05:53] LABS: Glucose,Whole Blood 127 mg/dL (75-99)
[2018-01-22] MEDS: FERROUS SULFATE 325 MG TAB PO SCH ×3 (06:11→17:08)
[2018-01-22 06:33] LABS: Anisocytosis Moderate; Basophils % (A) 0 %; Eosinophils # (A) 0.1 k/uL (0-0.7); Eosinophils % (A) 0 %; HGB 8.5 gm/dL (11.4-16.0); Hypochromasia Marked; Lymphocytes # (A) 0.9 k/uL (1.0-4.8); Lymphocytes % (A) 8 %; MCH 20.2 pg (25.0-35.0); MCHC 30.5 g/dL (31.0-37.0); MCV 66.3 fL (80.0-100.0); Microcytosis Marked; Monocytes % (A) 9 %; Neutrophils # (A) 8.9 k/uL (1.3-7.7); Neutrophils % (A) 81 %; Platelet Count 393 k/uL (150-450); Poikilocytosis Moderate; RBC 4.23 m/uL (3.80-5.40); RDW 21.5 % (11.5-15.5)
[2018-01-22 07:07] LABS: ALT 30 U/L (9-52); AST 22 U/L (14-36); Albumin 2.6 g/dL (3.5-5.0); Alkaline Phosphatase 105 U/L (38-126); Anion Gap 7 mmol/L; Blood Urea Nitrogen 23 mg/dL (7-17); Calcium 7.9 mg/dL (8.4-10.2); Carbon Dioxide 35 mmol/L (22-30); Chloride 93 mmol/L (98-107); Glucose 92 mg/dL (74-99); Magnesium 1.7 mg/dL (1.6-2.3); Sodium 135 mmol/L (137-145); Total Bilirubin 0.9 mg/dL (0.2-1.3); Total Protein 5.3 g/dL (6.3-8.2)
[2018-01-22 07:13] LABS: Potassium 2.8 mmol/L (3.5-5.1)
[2018-01-22] MEDS: IPRATROPIUM-ALBUTEROL 3 ML NEB INHALATION PRN (08:40)
[2018-01-22] MEDS: SYMBICORT 160-4.5 MCG INHALER INHALATION SCH ×3 (08:40→20:24)
[2018-01-22] MEDS: DULoxetine HCL 60 MG CAPSULE.DR PO SCH (09:22)
[2018-01-22] MEDS: POTASSIUM CHLORIDE ER 10 MEQ TAB.ER.PRT PO SCH ×2 (09:23→20:55)
[2018-01-22] MEDS: HYDROcodone/APAP 5-325MG 1 EACH TAB PO PRN ×2 (09:23→19:39)
[2018-01-22] MEDS: NICOTINE 14MG/24HR PATCH TRANSDERM SCH (09:23)
[2018-01-22] MEDS: predniSONE 20 MG TAB PO SCH (09:23)
[2018-01-22] MEDS: ASPIRIN 81 MG PO SCH (09:23)
[2018-01-22] MEDS: POTASSIUM CHLORIDE 20 MEQ in WATER FOR INJECTION 1 100ML.BAG IVPB SCH ×2 (09:33→11:35)
--- NOTE | 2018-01-22 09:45 | P.CRDCN ---
History of Present Illness Consult date: 01/22/18 Requesting physician: Zachery Monique Reason for Consult (text): New onset atrial fibrillation Chief complaint: shortness of breath History of present illness: This is a pleasant 77-year-old female patient who is a poor historian and therefore most of HPI was obtained from the chart. She initially presented via EMS for progressively worsening shortness of breath. She does have a history of COPD, smoking, CVA, hyperlipidemia, hypertension, pulmonary emboli, MS and anemia. Initially she was placed on BiPAP but has progressed well and is on nasal cannula oxygen at this time. She was admitted with diagnosis of exacerbation of COPD, hypoxia and CHF. Chest x-ray showed CHF with pleural effusions, lower lobe pneumonia possible. NT proBNP was only 449. She has been on steroids and Lasix 40 mg IV push every 12 hours. She is currently on anticoagulation for history of PE. We were asked to see the patient in consultation for new onset atrial fibrillation. EKG on admission showed sinus rhythm with PACs and PVCs. Subsequent EKG read as atrial fibrillation with rapid ventricular response and premature aberrantly conducted complexes however after close review it actually showed likely MAT. Labs from this morning showed a potassium of 2.8 and magnesium of 1.7 which are being replaced. Her hemoglobin this morning is 8.5 up from 7.4. BUN 23 creatinine 0.59. She did undergo an echocardiogram which showed an ejection fraction of 55-60% without significant valvular abnormalities and mild pulmonary hypertension. Upon examination, patient is resting comfortably in bed. She is apparently been quite nauseous throughout the night with emesis. He denies current complaint of stomach upset. He denies complaints of chest discomfort, dizziness, lightheadedness, palpitations or syncope. She denies edema. She complains of shortness of breath that has improved some since admission as well as a productive cough with unknown sputum characteristics. Past Medical History Past Medical History: COPD, CVA/TIA, GERD/Reflux, Hyperlipidemia, Hypertension, Musculoskeletal Disorder, Neurologic Disorder, Osteoarthritis (OA), Pneumonia, Pulmonary Embolus (PE) Additional Past Medical History / Comment(s): Multiple sclerosis, bilateral segmental pulmonary embolism currently on Xarelto, 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/leg and slow speech and slight difficulty swallowing, hypertension and chronic pain involving the lower extremities bilaterally, hypertension, hyperlipidemia, osteoarthritis, COPD, chronic lower extremity edema, moderate degree of pulmonary hypertension with a PA pressure of 47 and a preserved LV function, chronic narcotic use for pain and the patient has the tendency of overutilizing her painkillers History of Any Multi-Drug Resistant Organisms: None Reported Past Surgical History: Hysterectomy Additional Past Surgical History / Comment(s): Peg tube insertion (removed), bilateral cataract removal and twice on the left side, colonoscopy. Past Anesthesia/Blood Transfusion Reactions: No Reported Reaction Past Psychological History: No Psychological Hx Reported Smoking Status: Heavy tobacco smoker Past Alcohol Use History: None Reported Past Drug Use History: Prescription Drug Abuse - Past Family History Mother History Unknown: Yes Family Medical History: No Reported History, Renal Disease Additional Family Medical History / Comment(s): Mother was healthy and lived to be 88yrs old. Father History Unknown: Yes Family Medical History: Osteoarthritis (OA) Additional Family Medical History / Comment(s): Pt states her father at the age of 68yrs due to his debilitating arthritis. Medications and Allergies Home Medications Medication Instructions Recorded Confirmed Type Atorvastatin [Lipitor] 40 mg PO HS 12/04/16 01/19/18 History Aspirin 81 mg PO DAILY 08/30/17 01/19/18 History Budesonide/Formoterol Fumarate 2 puff INHALATION RT-BID 08/30/17 01/19/18 History [Symbicort 160-4.5 Mcg Inhaler] Cetirizine HCl [Zyrtec] 10 mg PO DAILY PRN 08/30/17 01/19/18 History DULoxetine HCL [Cymbalta] 60 mg PO DAILY 08/30/17 01/19/18 History LORazepam [Ativan] 0.5 mg PO HS 08/30/17 01/19/18 History Morphine Sulfate/Naltrexone 1 cap PO DAILY PRN 08/30/17 01/19/18 History [Embeda ER 60-2.4 mg Capsule] Rivaroxaban [Xarelto] 20 mg PO HS 08/30/17 01/19/18 History risperiDONE [RisperDAL] 0.5 mg PO HS 08/30/17 01/19/18 History rOPINIRole HCL [Requip] 0.25 mg PO HS #30 tab 09/02/17 01/19/18 Rx Albuterol Inhaler [Ventolin Hfa 1 - 2 puff INHALATION RT-QID 01/19/18 01/19/18 History Inhaler] Gabapentin [Neurontin] 300 mg PO 5XD 01/19/18 01/19/18 History Allergies Allergy/AdvReac Type Severity Reaction Status Date / Time No Known Allergies Allergy Verified 01/19/18 17:11 Physical Exam Vitals: Vital Signs Temp Pulse Pulse Resp BP Pulse Ox 01/22/18 03:04 98.5 F 95 18 131/67 94 L 01/22/18 03:02 86 18 01/22/18 00:00 86 18 01/21/18 23:49 98.7 F 86 18 117/74 95 01/21/18 20:00 99 F 100 19 114/68 96 01/21/18 19:54 85 16 01/21/18 15:44 90 16 01/21/18 15:37 88 16 01/21/18 15:28 98.4 F 85 18 113/70 95 01/21/18 12:00 98.2 F 82 18 111/72 95 Intake and Output 01/21/18 01/22/18 01/22/18 22:59 06:59 14:59 Intake Total 75 Balance 75 Intake: Oral 75 Other: Voiding Method Diaper Diaper # Voids 1 2 # Bowel Movements 0 Weight 80.1 kg PHYSICAL EXAMINATION: HEENT: Head is atraumatic, normocephalic. Pupils equal, round. Neck is supple. There is no elevated jugular venous pressure. HEART EXAMINATION: Heart sounds irregular, S1 and S2 normal. No murmur or gallop heard. CHEST EXAMINATION: Lungs reveal coarse expiratory wheezing and scattered rhonchi throughout. No chest wall tenderness is noted on palpation or with deep breathing. ABDOMEN: Soft, nontender. Bowel sounds are heard. No organomegaly noted. EXTREMITIES: 1+ peripheral pulses with evidence of trace peripheral edema and discoloration and skin changes to bilateral lower legs. NEUROLOGIC patient is awake, alert and oriented x2. . Results 01/22/18 05:04 01/22/18 05:04 Cardiac Enzymes 01/22/18 Range/Units 05:04 AST 22 (14-36) U/L CBC 01/22/18 Range/Units 05:04 WBC 11.0 H (3.8-10.6) k/uL RBC 4.23 (3.80-5.40) m/uL Hgb 8.5 L (11.4-16.0) gm/dL Hct 28.0 L (34.0-46.0) % Plt Count 393 (150-450) k/uL Comprehensive Metabolic Panel 01/22/18 Range/Units 05:04 Sodium 135 L (137-145) mmol/L Potassium 2.8 L* (3.5-5.1) mmol/L Chloride 93 L (98-107) mmol/L Carbon Dioxide 35 H (22-30) mmol/L BUN 23 H (7-17) mg/dL Creatinine 0.59 (0.52-1.04) mg/dL Glucose 92 (74-99) mg/dL Calcium 7.9 L (8.4-10.2) mg/dL AST 22 (14-36) U/L ALT 30 (9-52) U/L Alkaline Phosphatase 105 (38-126) U/L Total Protein 5.3 L (6.3-8.2) g/dL Albumin 2.6 L (3.5-5.0) g/dL Current Medications Generic Name Dose Route Start Last Admin Trade Name Freq PRN Reason Stop Dose Admin Acetaminophen 650 mg 01/19/18 23:00 Tylenol Tab PO Q6HR PRN Fever and/ or Pain Hydrocodone Bitart/Acetaminophen 1 each 01/19/18 23:01 01/21/18 21:19 [place] 5-325 PO 1 each Q12HR PRN Administration Severe Pain Albuterol/Ipratropium 3 ml 01/22/18 07:36 Duoneb 0.5 Mg-3 Mg/3 Ml Soln INHALATION RT-QID PRN Wheezing Aspirin 81 mg 01/20/18 09:00 01/21/18 08:27 Aspirin PO 81 mg DAILY [place] Administration Atorvastatin Calcium 40 mg 01/19/18 21:00 01/21/18 21:14 Lipitor PO 40 mg HS [place] Administration Budesonide/Formoterol Fumarate 2 puff 01/20/18 08:00 01/21/18 18:43 Symbicort 160-4.5 Mcg Inhaler INHALATION Not Given RT-BID [place] Duloxetine HCl 60 mg 01/20/18 09:00 01/21/18 08:27 Cymbalta PO 60 mg DAILY [place] Administration Ferrous Sulfate 325 mg 01/21/18 12:30 01/22/18 06:11 Feosol PO Not Given TID-W/MEALS [place] Furosemide 40 mg 01/19/18 21:00 01/21/18 21:15 Lasix IV 40 mg Q12HR [place] Administration Potassium Chloride 20 meq/ IV 100 mls @ 50 mls/hr 01/22/18 08:00 Solution IVPB 01/22/18 11:59 Q2HR [place] Magnesium Sulfate/Dextrose 1 100 mls @ 100 mls/hr 01/22/18 08:00 gm/ IV Solution IVPB 01/22/18 08:59 ONCE ONE Nicotine 1 patch 01/21/18 09:00 01/21/18 08:27 Habitrol 14mg/24hr Patch TRANSDERM 1 patch DAILY [place] Administration Potassium Chloride 10 meq 01/21/18 12:30 01/21/18 21:15 K-Dur 10 PO 10 meq BID [place] Administration Prednisone 40 mg 01/22/18 09:00 PO DAILY [place] Risperidone 0.5 mg 01/20/18 21:00 01/21/18 21:15 Risperdal PO 0.5 mg HS [place] Administration Rivaroxaban 20 mg 01/20/18 21:00 01/21/18 21:15 Xarelto PO 20 mg HS [place] Administration Ropinirole HCl 0.25 mg 01/19/18 21:00 01/21/18 21:15 Requip PO 0.25 mg HS [place] Administration Intake and Output 01/21/18 01/22/18 01/22/18 22:59 06:59 14:59 Intake Total 75 Balance 75 Intake: Oral 75 Other: Voiding Method Diaper Diaper # Voids 1 2 # Bowel Movements 0 Weight 80.1 kg 01/22/18 05:04 01/22/18 05:04 EKG Interpretations (text) Initial EKG showed sinus rhythm with PACs and PVCs, subsequent EKG showed probably MAT Assessment and Plan Assessment: #1 Multifocal Atrial Tachycardia #2 symptoms of shortness of breath secondary to COPD exacerbation #3 Exacerbation of COPD #4 hypokalemia, secondary to diuresis with lasix #5 hypomagnesemia, secondary to diuresis with lasix #6 nicotine dependence #7 cognitive impairment #8 history of PE, on Xarelto Plan: From 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 Replace potassium and magnesium. Continue Xarelto but stop aspirin as the patient is anemic. We will start the patient on verapamil 120 mg daily. We will continue to follow the patient for further recommendations accordingly. FINISHER [employer] note has been reviewed, I agree with a documented findings and plan of care. Patient was seen and examined.
--- NOTE | 2018-01-22 10:22 | P.PN ---
Progress Note - Text this is an addendum to the dictated cardiology consultation. The patient presents with symptoms progressive dyspnea, exacerbation of COPD. Cardiology consultation was requested for possible atrial fibrillation. After reviewing the rhythm strips the patient is in sinus mechanism with episode of multifocal atrial tachycardia most likely related to the COPD and could be worsened by the hypokalemia. Her echocardiogram showed a normal systolic function and her NT proBNP was normal. At this time I'll switch her to oral diuretics, replace her potassium and add verapamil to her regimen. I do not believe that we are dealing with atrial fibrillation at this time. Patient has been anticoagulated for a history of DVT. Thank you for this consult we will follow with you.
--- NOTE | 2018-01-22 10:42 | P.PN ---
Subjective Progress Note Date: 01/22/18 Principal diagnosis: Acute on chronic hypoxic respiratory failure Patient is awake and alert today. She is a very poor historian. She is still having a lot of congestion. No family members at bedside She was noted to have significant hypokalemia and hypomagnesemia this morning. She was noted to have an abnormal heart rhythm on telemetry monitoring earlier this morning that was thought to be A. fib that was evaluated by cardiology and noted to be M a T not atrial fibrillation Objective - Vital Signs Vital signs: Vital Signs Temp 98.7 F 01/22/18 09:00 Pulse 87 01/22/18 09:00 Resp 18 01/22/18 09:00 BP 131/95 01/22/18 09:00 Pulse Ox 97 01/22/18 09:00 Intake & Output 01/21/18 01/22/18 01/22/18 18:59 06:59 18:59 Intake Total 60 75 Balance 60 75 Weight 79.5 kg 80.1 kg Intake: Oral 60 75 Other: Voiding Method Diaper Diaper # Voids 1 2 # Bowel Movements 0 - Exam General: The patient is awake and alert, in no distress. She appears chronically ill Eye: there is normal conjunctiva bilaterally. Neck: The neck is supple, there is no JVD. Cardiovascular: Normal S1-S2, no S3-S4, no murmurs. Respiratory: Lungs with diffuse rales all over the chest Gastrointestinal: Abdomen is soft, nontender Musculoskeletal: There is +1 pedal edema. Skin: Skin is warm and dry - Labs CBC & Chem 7: 01/22/18 05:04 01/22/18 05:04 Labs: Abnormal Lab Results - Last 24 Hours (Table) 01/21/18 01/21/18 01/21/18 Range/Units 11:51 16:39 20:55 WBC (3.8-10.6) k/uL Hgb (11.4-16.0) gm/dL Hct (34.0-46.0) % MCV (80.0-100.0) fL MCH (25.0-35.0) pg MCHC (31.0-37.0) g/dL RDW (11.5-15.5) % Neutrophils # (1.3-7.7) k/uL Lymphocytes # (1.0-4.8) k/uL Sodium (137-145) mmol/L Potassium (3.5-5.1) mmol/L Chloride (98-107) mmol/L Carbon Dioxide (22-30) mmol/L BUN (7-17) mg/dL POC Glucose (mg/dL) 129 H 126 H 137 H (75-99) mg/dL Calcium (8.4-10.2) mg/dL Total Protein (6.3-8.2) g/dL Albumin (3.5-5.0) g/dL 01/22/18 01/22/18 01/22/18 Range/Units 05:04 05:04 05:51 WBC 11.0 H (3.8-10.6) k/uL Hgb 8.5 L (11.4-16.0) gm/dL Hct 28.0 L (34.0-46.0) % MCV 66.3 L (80.0-100.0) fL MCH 20.2 L (25.0-35.0) pg MCHC 30.5 L (31.0-37.0) g/dL RDW 21.5 H (11.5-15.5) % Neutrophils # 8.9 H (1.3-7.7) k/uL Lymphocytes # 0.9 L (1.0-4.8) k/uL Sodium 135 L (137-145) mmol/L Potassium 2.8 L* (3.5-5.1) mmol/L Chloride 93 L (98-107) mmol/L Carbon Dioxide 35 H (22-30) mmol/L BUN 23 H (7-17) mg/dL POC Glucose (mg/dL) 127 H (75-99) mg/dL Calcium 7.9 L (8.4-10.2) mg/dL Total Protein 5.3 L (6.3-8.2) g/dL Albumin 2.6 L (3.5-5.0) g/dL Assessment and Plan Assessment: 1. Acute on chronic hypoxic respiratory failure on home O2: Most likely secondary to fluid overload with chest x-ray showing evidence of pleural effusion 2. Acute COPD exacerbation seen and evaluated by pulmonology, appreciate recommendation. Continue steroid and bronchodilators 3. Chronic venous insufficiency/lower extremity edema 4. Acute diastolic heart failure exacerbation with mild pulmonary hypertension : Started on Lasix 40 mg IV twice daily. Echocardiogram showed preserved ejection fraction. Lasix switch to oral 20 mg twice daily. 5. History of pulmonary embolism on anticoagulation chronically with Rivaroxaban. We will continue cautiously for now given worsening anemia. No evidence of ongoing bleed. 6. Underlying cognitive impairment 7. Moderate to severe protein/calorie malnutrition: Started on Ensure Plus 3 times a day. We will continue to follow albumin level 8. Tobacco abuse: Counseled to quit. Ordered nicotine patch. 9. Underlying multiple sclerosis 10. Acute on chronic microcytic anemia, most likely iron deficiency. Iron studies reviewed. Started on ferrous sulfate 11. Worsening swelling involving left upper extremity, Doppler ultrasound negative for DVT 12. CODE STATUS: Patient is a full code, discussed with her over the phone on admission. 13. Physical debility, seen and evaluated by PT/OT. Plan for subacute rehab awaiting placement 14. Multifocal atrial tachycardia, seen and evaluated by cardiology. Started on verapamil. We will continue telemetry monitoring. Heart rate well controlled. Plan for today: -Replace electrolytes and repeat lab work in the morning -Continue telemetry monitoring -Social work is working on placement for this patient Today, I reviewed her medication list and lab work results. We will continue current regimen.
[2018-01-22] MEDS: MAGNESIUM SULFATE-D5W PMX 1 GM in DEXTROSE/WATER 1 100ML.BAG IVPB ONE ×2 (10:45→11:35)
[2018-01-22] MEDS: VERAPAMIL SR 120 MG TABLET.ER PO SCH (11:29)
[2018-01-22] MEDS: FUROSEMIDE 20 MG TAB PO SCH ×2 (11:30→20:56)
[2018-01-22] MEDS ORDERED: POTASSIUM CHLORIDE ER 20 MEQ TAB.ER PO STA (11:33)
[2018-01-22 11:45] LABS: Glucose,Whole Blood 152 mg/dL (75-99)
[2018-01-22] MEDS: FUROSEMIDE 10 MG/ML 4 ML VIAL IV SCH (12:01)
[2018-01-22] MEDS: MAGNESIUM OXIDE 400 MG TAB PO SCH (12:28)
--- NOTE | 2018-01-22 13:13 | P.PN ---
Subjective Progress Note Date: 01/22/18 Principal diagnosis: Shortness of breath related to COPD exacerbation, and congestive heart failure Pulmonary consult dated 01/20/2018 This is a 77-year-old female with a long-standing history of COPD from heavy tobacco use. She's been smoking for many many years at 1 pack a day. She continues to smoke. In addition, she apparently has a history of CVA, GERD, hyperlipidemia, hypertension, DJD, pneumonia, pulmonary embolism, multiple sclerosis, anemia, and OF other medical problems. The patient also suffers from moderate pulmonary hypertension. The patient also apparently appears to be overutilizing painkillers according to the primary service. She is a very poor historian. She has always. It's very difficult to understand her. She appears to have been admitted with a diagnosis of shortness of breath likely from underlying COPD and CHF. She is chronically on oxygen therapy at 2 L/m. Over the last couple days prior to admission she became more short of breath. She had chest congestion and cough. No phlegm production. She has also had significant lower extremity edema. She apparently also suffers from orthopnea. In the emergency department, she was placed on IV Lasix breathing treatment Solu-Medrol and BiPAP. She seemed to improve. She was anemic with hemoglobin 7.8. 01/21/2018 patient seen in follow-up on selective care unit. She is resting comfortably in bed, congestive cough, lung sounds reveal diffuse rhonchi bilaterally. Not able to bring up much sputum. Denies worsening dyspnea, no evidence of respiratory distress, no use of accessory muscles. Remains on 3 L per nasal cannula and her pulse ox is 95%, she is afebrile, hemodynamically stable. Today's labs were noted, no leukocytosis, hemoglobin is 7.4, sodium is 136, potassium is 3.3, is supplemented. Remains on IV diuretics, today's weight is 79.5 kg, she is incontinent of urine, therefore we have no accurate fluid balance. Continues on nebulized bronchodilator's, Symbicort nicotine patch and her IV steroids have been switched to oral prednisone. On 01/22/2018 patient seen in follow-up on selective care unit. Patient still remains somewhat congested, there is diffuse rhonchi bilaterally, patient has a congested cough. Overall she states she is not much better, and is not ready to go home yet. They're be in any acute distress. Remains on 2 L per nasal cannula and pulse ox is 97%, no fever, no chills. Patient continues on diuretics, in her bilateral lower extremity edema is improving. Social work is working on placement to subacute rehabilitation, patient is generally weak, and would likely to benefit from placement to subacute rehab. Stable vitals. From pulmonary standpoint she could be discharged to subacute rehab when the arrangements are complete. Objective - Vital Signs Vital signs: Vital Signs Temp 98.7 F 01/22/18 09:00 Pulse 87 01/22/18 09:00 Resp 18 01/22/18 09:00 BP 131/95 01/22/18 09:00 Pulse Ox 97 01/22/18 09:00 Intake & Output 01/21/18 01/22/18 01/22/18 18:59 06:59 18:59 Intake Total 60 75 Balance 60 75 Weight 79.5 kg 80.1 kg 80.1 kg Intake: Oral 60 75 Other: Voiding Method Diaper Diaper Diaper # Voids 1 2 # Bowel Movements 0 - Exam No acute distress, oriented 3. Nasal O2 in place. HEENT examination is grossly unremarkable. Mucous membranes are moist. No oral lesions. Neck supple. Full range of motion. No adenopathy thyromegaly or neck vein distention. Cardiovascular examination reveals regular rhythm rate. S1-S2 normal. No S3 or S4. Soft murmur noted. Heart sounds are distant. Lungs reveal diminished breath sounds. Diffuse rhonchi bilaterally, no respiratory distress. Abdomen soft bowel sounds are heard. No masses or tenderness. Extremities are intact. There is significant lower extremity edema with pitting. It's 1+, some wrinkling noted of the skin. There is also some chronic venous stasis changes. Skin is without rash or lesion. Neurologic examination is difficult to evaluate. - Labs CBC & Chem 7: 01/22/18 05:04 01/22/18 05:04 Labs: Abnormal Lab Results - Last 24 Hours (Table) 01/21/18 01/21/18 01/22/18 Range/Units 16:39 20:55 05:04 WBC 11.0 H (3.8-10.6) k/uL Hgb 8.5 L (11.4-16.0) gm/dL Hct 28.0 L (34.0-46.0) % MCV 66.3 L (80.0-100.0) fL MCH 20.2 L (25.0-35.0) pg MCHC 30.5 L (31.0-37.0) g/dL RDW 21.5 H (11.5-15.5) % Neutrophils # 8.9 H (1.3-7.7) k/uL Lymphocytes # 0.9 L (1.0-4.8) k/uL Sodium (137-145) mmol/L Potassium (3.5-5.1) mmol/L Chloride (98-107) mmol/L Carbon Dioxide (22-30) mmol/L BUN (7-17) mg/dL POC Glucose (mg/dL) 126 H 137 H (75-99) mg/dL Calcium (8.4-10.2) mg/dL Total Protein (6.3-8.2) g/dL Albumin (3.5-5.0) g/dL 01/22/18 01/22/18 01/22/18 Range/Units 05:04 05:51 11:30 WBC (3.8-10.6) k/uL Hgb (11.4-16.0) gm/dL Hct (34.0-46.0) % MCV (80.0-100.0) fL MCH (25.0-35.0) pg MCHC (31.0-37.0) g/dL RDW (11.5-15.5) % Neutrophils # (1.3-7.7) k/uL Lymphocytes # (1.0-4.8) k/uL Sodium 135 L (137-145) mmol/L Potassium 2.8 L* (3.5-5.1) mmol/L Chloride 93 L (98-107) mmol/L Carbon Dioxide 35 H (22-30) mmol/L BUN 23 H (7-17) mg/dL POC Glucose (mg/dL) 127 H 152 H (75-99) mg/dL Calcium 7.9 L (8.4-10.2) mg/dL Total Protein 5.3 L (6.3-8.2) g/dL Albumin 2.6 L (3.5-5.0) g/dL Assessment and Plan Plan: Assessment: Shortness of breath, likely multifactorial, in part related to underlying COPD exacerbation but also congestive heart failure. I doubt infection at this time. History of COPD from heavy tobacco use which is ongoing History of CVA History of GERD Hyperlipidemia by history Hypertension by history History of multiple sclerosis History of DJD Previous history of pulmonary embolism Moderate pulmonary hypertension Multiple other medical problems and comorbidities Plan: Continue current medical treatment, continue oral prednisone, oral anticoagulation. Increase activity as tolerated. Encourage deep breathing and coughing and clearance of secretions. Agree with subacute rehab placement after discharge. I performed a history & physical examination of the patient and discussed their management with my nurse practitioner, Yesica Green. I reviewed the nurse practitioner's note and agree with the documented findings and plan of care. Lung sounds are positive for diffuse rhonchi bilaterally. The findings and the impression was discussed with the patient. I attest to the documentation by the nurse practitioner. Time with Patient: Less than 30
--- NOTE | 2018-01-22 15:44 | XR ---
EXAMINATION TYPE: XR chest 2V DATE OF EXAM: 01/22/2018 COMPARISON: 01/19/2018 HISTORY: Shortness of breath TECHNIQUE: Frontal and lateral views of the chest are obtained. FINDINGS: There is redemonstration of cardiomegaly and a small layering left pleural effusion with t race right pleural effusion. No overt pulmonary vascular congestion. No pneumothorax or new focal con solidation. Retrocardiac airspace disease remains as well as left midlung subsegmental atelectasis. T here is generalized osseous demineralization. IMPRESSION: Similar-appearing trace right and small left pleural effusions with retrocardiac opacity , likely related to atelectasis although pneumonia is possible in the appropriate clinical setting.
--- NOTE | 2018-01-22 16:01 | FL ---
EXAMINATION TYPE: FL barium swallow w video DATE OF EXAM: 01/22/2018 COMPARISON: NONE HISTORY: Difficulty swallowing TECHNIQUE: Fluoroscopy. FINDINGS: Fluoroscopic guidance was provided for the procedure performed in conjunction with the [facility] pathology department. Please see complete report forthcoming from the Speech Pathology departmen t. Various consistencies from thin liquid to solids were administered. Fluoroscopy time 2 minutes 49 seconds Number of images: 0. There is transient penetration with thin liquids. Remaining consistencies without penetration or aspi ration No significant pooling was observed in the vallecula. There is slow transit through the oropharynx. IMPRESSION: 1. Transient penetration with thin liquids. No aspiration was evident. 2. Slow oral transit
[2018-01-22 16:53] LABS: Glucose,Whole Blood 141 mg/dL (75-99)
[2018-01-22] MEDS: ACETAMINOPHEN TAB 325 MG TAB PO PRN (18:41)
[2018-01-22 18:57] LABS: Amorphous Sediment,Urine Rare /hpf; Appearance,Urine Clear (Clear); Bacteria,Urine Many /hpf; Bilirubin,Urine Negative (Negative); Blood,Urine Negative (Negative); Color,Urine Light Yellow; Glucose,Urine (UA) Negative (Negative); Hyaline Casts,Urine 20 /lpf (0-2); Ketones,Urine Negative (Negative); Leukocyte Esterase,Urine Trace (Negative); Mucus,Urine Rare /hpf; Nitrite,Urine Positive (Negative); Protein,Urine Negative (Negative); RBC,Urine <1 /hpf (0-5); Specific Gravity,Urine 1.008 (1.001-1.035); Squamous Epithelial Cell,Urine 1 /hpf (0-4); Urobilinogen,Urine <2.0 mg/dL (<2.0); WBC,Urine 2 /hpf (0-5)
[2018-01-22] MEDS: RIVAROXABAN 20 MG TAB PO SCH (20:55)
[2018-01-22] MEDS: ATORVASTATIN 40 MG TAB PO SCH (20:55)
[2018-01-22] MEDS: risperiDONE 0.5 MG TAB PO SCH (20:56)
[2018-01-22 21:16] LABS: Glucose,Whole Blood 123 mg/dL (75-99)
[2018-01-22] MEDS: CEPHALEXIN 500 MG CAP PO SCH (22:53)
[2018-01-23] MEDS ORDERED: POTASSIUM CHLORIDE ER 20 MEQ TAB.ER PO STA ×3 (00:53→07:18)
[2018-01-23] MEDS: ACETAMINOPHEN TAB 325 MG TAB PO PRN ×3 (02:46→17:22)
[2018-01-23] MEDS ORDERED: POTASSIUM CHLORIDE ER 20 MEQ TAB.ER PO ONE (03:00)
[2018-01-23 06:06] LABS: Glucose,Whole Blood 120 mg/dL (75-99)
[2018-01-23] MEDS: FERROUS SULFATE 325 MG TAB PO SCH ×3 (06:27→17:20)
[2018-01-23 06:39] LABS: Anisocytosis Moderate; Basophils % (A) 0 %; Eosinophils % (A) 0 %; HCT 26.8 % (34.0-46.0); HGB 7.7 gm/dL (11.4-16.0); Hypochromasia Marked; Lymphocytes # (A) 0.6 k/uL (1.0-4.8); Lymphocytes % (A) 7 %; MCHC 28.8 g/dL (31.0-37.0); Microcytosis Marked; Monocytes # (A) 0.5 k/uL (0-1.0); Monocytes % (A) 6 %; Neutrophils # (A) 7.8 k/uL (1.3-7.7); Neutrophils % (A) 86 %; Platelet Count 388 k/uL (150-450); Poikilocytosis Moderate; RBC 4.06 m/uL (3.80-5.40); RDW 21.1 % (11.5-15.5); WBC 9.1 k/uL (3.8-10.6)
[2018-01-23 06:50] LABS: ALT 26 U/L (9-52); AST 20 U/L (14-36); Albumin 2.4 g/dL (3.5-5.0); Alkaline Phosphatase 90 U/L (38-126); Anion Gap 3 mmol/L; Blood Urea Nitrogen 23 mg/dL (7-17); Calcium 7.5 mg/dL (8.4-10.2); Carbon Dioxide 37 mmol/L (22-30); Chloride 92 mmol/L (98-107); Glucose 100 mg/dL (74-99); Magnesium 1.8 mg/dL (1.6-2.3); Sodium 132 mmol/L (137-145); Total Bilirubin 0.8 mg/dL (0.2-1.3); Total Protein 4.8 g/dL (6.3-8.2)
[2018-01-23 07:05] LABS: Potassium 2.7 mmol/L (3.5-5.1)
[2018-01-23] MEDS: HYDROcodone/APAP 5-325MG 1 EACH TAB PO PRN ×2 (08:02→19:53)
[2018-01-23] MEDS: predniSONE 20 MG TAB PO SCH (08:03)
[2018-01-23] MEDS: CEPHALEXIN 500 MG CAP PO SCH ×2 (08:03→19:54)
[2018-01-23] MEDS: MAGNESIUM OXIDE 400 MG TAB PO SCH (08:03)
[2018-01-23] MEDS: NICOTINE 14MG/24HR PATCH TRANSDERM SCH (08:03)
[2018-01-23] MEDS: DULoxetine HCL 60 MG CAPSULE.DR PO SCH (08:03)
[2018-01-23] MEDS: POTASSIUM CHLORIDE ER 10 MEQ TAB.ER.PRT PO SCH (08:03)
[2018-01-23] MEDS: FUROSEMIDE 20 MG TAB PO SCH ×2 (08:03→19:54)
[2018-01-23] MEDS: VERAPAMIL SR 120 MG TABLET.ER PO SCH (08:05)
[2018-01-23] MEDS: SYMBICORT 160-4.5 MCG INHALER INHALATION SCH ×3 (08:48→20:15)
--- NOTE | 2018-01-23 09:40 | P.PN ---
Subjective Progress Note Date: 01/23/18 Principal diagnosis: Shortness of breath Progress note dated 01/23/2018 A 77-year-old female with a diagnosis of COPD exacerbation and heart failure. She has a history of ongoing and heavy tobacco use with subsequent COPD, CVA, GERD, hyperlipidemia, hypertension, MS, DJD, pulmonary embolus him, pulmonary hypertension, and multiple other medical problems and comorbidities. The patient seems about the same. Very difficult to understand her. Is difficult to obtain any history. She appears stable though. Objective - Vital Signs Vital signs: Vital Signs Temp 98.6 F 01/23/18 07:48 Pulse 103 H 01/23/18 08:00 Resp 18 01/23/18 08:00 BP 92/60 01/23/18 07:48 Pulse Ox 99 01/23/18 07:48 Intake & Output 01/22/18 01/23/18 01/23/18 18:59 06:59 18:59 Intake Total 240 400 Output Total 300 1050 Balance -60 -1050 400 Weight 80.1 kg 78.5 kg Intake: Oral 240 400 Output: Urine 300 1050 Uretheral (Sarkar) 300 Other: Voiding Method Diaper Diaper Indwelling Catheter # Voids 3 # Bowel Movements 1 - Exam No acute distress, oriented 3. Nasal O2 in place. HEENT examination is grossly unremarkable. Mucous membranes are moist. No oral lesions. Neck supple. Full range of motion. No adenopathy thyromegaly or neck vein distention. Cardiovascular examination reveals regular rhythm rate. S1-S2 normal. No S3 or S4. No discernible murmur noted. Heart sounds are somewhat distant. Lungs reveal coarse bilateral breath sounds. A few scattered rhonchi. Some bibasilar crackles. No wheezes. Her sounds equal. Abdomen soft bowel sounds are heard. No masses or tenderness. Extremities are intact. No cyanosis or clubbing. Minimal edema noted. Skin is without rash or lesion. Neurologic examination is brief but nonfocal. - Labs CBC & Chem 7: 01/23/18 06:01 01/23/18 06:01 Labs: Abnormal Lab Results - Last 24 Hours (Table) 01/22/18 01/22/18 01/22/18 Range/Units 11:30 16:50 18:35 Hgb (11.4-16.0) gm/dL Hct (34.0-46.0) % MCV (80.0-100.0) fL MCH (25.0-35.0) pg MCHC (31.0-37.0) g/dL RDW (11.5-15.5) % Neutrophils # (1.3-7.7) k/uL Lymphocytes # (1.0-4.8) k/uL Sodium (137-145) mmol/L Potassium (3.5-5.1) mmol/L Chloride (98-107) mmol/L Carbon Dioxide (22-30) mmol/L BUN (7-17) mg/dL Creatinine (0.52-1.04) mg/dL Glucose (74-99) mg/dL POC Glucose (mg/dL) 152 H 141 H (75-99) mg/dL Calcium (8.4-10.2) mg/dL Total Protein (6.3-8.2) g/dL Albumin (3.5-5.0) g/dL Urine Nitrite Positive H (Negative) Ur Leukocyte Esterase Trace H (Negative) Amorphous Sediment Rare H (None) /hpf Urine Bacteria Many H (None) /hpf Hyaline Casts 20 H (0-2) /lpf Urine Mucus Rare H (None) /hpf 01/22/18 01/22/18 01/22/18 Range/Units 20:53 21:01 23:25 Hgb (11.4-16.0) gm/dL Hct (34.0-46.0) % MCV (80.0-100.0) fL MCH (25.0-35.0) pg MCHC (31.0-37.0) g/dL RDW (11.5-15.5) % Neutrophils # (1.3-7.7) k/uL Lymphocytes # (1.0-4.8) k/uL Sodium (137-145) mmol/L Potassium 2.4 L* 2.5 L* (3.5-5.1) mmol/L Chloride (98-107) mmol/L Carbon Dioxide (22-30) mmol/L BUN (7-17) mg/dL Creatinine (0.52-1.04) mg/dL Glucose (74-99) mg/dL POC Glucose (mg/dL) 123 H (75-99) mg/dL Calcium (8.4-10.2) mg/dL Total Protein (6.3-8.2) g/dL Albumin (3.5-5.0) g/dL Urine Nitrite (Negative) Ur Leukocyte Esterase (Negative) Amorphous Sediment (None) /hpf Urine Bacteria (None) /hpf Hyaline Casts (0-2) /lpf Urine Mucus (None) /hpf 01/23/18 01/23/18 01/23/18 Range/Units 06:01 06:01 06:04 Hgb 7.7 L (11.4-16.0) gm/dL Hct 26.8 L (34.0-46.0) % MCV 66.0 L (80.0-100.0) fL MCH 19.0 L (25.0-35.0) pg MCHC 28.8 L (31.0-37.0) g/dL RDW 21.1 H (11.5-15.5) % Neutrophils # 7.8 H (1.3-7.7) k/uL Lymphocytes # 0.6 L (1.0-4.8) k/uL Sodium 132 L (137-145) mmol/L Potassium 2.7 L* (3.5-5.1) mmol/L Chloride 92 L (98-107) mmol/L Carbon Dioxide 37 H (22-30) mmol/L BUN 23 H (7-17) mg/dL Creatinine 0.50 L (0.52-1.04) mg/dL Glucose 100 H (74-99) mg/dL POC Glucose (mg/dL) 120 H (75-99) mg/dL Calcium 7.5 L (8.4-10.2) mg/dL Total Protein 4.8 L (6.3-8.2) g/dL Albumin 2.4 L (3.5-5.0) g/dL Urine Nitrite (Negative) Ur Leukocyte Esterase (Negative) Amorphous Sediment (None) /hpf Urine Bacteria (None) /hpf Hyaline Casts (0-2) /lpf Urine Mucus (None) /hpf Assessment and Plan Assessment: Assessment Shortness of breath, likely multifactorial, in part related to underlying COPD exacerbation but also congestive heart failure. I doubt infection at this time. History of COPD from heavy tobacco use which is ongoing History of CVA History of GERD Hyperlipidemia by history Hypertension by history History of multiple sclerosis History of DJD Previous history of pulmonary embolism Moderate pulmonary hypertension Multiple other medical problems and comorbidities Plan: Plan dated 01/20/2018 Her chest x-ray is consistent with fluid overload. This was also the interpretation of the radiologist. The patient's medications are reviewed. Labs are reviewed. Her white count is 4.7 hemoglobin is 7.4 hematocrit 26.2 and platelet count 372,000. The patient's sodium was 133 potassium chloride CO2 anion gap and renal function is off relatively normal. Urine is clear. N- terminal proBNP was only 449. From the pulmonary standpoint, she is on Symbicort 160/4.5, 2 puffs twice a day albuterol and Atrovent updrafts 4 times a day and when necessary and Solu-Medrol 60 mg every 6. This is all appropriate. There is no antibiotic and I believe that's the right decision. Additional recommendations and suggestions are forthcoming. She is also on IV Lasix. CODE STATUS should be addressed. Apparently she has a DO NOT RESUSCITATE according to the primary service. Additional recommendations and suggestions are forthcoming. Plan dated 01/23/2018 The patient continues to show slow improvement. White count 9.1 hemoglobin 7.7 hematocrit 26.8 and platelet count 380,000. Sodium is 132 potassium 2.7 chloride 92 CO2 37. BUN and creatinine were 23 and 0.5. Microbiology is negative. Chest x-ray shows cardiomegaly and small left pleural effusion with trace right pleural effusion. Chest x-rays improved. There is some retrocardiac atelectasis. From the pulmonary standpoint, the patient is stable and could be discharged. We'll see as needed. Time with Patient: Less than 30
--- NOTE | 2018-01-23 10:17 | P.PN ---
Subjective Progress Note Date: 01/23/18 Principal diagnosis: Acute on chronic hypoxic respiratory failure Patient was found to have obstructive uropathy and a Sarkar catheter was inserted last night with 400 mL of urine returned. Her potassium is still critically low despite replacement yesterday. There is no IV access despite multiple attempts. Potassium is being replaced orally. Agonism is within acceptable range. Patient herself is wondering when she could go home. She does not have any complaints. Objective - Vital Signs Vital signs: Vital Signs Temp 98.6 F 01/23/18 07:48 Pulse 103 H 01/23/18 08:00 Resp 18 01/23/18 08:00 BP 92/60 01/23/18 07:48 Pulse Ox 99 01/23/18 07:48 Intake & Output 01/22/18 01/23/18 01/23/18 18:59 06:59 18:59 Intake Total 240 400 Output Total 300 1050 Balance -60 -1050 400 Weight 80.1 kg 78.5 kg Intake: Oral 240 400 Output: Urine 300 1050 Uretheral (Sarkar) 300 Other: Voiding Method Diaper Diaper Indwelling Catheter # Voids 3 # Bowel Movements 1 - Exam General: The patient is awake and alert, in no distress. She appears chronically ill Eye: there is normal conjunctiva bilaterally. Neck: The neck is supple, there is no JVD. Cardiovascular: Normal S1-S2, no S3-S4, no murmurs. Respiratory: Lungs with diffuse rales all over the chest Gastrointestinal: Abdomen is soft, nontender Musculoskeletal: There is no pedal edema. Skin: Skin is warm and dry - Labs CBC & Chem 7: 01/23/18 06:01 01/23/18 06:01 Labs: Abnormal Lab Results - Last 24 Hours (Table) 01/22/18 01/22/18 01/22/18 Range/Units 11:30 16:50 18:35 Hgb (11.4-16.0) gm/dL Hct (34.0-46.0) % MCV (80.0-100.0) fL MCH (25.0-35.0) pg MCHC (31.0-37.0) g/dL RDW (11.5-15.5) % Neutrophils # (1.3-7.7) k/uL Lymphocytes # (1.0-4.8) k/uL Sodium (137-145) mmol/L Potassium (3.5-5.1) mmol/L Chloride (98-107) mmol/L Carbon Dioxide (22-30) mmol/L BUN (7-17) mg/dL Creatinine (0.52-1.04) mg/dL Glucose (74-99) mg/dL POC Glucose (mg/dL) 152 H 141 H (75-99) mg/dL Calcium (8.4-10.2) mg/dL Total Protein (6.3-8.2) g/dL Albumin (3.5-5.0) g/dL Urine Nitrite Positive H (Negative) Ur Leukocyte Esterase Trace H (Negative) Amorphous Sediment Rare H (None) /hpf Urine Bacteria Many H (None) /hpf Hyaline Casts 20 H (0-2) /lpf Urine Mucus Rare H (None) /hpf 01/22/18 01/22/18 01/22/18 Range/Units 20:53 21:01 23:25 Hgb (11.4-16.0) gm/dL Hct (34.0-46.0) % MCV (80.0-100.0) fL MCH (25.0-35.0) pg MCHC (31.0-37.0) g/dL RDW (11.5-15.5) % Neutrophils # (1.3-7.7) k/uL Lymphocytes # (1.0-4.8) k/uL Sodium (137-145) mmol/L Potassium 2.4 L* 2.5 L* (3.5-5.1) mmol/L Chloride (98-107) mmol/L Carbon Dioxide (22-30) mmol/L BUN (7-17) mg/dL Creatinine (0.52-1.04) mg/dL Glucose (74-99) mg/dL POC Glucose (mg/dL) 123 H (75-99) mg/dL Calcium (8.4-10.2) mg/dL Total Protein (6.3-8.2) g/dL Albumin (3.5-5.0) g/dL Urine Nitrite (Negative) Ur Leukocyte Esterase (Negative) Amorphous Sediment (None) /hpf Urine Bacteria (None) /hpf Hyaline Casts (0-2) /lpf Urine Mucus (None) /hpf 01/23/18 01/23/18 01/23/18 Range/Units 06:01 06:01 06:04 Hgb 7.7 L (11.4-16.0) gm/dL Hct 26.8 L (34.0-46.0) % MCV 66.0 L (80.0-100.0) fL MCH 19.0 L (25.0-35.0) pg MCHC 28.8 L (31.0-37.0) g/dL RDW 21.1 H (11.5-15.5) % Neutrophils # 7.8 H (1.3-7.7) k/uL Lymphocytes # 0.6 L (1.0-4.8) k/uL Sodium 132 L (137-145) mmol/L Potassium 2.7 L* (3.5-5.1) mmol/L Chloride 92 L (98-107) mmol/L Carbon Dioxide 37 H (22-30) mmol/L BUN 23 H (7-17) mg/dL Creatinine 0.50 L (0.52-1.04) mg/dL Glucose 100 H (74-99) mg/dL POC Glucose (mg/dL) 120 H (75-99) mg/dL Calcium 7.5 L (8.4-10.2) mg/dL Total Protein 4.8 L (6.3-8.2) g/dL Albumin 2.4 L (3.5-5.0) g/dL Urine Nitrite (Negative) Ur Leukocyte Esterase (Negative) Amorphous Sediment (None) /hpf Urine Bacteria (None) /hpf Hyaline Casts (0-2) /lpf Urine Mucus (None) /hpf Assessment and Plan Assessment: 1. Acute on chronic hypoxic respiratory failure on home O2: Most likely secondary to fluid overload with chest x-ray showing evidence of pleural effusion 2. Acute COPD exacerbation seen and evaluated by pulmonology, appreciate recommendation. Continue steroid and bronchodilators 3. Chronic venous insufficiency/lower extremity edema: Improved significantly since admission 4. Acute diastolic heart failure exacerbation with mild pulmonary hypertension : Started on Lasix 40 mg IV twice daily. Echocardiogram showed preserved ejection fraction. Lasix switch to oral 20 mg twice daily. 5. History of pulmonary embolism on anticoagulation chronically with Rivaroxaban. We will continue cautiously for now given worsening anemia. No evidence of ongoing bleed. 6. Underlying cognitive impairment 7. Moderate to severe protein/calorie malnutrition: Started on Ensure Plus 3 times a day. We will continue to follow albumin level 8. Tobacco abuse: Counseled to quit. Ordered nicotine patch. 9. Underlying multiple sclerosis 10. Acute on chronic microcytic anemia, most likely iron deficiency. Iron studies reviewed. Started on ferrous sulfate 11. Worsening swelling involving left upper extremity, Doppler ultrasound negative for DVT 12. CODE STATUS: Patient is a full code, discussed with her over the phone on admission. 13. Physical debility, seen and evaluated by PT/OT. Patient is refusing to go to subacute rehab. She wants to go home. 14. Multifocal atrial tachycardia, seen and evaluated by cardiology. Started on verapamil. We will continue telemetry monitoring. Heart rate well controlled. 15. Obstructive uropathy, status post Sarkar catheter insertion. Plan for voiding trial tomorrow. Plan for today: -Replace electrolytes and repeat lab work in the morning -Continue telemetry monitoring -Discussed patient's care and plan of discharge with her and her . She is very adamant that she does not wants to go to rehab. She wants to go home. Plan to discharge home on Thursday. -Voiding trial tomorrow to allow bladder decompression Today, I reviewed her medication list and lab work results. We will continue current regimen.
--- NOTE | 2018-01-23 11:17 | PN ---
PROGRESS NOTE Mrs. Cisse is a 77-year-old female with a history of severe chronic obstructive lung disease, who presented with exacerbation of COPD. On the monitor, there was a question of atrial fibrillation, but it appeared to be more multifocal atrial tachycardia. She is feeling better today. Her breathing is better. She denies any dizziness or palpitation. She denies any nausea. She continues to be on the Lipitor 40 mg daily, Lasix 20 mg twice a day, verapamil SR 120 mg daily, nicotine patch. She is anticoagulated with Xarelto 20 mg daily because of prior history of DVT. PHYSICAL EXAMINATION: Blood pressure 127/80 with a heart rate in the 70s. Lungs with decreased air exchange no wheezes. HEART: Regular rate and rhythm S1, S2. No S3 with a systolic murmur. ABDOMEN: Soft, nontender. Extremities: No significant edema. LAB DATA: Potassium 2.7, hemoglobin of 7.7. ASSESSMENT: 1. Exacerbation of chronic obstructive pulmonary disease. 2. Multifocal atrial tachycardia. 3. History of deep vein thrombosis. 4. Hypokalemia. RECOMMENDATION: From the cardiac standpoint, we will replace her potassium. Continue the rest of her medical regimen. From the cardiac standpoint, she is stable. We will see her on an as- needed basis. Please feel free to call us for any questions. MMODL / IJN: [id number] /
[2018-01-23 12:04] LABS: Glucose,Whole Blood 139 mg/dL (75-99)
[2018-01-23 16:33] LABS: Glucose,Whole Blood 134 mg/dL (75-99)
[2018-01-23] MEDS: RIVAROXABAN 20 MG TAB PO SCH (19:54)
[2018-01-23] MEDS: ATORVASTATIN 40 MG TAB PO SCH (19:54)
[2018-01-23] MEDS: risperiDONE 0.5 MG TAB PO SCH (19:55)
[2018-01-23] MEDS: POTASSIUM CHLORIDE ER 20 MEQ TAB.ER PO SCH (20:02)
[2018-01-23 21:02] LABS: Glucose,Whole Blood 112 mg/dL (75-99)
[2018-01-24 05:45] LABS: Glucose,Whole Blood 87 mg/dL (75-99)
[2018-01-24] MEDS: FERROUS SULFATE 325 MG TAB PO SCH ×3 (06:31→16:41)
[2018-01-24 06:54] LABS: Anisocytosis Moderate; Basophils % (A) 0 %; Eosinophils # (A) 0.1 k/uL (0-0.7); Eosinophils % (A) 1 %; Hypochromasia Marked; Lymphocytes # (A) 0.8 k/uL (1.0-4.8); Lymphocytes % (A) 10 %; MCH 19.3 pg (25.0-35.0); MCHC 28.6 g/dL (31.0-37.0); MCV 67.5 fL (80.0-100.0); Mean Platelet Volume 6.1; Microcytosis Marked; Monocytes # (A) 0.6 k/uL (0-1.0); Monocytes % (A) 7 %; Neutrophils # (A) 6.7 k/uL (1.3-7.7); Neutrophils % (A) 80 %; Platelet Count 384 k/uL (150-450); Poikilocytosis Moderate; RBC 4.15 m/uL (3.80-5.40); RDW 21.4 % (11.5-15.5); WBC 8.4 k/uL (3.8-10.6)
[2018-01-24 07:10] LABS: ALT 27 U/L (9-52); AST 14 U/L (14-36); Albumin 2.4 g/dL (3.5-5.0); Alkaline Phosphatase 96 U/L (38-126); Anion Gap 5 mmol/L; Blood Urea Nitrogen 22 mg/dL (7-17); Calcium 7.3 mg/dL (8.4-10.2); Carbon Dioxide 35 mmol/L (22-30); Chloride 92 mmol/L (98-107); Glucose 75 mg/dL (74-99); Magnesium 2.1 mg/dL (1.6-2.3); Sodium 132 mmol/L (137-145); Total Bilirubin 0.8 mg/dL (0.2-1.3); Total Protein 4.8 g/dL (6.3-8.2)
[2018-01-24 07:15] LABS: Potassium 2.9 mmol/L (3.5-5.1)
[2018-01-24] MEDS: SYMBICORT 160-4.5 MCG INHALER INHALATION SCH ×2 (07:27→20:03)
[2018-01-24] MEDS: POTASSIUM CHLORIDE ER 20 MEQ TAB.ER PO SCH ×5 (09:54→20:44)
[2018-01-24] MEDS: DULoxetine HCL 60 MG CAPSULE.DR PO SCH (09:56)
[2018-01-24] MEDS: VERAPAMIL SR 120 MG TABLET.ER PO SCH (09:56)
[2018-01-24] MEDS: MAGNESIUM OXIDE 400 MG TAB PO SCH (09:56)
[2018-01-24] MEDS: predniSONE 20 MG TAB PO SCH (09:56)
[2018-01-24] MEDS: CEPHALEXIN 500 MG CAP PO SCH ×2 (09:56→20:44)
[2018-01-24] MEDS: NICOTINE 14MG/24HR PATCH TRANSDERM SCH (09:56)
[2018-01-24] MEDS: HYDROcodone/APAP 5-325MG 1 EACH TAB PO PRN ×2 (10:09→21:19)
[2018-01-24] MEDS: FUROSEMIDE 20 MG TAB PO SCH (10:10)
[2018-01-24 11:47] LABS: Glucose,Whole Blood 129 mg/dL (75-99)
--- NOTE | 2018-01-24 11:56 | P.PN ---
Subjective Mrs. Cisse is seen and examined resting comfortably in bed with family at the bedside. Telemetry tracings reveal sinus mechanism with evidence of PACs at times. She is currently being treated for an exacerbation of COPD. She states her breathing is improving but she still has ongoing need for supplemental oxygen. She denies symptoms of chest pain, dizziness, palpitations , nausea or vomiting. Echocardiogram obtained on this admission reveals preserved left ventricular systolic function with ejection fraction 55-60%, moderately dilated left atrium, mild aortic valve sclerosis with a mean gradient across the valve is 6.72 mmHg and mild pulmonary hypertension with RVSP of 37.58 mmHg. Laboratory data reviewed, hemoglobin 8.0, platelets 384, sodium 132, potassium 2.9, creatinine 0.5, magnesium 2.1. Blood pressure 93/61 heart rate 100 afebrile maintaining oxygen saturation on nasal cannula. Objective - Vital Signs Vital signs: Vital Signs Temp 97.0 F L 01/24/18 11:07 Pulse 100 01/24/18 11:07 Resp 16 01/24/18 11:07 BP 93/61 01/24/18 11:07 Pulse Ox 96 01/24/18 11:07 Intake & Output 01/23/18 01/24/18 01/24/18 18:59 06:59 18:59 Intake Total 1120 0 Output Total 250 Balance 1120 -250 0 Weight 74.5 kg Intake: Oral 1120 0 Output: Urine 250 Other: Voiding Method Indwelling Catheter Indwelling Catheter Indwelling Catheter - Exam GENERAL: No acute distress. NECK: Supple without JVD or thyromegaly. LUNGS: Respiration equal and unlabored. Coarse rhonchi noted, no rales or wheezes. HEART: Regular rate and rhythm with systolic ejection murmur at the base, no rubs or gallops. S1 and S2 heard. EXTREMITIES: Normal range of motion, no edema. No clubbing or cyanosis. Peripheral pulses intact. - Labs CBC & Chem 7: 01/24/18 06:13 01/24/18 06:13 Labs: Abnormal Lab Results - Last 24 Hours (Table) 01/23/18 01/23/18 01/23/18 Range/Units 11:58 16:29 18:41 Hgb (11.4-16.0) gm/dL Hct (34.0-46.0) % MCV (80.0-100.0) fL MCH (25.0-35.0) pg MCHC (31.0-37.0) g/dL RDW (11.5-15.5) % Lymphocytes # (1.0-4.8) k/uL Sodium (137-145) mmol/L Potassium 3.1 L (3.5-5.1) mmol/L Chloride (98-107) mmol/L Carbon Dioxide (22-30) mmol/L BUN (7-17) mg/dL Creatinine (0.52-1.04) mg/dL POC Glucose (mg/dL) 139 H 134 H (75-99) mg/dL Calcium (8.4-10.2) mg/dL Total Protein (6.3-8.2) g/dL Albumin (3.5-5.0) g/dL 01/23/18 01/24/18 01/24/18 Range/Units 20:59 06:13 06:13 Hgb 8.0 L (11.4-16.0) gm/dL Hct 28.0 L (34.0-46.0) % MCV 67.5 L (80.0-100.0) fL MCH 19.3 L (25.0-35.0) pg MCHC 28.6 L (31.0-37.0) g/dL RDW 21.4 H (11.5-15.5) % Lymphocytes # 0.8 L (1.0-4.8) k/uL Sodium 132 L (137-145) mmol/L Potassium 2.9 L* (3.5-5.1) mmol/L Chloride 92 L (98-107) mmol/L Carbon Dioxide 35 H (22-30) mmol/L BUN 22 H (7-17) mg/dL Creatinine 0.50 L (0.52-1.04) mg/dL POC Glucose (mg/dL) 112 H (75-99) mg/dL Calcium 7.3 L (8.4-10.2) mg/dL Total Protein 4.8 L (6.3-8.2) g/dL Albumin 2.4 L (3.5-5.0) g/dL 01/24/18 Range/Units 11:43 Hgb (11.4-16.0) gm/dL Hct (34.0-46.0) % MCV (80.0-100.0) fL MCH (25.0-35.0) pg MCHC (31.0-37.0) g/dL RDW (11.5-15.5) % Lymphocytes # (1.0-4.8) k/uL Sodium (137-145) mmol/L Potassium (3.5-5.1) mmol/L Chloride (98-107) mmol/L Carbon Dioxide (22-30) mmol/L BUN (7-17) mg/dL Creatinine (0.52-1.04) mg/dL POC Glucose (mg/dL) 129 H (75-99) mg/dL Calcium (8.4-10.2) mg/dL Total Protein (6.3-8.2) g/dL Albumin (3.5-5.0) g/dL Assessment and Plan Assessment: ASSESSMENT Acute exacerbation of COPD Multifocal atrial tachycardia History of DVT currently on long-term anticoagulation Hypokalemia PLAN Ongoing potassium replacement. Continue with the rest of her medical regimen. She is stable from a cardiac perspective. We will see her as needed for the rest of her hospital admission. Please feel free to call with further questions or concerns. Nurse Practitioner note has been reviewed, I agree with a documented findings and plan of care. Patient was seen and examined.
--- NOTE | 2018-01-24 14:31 | P.PN ---
Subjective Progress Note Date: 01/24/18 Principal diagnosis: Acute on chronic hypoxic respiratory failure Patient is doing well today. She is still having significant hypokalemia despite potassium replacement. Patient does not have a peripheral IV at this time as multiple nurses attempted including anesthesia nurse with no success. She is getting potassium replacement orally. Objective - Vital Signs Vital signs: Vital Signs Temp 97.0 F L 01/24/18 11:07 Pulse 100 01/24/18 11:52 Resp 16 01/24/18 11:52 BP 93/61 01/24/18 11:07 Pulse Ox 96 01/24/18 11:07 Intake & Output 01/23/18 01/24/18 01/24/18 18:59 06:59 18:59 Intake Total 1120 0 Output Total 250 Balance 1120 -250 0 Weight 74.5 kg Intake: Oral 1120 0 Output: Urine 250 Other: Voiding Method Indwelling Catheter Indwelling Catheter Indwelling Catheter - Exam General: The patient is awake and alert, in no distress. She appears chronically ill Eye: there is normal conjunctiva bilaterally. Neck: The neck is supple, there is no JVD. Cardiovascular: Normal S1-S2, no S3-S4, no murmurs. Respiratory: Lungs with diffuse rales all over the chest Gastrointestinal: Abdomen is soft, nontender Musculoskeletal: There is no pedal edema. Skin: Skin is warm and dry - Labs CBC & Chem 7: 01/24/18 06:13 01/24/18 06:13 Labs: Abnormal Lab Results - Last 24 Hours (Table) 01/23/18 01/23/18 01/23/18 Range/Units 16:29 18:41 20:59 Hgb (11.4-16.0) gm/dL Hct (34.0-46.0) % MCV (80.0-100.0) fL MCH (25.0-35.0) pg MCHC (31.0-37.0) g/dL RDW (11.5-15.5) % Lymphocytes # (1.0-4.8) k/uL Sodium (137-145) mmol/L Potassium 3.1 L (3.5-5.1) mmol/L Chloride (98-107) mmol/L Carbon Dioxide (22-30) mmol/L BUN (7-17) mg/dL Creatinine (0.52-1.04) mg/dL POC Glucose (mg/dL) 134 H 112 H (75-99) mg/dL Calcium (8.4-10.2) mg/dL Total Protein (6.3-8.2) g/dL Albumin (3.5-5.0) g/dL 01/24/18 01/24/18 01/24/18 Range/Units 06:13 06:13 11:43 Hgb 8.0 L (11.4-16.0) gm/dL Hct 28.0 L (34.0-46.0) % MCV 67.5 L (80.0-100.0) fL MCH 19.3 L (25.0-35.0) pg MCHC 28.6 L (31.0-37.0) g/dL RDW 21.4 H (11.5-15.5) % Lymphocytes # 0.8 L (1.0-4.8) k/uL Sodium 132 L (137-145) mmol/L Potassium 2.9 L* (3.5-5.1) mmol/L Chloride 92 L (98-107) mmol/L Carbon Dioxide 35 H (22-30) mmol/L BUN 22 H (7-17) mg/dL Creatinine 0.50 L (0.52-1.04) mg/dL POC Glucose (mg/dL) 129 H (75-99) mg/dL Calcium 7.3 L (8.4-10.2) mg/dL Total Protein 4.8 L (6.3-8.2) g/dL Albumin 2.4 L (3.5-5.0) g/dL Assessment and Plan Assessment: 1. Acute on chronic hypoxic respiratory failure on home O2: Most likely secondary to fluid overload with chest x-ray showing evidence of pleural effusion 2. Acute COPD exacerbation seen and evaluated by pulmonology, appreciate recommendation. Continue steroid and bronchodilators 3. Chronic venous insufficiency/lower extremity edema: Improved significantly since admission 4. Acute diastolic heart failure exacerbation with mild pulmonary hypertension : Started on Lasix 40 mg IV twice daily. Echocardiogram showed preserved ejection fraction. Lasix currently on hold given significant hypokalemia 5. History of pulmonary embolism on anticoagulation chronically with Rivaroxaban. We will continue cautiously for now given worsening anemia. No evidence of ongoing bleed. 6. Underlying cognitive impairment 7. Moderate to severe protein/calorie malnutrition: Started on Ensure Plus 3 times a day. We will continue to follow albumin level 8. Tobacco abuse: Counseled to quit. Ordered nicotine patch. 9. Underlying multiple sclerosis 10. Acute on chronic microcytic anemia, most likely iron deficiency. Iron studies reviewed. Started on ferrous sulfate 11. Worsening swelling involving left upper extremity, now resolved. Doppler ultrasound negative for DVT 12. CODE STATUS: Patient is a full code, discussed with her over the phone on admission. 13. Physical debility, seen and evaluated by PT/OT. Patient is agreeable for rehab today. 14. Multifocal atrial tachycardia, seen and evaluated by cardiology. Started on verapamil. We will continue telemetry monitoring. Heart rate well controlled. 15. Obstructive uropathy, status post Sarkar catheter insertion for bladder decompression. Sarkar catheter will be discontinued today. Plan for today: -Replace electrolytes and repeat lab work in the morning -Continue telemetry monitoring -Voiding trial today with bladder scan every 8 hours, patient is incontinent. Rule out urinary retention -Discharge planning tomorrow. Placement to [facility] awaiting case management Today, I reviewed her medication list and lab work results. We will continue current regimen.
[2018-01-24] MEDS: NALTREXONE PO PRN (16:48)
[2018-01-24] MEDS: MORPHINE SULFATE PO PRN (16:48)
[2018-01-24 16:49] LABS: Glucose,Whole Blood 134 mg/dL (75-99)
[2018-01-24] MEDS: risperiDONE 0.5 MG TAB PO SCH (20:43)
[2018-01-24] MEDS: ATORVASTATIN 40 MG TAB PO SCH (20:43)
[2018-01-24] MEDS: RIVAROXABAN 20 MG TAB PO SCH (20:44)
[2018-01-24 20:59] LABS: Glucose,Whole Blood 135 mg/dL (75-99)
[2018-01-25 06:25] LABS: Glucose,Whole Blood 98 mg/dL (75-99)
[2018-01-25 06:42] LABS: Anisocytosis Moderate; Basophils % (A) 0 %; Eosinophils # (A) 0.1 k/uL (0-0.7); Eosinophils % (A) 1 %; HCT 24.9 % (34.0-46.0); Hypochromasia Marked; Lymphocytes # (A) 1.5 k/uL (1.0-4.8); Lymphocytes % (A) 17 %; MCH 19.7 pg (25.0-35.0); MCV 70.2 fL (80.0-100.0); Mean Platelet Volume 5.8; Microcytosis Marked; Monocytes # (A) 0.6 k/uL (0-1.0); Monocytes % (A) 6 %; Neutrophils # (A) 6.6 k/uL (1.3-7.7); Neutrophils % (A) 74 %; Platelet Count 337 k/uL (150-450); Poikilocytosis Slight; RBC 3.55 m/uL (3.80-5.40); WBC 8.9 k/uL (3.8-10.6)
[2018-01-25 06:45] LABS: ALT 31 U/L (9-52); AST 10 U/L (14-36); Alkaline Phosphatase 74 U/L (38-126); Anion Gap -2 mmol/L; Blood Urea Nitrogen 24 mg/dL (7-17); Calcium 7.4 mg/dL (8.4-10.2); Carbon Dioxide 38 mmol/L (22-30); Chloride 96 mmol/L (98-107); Glucose 77 mg/dL (74-99); Magnesium 2.2 mg/dL (1.6-2.3); Potassium 4.1 mmol/L (3.5-5.1); Sodium 132 mmol/L (137-145); Total Bilirubin 0.4 mg/dL (0.2-1.3); Total Protein 4.2 g/dL (6.3-8.2)
[2018-01-25] MEDS: FERROUS SULFATE 325 MG TAB PO SCH ×2 (06:57→08:15)
[2018-01-25] MEDS: SYMBICORT 160-4.5 MCG INHALER INHALATION SCH ×2 (07:37→19:19)
[2018-01-25] MEDS: MAGNESIUM OXIDE 400 MG TAB PO SCH (08:15)
[2018-01-25] MEDS: predniSONE 20 MG TAB PO SCH (08:15)
[2018-01-25] MEDS: NICOTINE 14MG/24HR PATCH TRANSDERM SCH (08:16)
[2018-01-25] MEDS: DULoxetine HCL 60 MG CAPSULE.DR PO SCH (08:16)
[2018-01-25] MEDS: CEPHALEXIN 500 MG CAP PO SCH (08:16)
[2018-01-25] MEDS: POTASSIUM CHLORIDE ER 20 MEQ TAB.ER PO SCH (08:16)
[2018-01-25 09:49] VITALS: BMI 27.3
[2018-01-25 10:35] VITALS: RESP 16
[2018-01-25] MEDS: NALTREXONE PO PRN (10:35)
[2018-01-25] MEDS: MORPHINE SULFATE PO PRN (10:35)
[2018-01-25] MEDS: IPRATROPIUM-ALBUTEROL 3 ML NEB INHALATION PRN (11:30)
[2018-01-25 11:40] LABS: Glucose,Whole Blood 112 mg/dL (75-99)
[2018-01-25] MEDS: VERAPAMIL SR 120 MG TABLET.ER PO SCH (12:13)
--- NOTE | 2018-01-25 13:06 | P.DS ---
Providers Date of admission: 01/19/18 17:28 Expected date of discharge: 01/25/18 Attending physician: Tyler Lozano MD Consults: 01/19/18 20:35 Consult Physician Routine Consulting Provider: Giovani Lopez Consult Reason/Comments: Hypoxia Do you want consulting provider notified?: Yes, Notify in am 01/22/18 07:16 Consult Physician Routine Consulting Provider: Wyatt Collazo Consult Reason/Comments: new onset afib Do you want consulting provider notified?: Yes Primary care physician: Stated None Hospital Course: 1. Acute on chronic hypoxic respiratory failure on home O2: Improved significantly since admission. Most likely secondary to fluid overload with chest x-ray showing evidence of pleural effusion. 2. Acute COPD exacerbation seen and evaluated by pulmonology, appreciate recommendation. Continue bronchodilators. Finished prednisone: 3. Chronic venous insufficiency/lower extremity edema: Improved significantly since admission 4. Acute diastolic heart failure exacerbation with mild pulmonary hypertension : Started on Lasix 40 mg IV twice daily. Echocardiogram showed preserved ejection fraction. Lasix currently on hold given significant hypokalemia 5. History of pulmonary embolism on anticoagulation chronically with Rivaroxaban. No evidence of ongoing bleed. 6. Underlying cognitive impairment 7. Moderate to severe protein/calorie malnutrition: Started on Ensure Plus 3 times a day. 8. Tobacco abuse: Counseled to quit. Ordered nicotine patch. 9. Underlying multiple sclerosis 10. Acute on chronic microcytic anemia, most likely iron deficiency. Iron studies reviewed. Started on ferrous sulfate. Needs further workup as an outpatient for possible colonoscopy. We will transfuse 1 unit of PRBC prior to transfer to [facility]. Repeat CBC tomorrow. 11. Worsening swelling involving left upper extremity, now resolved. Doppler ultrasound negative for DVT 12. CODE STATUS: Patient is a full code, discussed with her over the phone on admission. 13. Physical debility, seen and evaluated by PT/OT. Patient is agreeable for rehab today. 14. Multifocal atrial tachycardia, seen and evaluated by cardiology. Started on verapamil. Heart rate well controlled. 15. Obstructive uropathy, status post Sarkar catheter insertion for bladder decompression during this hospitalization. Patient passed voiding trial prior to discharge. Sarkar catheter discontinued. Patient will be transferred to [facility] for physical therapy Patient Condition at Discharge: Fair Plan - Discharge Summary Discharge Rx Participant: No New Discharge Prescriptions: New Cephalexin [Keflex] 500 mg PO BID #6 cap Ferrous Sulfate [Iron (65 MG Elemental)] 325 mg PO TID-W/MEALS tab Furosemide [Lasix] 20 mg PO DAILY #30 tab Ipratropium-Albuterol Nebulize [Duoneb 0.5 mg-3 mg/3 ml Soln] 3 ml INHALATION RT-QID PRN ampul.neb PRN Reason: Wheezing Magnesium Oxide [Mag-Ox] 400 mg PO DAILY tab Nicotine 14Mg/24Hr Patch [Habitrol] 1 patch TRANSDERM DAILY patch Potassium Chloride ER [K-Dur 20] 20 meq PO DAILY tab.er.prt Verapamil Sr [Isoptin Sr] 120 mg PO DAILY tablet.er Continue Atorvastatin [Lipitor] 40 mg PO HS Budesonide/Formoterol Fumarate [Symbicort 160-4.5 Mcg Inhaler] 2 puff INHALATION RT-BID Morphine Sulfate/Naltrexone [Embeda ER 60-2.4 mg Capsule] 1 cap PO DAILY PRN PRN Reason: Pain DULoxetine HCL [Cymbalta] 60 mg PO DAILY Aspirin 81 mg PO DAILY Rivaroxaban [Xarelto] 20 mg PO HS risperiDONE [RisperDAL] 0.5 mg PO HS rOPINIRole HCL [Requip] 0.25 mg PO HS #30 tab Albuterol Inhaler [Ventolin Hfa Inhaler] 1 - 2 puff INHALATION RT-QID Gabapentin [Neurontin] 300 mg PO 5XD LORazepam [Ativan] 0.5 mg PO HS #3 tab Discontinued Cetirizine HCl [Zyrtec] 10 mg PO DAILY PRN PRN Reason: Allergy Symptoms Discharge Medication List Atorvastatin [Lipitor] 40 mg PO HS 12/04/16 [History] Aspirin 81 mg PO DAILY 08/30/17 [History] Budesonide/Formoterol Fumarate [Symbicort 160-4.5 Mcg Inhaler] 2 puff INHALATION RT-BID 08/30/17 [History] DULoxetine HCL [Cymbalta] 60 mg PO DAILY 08/30/17 [History] Morphine Sulfate/Naltrexone [Embeda ER 60-2.4 mg Capsule] 1 cap PO DAILY PRN 10/14 [History] Rivaroxaban [Xarelto] 20 mg PO HS 08/30/17 [History] risperiDONE [RisperDAL] 0.5 mg PO HS 08/30/17 [History] rOPINIRole HCL [Requip] 0.25 mg PO HS #30 tab 09/02/17 [Rx] Albuterol Inhaler [Ventolin Hfa Inhaler] 1 - 2 puff INHALATION RT-QID 01/19/18 [ History] Gabapentin [Neurontin] 300 mg PO 5XD 01/19/18 [History] Cephalexin [Keflex] 500 mg PO BID #6 cap 01/25/18 [Rx] Ferrous Sulfate [Iron (65 MG Elemental)] 325 mg PO TID-W/MEALS tab 01/25/18 [Rx ] Furosemide [Lasix] 20 mg PO DAILY #30 tab 01/25/18 [Rx] Ipratropium-Albuterol Nebulize [Duoneb 0.5 mg-3 mg/3 ml Soln] 3 ml INHALATION RT -QID PRN ampul.neb 01/25/18 [Rx] LORazepam [Ativan] 0.5 mg PO HS #3 tab 01/25/18 [Rx] Magnesium Oxide [Mag-Ox] 400 mg PO DAILY tab 01/25/18 [Rx] Nicotine 14Mg/24Hr Patch [Habitrol] 1 patch TRANSDERM DAILY patch 01/25/18 [Rx] Potassium Chloride ER [K-Dur 20] 20 meq PO DAILY tab.er.prt 01/25/18 [Rx] Verapamil Sr [Isoptin Sr] 120 mg PO DAILY tablet.er 01/25/18 [Rx] Follow up Appointment(s)/Referral(s): [facility], [NON-STAFF] - As Needed None,Stated [Primary Care Provider] - 1-2 days Activity/Diet/Wound Care/Special Instructions: Pt has a PCP, but doesn't know who Discharge Disposition: TRANSFER TO SNF/ECF
[2018-01-25 13:23] VITALS: BP 86/52; PULSE 97; TEMP 97.1
[2018-01-25 16:26] LABS: Glucose,Whole Blood 161 mg/dL (75-99)
== END 2018-01-25 16:40 | DRG 291 ==
LOC: EC 15:52 → 5MS5E 17:28 → 6SEL 19:29
PROVIDERS: ADMIT Family Medicine; ATTEND Family Medicine
DX: I11.0 Hypertensive heart disease with heart failure (principal); E43 Unspecified severe protein-calorie malnutrition; J18.9 Pneumonia, unspecified organism; J96.21 Acute and chronic respiratory failure with hypoxia; I31.3 Pericardial effusion (noninflammatory); I47.1 Supraventricular tachycardia; J44.0 Chronic obstructive pulmonary disease with (acute) lower respiratory infection; J44.1 Chronic obstructive pulmonary disease with (acute) exacerbation; I69.351 Hemiplegia and hemiparesis following cerebral infarction affecting right dominant side; D50.9 Iron deficiency anemia, unspecified; E78.5 Hyperlipidemia, unspecified; E83.42 Hypomagnesemia; E87.6 Hypokalemia; F17.210 Nicotine dependence, cigarettes, uncomplicated; Z71.6 Tobacco abuse counseling; G35 Multiple sclerosis; H91.90 Unspecified hearing loss, unspecified ear; I27.20 Pulmonary hypertension, unspecified; I35.8 Other nonrheumatic aortic valve disorders; I48.91 Unspecified atrial fibrillation; I49.3 Ventricular premature depolarization; I50.33 Acute on chronic diastolic (congestive) heart failure; I87.2 Venous insufficiency (chronic) (peripheral); K21.9 Gastro-esophageal reflux disease without esophagitis; N13.9 Obstructive and reflux uropathy, unspecified; R32 Unspecified urinary incontinence; T50.2X5A Adverse effect of carbonic-anhydrase inhibitors, benzothiadiazides and other diuretics, initial encounter; Z66 Do not resuscitate; Z79.01 Long term (current) use of anticoagulants; Z79.51 Long term (current) use of inhaled steroids; Z79.82 Long term (current) use of aspirin; Z79.899 Other long term (current) drug therapy; Z86.711 Personal history of pulmonary embolism; Z86.718 Personal history of other venous thrombosis and embolism; Z90.710 Acquired absence of both cervix and uterus; Z99.81 Dependence on supplemental oxygen; I69.391 Dysphagia following cerebral infarction; I69.328 Other speech and language deficits following cerebral infarction; R13.10 Dysphagia, unspecified; M79.89 Other specified soft tissue disorders; Z87.01 Personal history of pneumonia (recurrent); G89.29 Other chronic pain; Z98.42 Cataract extraction status, left eye; Z98.41 Cataract extraction status, right eye; Z82.61 Family history of arthritis; Z84.1 Family history of disorders of kidney and ureter; M19.90 Unspecified osteoarthritis, unspecified site; R53.81 Other malaise
CPT/HCPCS: 36415; 71046; 74230; 80048; 80053; 81001; 81003; 82550; 82553; 82728; 83540; 83550; 83735; 83880; 84132; 84156; 84443; 84484; 85025; 85027; 85045; 85379; 85610; 85730; 86850; 86900; 86901; 86920; 93005; 93306; 94640; 94760; 96374; 96375; 99285

== ENCOUNTER 2018-01-26 22:28 | Inpatient (IN) | payer MEDICARE ==
[2018-01-26] MEDS ORDERED: methylPREDNISolone SOD SUCCI 125 MG/2 ML VIAL IV STA (23:10)
[2018-01-26] MEDS ORDERED: IPRATROPIUM-ALBUTEROL 3 ML NEB INHALATION STA (23:10)
--- NOTE | 2018-01-26 23:12 | ED ---
General Adult HPI - General Chief complaint: Upper Respiratory Infection Stated complaint: shahnaz Time Seen by Provider: 01/26/18 22:30 Source: patient, EMS, RN notes reviewed, old records reviewed Mode of arrival: EMS Limitations: no limitations - History of Present Illness Initial comments: Patient is a pleasant 77-year-old female presenting to the emergency department with cough and difficulty in breathing. Patient is a poor historian. Patient has a known history of COPD. Patient has been coughing up green sputum. No reported fevers. No leg pain or leg swelling. Patient denies any chest pain. - Related Data Home Medications Medication Instructions Recorded Confirmed Atorvastatin [Lipitor] 40 mg PO HS 12/04/16 01/26/18 Aspirin 81 mg PO DAILY 08/30/17 01/26/18 Budesonide/Formoterol Fumarate 2 puff INHALATION RT-BID 08/30/17 01/26/18 [Symbicort 160-4.5 Mcg Inhaler] DULoxetine HCL [Cymbalta] 60 mg PO DAILY 08/30/17 01/26/18 Morphine Sulfate/Naltrexone 1 cap PO DAILY PRN 08/30/17 01/26/18 [Embeda ER 60-2.4 mg Capsule] Rivaroxaban [Xarelto] 20 mg PO HS 08/30/17 01/26/18 risperiDONE [RisperDAL] 0.5 mg PO HS 08/30/17 01/26/18 Albuterol Inhaler [Ventolin Hfa 1 - 2 puff INHALATION RT-QID 01/19/18 01/26/18 Inhaler] Gabapentin [Neurontin] 300 mg PO 5XD 01/19/18 01/26/18 Lactose-Reduced Food [Ensure Plus] 1 can PO TID 01/26/18 01/26/18 Previous Rx's Medication Instructions Recorded rOPINIRole HCL [Requip] 0.25 mg PO HS #30 tab 09/02/17 Cephalexin [Keflex] 500 mg PO BID #6 cap 01/25/18 Ferrous Sulfate [Iron (65 MG 325 mg PO TID-W/MEALS tab 01/25/18 Elemental)] Furosemide [Lasix] 20 mg PO DAILY #30 tab 01/25/18 Ipratropium-Albuterol Nebulize 3 ml INHALATION RT-QID PRN 01/25/18 [Duoneb 0.5 mg-3 mg/3 ml Soln] ampul.neb LORazepam [Ativan] 0.5 mg PO HS #3 tab 01/25/18 Magnesium Oxide [Mag-Ox] 400 mg PO DAILY tab 01/25/18 Nicotine 14Mg/24Hr Patch [Habitrol] 1 patch TRANSDERM DAILY patch 01/25/18 Potassium Chloride ER [K-Dur 20] 20 meq PO DAILY tab.er.prt 01/25/18 Verapamil Sr [Isoptin Sr] 120 mg PO DAILY tablet.er 01/25/18 Allergies Allergy/AdvReac Type Severity Reaction Status Date / Time No Known Allergies Allergy Verified 01/26/18 23:01 Review of Systems ROS Statement: Those systems with pertinent positive or pertinent negative responses have been documented in the HPI. ROS Other: All systems not noted in ROS Statement are negative. Constitutional: Denies: fever, chills Eyes: Denies: eye pain ENT: Denies: ear pain Respiratory: Reports: cough, dyspnea Cardiovascular: Denies: chest pain Endocrine: Denies: fatigue Gastrointestinal: Denies: abdominal pain Genitourinary: Denies: dysuria Musculoskeletal: Denies: back pain Skin: Denies: rash Neurological: Denies: headache Past Medical History Past Medical History: COPD, CVA/TIA, GERD/Reflux, Hyperlipidemia, Hypertension, Musculoskeletal Disorder, Neurologic Disorder, Osteoarthritis (OA), Pneumonia, Pulmonary Embolus (PE) Additional Past Medical History / Comment(s): Multiple sclerosis, bilateral segmental pulmonary embolism currently on Xarelto, 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 and slow speech and slight difficulty swallowing, hypertension and chronic pain involving the lower extremities bilaterally, hypertension, hyperlipidemia, osteoarthritis, COPD, chronic lower extremity edema, moderate degree of pulmonary hypertension with a PA pressure of 47 and a preserved LV function, chronic narcotic use for pain and the patient has the tendency of overutilizing her painkillers History of Any Multi-Drug Resistant Organisms: None Reported Past Surgical History: Hysterectomy Additional Past Surgical History / Comment(s): Peg tube insertion (removed), bilateral cataract removal and twice on the left side, colonoscopy. Past Anesthesia/Blood Transfusion Reactions: No Reported Reaction Past Psychological History: No Psychological Hx Reported Smoking Status: Former smoker Past Alcohol Use History: None Reported Past Drug Use History: None Reported - Past Family History Mother History Unknown: Yes Family Medical History: No Reported History, Renal Disease Additional Family Medical History / Comment(s): Mother was healthy and lived to be 88yrs old. Father History Unknown: Yes Family Medical History: Osteoarthritis (OA) Additional Family Medical History / Comment(s): Pt states her father at the age of 68yrs due to his debilitating arthritis. General Exam Limitations: no limitations General appearance: alert, in no apparent distress Head exam: Present: atraumatic Eye exam: Present: normal appearance, PERRL ENT exam: Present: normal oropharynx Neck exam: Present: normal inspection Respiratory exam: Present: wheezes, decreased breath sounds Cardiovascular Exam: Present: regular rate, normal rhythm GI/Abdominal exam: Present: soft. Absent: tenderness Extremities exam: Present: normal inspection. Absent: pedal edema, calf tenderness Neurological exam: Present: alert Psychiatric exam: Present: normal affect, normal mood Skin exam: Present: normal color Course Vital Signs 01/26/18 01/26/18 01/27/18 23:01 23:47 00:00 Temperature 97.8 F Pulse Rate 90 90 92 Respiratory 18 Rate Blood Pressure 102/59 O2 Sat by Pulse 91 L Oximetry EKG Findings - EKG Comments: EKG Findings:: Sinus rhythm and 92. VT 126. QRS 80. QT 346. QTc 427. Normal axis. Low QRS voltage. Nonspecific T waves. Medical Decision Making - Medical Decision Making Patient reevaluated without much change in lung sounds. Patient updated on results and plan. Case was discussed with Dr. jarvis, who will admit for Dr. Dozier. - Lab Data Result diagrams: 01/26/18 23:14 01/26/18 23:14 Lab Results 01/26/18 01/26/18 01/26/18 Range/Units 23:14 23:14 23:14 WBC 11.5 H (3.8-10.6) k/uL RBC 4.20 (3.80-5.40) m/uL Hgb 8.5 L D (11.4-16.0) gm/dL Hct 29.5 L (34.0-46.0) % MCV 70.2 L (80.0-100.0) fL MCH 20.2 L (25.0-35.0) pg MCHC 28.8 L (31.0-37.0) g/dL RDW 21.7 H (11.5-15.5) % Plt Count 407 (150-450) k/uL Neutrophils % 75 % Lymphocytes % 15 % Monocytes % 6 % Eosinophils % 3 % Basophils % 0 % Neutrophils # 8.6 H (1.3-7.7) k/uL Lymphocytes # 1.7 (1.0-4.8) k/uL Monocytes # 0.7 (0-1.0) k/uL Eosinophils # 0.4 (0-0.7) k/uL Basophils # 0.0 (0-0.2) k/uL Hypochromasia Marked Poikilocytosis Moderate Anisocytosis Moderate Microcytosis Marked PT (9.0-12.0) sec INR (<1.2) APTT (22.0-30.0) sec Sodium 133 L (137-145) mmol/L Potassium 4.2 (3.5-5.1) mmol/L Chloride 96 L (98-107) mmol/L Carbon Dioxide 33 H (22-30) mmol/L Anion Gap 4 mmol/L BUN 26 H (7-17) mg/dL Creatinine 0.72 (0.52-1.04) mg/dL Est GFR (CKD-EPI)AfAm >90 (>60 ml/min/1.73 sqM) Est GFR (CKD-EPI)NonAf 82 (>60 ml/min/1.73 sqM) Glucose 94 (74-99) mg/dL Calcium 7.7 L (8.4-10.2) mg/dL Total Bilirubin 0.4 (0.2-1.3) mg/dL AST 12 L (14-36) U/L ALT 28 (9-52) U/L Alkaline Phosphatase 104 (38-126) U/L Total Creatine Kinase <20 L (30-135) U/L CK-MB (CK-2) 0.4 (0.0-2.4) ng/mL CK-MB (CK-2) Rel Index Troponin I <0.012 (0.000-0.034) ng/mL Total Protein 4.8 L (6.3-8.2) g/dL Albumin 2.5 L (3.5-5.0) g/dL 01/26/18 Range/Units 23:14 WBC (3.8-10.6) k/uL RBC (3.80-5.40) m/uL Hgb (11.4-16.0) gm/dL Hct (34.0-46.0) % MCV (80.0-100.0) fL MCH (25.0-35.0) pg MCHC (31.0-37.0) g/dL RDW (11.5-15.5) % Plt Count (150-450) k/uL Neutrophils % % Lymphocytes % % Monocytes % % Eosinophils % % Basophils % % Neutrophils # (1.3-7.7) k/uL Lymphocytes # (1.0-4.8) k/uL Monocytes # (0-1.0) k/uL Eosinophils # (0-0.7) k/uL Basophils # (0-0.2) k/uL Hypochromasia Poikilocytosis Anisocytosis Microcytosis PT 11.9 (9.0-12.0) sec INR 1.3 H (<1.2) APTT 24.0 (22.0-30.0) sec Sodium (137-145) mmol/L Potassium (3.5-5.1) mmol/L Chloride (98-107) mmol/L Carbon Dioxide (22-30) mmol/L Anion Gap mmol/L BUN (7-17) mg/dL Creatinine (0.52-1.04) mg/dL Est GFR (CKD-EPI)AfAm (>60 ml/min/1.73 sqM) Est GFR (CKD-EPI)NonAf (>60 ml/min/1.73 sqM) Glucose (74-99) mg/dL Calcium (8.4-10.2) mg/dL Total Bilirubin (0.2-1.3) mg/dL AST (14-36) U/L ALT (9-52) U/L Alkaline Phosphatase (38-126) U/L Total Creatine Kinase (30-135) U/L CK-MB (CK-2) (0.0-2.4) ng/mL CK-MB (CK-2) Rel Index Troponin I (0.000-0.034) ng/mL Total Protein (6.3-8.2) g/dL Albumin (3.5-5.0) g/dL - Radiology Data Radiology results: image reviewed (Chest x-ray does have increased pulmonary vascular congestion and effusions.) Disposition Clinical Impression: COPD (chronic obstructive pulmonary disease), CHF (congestive heart failure) Disposition: ADMITTED IP TO THIS HOSP Is patient prescribed a controlled substance at d/c from ED?: No Referrals: Jakob Dozier MD [Primary Care Provider] - 1-2 days Decision Time: 00:21
[2018-01-26 23:27] LABS: Anisocytosis Moderate; Basophils % (A) 0 %; Eosinophils # (A) 0.4 k/uL (0-0.7); Eosinophils % (A) 3 %; HCT 29.5 % (34.0-46.0); Hypochromasia Marked; Lymphocytes # (A) 1.7 k/uL (1.0-4.8); Lymphocytes % (A) 15 %; MCH 20.2 pg (25.0-35.0); MCHC 28.8 g/dL (31.0-37.0); MCV 70.2 fL (80.0-100.0); Mean Platelet Volume 6.3; Microcytosis Marked; Monocytes # (A) 0.7 k/uL (0-1.0); Monocytes % (A) 6 %; Neutrophils # (A) 8.6 k/uL (1.3-7.7); Neutrophils % (A) 75 %; Platelet Count 407 k/uL (150-450); Poikilocytosis Moderate; RDW 21.7 % (11.5-15.5); WBC 11.5 k/uL (3.8-10.6)
[2018-01-26 23:32] LABS: HGB 8.5 gm/dL (11.4-16.0)
[2018-01-26 23:34] LABS: ALT 28 U/L (9-52); AST 12 U/L (14-36); Albumin 2.5 g/dL (3.5-5.0); Alkaline Phosphatase 104 U/L (38-126); Anion Gap 4 mmol/L; Blood Urea Nitrogen 26 mg/dL (7-17); Calcium 7.7 mg/dL (8.4-10.2); Carbon Dioxide 33 mmol/L (22-30); Chloride 96 mmol/L (98-107); Glucose 94 mg/dL (74-99); Potassium 4.2 mmol/L (3.5-5.1); Sodium 133 mmol/L (137-145); Total Bilirubin 0.4 mg/dL (0.2-1.3); Total Protein 4.8 g/dL (6.3-8.2)
[2018-01-26 23:35] LABS: INR 1.3 (<1.2); Prothrombin Time 11.9 sec (9.0-12.0)
--- NOTE | 2018-01-26 23:54 | XR ---
EXAMINATION TYPE: XR chest 2V DATE OF EXAM: 01/26/2018 COMPARISON: 01/19/2018 HISTORY: COPD. Difficulty breathing TECHNIQUE: Frontal and lateral views of the chest are obtained. FINDINGS: Heart is enlarged. There is pulmonary vascular congestion. There is blunting of costophren ic angles. Bony thorax is intact. IMPRESSION: Congestive heart failure with pleural effusions. Pleural fluid is slightly increased com pared to old exam.
[2018-01-26 23:55] LABS: Creatine Kinase <20 U/L (30-135)
[2018-01-27 00:06] LABS: Creatine Kinase MB 0.4 ng/mL (0.0-2.4); Troponin I <0.012 ng/mL (0.000-0.034)
[2018-01-27] MEDS ORDERED: IPRATROPIUM-ALBUTEROL 3 ML NEB INHALATION PRN (00:21)
[2018-01-27] MEDS ORDERED: ASPIRIN 325 MG TAB PO STA (00:21)
[2018-01-27] MEDS ORDERED: FUROSEMIDE 10 MG/ML 4 ML VIAL IV SCH (00:30)
[2018-01-27] MEDS: methylPREDNISolone SOD SUCCI 125 MG/2 ML VIAL IV SCH ×3 (05:28→16:56)
[2018-01-27] MEDS: NITROGLYCERIN OINT 1 INCH/GM PACKET TOPICAL SCH ×3 (05:29→16:54)
[2018-01-27] MEDS: IPRATROPIUM-ALBUTEROL 3 ML NEB INHALATION SCH ×4 (08:25→20:25)
[2018-01-27] MEDS ORDERED: CEFDINIR 300 MG CAP PO SCH (09:00)
[2018-01-27 10:55] VITALS: BMI 25.7
[2018-01-27] MEDS ORDERED: NALOXONE 0.4 MG/ML 1 ML VIAL IV PRN (11:50)
--- NOTE | 2018-01-27 12:28 | P.CRDCN ---
History of Present Illness History of present illness: Mrs. Cisse is a pleasant 77-year-old female past medical history significant for COPD, dyslipidemia, hypertension, MS, PE, anemia, multifocal atrial tachycardia, pulmonary hypertension and aortic sclerosis. She was discharged from the hospital 2 days ago for exacerbation of COPD to [facility]. She is seen and examined sitting up in bed in no acute distress. She is rather upset because she cannot eat. She states her speech has been slurred since yesterday and for this reason she was sent to ED. She is currently NPO pending a speech evaluation. She denies shortness of breath, chest pain, nausea, vomiting, diaphoresis, dizziness or palpitations. EKG reveals sinus mechanism with PACs. Chest x-ray indicates pleural fluid slightly increased compared to old exam. Laboratory data reviewed, WBC 11.5, hemoglobin 8.5, platelets 407, sodium 133, potassium 4.2, creatinine 0.72, cardiac enzymes negative 1 and proBNP 386. Current cardiac medications include verapamil 120 mg daily, Lasix 20 mg daily, atorvastatin 40 mg daily and aspirin 81 mg daily. She also takes Ativan, Risperdal, Cymbalta, Neurontin, Xarelto for history of DVT, Requip, Ventolin and extended release morphine. Most recent echocardiogram performed January 20 reveals preserved left ventricular systolic function with ejection fraction 55-60%, moderately dilated left atrium , mild aortic valve sclerosis with a mean gradient across the valve is 6.72 mmHg , mild TR and mild pulmonary hypertension with an RVSP of 37.58 mmHg. Review of Systems At the time of my exam: CONSTITUTIONAL: Denies fever. Denies chills. EYES: Denies blurred vision. Denies vision changes. Denies eye pain. EARS, NOSE, MOUTH & THROAT: Denies headache. Denies sore throat. Denies ear pain. CARDIOVASCULAR: Denies chest pain. Denies shortness of breath. Denies orthopnea. Denies PND. Denies palpitations. RESPIRATORY: Complains of productive cough with green/umaña sputum. GASTROINTESTINAL: Denies abdominal pain. Denies diarrhea. Denies constipation. Denies nausea. Denies vomiting. MUSCULOSKELETAL: Denies myalgias. INTEGUMENTARY: Denies pruitis. Denies rash. NEUROLOGIC: Denies numbness. Denies tingling. Denies weakness. PSYCHIATRIC: Denies anxiety. Denies depression. ENDOCRINE: Denies fatigue. Denies weight change. Denies polydipsia. Denies polyurina. GENITOURINARY: Denies burning, hematuria or urgency with micturation. HEMATOLOGIC: Denies history of anemia. Denies bleeding. Past Medical History Past Medical History: COPD, CVA/TIA, GERD/Reflux, Hyperlipidemia, Hypertension, Musculoskeletal Disorder, Neurologic Disorder, Osteoarthritis (OA), Pneumonia, Pulmonary Embolus (PE) Additional Past Medical History / Comment(s): Multiple sclerosis, bilateral segmental pulmonary embolism currently on Xarelto, 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/leg and slow speech and slight difficulty swallowing, hypertension and chronic pain involving the lower extremities bilaterally, hypertension, hyperlipidemia, osteoarthritis, COPD, chronic lower extremity edema, moderate degree of pulmonary hypertension with a PA pressure of 47 and a preserved LV function, chronic narcotic use for pain and the patient has the tendency of overutilizing her painkillers History of Any Multi-Drug Resistant Organisms: None Reported Past Surgical History: Hysterectomy Additional Past Surgical History / Comment(s): Peg tube insertion (removed), bilateral cataract removal and twice on the left side, colonoscopy. Past Anesthesia/Blood Transfusion Reactions: No Reported Reaction Past Psychological History: No Psychological Hx Reported Additional Psychological History / Comment(s): Per PMH, pt has depression but pt has denied in past admission. Pt lives with her spouse of 57yrs typically but is currently living at [facility] for rehab. She ambulates without device. . Smoking Status: Former smoker Past Alcohol Use History: None Reported Additional Past Alcohol Use History / Comment(s): Pt started smoking in 1959. smoked 2 ppd quit on previous admission Past Drug Use History: None Reported - Past Family History Mother History Unknown: Yes Family Medical History: No Reported History, Renal Disease Additional Family Medical History / Comment(s): Mother was healthy and lived to be 88yrs old. Father History Unknown: Yes Family Medical History: Osteoarthritis (OA) Additional Family Medical History / Comment(s): Pt states her father at the age of 68yrs due to his debilitating arthritis. Medications and Allergies Home Medications Medication Instructions Recorded Confirmed Type Atorvastatin [Lipitor] 40 mg PO HS 12/04/16 01/26/18 History Aspirin 81 mg PO DAILY 08/30/17 01/26/18 History Budesonide/Formoterol Fumarate 2 puff INHALATION RT-BID 08/30/17 01/26/18 History [Symbicort 160-4.5 Mcg Inhaler] DULoxetine HCL [Cymbalta] 60 mg PO DAILY 08/30/17 01/26/18 History Morphine Sulfate/Naltrexone 1 cap PO DAILY PRN 08/30/17 01/26/18 History [Embeda ER 60-2.4 mg Capsule] Rivaroxaban [Xarelto] 20 mg PO HS 08/30/17 01/26/18 History risperiDONE [RisperDAL] 0.5 mg PO HS 08/30/17 01/26/18 History rOPINIRole HCL [Requip] 0.25 mg PO HS #30 tab 09/02/17 01/26/18 Rx Albuterol Inhaler [Ventolin Hfa 1 - 2 puff INHALATION RT-QID 01/19/18 01/26/18 History Inhaler] Gabapentin [Neurontin] 300 mg PO 5XD 01/19/18 01/26/18 History Cephalexin [Keflex] 500 mg PO BID #6 cap 01/25/18 01/26/18 Rx Ferrous Sulfate [Iron (65 MG 325 mg PO TID-W/MEALS tab 01/25/18 01/26/18 Rx Elemental)] Furosemide [Lasix] 20 mg PO DAILY #30 tab 01/25/18 01/26/18 Rx Ipratropium-Albuterol Nebulize 3 ml INHALATION RT-QID PRN 01/25/18 01/26/18 Rx [Duoneb 0.5 mg-3 mg/3 ml Soln] ampul.neb LORazepam [Ativan] 0.5 mg PO HS #3 tab 01/25/18 01/26/18 Rx Magnesium Oxide [Mag-Ox] 400 mg PO DAILY tab 01/25/18 01/26/18 Rx Nicotine 14Mg/24Hr Patch [Habitrol] 1 patch TRANSDERM DAILY patch 01/25/18 Rx Potassium Chloride ER [K-Dur 20] 20 meq PO DAILY tab.er.prt 01/25/18 01/26/18 Rx Verapamil Sr [Isoptin Sr] 120 mg PO DAILY tablet.er 01/25/18 01/26/18 Rx Lactose-Reduced Food [Ensure Plus] 1 can PO TID 01/26/18 01/26/18 History Allergies Allergy/AdvReac Type Severity Reaction Status Date / Time No Known Allergies Allergy Verified 01/26/18 23:01 Physical Exam Vitals: Vital Signs Temp Pulse Pulse Resp BP BP Pulse Ox 01/27/18 08:40 88 82 18 01/27/18 08:25 88 01/27/18 05:00 97.6 F 82 18 134/75 90 L 01/27/18 02:33 89 97/56 91 L 01/27/18 02:25 124 H 21 01/27/18 01:55 124 H 85/60 01/27/18 00:45 97.8 F 89 18 119/59 92 L 01/27/18 00:00 92 01/26/18 23:47 90 01/26/18 23:01 97.8 F 90 18 102/59 91 L Intake and Output 01/26/18 01/27/18 01/27/18 22:59 06:59 14:59 Intake Total 0 Output Total 100 Balance -100 Intake: Oral 0 Output: Emesis 100 Other: Voiding Method Toilet Toilet Bedside Commode Bedside Commode # Voids 3 Weight 70 kg Blood pressure 134/75 heart rate 82 afebrile maintaining oxygen saturation on nasal cannula GENERAL: This is a 77-year-old female in no apparent distress at the time of my examination. HEENT: Head is atraumatic, normocephalic. Pupils are equal, round. Sclerae anicteric. Conjunctivae are clear. Mucous membranes of the mouth are moist. Neck is supple. There is no jugular venous distention. No carotid bruit is heard. LUNGS: Diminished bilaterally, coarse rhonchi noted. No rales or wheezing. No chest wall tenderness is noted on palpation or with deep breathing. HEART: Irregular rate and rhythm with systolic ejection murmur at the base, no rubs or gallops. S1 and S2 heard. ABDOMEN: Soft, nontender. Bowel sounds are heard. No organomegaly noted. EXTREMITIES: Trace nonpitting bilateral lower extremity edema and no calf tenderness noted. VASCULAR: Radial and dorsalis pedis pulses palpated, no evidence of clubbing. NEUROLOGIC: Patient is awake, alert and oriented x3. Speech garbled. Results 01/26/18 23:14 01/26/18 23:14 Cardiac Enzymes 07/31/18 07/31/18 Range/Units 23:14 23:14 AST 12 L (14-36) U/L CK-MB (CK-2) 0.4 (0.0-2.4) ng/mL Troponin I <0.012 (0.000-0.034) ng/mL Coagulation 01/26/18 Range/Units 23:14 PT 11.9 (9.0-12.0) sec APTT 24.0 (22.0-30.0) sec CBC 01/26/18 Range/Units 23:14 WBC 11.5 H (3.8-10.6) k/uL RBC 4.20 (3.80-5.40) m/uL Hgb 8.5 L D (11.4-16.0) gm/dL Hct 29.5 L (34.0-46.0) % Plt Count 407 (150-450) k/uL Comprehensive Metabolic Panel 01/26/18 Range/Units 23:14 Sodium 133 L (137-145) mmol/L Potassium 4.2 (3.5-5.1) mmol/L Chloride 96 L (98-107) mmol/L Carbon Dioxide 33 H (22-30) mmol/L BUN 26 H (7-17) mg/dL Creatinine 0.72 (0.52-1.04) mg/dL Glucose 94 (74-99) mg/dL Calcium 7.7 L (8.4-10.2) mg/dL AST 12 L (14-36) U/L ALT 28 (9-52) U/L Alkaline Phosphatase 104 (38-126) U/L Total Protein 4.8 L (6.3-8.2) g/dL Albumin 2.5 L (3.5-5.0) g/dL Current Medications Generic Name Dose Route Start Last Admin Trade Name Freq PRN Reason Stop Dose Admin Albuterol/Ipratropium 3 ml 01/27/18 08:00 01/27/18 08:25 Duoneb 0.5 Mg-3 Mg/3 Ml Soln INHALATION 3 ml RT-QID [place] Administration Albuterol/Ipratropium 3 ml 01/27/18 00:21 Duoneb 0.5 Mg-3 Mg/3 Ml Soln INHALATION RT-Q4H PRN Shortness Of Breath Or Wheezing Aspirin 325 mg 01/28/18 00:23 Aspirin PO DAILY [place] Cefdinir 300 mg 01/27/18 09:00 01/27/18 08:38 Omnicef PO 02/06/18 09:01 300 mg BID [place] Administration Furosemide 40 mg 01/27/18 00:30 01/27/18 01:36 Lasix IV 40 mg Q12H [place] Administration Methylprednisolone Sodium Succinate 60 mg 01/27/18 06:00 01/27/18 05:28 Solu-Medrol IV 60 mg Q6HR [place] Administration Nitroglycerin 0.5 inch 01/27/18 06:00 01/27/18 05:29 Nitro-Bid Oint TOPICAL 0.5 inch Q6H [place] Administration Intake and Output 01/26/18 01/27/18 01/27/18 22:59 06:59 14:59 Intake Total 0 Output Total 100 Balance -100 Intake: Oral 0 Output: Emesis 100 Other: Voiding Method Toilet Toilet Bedside Commode Bedside Commode # Voids 3 Weight 70 kg 01/26/18 23:14 01/26/18 23:14 Assessment and Plan Assessment: ASSESSMENT Shortness of breath and productive cough. No evidence of acute heart failure. History of multifocal atrial tachycardia COPD History of PE/DVT on long-term anticoagulation Dyslipidemia History of multiple sclerosis Pulmonary hypertension Aortic valve sclerosis Chronic nicotine dependence PLAN She does not appear to be in acute heart failure episode. Discontinue IV Lasix was started in the ED and resume oral diuretics as previously ordered. Continue with atorvastatin, aspirin and verapamil as was previously ordered. Ongoing medical management of slurred speech and productive cough. We will continue to follow as needed, please feel free to call with questions or concerns. Thank you kindly for this consultation. The above impression and plan of care have been discussed and directed by the signing physician. Patricia Osei, nurse practitioner, acting as scribe for signing physician.
--- NOTE | 2018-01-27 12:55 | P.HPIM ---
History of Present Illness H&P Date: 01/27/18 Chief Complaint: difficulty swallowing Patient is a 77-year-old female with long-standing history of COPD with chronic respiratory failure on 2 L of home oxygen around the clock, dyslipidemia, prior stroke with residual slow speech and right-sided weakness who was recently hospitalized here from [address] [place] [address] 7:30 for acute exacerbation of COPD and acute exacerbation of CHF. She really presented on 01/[address] [facility] after having a choking episode at dinner with coughing up green sputum. In the ER she underwent an extensive evaluation. Her initial vital signs were within normal limits and she was satting 91% on her typical 2 L nasal cannula. Initial laboratory analysis showed a slightly elevated white blood cell count of 11.5. Hemoglobin was stable at 8.5. Sodium level was at her baseline of the 133. There was concerns for shortness of breath and chest pain. She was given steroids, bronchodilators, and the nitro patch was placed. Arrangements were made for admission. Patient has already been seen by speech therapy who noted that she had an absent swallow and is not safe to take in anything orally at this point in time. Patient seen and examined at bedside. She is very angry and does not confirm medical history with me. All past medical history is obtained through a thorough record review including that of her recent hospitalization from 01/19 through 01/25. During that hospitalization her swallow had been evaluated and she was placed on a modified diet but her swallow was intact. She was treated for CHF and acute exacerbation of COPD. She was noted to be weak and was therefore transferred to [facility]. She states that she was at [facility] eating dinner and suddenly was unable to swallow. She then started coughing and coughed up green sputum. She states they took her here they're concerned she was having a heart attack from coughing so hard. She denies having difficulty swallowing today during her swallow evaluation. She has a chronic cough and states it is nonproductive. She denies any shortness of breath, lower extremity edema, nausea, vomiting, diarrhea, constipation, dysuria, or fevers. She states that she had difficulty swallowing after her stroke in 2014 and had a PEG tube placed. She states it's been approximately 2 years since her PEG tube was removed and she has been eating and drinking well up until this point. She is unable to tell me what she was eating at [facility]. She does not feel as though there is something caught in her throat at this point in time. She denies any unusual weakness in her extremities or one part of her body that is weaker than others. She denies any unusual numbness or tingling. She states that she was up and walking and not using a wheelchair at home. Review of Systems Pertinent positives and negatives as discussed in HPI, a complete review of systems was performed and all other systems are negative. 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 Past Anesthesia/Blood Transfusion Reactions: No Reported Reaction Past Psychological History: No Psychological Hx Reported Additional Psychological History / Comment(s): Per PMH, pt has depression but pt has denied in past admission. Pt lives with her spouse of 57yrs typically but is currently living at [facility] for rehab. She ambulates without device. . Smoking Status: Former smoker Past Alcohol Use History: None Reported Additional Past Alcohol Use History / Comment(s): Pt started smoking in 1959. smoked 2 ppd quit on previous admission Past Drug Use History: None Reported - Past Family History Mother History Unknown: Yes Family Medical History: No Reported History, Renal Disease Additional Family Medical History / Comment(s): Mother was healthy and lived to be 88yrs old. Father History Unknown: Yes Family Medical History: Osteoarthritis (OA) Additional Family Medical History / Comment(s): Pt states her father at the age of 68yrs due to his debilitating arthritis. Medications and Allergies Home Medications Medication Instructions Recorded Confirmed Type Atorvastatin [Lipitor] 40 mg PO HS 12/04/16 01/26/18 History Aspirin 81 mg PO DAILY 08/30/17 01/26/18 History Budesonide/Formoterol Fumarate 2 puff INHALATION RT-BID 08/30/17 01/26/18 History [Symbicort 160-4.5 Mcg Inhaler] DULoxetine HCL [Cymbalta] 60 mg PO DAILY 08/30/17 01/26/18 History Morphine Sulfate/Naltrexone 1 cap PO DAILY PRN 08/30/17 01/26/18 History [Embeda ER 60-2.4 mg Capsule] Rivaroxaban [Xarelto] 20 mg PO HS 08/30/17 01/26/18 History risperiDONE [RisperDAL] 0.5 mg PO HS 08/30/17 01/26/18 History rOPINIRole HCL [Requip] 0.25 mg PO HS #30 tab 09/02/17 01/26/18 Rx Albuterol Inhaler [Ventolin Hfa 1 - 2 puff INHALATION RT-QID 01/19/18 01/26/18 History Inhaler] Gabapentin [Neurontin] 300 mg PO 5XD 01/19/18 01/26/18 History Cephalexin [Keflex] 500 mg PO BID #6 cap 01/25/18 01/26/18 Rx Ferrous Sulfate [Iron (65 MG 325 mg PO TID-W/MEALS tab 01/25/18 01/26/18 Rx Elemental)] Furosemide [Lasix] 20 mg PO DAILY #30 tab 01/25/18 01/26/18 Rx Ipratropium-Albuterol Nebulize 3 ml INHALATION RT-QID PRN 01/25/18 01/26/18 Rx [Duoneb 0.5 mg-3 mg/3 ml Soln] ampul.neb LORazepam [Ativan] 0.5 mg PO HS #3 tab 01/25/18 01/26/18 Rx Magnesium Oxide [Mag-Ox] 400 mg PO DAILY tab 01/25/18 01/26/18 Rx Nicotine 14Mg/24Hr Patch [Habitrol] 1 patch TRANSDERM DAILY patch 01/25/18 Rx Potassium Chloride ER [K-Dur 20] 20 meq PO DAILY tab.er.prt 01/25/18 01/26/18 Rx Verapamil Sr [Isoptin Sr] 120 mg PO DAILY tablet.er 01/25/18 01/26/18 Rx Lactose-Reduced Food [Ensure Plus] 1 can PO TID 01/26/18 01/26/18 History Allergies Allergy/AdvReac Type Severity Reaction Status Date / Time No Known Allergies Allergy Verified 01/26/18 23:01 Physical Exam Osteopathic Statement: *. No significant issues noted on an osteopathic structural exam other than those noted in the History and Physical/Consult. Vitals: Vital Signs Temp Pulse Pulse Resp BP BP Pulse Ox 01/27/18 08:40 88 82 18 01/27/18 08:25 88 01/27/18 05:00 97.6 F 82 18 134/75 90 L 01/27/18 02:33 89 97/56 91 L 01/27/18 02:25 124 H 21 01/27/18 01:55 124 H 85/60 01/27/18 00:45 97.8 F 89 18 119/59 92 L 01/27/18 00:00 92 01/26/18 23:47 90 01/26/18 23:01 97.8 F 90 18 102/59 91 L Intake and Output 01/26/18 01/27/18 01/27/18 22:59 06:59 14:59 Intake Total 0 Output Total 100 Balance -100 Intake: Oral 0 Output: Emesis 100 Other: Voiding Method Toilet Toilet Bedside Commode Bedside Commode # Voids 3 Weight 70 kg 70 kg General: non toxic, no distress, appears at stated age, normal weight Derm: no unusual rashes/lesions no unusual ecchymoses, warm, dry Head: atraumatic, normocephalic, symmetric Eyes: EOMI, no lid lag, anicteric sclera, pupils equal round reactive to light ENT: Nose and ears atraumatic, + thrush, no pharyngeal erythema Neck: No thyromegaly, no cervical lymphadenopathy, trachea midline, supple Mouth: no lip lesion, mucus membranes moist Cardiovascular: S1-S2 irregular, no murmur, positive posterior tibial pulse bilateral, 1+ edema, capillary refill less than 2 seconds Lungs: CTA bilateral, no rhonchi, no rales , no accessory muscle use Abdominal: soft, nontender to palpation, no guarding, no appreciable organomegaly, normal bowel sounds Ext: no gross muscle atrophy, muscle strength 5 out of 5 in right upper and lower extremity. Muscle strength 4 out of 5 in left lower extremity and left upper extremity., no contractures, Neuro: CN II-XI grossly intact, light touch intact all 4 extremities, poor finger to nose, Psych: Alert, oriented, appropriate affect Results CBC & Chem 7: 01/26/18 23:14 01/26/18 23:14 Labs: Abnormal Lab Results - Last 24 Hours (Table) 01/26/18 01/26/18 01/26/18 Range/Units 23:14 23:14 23:14 WBC 11.5 H (3.8-10.6) k/uL Hgb 8.5 L D (11.4-16.0) gm/dL Hct 29.5 L (34.0-46.0) % MCV 70.2 L (80.0-100.0) fL MCH 20.2 L (25.0-35.0) pg MCHC 28.8 L (31.0-37.0) g/dL RDW 21.7 H (11.5-15.5) % Neutrophils # 8.6 H (1.3-7.7) k/uL INR (<1.2) Sodium 133 L (137-145) mmol/L Chloride 96 L (98-107) mmol/L Carbon Dioxide 33 H (22-30) mmol/L BUN 26 H (7-17) mg/dL Calcium 7.7 L (8.4-10.2) mg/dL AST 12 L (14-36) U/L Total Creatine Kinase <20 L (30-135) U/L Total Protein 4.8 L (6.3-8.2) g/dL Albumin 2.5 L (3.5-5.0) g/dL 01/26/18 Range/Units 23:14 WBC (3.8-10.6) k/uL Hgb (11.4-16.0) gm/dL Hct (34.0-46.0) % MCV (80.0-100.0) fL MCH (25.0-35.0) pg MCHC (31.0-37.0) g/dL RDW (11.5-15.5) % Neutrophils # (1.3-7.7) k/uL INR 1.3 H (<1.2) Sodium (137-145) mmol/L Chloride (98-107) mmol/L Carbon Dioxide (22-30) mmol/L BUN (7-17) mg/dL Calcium (8.4-10.2) mg/dL AST (14-36) U/L Total Creatine Kinase (30-135) U/L Total Protein (6.3-8.2) g/dL Albumin (3.5-5.0) g/dL Chest x-ray: report reviewed, image reviewed (Image reviewed by myself reveals a left-sided pleural effusion with possible atelectasis) Thrombosis Risk Factor Assmnt - DVT/VTE Prophylaxis DVT/VTE Prophylaxis: Pharmacologic Prophylaxis ordered - Choose All That Apply Each Factor Represents 1 point: Abnormal pulmonary function (COPD) Each Risk Factor Represents 3 Points: Age 75 years or older Other congenital or acquired thrombophilia - If yes, enter type in comment: No Thrombosis Risk Factor Assessment Total Risk Factor Score: 4 Thrombosis Risk Factor Assessment Level: Moderate Risk Assessment and Plan Assessment: Dysphagia -Unable to swallow during swallow evaluation and concern for possible stroke versus primary esophageal etiology - MRI Brain to assess brainstem, consult neurology, Had echo last admission, tele - Strict NPO - Consult GI to r/o esophageal pathology - Coughing and vomiting after swallow evaluation will start abx incase of aspiration event COPD without acute exacerbation - Discontinue IV steroid -Continue bronchodilators -Pulmonary recommendations appreciated Hypertension -Strict nothing by mouth -Follow blood pressures -IV antihypertensive agents if necessary Multiple sclerosis -Unknown baseline functional capacity. Not chronically on any medications. Neurology consultation. History of pulmonary emboli -Xarelto currently on hold with nothing by mouth status -Heparin subcutaneous for DVT prophylaxis Compensated diastolic congestive heart failure, ejection fraction 55-60% -Lasix currently on hold -Not chronically on HERMILA inhibitor or beta efra with no indication to start one with preserved ejection fraction Dyslipidemia -Statin currently on hold The patient is admitted with an anticipated greater than 2 midnight stay for evaluation of dysphasia. Surrogate decision-maker: CODE STATUS: Full, as verified by patient she was DO NOT RESUSCITATE last admission DVT prophylaxis: Heparin Anticipated discharge date: 1-[address]: Return to [facility]
[2018-01-27] MEDS: DEXTROSE 5%-0.45% NACL 1,000 ML IV SCH (13:46)
[2018-01-27] MEDS: FLUCONAZOLE IN NACL,ISO-OSM 100 MG in SALINE 1 50ML.BAG IVPB SCH (13:47)
--- NOTE | 2018-01-27 13:52 | P.CNPUL ---
History of Present Illness Consult date: 01/27/18 Requesting physician: Jenn Acosta Reason for consult: dyspnea, cough, pleural effusion Chief complaint: Dyspnea, cough, phlegm production, swallowing difficulty History of present illness: Mrs. Cisse is a 77-year-old white female patient of Dr. Dozier, was brought to the emergency department per EMS from [facility] on 2017 at 2230 evaluation of increasing dyspnea, cough, phlegm production, brought on by a choking episode at mealtime. Patient denied any fever or chills , denied any increasing swelling in bilateral lower extremities. No chest pain. Patient was recently hospitalized from 01/19/2018-01/25/2018 for acute exacerbation of chronic obstructive pulmonary disease, with acute on chronic hypoxic respiratory failure, acute exacerbation of diastolic heart failure. Chest x-ray at that time showed cardiomegaly, and small left pleural effusion with trace right pleural effusion. She was diuresed, she was treated with systemic steroids, nebulized bronchodilators, antibiotics, she had improved, and was subsequently discharged to [facility]. 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 Patient had a modified barium swallow during previous admission on which showed transient penetration with thin liquids, but no aspiration , and slow oral transit. Chest x-ray was completed and showed pulmonary vascular congestion, and blunting of bilateral costophrenic angles consistent with bilateral pleural effusions, which appear to be slightly increased from previous exam. EKG showed sinus rhythm with PACs, nonspecific ST and T-wave abnormality. Patient is now nothing by mouth, she was seen by speech therapist in evaluation, who feels the patient is aspirating, and would not be even safe to proceed with modified barium swallow with concerns of barium aspiration. Lab work was reviewed and showed WBC of 11.5, hemoglobin of 8.5, INR 1.3, sodium is 133, chloride is 96, CO2 of 33, B1 is 26, creatinine of 0.72. Troponin was negative 1, and proBNP was within normal limits at 386. Patient is seen in evaluation on medical surgical floor, she is on 2 L per nasal cannula and her pulse ox is 97%, she denies any distress, she has a strong cough , is able to clear secretions, lung sounds are positive for coarse rhonchi throughout, which partially clear with coughing. No wheezing noted on today's exam. No fever, no chills, no chest pain. Patient has evidence of mild oral candidiasis, for which she will be started on IV fluconazole. Empiric antibiotic coverage has been started in the form of Zosyn. Review of Systems All systems: negative Constitutional: Denies chills, Denies fever Eyes: denies blurred vision, denies pain Ears, nose, mouth and throat: Denies headache, Denies sore throat Cardiovascular: Denies chest pain, Denies shortness of breath Respiratory: Reports cough with sputum, Reports dyspnea, Reports home oxygen, Denies cough Gastrointestinal: Denies abdominal pain, Denies diarrhea, Denies nausea, Denies vomiting Genitourinary: Denies dysuria, Denies hematuria Musculoskeletal: Denies myalgias Integumentary: Denies pruritus, Denies rash Neurological: Denies numbness, Denies weakness Psychiatric: Denies anxiety, Denies depression Endocrine: Denies fatigue, Denies weight change Past Medical History Past Medical History: COPD, CVA/TIA, GERD/Reflux, Hyperlipidemia, Hypertension, Musculoskeletal Disorder, Neurologic Disorder, Osteoarthritis (OA), Pneumonia, Pulmonary Embolus (PE) Additional Past Medical History / Comment(s): Multiple sclerosis, bilateral segmental pulmonary embolism currently on Xarelto, 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/leg and slow speech and slight difficulty swallowing, hypertension and chronic pain involving the lower extremities bilaterally, hypertension, hyperlipidemia, osteoarthritis, COPD, chronic lower extremity edema, moderate degree of pulmonary hypertension with a PA pressure of 47 and a preserved LV function History of Any Multi-Drug Resistant Organisms: None Reported Past Surgical History: Hysterectomy Additional Past Surgical History / Comment(s): Peg tube insertion (removed), bilateral cataract removal and twice on the left side, colonoscopy. Past Anesthesia/Blood Transfusion Reactions: No Reported Reaction Past Psychological History: No Psychological Hx Reported Additional Psychological History / Comment(s): Per PMH, pt has depression but pt has denied in past admission. Pt lives with her spouse of 57yrs typically but is currently living at [facility] for rehab. She ambulates without device. . Smoking Status: Former smoker Past Alcohol Use History: None Reported Additional Past Alcohol Use History / Comment(s): Pt started smoking in 1959. smoked 2 ppd quit on previous admission Past Drug Use History: None Reported - Past Family History Mother History Unknown: Yes Family Medical History: No Reported History, Renal Disease Additional Family Medical History / Comment(s): Mother was healthy and lived to be 88yrs old. Father History Unknown: Yes Family Medical History: Osteoarthritis (OA) Additional Family Medical History / Comment(s): Pt states her father at the age of 68yrs due to his debilitating arthritis. Medications and Allergies Home Medications Medication Instructions Recorded Confirmed Type Atorvastatin [Lipitor] 40 mg PO HS 12/04/16 01/26/18 History Aspirin 81 mg PO DAILY 08/30/17 01/26/18 History Budesonide/Formoterol Fumarate 2 puff INHALATION RT-BID 08/30/17 01/26/18 History [Symbicort 160-4.5 Mcg Inhaler] DULoxetine HCL [Cymbalta] 60 mg PO DAILY 08/30/17 01/26/18 History Morphine Sulfate/Naltrexone 1 cap PO DAILY PRN 08/30/17 01/26/18 History [Embeda ER 60-2.4 mg Capsule] Rivaroxaban [Xarelto] 20 mg PO HS 08/30/17 01/26/18 History risperiDONE [RisperDAL] 0.5 mg PO HS 08/30/17 01/26/18 History rOPINIRole HCL [Requip] 0.25 mg PO HS #30 tab 09/02/17 01/26/18 Rx Albuterol Inhaler [Ventolin Hfa 1 - 2 puff INHALATION RT-QID 01/19/18 01/26/18 History Inhaler] Gabapentin [Neurontin] 300 mg PO 5XD 01/19/18 01/26/18 History Cephalexin [Keflex] 500 mg PO BID #6 cap 01/25/18 01/26/18 Rx Ferrous Sulfate [Iron (65 MG 325 mg PO TID-W/MEALS tab 01/25/18 01/26/18 Rx Elemental)] Furosemide [Lasix] 20 mg PO DAILY #30 tab 01/25/18 01/26/18 Rx Ipratropium-Albuterol Nebulize 3 ml INHALATION RT-QID PRN 01/25/18 01/26/18 Rx [Duoneb 0.5 mg-3 mg/3 ml Soln] ampul.neb LORazepam [Ativan] 0.5 mg PO HS #3 tab 01/25/18 01/26/18 Rx Magnesium Oxide [Mag-Ox] 400 mg PO DAILY tab 01/25/18 01/26/18 Rx Nicotine 14Mg/24Hr Patch [Habitrol] 1 patch TRANSDERM DAILY patch 01/25/18 Rx Potassium Chloride ER [K-Dur 20] 20 meq PO DAILY tab.er.prt 01/25/18 01/26/18 Rx Verapamil Sr [Isoptin Sr] 120 mg PO DAILY tablet.er 01/25/18 01/26/18 Rx Lactose-Reduced Food [Ensure Plus] 1 can PO TID 01/26/18 01/26/18 History Allergies Allergy/AdvReac Type Severity Reaction Status Date / Time No Known Allergies Allergy Verified 01/26/18 23:01 Physical Exam Vitals: Vital Signs Temp Pulse Pulse Resp BP BP Pulse Ox 01/27/18 12:15 88 01/27/18 12:02 88 01/27/18 08:40 88 82 18 01/27/18 08:25 88 01/27/18 05:00 97.6 F 82 18 134/75 90 L 01/27/18 02:33 89 97/56 91 L 01/27/18 02:25 124 H 21 01/27/18 01:55 124 H 85/60 01/27/18 00:45 97.8 F 89 18 119/59 92 L 01/27/18 00:00 92 01/26/18 23:47 90 01/26/18 23:01 97.8 F 90 18 102/59 91 L Intake and Output 01/26/18 01/27/18 01/27/18 22:59 06:59 14:59 Intake Total 0 Output Total 100 Balance -100 Intake: Oral 0 Output: Emesis 100 Other: Voiding Method Toilet Toilet Bedside Commode Bedside Commode # Voids 3 Weight 70 kg 70 kg GENERAL EXAM: Alert, 77-year-old white female, comfortable in no apparent distress. Patient has mild slurring of speech at times HEAD: Normocephalic/atraumatic. EYES: Normal reaction of pupils, equal size. Conjunctiva pink, sclera white. NOSE: Clear with pink turbinates. THROAT: No erythema or exudates. Evidence of mild oral candidiasis and posterior oropharynx NECK: No masses, no JVD, no thyroid enlargement, no adenopathy. CHEST: No chest wall deformity. Symmetrical expansion. LUNGS: Equal air entry with no crackles, coarse scattered rhonchi, no wheezing CVS: Regular rate and rhythm, normal S1 and S2, no gallops, no murmurs, no rubs ABDOMEN: Soft, nontender. No hepatosplenomegaly, normal bowel sounds, no guarding or rigidity. EXTREMITIES: No clubbing, no cyanosis, 2+ pulses and upper and lower extremities. She has chronic venous stasis changes in bilateral lower extremities, and there is trace edema, overall improved compared previous admission MUSCULOSKELETAL: Muscle strength and tone normal. SPINE: No scoliosis or deformity SKIN: No rashes CENTRAL NERVOUS SYSTEM: Alert and oriented -3. No focal deficits, tone is normal in all 4 extremities. PSYCHIATRIC: Alert and oriented -3. Appropriate affect. Results - Laboratory Findings CBC and BMP: 01/26/18 23:14 01/26/18 23:14 PT/INR, D-dimer PT 11.9 sec (9.0-12.0) 01/26/18 23:14 INR 1.3 (<1.2) H 01/26/18 23:14 Abnormal lab findings: Abnormal Labs 01/26/18 01/26/18 01/26/18 23:14 23:14 23:14 WBC 11.5 H Hgb 8.5 L D Hct 29.5 L MCV 70.2 L MCH 20.2 L MCHC 28.8 L RDW 21.7 H Neutrophils # 8.6 H INR Sodium 133 L Chloride 96 L Carbon Dioxide 33 H BUN 26 H Calcium 7.7 L AST 12 L Total Creatine Kinase <20 L Total Protein 4.8 L Albumin 2.5 L 01/26/18 23:14 WBC Hgb Hct MCV MCH MCHC RDW Neutrophils # INR 1.3 H Sodium Chloride Carbon Dioxide BUN Calcium AST Total Creatine Kinase Total Protein Albumin - Diagnostic Findings Chest x-ray: report reviewed, image reviewed Additional studies: EKG reviewed Assessment and Plan Plan: Assessment: #1. Dyspnea, cough, phlegm production related to choking episode #2. History of CVA, with right sided weakness, and difficulty swallowing. Most recent MBS on 01/22/2018 showed transient penetration with thin liquids, low oral transit, but no aspiration. And patient was placed on a modified diet #3. History of multiple sclerosis #4. Chronic obstructive pulmonary disease #5. History of bilateral segmental pulmonary embolism, on chronic anticoagulation on Xarelto #6. Chronic CHF, with diastolic dysfunction #7. Hypertension, hyperlipidemia #8. Pulmonary hypertension, cor pulmonale #9. Chronic pain syndrome #10. History of nicotine dependence, currently in remission Plan: Speech therapy has been consulted, patient has a delayed swallow reflex, and there is a concern about barium aspiration, she will be reevaluated in the next 24 hours. For now keep patient nothing by mouth, patient has evidence of oral candidiasis, she will be started on IV Diflucan. Antibiotic coverage was initiated by the attending physician, in the form of Zosyn, continue neb blood bronchodilators, patient is not bronchospastic on today's exam, will add Symbicort. Chest x-ray was reviewed by Dr. Lopez, and shows small bilateral pleural effusions, left greater than the right, increased patient is asymptomatic, her oxygenation is stable on her baseline FiO2 of 2 L. Continue oral diuretics. I performed a history & physical examination of the patient and discussed their management with my nurse practitioner, Yesica Green. I reviewed the nurse practitioner's note and agree with the documented findings and plan of care. Lung sounds are positive for diffuse rhonchi, diminished breath sounds at the bases. The findings and the impression was discussed with the patient. I attest to the documentation by the nurse practitioner. Time with Patient: Greater than 30
[2018-01-27] MEDS: VERAPAMIL SR 120 MG TABLET.ER PO SCH (16:22)
[2018-01-27] MEDS: PIPERACILLIN-TAZOBACTAM 3.375 GM in DEXTROSE/WATER 1 50ML.BAG IVPB SCH (16:55)
[2018-01-27] MEDS ORDERED: methylPREDNISolone SOD SUCCI 125 MG/2 ML VIAL IV SCH (19:30)
[2018-01-27] MEDS: LORazepam 2 MG/ML INJ IV PRN (19:34)
[2018-01-27] MEDS: SYMBICORT 160-4.5 MCG INHALER INHALATION SCH (20:25)
[2018-01-27 20:27] LABS: Glucose,Whole Blood 173 mg/dL (75-99)
--- NOTE | 2018-01-27 20:51 | CONS ---
CONSULTATION DATE OF CONSULTATION: 01/27/2018. CHIEF COMPLAINT: Dysphagia and history of multiple sclerosis. HISTORY OF PRESENT ILLNESS: The patient is a 77-year-old female who is being evaluated by the neurology service per the request of Dr. Valera for the above-mentioned complaints. The patient has a long-standing history of multiple sclerosis and was treated on Betaseron for several years. A few years ago, her insurance plan switched and she has been unable to afford her medications. She has been off of disease-modifying therapy for several years. She was brought into [facility] Emergency Room with the main complaint of difficulty swallowing. She was also found to be hypoxic. She does have history of chronic obstructive pulmonary disease. She resides at [facility], where she was noticed to be frequently choking on both liquids and solid foods. In the emergency room, she was saturating 91% on 2 L nasal cannula. Her CBC showed leukocytosis at 11.5 and significant anemia with a hemoglobin of 8.5 and hematocrit of 29%. Her cardiac enzymes were negative. She was admitted for further workup and management, and Speech Therapy has been consulted. She is currently n.p.o. At the time of my evaluation she is lying in her bed and appears to be in no acute distress. She is currently being treated with Solu-Medrol 60 mg every 6 hours. She denies any lateralizing weakness or numbness. She usually ambulates using assisting devices. PAST MEDICAL HISTORY: 1. Multiple sclerosis. 2. Chronic obstructive pulmonary disease. 3. Transient ischemic attacks. 4. Gastroesophageal reflux disease. 5. Dyslipidemia. 6. Hypertension. 7. Arthritis. 8. History of pulmonary embolism. 9. History of ischemic stroke with residual dysarthria and right-sided weakness. 10.Pulmonary hypertension. 11.History of hysterectomy. 12.PEG tube placement and removal. 13.Cataract surgery. SOCIAL HISTORY: The patient is a former smoker. She denies any alcohol or drug use. FAMILY HISTORY: Positive for renal disease and arthritis. HOME MEDICATIONS: Reviewed in the chart. ALLERGIES: NO KNOWN DRUG ALLERGIES. REVIEW OF SYSTEMS: CONSTITUTIONAL: Positive for fatigue. EYES: Positive for chronic diminished vision. ENT: Positive for chronic diminished hearing. CARDIOVASCULAR: Negative. RESPIRATORY: As mentioned above. NEUROLOGICAL: As mentioned above. GASTROINTESTINAL: Positive for occasional heartburn. GENITOURINARY: Negative. PSYCHIATRIC: Negative. ENDOCRINE: Negative. DERMATOLOGICAL: Negative. PHYSICAL EXAMINATION: Vital signs show a temperature of 98.2, pulse 88, respiration 18, blood pressure 121/67, pulse ox 97% on 2 L nasal cannula. GENERAL APPEARANCE: The patient is a well-developed elderly female who appears to be in no acute distress. HEENT: Normocephalic, atraumatic. No facial asymmetry is seen. NECK: Supple with no masses felt. CARDIOVASCULAR: Regular rate and rhythm. ABDOMEN: Nontender, nondistended. Extremities showed edema with no clubbing seen. NEUROLOGICAL EXAM: The patient is awake and oriented x3. Speech is dysarthric. Language testing is normal. Generalized weakness is seen, but more significant on the right side. Sensory exam showed diminished light touch sensation in bilateral distal lower extremities. No facial asymmetry is seen. IMPRESSION: 1. Dysphagia. 2. Multiple sclerosis exacerbation. 3. Chronic obstructive pulmonary disease. 4. Anemia. 5. Leukocytosis. 6. Hypoxia, improved. RECOMMENDATION: The patient continues to have dysphagia and remains n.p.o. at this time. Speech Therapy has been consulted. I will order an MRI of the brain without contrast along with a barium swallow study. I will increase her IV Solu-Medrol to 250 mg every 8 hours. Continue Accu-Cheks and sliding scale insulin. Physical Therapy has been consulted. As for her history of ischemic stroke and pulmonary embolism, I do recommend continuing Xarelto at her home dose unless otherwise contraindicated, given her significant anemia. I do recommend further workup and management for her anemia. Continue neuro checks. I will continue to follow with you. Further recommendations to follow. Thank you for allowing me to participate in the care of your patient. If you have any questions, please feel free to contact me. JADEN / IJN: [id number] /
[2018-01-27] MEDS ORDERED: ATORVASTATIN 40 MG TAB PO SCH (21:00)
[2018-01-27] MEDS: methylPREDNISolone SOD SUCCI 250 MG in SODIUM CHLORIDE 0.9% 100 ML IVPB SCH (22:50)
[2018-01-28] MEDS: MORPHINE SULFATE 2 MG/ML SYRINGE IV PRN ×3 (00:05→12:24)
[2018-01-28] MEDS ORDERED: ASPIRIN 325 MG TAB PO SCH (00:23)
[2018-01-28] MEDS: PIPERACILLIN-TAZOBACTAM 3.375 GM in DEXTROSE/WATER 1 50ML.BAG IVPB SCH ×3 (01:06→16:46)
[2018-01-28 02:10] LABS: Hemoglobin A1C 5.4 % (4.0-6.0)
[2018-01-28] MEDS: methylPREDNISolone SOD SUCCI 250 MG in SODIUM CHLORIDE 0.9% 100 ML IVPB SCH ×3 (03:52→23:58)
[2018-01-28] MEDS: LORazepam 2 MG/ML INJ IV PRN ×2 (03:53→19:54)
[2018-01-28 05:38] LABS: Glucose,Whole Blood 95 mg/dL (75-99)
[2018-01-28 06:54] LABS: Glucose,Whole Blood 145 mg/dL (75-99)
[2018-01-28] MEDS: DEXTROSE 5%-0.45% NACL 1,000 ML IV SCH (07:33)
[2018-01-28] MEDS: INSULIN ASPART 100 UNIT/ML 1 ML 10 ML VIAL SQ SCH ×4 (07:38→23:59)
[2018-01-28] MEDS: SYMBICORT 160-4.5 MCG INHALER INHALATION SCH (08:17)
[2018-01-28] MEDS: IPRATROPIUM-ALBUTEROL 3 ML NEB INHALATION SCH ×4 (08:17→19:34)
[2018-01-28] MEDS: VERAPAMIL SR 120 MG TABLET.ER PO SCH (08:21)
--- NOTE | 2018-01-28 08:21 | P.PN ---
Subjective Progress Note Date: 01/28/18 Principal diagnosis: choking Patient is a 77-year-old female with long-standing history of COPD with chronic respiratory failure on 2 L of home oxygen around the clock, dyslipidemia, prior stroke with residual slow speech and right-sided weakness who was recently hospitalized here from [address] [place] [address] 7:30 for acute exacerbation of COPD and acute exacerbation of CHF. She really presented on 01/26 from [facility] after having a choking episode at dinner with coughing up green sputum. In the ER she underwent an extensive evaluation. Her initial vital signs were within normal limits and she was satting 91% on her typical 2 L nasal cannula. Initial laboratory analysis showed a slightly elevated white blood cell count of 11.5. Hemoglobin was stable at 8.5. Sodium level was at her baseline of the 133. There was concerns for shortness of breath and chest pain. She was given steroids, bronchodilators, and the nitro patch was placed. Arrangements were made for admission. Upon admission patient was seen by speech therapy noted absent swallow study and recommended the patient be strict nothing by mouth with the neurology evaluation and GI evaluation. The patient's shortness of breath was resolved, and she did not appear to have either CHF or COPD exacerbation that she was seen by both pulmonology and cardiology. Neurology was consulted and can certainly that this could be possible acute exacerbation of her MS. They started her on IV Solu-Medrol 250 mg. She was seen by GI and plan is for possible EGD. Patient seen and examined at bedside. She denies any chest pain, shortness of breath, nausea, diarrhea. She wants to go back from [facility] to get stronger and does not want to be here. She is willing to go through with testing see about her swallow. Objective - Vital Signs Vital signs: Vital Signs Temp 98.2 F 01/28/18 07:20 Pulse 102 H 01/28/18 07:20 Resp 15 01/28/18 07:20 BP 108/58 01/28/18 07:20 Pulse Ox 93 L 01/28/18 07:20 Intake & Output 01/27/18 01/28/18 01/28/18 18:59 06:59 18:59 Intake Total 0 Output Total 100 Balance -100 Weight 70 kg 73.5 kg Intake: Oral 0 Output: Emesis 100 Other: Voiding Method Toilet Toilet Bedside Commode Bedside Commode # Voids 1 3 - Exam General: non toxic, no distress, appears older than stated age Derm: warm, dry, multiple ecchymoses Head: atraumatic, normocephalic, symmetric Eyes: EOMI, no lid lag, anicteric sclera Mouth: no lip lesion, mucus membranes moist Cardiovascular: S1S2 reg, no murmur, positive posterior tibial pulse bilateral, Lungs: Decreased breath sounds bilateral bases without wheeze, no rhonchi, no rales , no accessory muscle use Abdominal: soft, nontender to palpation, no guarding, no appreciable organomegaly Ext: no gross muscle atrophy, no edema, no contractures Neuro: CN II-XI grossly intact, no focal neuro deficits Psych: Alert, oriented, appropriate affect - Labs CBC & Chem 7: 01/26/18 23:14 01/26/18 23:14 Labs: Abnormal Lab Results - Last 24 Hours (Table) 01/27/18 01/28/18 Range/Units 20:26 06:52 POC Glucose (mg/dL) 173 H 145 H (75-99) mg/dL Microbiology - Last 24 Hours (Table) 01/26/18 23:14 Blood Culture - Preliminary Blood No Growth after 24 hours Assessment and Plan Assessment: Dysphagia -Unable to swallow during swallow evaluation and concern for possible stroke versus primary esophageal etiology vs MS flair - MRI Brain to assess brainstem Had echo last admission, tele - Strict NPO - Consult GI to r/o esophageal pathology- likely EGD today - Neurology recs apprecaited on Solumedrol for possible MS exacerbation - Coughing and vomiting after swallow evaluation continue start abx incase of aspiration event Multiple sclerosis -Unknown baseline functional capacity. Not chronically on any medications. - Neurology recs appreciated, possible MS flair on steroids, sliding scale coverage COPD without acute exacerbation -Continue bronchodilators -Pulmonary recommendations appreciated Hypertension -Strict nothing by mouth -Follow blood pressures -IV antihypertensive agents if necessary History of pulmonary emboli -Xarelto currently on hold with nothing by mouth status -Heparin subcutaneous for DVT prophylaxis Compensated diastolic congestive heart failure, ejection fraction 55-60% -Lasix currently on hold -Not chronically on HERMILA inhibitor or beta efra with no indication to start one with preserved ejection fraction Dyslipidemia -Statin currently on hold DVT prophylaxis: Heparin Anticipated discharge date: 1-[address]: Return to [facility]
[2018-01-28] MEDS: PANTOPRAZOLE 40 MG/10 ML VIAL IV SCH (08:38)
[2018-01-28] MEDS ORDERED: FUROSEMIDE 20 MG TAB PO SCH (09:00)
[2018-01-28] MEDS ORDERED: ASPIRIN 81 MG PO SCH (09:00)
[2018-01-28] MEDS ORDERED: POTASSIUM CHLORIDE ER 20 MEQ TAB.ER PO SCH (09:00)
--- NOTE | 2018-01-28 11:25 | MR ---
EXAMINATION TYPE: MR brain wo con DATE OF EXAM: 01/28/2018 COMPARISON: NONE HISTORY: HTN, DONALDO, COPD, weakness, hx MS, R/O brain stem stroke T1-weighted sagittal, T2, FLAIR, and diffusion axial, and T2 coronal coronal views of the brain are s ubmitted. There is no evidence of acute ischemia. There is mild to moderate generalized degenerative change with diffuse and numerous focal areas of ab normal signal the white matter. There is a more confluent area of abnormal signal involving the left parietal lobe extending in the cortex suggestive of remote ischemia. No midline shift or mass effect. Areas of low signal within the basal ganglia bilaterally likely rela eli to basal ganglia calcifications. Area of abnormal signal involving the left occipital lobe suggestive of remote ischemia. There is no diagnostic evidence of acute ischemia within the brainstem. Craniocervical junction maint ained. Sella turcica has a normal appearance. No cerebellopontine angle mass. Changes of chronic sinusitis noted. IMPRESSION: 1. No acute intracranial process. 2. Degenerative and extensive remote ischemic change. 3. Nonspecific white matter changes.
[2018-01-28 12:00] LABS: Glucose,Whole Blood 151 mg/dL (75-99)
--- NOTE | 2018-01-28 12:02 | P.PN ---
Subjective Progress Note Date: 01/28/18 Patient is a 77-year-old female with long-standing history of COPD with chronic respiratory failure on 2 L of home oxygen around the clock, dyslipidemia, prior stroke with residual slow speech and right-sided weakness who was recently hospitalized here from [address] [place] [address] 7:30 for acute exacerbation of COPD and acute exacerbation of CHF. She really presented on 01/26 from [facility] after having a choking episode at dinner with coughing up green sputum. In the ER she underwent an extensive evaluation. Her initial vital signs were within normal limits and she was satting 91% on her typical 2 L nasal cannula. Initial laboratory analysis showed a slightly elevated white blood cell count of 11.5. Hemoglobin was stable at 8.5. Sodium level was at her baseline of the 133. There was concerns for shortness of breath and chest pain. She was given steroids, bronchodilators, and the nitro patch was placed. Arrangements were made for admission. Patient has already been seen by speech therapy who noted that she had an absent swallow and is not safe to take in anything orally at this point in time. Patient seen and examined at bedside. She is very angry and does not confirm medical history with me. All past medical history is obtained through a thorough record review including that of her recent hospitalization from 01/19 through 01/25. During that hospitalization her swallow had been evaluated and she was placed on a modified diet but her swallow was intact. She was treated for CHF and acute exacerbation of COPD. She was noted to be weak and was therefore transferred to [facility]. She states that she was at [facility] eating dinner and suddenly was unable to swallow. She then started coughing and coughed up green sputum. She states they took her here they're concerned she was having a heart attack from coughing so hard. She denies having difficulty swallowing today during her swallow evaluation. She has a chronic cough and states it is nonproductive. She denies any shortness of breath, lower extremity edema, nausea, vomiting, diarrhea, constipation, dysuria, or fevers. She states that she had difficulty swallowing after her stroke in 2014 and had a PEG tube placed. She states it's been approximately 2 years since her PEG tube was removed and she has been eating and drinking well up until this point. She is unable to tell me what she was eating at [facility]. She does not feel as though there is something caught in her throat at this point in time. She denies any unusual weakness in her extremities or one part of her body that is weaker than others. She denies any unusual numbness or tingling. She states that she was up and walking and not using a wheelchair at home. On 01/28/2018, seeing this patient in follow-up. The patient is essentially the same compared to yesterday. No signs of any significant respiratory distress. Swallow evaluation will be repeated today. The patient also will have a EGD by gastroenterology. Meanwhile, the patient was placed on Diflucan regarding her oropharyngeal candidiasis. Her COPD is being treated with a combination of bronchodilators and systemic steroids pages also on empiric antibiotic coverage with IV Zosyn. MRI of the brain as ordered by neurology showed no acute abnormalities other than some nonspecific white matter changes. The input from neurology was also appreciated. The patient has dysphagia and MRI of the brain came back negative. She also has history of MS. Objective - Vital Signs Vital signs: Vital Signs Temp 98.2 F 01/28/18 07:20 Pulse 102 H 01/28/18 09:31 Resp 15 01/28/18 09:31 BP 108/58 01/28/18 07:20 Pulse Ox 93 L 01/28/18 07:20 Intake & Output 01/27/18 01/28/18 01/28/18 18:59 06:59 18:59 Intake Total 0 Output Total 100 Balance -100 Weight 70 kg 73.5 kg Intake: Oral 0 Output: Emesis 100 Other: Voiding Method Toilet Toilet Toilet Bedside Commode Bedside Commode Bedside Commode # Voids 1 3 - Exam General: non toxic, no distress, appears at stated age, normal weight Derm: no unusual rashes/lesions no unusual ecchymoses, warm, dry Head: atraumatic, normocephalic, symmetric Eyes: EOMI, no lid lag, anicteric sclera, pupils equal round reactive to light ENT: Nose and ears atraumatic, + thrush, no pharyngeal erythema Neck: No thyromegaly, no cervical lymphadenopathy, trachea midline, supple Mouth: no lip lesion, mucus membranes moist Cardiovascular: S1-S2 irregular, no murmur, positive posterior tibial pulse bilateral, 1+ edema, capillary refill less than 2 seconds Lungs: CTA bilateral, no rhonchi, no rales , no accessory muscle use Abdominal: soft, nontender to palpation, no guarding, no appreciable organomegaly, normal bowel sounds Ext: no gross muscle atrophy, muscle strength 5 out of 5 in right upper and lower extremity. Muscle strength 4 out of 5 in left lower extremity and left upper extremity., no contractures, Neuro: CN II-XI grossly intact, light touch intact all 4 extremities, poor finger to nose, Psych: Alert, oriented, appropriate affect - Labs CBC & Chem 7: 01/26/18 23:14 01/26/18 23:14 Labs: Abnormal Lab Results - Last 24 Hours (Table) 01/27/18 01/28/18 Range/Units 20:26 06:52 POC Glucose (mg/dL) 173 H 145 H (75-99) mg/dL Microbiology - Last 24 Hours (Table) 01/26/18 23:14 Blood Culture - Preliminary Blood No Growth after 24 hours Assessment and Plan Plan: Assessment 1 dysphagia currently under investigation. MRI of the brain is negative. The patient has some oropharyngeal candidiasis which is being treated with Diflucan. Furthermore, an EGD will be done today. The patient did have a episodes of choking with questionable aspiration. She is currently stable 2 CVA with right-sided weakness and secondary dysphagia. The most recent modified barium swallow on 01/22/2018 showed transient penetration with thin liquids but no rosalind aspiration. The patient is currently nothing by mouth 3 COPD 4 MS 5 previous history of bilateral segmental pulmonary emboli currently on anticoagulation with Xarelto 6 chronic CHF/diastolic dysfunction 7 hypertension 8 chronic pain 9 history of smoking Plan Continue Diflucan. Continue Zosyn. Aspiration precautions. EGD today. Repeat swallow evaluation. We'll continue to follow.
[2018-01-28] MEDS: FLUCONAZOLE IN NACL,ISO-OSM 100 MG in SALINE 1 50ML.BAG IVPB SCH (12:07)
--- NOTE | 2018-01-28 12:42 | P.CONS ---
History of Present Illness - Reason for Consult Consult date: 01/28/18 Dysphagia Requesting physician: Jenn Acosta - History of Present Illness History obtained from medical records nursing staff patient is a poor historian. 77-year-old female long-standing history of COPD chronic respiratory failure O2 dependent 2 L, multiple sclerosis, bilateral PE maintained on Xarelto last 01/26/2018, iron deficiency anemia was advised outpatient EGD colonoscopy, previous CVA and right-sided weakness recently hospitalized for exacerbation of COPD. Admitted with changes in speech. MRI brain no acute intracranial process. Consult requested for dysphagia. According to the nursing staff she was having choking episodes with food and liquids point to the upper esophageal region with nonbloody emesis. She was also coughing up green sputum. She feels her bedside swallow exam. Evidence of oral candidiasis. No history of known esophageal strictures or peptic ulcer disease. No recent EGD. Hemoglobin 8.5. White count 11.5. MCV 70. Platelet 407. BUN 26. Creatinine 0.7. INR 1.3. Review of Systems Constitutional: Denies fever, chills, sweats, weight gain, or loss. HEENT: Negative for migraines, blurred vision or loss, earaches, drainage, tinnitus, oral mucosal lesions, dysphagia, or odynophagia. CARDIAC: Negative for chest pain, arrhythmias, or palpitation. RESPIRATORY: Chronic COPD productive cough with green sputum. History of pulmonary embolism. GI: See HPI for pertinent findings. : Negative for hematuria, urgency, frequency, polyuria, or dysuria. GYNc: Negative vaginal discharge. MUSCULOSKELETAL: Right-sided weakness secondary to history of CVA. Negative for muscle aches, swelling, arthritis, and arthralgias. NEUROLOGIC: History of CVA admitted with changes in speech. ENDOCRINE: Negative for thyroid problems. SKIN: Negative for rash or itching. PSYCHIATRIC: Negative history for depression and anxiety Past Medical History Past Medical History: COPD, CVA/TIA, GERD/Reflux, Hyperlipidemia, Hypertension, Musculoskeletal Disorder, Neurologic Disorder, Osteoarthritis (OA), Pneumonia, Pulmonary Embolus (PE) Additional Past Medical History / Comment(s): Multiple sclerosis, bilateral segmental pulmonary embolism currently on Xarelto, 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 and slow speech and slight difficulty swallowing, hypertension and chronic pain involving the lower extremities bilaterally, hypertension, hyperlipidemia, osteoarthritis, COPD, chronic lower extremity edema, moderate degree of pulmonary hypertension with a PA pressure of 47 and a preserved LV function History of Any Multi-Drug Resistant Organisms: None Reported Past Surgical History: Hysterectomy Additional Past Surgical History / Comment(s): Peg tube insertion (removed), bilateral cataract removal and twice on the left side, colonoscopy. Past Anesthesia/Blood Transfusion Reactions: No Reported Reaction Past Psychological History: No Psychological Hx Reported Additional Psychological History / Comment(s): Per PMH, pt has depression but pt has denied in past admission. Pt lives with her spouse of 57yrs typically but is currently living at [facility] for rehab. She ambulates without device. . Smoking Status: Former smoker Past Alcohol Use History: None Reported Additional Past Alcohol Use History / Comment(s): Pt started smoking in 1959. smoked 2 ppd quit on previous admission Past Drug Use History: None Reported - Past Family History Mother History Unknown: Yes Family Medical History: No Reported History, Renal Disease Additional Family Medical History / Comment(s): Mother was healthy and lived to be 88yrs old. Father History Unknown: Yes Family Medical History: Osteoarthritis (OA) Additional Family Medical History / Comment(s): Pt states her father at the age of 68yrs due to his debilitating arthritis. Medications and Allergies Home Medications Medication Instructions Recorded Confirmed Type Atorvastatin [Lipitor] 40 mg PO HS 12/04/16 01/26/18 History Aspirin 81 mg PO DAILY 08/30/17 01/26/18 History Budesonide/Formoterol Fumarate 2 puff INHALATION RT-BID 08/30/17 01/26/18 History [Symbicort 160-4.5 Mcg Inhaler] DULoxetine HCL [Cymbalta] 60 mg PO DAILY 08/30/17 01/26/18 History Morphine Sulfate/Naltrexone 1 cap PO DAILY PRN 08/30/17 01/26/18 History [Embeda ER 60-2.4 mg Capsule] Rivaroxaban [Xarelto] 20 mg PO HS 08/30/17 01/26/18 History risperiDONE [RisperDAL] 0.5 mg PO HS 08/30/17 01/26/18 History rOPINIRole HCL [Requip] 0.25 mg PO HS #30 tab 09/02/17 01/26/18 Rx Albuterol Inhaler [Ventolin Hfa 1 - 2 puff INHALATION RT-QID 01/19/18 01/26/18 History Inhaler] Gabapentin [Neurontin] 300 mg PO 5XD 01/19/18 01/26/18 History Cephalexin [Keflex] 500 mg PO BID #6 cap 01/25/18 01/26/18 Rx Ferrous Sulfate [Iron (65 MG 325 mg PO TID-W/MEALS tab 01/25/18 01/26/18 Rx Elemental)] Furosemide [Lasix] 20 mg PO DAILY #30 tab 01/25/18 01/26/18 Rx Ipratropium-Albuterol Nebulize 3 ml INHALATION RT-QID PRN 01/25/18 01/26/18 Rx [Duoneb 0.5 mg-3 mg/3 ml Soln] ampul.neb LORazepam [Ativan] 0.5 mg PO HS #3 tab 01/25/18 01/26/18 Rx Magnesium Oxide [Mag-Ox] 400 mg PO DAILY tab 01/25/18 01/26/18 Rx Nicotine 14Mg/24Hr Patch [Habitrol] 1 patch TRANSDERM DAILY patch 01/25/18 Rx Potassium Chloride ER [K-Dur 20] 20 meq PO DAILY tab.er.prt 01/25/18 01/26/18 Rx Verapamil Sr [Isoptin Sr] 120 mg PO DAILY tablet.er 01/25/18 01/26/18 Rx Lactose-Reduced Food [Ensure Plus] 1 can PO TID 01/26/18 01/26/18 History Allergies Allergy/AdvReac Type Severity Reaction Status Date / Time No Known Allergies Allergy Verified 01/26/18 23:01 Physical Exam Vitals: Vital Signs Temp Pulse Pulse Resp BP Pulse Ox 01/28/18 09:31 102 H 15 01/28/18 07:20 98.2 F 102 H 15 108/58 93 L 01/27/18 20:36 93 01/27/18 20:31 98.1 F 78 18 91/57 94 L 01/27/18 20:27 93 01/27/18 16:41 90 01/27/18 16:33 90 01/27/18 16:28 90 110/67 01/27/18 16:00 103 H 12 01/27/18 15:06 98.3 F 103 H 12 104/60 92 L Intake and Output 01/27/18 01/28/18 01/28/18 22:59 06:59 14:59 Other: Voiding Method Toilet Toilet Toilet Bedside Commode Bedside Commode Bedside Commode # Voids 1 3 Weight 73.5 kg General appearance: The patient is alert, oriented, in no acute distress. HET: Head is normocephalic and atraumatic. Pupils are equal and reactive. Oral candidiasis. Neck: Supple without lymphadenopathy. Trachea midline. Heart: S1 S2. Regular rate and rhythm. Lungs: Diminished in bases bilaterally. Abdomen: Soft, nontender, nondistended with bowel sounds. No peritoneal signs. No palpable organomegaly or masses. Extremities: Normal skin color and turgor. No cyanosis, rash, ulceration, clubbing, or edema. Radial and pedal pulses are 2/4 bilaterally. Neurological: No focal deficits. Strength and sensation are grossly intact. Results CBC & Chem 7: 01/26/18 23:14 01/26/18 23:14 Labs: Abnormal Lab Results - Last 24 Hours (Table) 01/27/18 01/28/18 01/28/18 Range/Units 20:26 06:52 11:53 POC Glucose (mg/dL) 173 H 145 H 151 H (75-99) mg/dL Microbiology - Last 24 Hours (Table) 01/26/18 23:14 Blood Culture - Preliminary Blood No Growth after 24 hours Assessment and Plan (1) Dysphagia Current Visit: Yes Status: Acute Code(s): R13.10 - DYSPHAGIA, UNSPECIFIED SNOMED Code(s): 18100616 (2) COPD (chronic obstructive pulmonary disease) Current Visit: Yes Status: Acute Code(s): J44.9 - CHRONIC OBSTRUCTIVE PULMONARY DISEASE, UNSPECIFIED SNOMED Code(s): 33355688 (3) History of pulmonary embolism Current Visit: Yes Status: Acute Code(s): Z86.711 - PERSONAL HISTORY OF PULMONARY EMBOLISM SNOMED Code(s): 174810911 (4) Oral candidiasis Current Visit: Yes Status: Acute Code(s): B37.0 - CANDIDAL STOMATITIS SNOMED Code(s): 43067756 (5) Multiple sclerosis Current Visit: Yes Status: Acute Code(s): G35 - MULTIPLE SCLEROSIS SNOMED Code(s): 45305131 Plan: 1. EGD in a.m 0700. Pulmonary clearance has been obtained by Dr. Lopez as patient is an increased risk secondary to her underlying O2 dependent COPD state. Continue with nothing by mouth status. 2. Protonix 40 iv daily. Diflucan. Anticoagulation on hold. The alcohol law enforcement agent has discussed the risks, benefits and alternative therapies for the above-mentioned procedure and for both sedation/analgesia as well as necessary blood product administration, if indicated, as they pertain to this patient. The patient has indicated understanding and acceptance of the risks and procedures discussed. Thank you for this kind referral and the opportunity to participate in the care of your patient. This consultation was discussed with Dr. Guerrero. The impression and plan of care have been directed as dictated.
--- NOTE | 2018-01-28 16:54 | P.PN ---
Subjective Progress Note Date: 01/28/18 Patient is a 77-year-old female who is being followed by the neurology service for dysphagia and history of multiple sclerosis. Patient has a long history of multiple sclerosis and has been on Betaseron in the past for several years. Her insurance plan switched and she was able to afford her medications so she stopped her disease modifying agent. Patient has history of COPD. Patient resides at [facility]. Patient was noted to have frequent choking on liquids and solid foods and also to be hypoxic. Patient was brought to [facility] for further evaluation. Patient underwent swallow testing today. She is scheduled to have an EGD done in the a.m. Patient was found to be anemic on admission. Patient also had leukocytosis on admission. At the time of my evaluation, patient's resting comfortably in bed and appears to be in no acute distress. Objective - Vital Signs Vital signs: Vital Signs Temp 98.2 F 01/28/18 07:20 Pulse 102 H 01/28/18 09:31 Resp 15 01/28/18 09:31 BP 108/58 01/28/18 07:20 Pulse Ox 93 L 01/28/18 07:20 Intake & Output 01/27/18 01/28/18 01/28/18 18:59 06:59 18:59 Intake Total 0 950 Output Total 100 Balance -100 950 Weight 70 kg 73.5 kg Intake: Intake, IV Titration 550 Amount Dextrose 5%-0.45% NaCl 1, 350 000 ml @ 50 mls/hr IV . Q20H [facility] Rx#:[id number] Fluconazole in NaCl,Iso- 50 Osm 100 mg In Saline 1 50ml.bag @ 50 mls/hr IVPB DAILY@1200 [facility] Rx#: [id number] Piperacillin-Tazobactam 3 50 .375 gm In Dextrose/Water 1 50ml.bag @ 12.5 mls/hr IVPB Q8HR [facility] Rx#: [id number] methylPREDNISolone SOD 100 SUCCI 250 mg In Sodium Chloride 0.9% 100 ml @ 100 mls/hr IVPB Q8H [facility] Rx#:[id number] Oral 0 400 Output: Emesis 100 Other: Voiding Method Toilet Toilet Toilet Bedside Commode Bedside Commode Bedside Commode # Voids 1 3 - Exam PHYSICAL EXAM: GENERAL APPEARANCE: Patient is a well-developed, female who appears to be in no acute distress. HEENT: Normocephalic, atraumatic, no facial asymmetry is seen. Neck is supple with no masses felt. CARDIOVASCULAR: Regular rate and rhythm. ABDOMEN: Nontender, nondistended. EXTREMITIES: Show no edema or clubbing. NEUROLOGICAL EXAM: Patient is awake, alert, and oriented 3. Speech is dysarthric. Language testing is normal. Mild generalized weakness is noted. Strength is 5-/5 in bilateral upper extremities and 4+/5 in bilateral lower extremities. Sensory exam shows diminished light touch sensation in right upper and lower extremity. No facial asymmetry seen on cranial nerve testing. No tremors or seizure-like activity noted. - Labs CBC & Chem 7: 01/26/18 23:14 01/26/18 23:14 Labs: Abnormal Lab Results - Last 24 Hours (Table) 01/27/18 01/28/18 01/28/18 Range/Units 20:26 06:52 11:53 POC Glucose (mg/dL) 173 H 145 H 151 H (75-99) mg/dL Microbiology - Last 24 Hours (Table) 01/26/18 23:14 Blood Culture - Preliminary Blood No Growth after 24 hours Assessment and Plan Plan: Impression: 1. Dysphagia 2. Multiple sclerosis exacerbation 3. COPD 4. Anemia 5. Leukocytosis 6. Hypoxemia, improved Recommendation: The patient reports dysphagia has greatly improved. Patient states she went for a swallow test and passed and will have food ordered this afternoon. The swallow report is not yet available to me. MRI of the brain showed no acute intracranial process. MRI of the brain also showed degenerative and extensive remote ischemic changes and nonspecific white matter changes. Continue IV Solu-Medrol 250 mg every 8 hours along with Accu-Cheks with sliding scale insulin. I recommend continuing Xarelto for history of stroke and pulmonary embolism. I recommend physical therapy and occupational therapy to evaluate and treat. Continue medical workup for anemia. As mentioned above, patient will have EGD done in the a.m. Continue neurological checks. I will continue to follow with you. Further recommendations to follow. I performed an examination of the patient and discussed the management with the DOCTOR OF NURSING PRACTICE. I have reviewed the DOCTOR OF NURSING PRACTICE notes and agree with the findings and plan of care.
[2018-01-28 17:30] LABS: Glucose,Whole Blood 169 mg/dL (75-99)
[2018-01-28] MEDS ORDERED: IPRATROPIUM-ALBUTEROL 3 ML NEB INHALATION PRN (18:08)
--- NOTE | 2018-01-28 18:08 | FL ---
MODIFIED SWALLOW / DEGLUTITION STUDY DATE OF EXAM: 01/28/2018 CLINICAL HISTORY: 77-year-old female dysphagia, absent swallow yesterday. TECHNIQUE: Deglutition study is performed utilizing thin liquid barium, barium thick applesauce, and barium coated cracker. Total fluoroscopy time: 1 minute 12 seconds. Total images: None. Real-time fluoroscopy support was provided to speech pathology. COMPARISON: None. FINDINGS: Swallow initiation was mildly delayed. Normal mastication is seen with solid modalities tested. Patiño sient penetration is noted with thin liquids. No other penetration or aspiration seen. No significant pharyngeal residue was appreciated. IMPRESSION: Mildly delayed swallow. Transient penetration with thin liquids. No aspiration. Please refer to speech therapist notes for further details if necessary.
[2018-01-28] MEDS ORDERED: DILTIAZEM 50 MG in SODIUM CHLORIDE 0.9% 40 ML IV SCH (18:55)
[2018-01-28] MEDS ORDERED: DILTIAZEM ORAL 30 MG TAB PO STA (18:55)
[2018-01-28] MEDS ORDERED: SYMBICORT 160-4.5 MCG INHALER INHALATION SCH (20:00)
[2018-01-28] MEDS ORDERED: ALBUTEROL INHALER 60 PUFF/8 GM INHALER INHALATION SCH (20:00)
[2018-01-28 20:52] LABS: Glucose,Whole Blood 130 mg/dL (75-99)
[2018-01-28] MEDS ORDERED: risperiDONE 0.5 MG TAB PO SCH (21:00)
[2018-01-28] MEDS ORDERED: LORazepam 0.5 MG TAB PO SCH (21:00)
[2018-01-28] MEDS ORDERED: NON-FORMULARY DRUG (Lactose-Reduced Food [Ensure Plus] 1 CAN) PO SCH (22:00)
[2018-01-28] MEDS: GABAPENTIN 300 MG CAP PO SCH (23:05)
[2018-01-29] MEDS: GABAPENTIN 300 MG CAP PO SCH ×3 (04:30→11:35)
[2018-01-29] MEDS: methylPREDNISolone SOD SUCCI 250 MG in SODIUM CHLORIDE 0.9% 100 ML IVPB SCH ×2 (04:51→12:58)
[2018-01-29 06:33] LABS: Glucose,Whole Blood 175 mg/dL (75-99)
[2018-01-29] MEDS: DEXTROSE 5%-0.45% NACL 1,000 ML IV SCH ×2 (06:51→07:08)
[2018-01-29] MEDS: FERROUS SULFATE 325 MG TAB PO SCH ×2 (06:51→12:58)
[2018-01-29] MEDS ORDERED: IV FLUID CONTINUATION 1,000 ML IV ONE (06:58)
[2018-01-29] MEDS ORDERED: PROPOFOL 10 MG/ML 20 ML VIAL IV ONE (07:10)
--- NOTE | 2018-01-29 07:23 | P.PCN ---
Date of Procedure: 01/29/18 Procedure(s) Performed: BRIEF HISTORY: Patient is a 77-year-old, pleasant, white female scheduled for an upper endoscopy as part of evaluation of dysphagia. She has prior history of CVA in the past. Recently was diagnosed with PE and has been on Xarelto which is on hold for the last 2 days. Because of the dysphagia she is scheduled for an upper endoscopy to evaluate further. PROCEDURE PERFORMED: Esophagogastroduodenoscopy. PREOPERATIVE DIAGNOSIS: Dysphagia to solids. IV sedation per anesthesia. PROCEDURE: After informed consent was obtained, the patient was brought into the endoscopy unit. IV sedation was administered by Anesthesia under continuous monitoring. Initially the Olympus GIF-140 video endoscope was inserted into the mouth. Esophagus intubated without any difficulty. The proximal cervical esophagus just distal to the upper esophageal sphincter there was a circumferential esophageal web identified with luminal narrowing. With gentle manipulation and pressure I was able to advance the scope distally. It was gradually advanced into the stomach and duodenum and carefully examined. The bulb and the second part of the duodenum appeared normal. The scope at this time was withdrawn to the stomach, adequately insufflated with air, and upon careful examination, mucosa of the antrum, body, cardia and the fundus appeared normal. The scope was then withdrawn into the esophagus. The GE junction was located at 39 cm from the incisors. There were no erosions or ulcerations seen. The proximal sigmoid. Esophagus was carefully examined and there was a small mucosal tear noted at the site of esophageal web with the passage of the scope and the patient tolerated the procedure well. IMPRESSION: 1. Proximal cervical circumferential esophageal s/p dilation with passage of the scope. 2. Small sliding Hiatal hernia. RECOMMENDATIONS: The findings of this examination were discussed with the patient. She'll be on clear liquid. Her diet for lunch and the regular diet for dinner. Xarelto can be resumed today.
[2018-01-29] MEDS: IPRATROPIUM-ALBUTEROL 3 ML NEB INHALATION SCH (07:52)
[2018-01-29 07:58] LABS: Anisocytosis Moderate; HCT 31.9 % (34.0-46.0); HGB 9.2 gm/dL (11.4-16.0); Hypochromasia Marked; MCH 21.4 pg (25.0-35.0); MCHC 28.8 g/dL (31.0-37.0); MCV 74.4 fL (80.0-100.0); Microcytosis Marked; Platelet Count 429 k/uL (150-450); Poikilocytosis Moderate; RBC 4.29 m/uL (3.80-5.40); RDW 22.4 % (11.5-15.5); WBC 10.5 k/uL (3.8-10.6)
[2018-01-29 08:17] LABS: Anion Gap 6 mmol/L; Blood Urea Nitrogen 18 mg/dL (7-17); Calcium 8.1 mg/dL (8.4-10.2); Carbon Dioxide 30 mmol/L (22-30); Chloride 101 mmol/L (98-107); Glucose 162 mg/dL (74-99); Magnesium 2.3 mg/dL (1.6-2.3); Sodium 137 mmol/L (137-145)
[2018-01-29] MEDS ORDERED: FUROSEMIDE 10 MG/ML 2 ML VIAL IV ONE (08:29)
[2018-01-29] MEDS ORDERED: POTASSIUM CHLORIDE 20 MEQ in WATER FOR INJECTION 1 100ML.BAG IVPB STA (08:44)
[2018-01-29] MEDS ORDERED: MAGNESIUM OXIDE 400 MG TAB PO SCH (09:00)
[2018-01-29] MEDS ORDERED: FUROSEMIDE 20 MG TAB PO SCH (09:00)
[2018-01-29] MEDS ORDERED: ASPIRIN 81 MG PO SCH (09:00)
[2018-01-29] MEDS ORDERED: POTASSIUM BICARBONATE/CIT AC 20 MEQ TABLET.EFF PO ONE (09:00)
[2018-01-29] MEDS ORDERED: DULoxetine HCL 60 MG CAPSULE.DR PO SCH (09:00)
[2018-01-29 09:06] VITALS: RESP 16
[2018-01-29] MEDS: INSULIN ASPART 100 UNIT/ML 1 ML 10 ML VIAL SQ SCH ×2 (09:16→12:53)
[2018-01-29] MEDS: VERAPAMIL SR 120 MG TABLET.ER PO SCH (09:25)
[2018-01-29] MEDS: PANTOPRAZOLE 40 MG/10 ML VIAL IV SCH (09:26)
[2018-01-29] MEDS: MORPHINE SULFATE 2 MG/ML SYRINGE IV PRN (09:42)
[2018-01-29] MEDS: PIPERACILLIN-TAZOBACTAM 3.375 GM in DEXTROSE/WATER 1 50ML.BAG IVPB SCH ×2 (11:31)
--- NOTE | 2018-01-29 11:46 | P.PN ---
Subjective Progress Note Date: 01/29/18 Principal diagnosis: Dysphagia Mrs. Cisse is a 77-year-old white female patient of Dr. Dozier, was brought to the emergency department per EMS from [facility] on 2017 at 2230 evaluation of increasing dyspnea, cough, phlegm production, brought on by a choking episode at mealtime. Patient denied any fever or chills , denied any increasing swelling in bilateral lower extremities. No chest pain. Patient was recently hospitalized from 01/19/2018-01/25/2018 for acute exacerbation of chronic obstructive pulmonary disease, with acute on chronic hypoxic respiratory failure, acute exacerbation of diastolic heart failure. Chest x-ray at that time showed cardiomegaly, and small left pleural effusion with trace right pleural effusion. She was diuresed, she was treated with systemic steroids, nebulized bronchodilators, antibiotics, she had improved, and was subsequently discharged to [facility]. 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 Patient had a modified barium swallow during previous admission on which showed transient penetration with thin liquids, but no aspiration , and slow oral transit. Chest x-ray was completed and showed pulmonary vascular congestion, and blunting of bilateral costophrenic angles consistent with bilateral pleural effusions, which appear to be slightly increased from previous exam. EKG showed sinus rhythm with PACs, nonspecific ST and T-wave abnormality. Patient is now nothing by mouth, she was seen by speech therapist in evaluation, who feels the patient is aspirating, and would not be even safe to proceed with modified barium swallow with concerns of barium aspiration. Lab work was reviewed and showed WBC of 11.5, hemoglobin of 8.5, INR 1.3, sodium is 133, chloride is 96, CO2 of 33, B1 is 26, creatinine of 0.72. Troponin was negative 1, and proBNP was within normal limits at 386. Patient is seen in evaluation on medical surgical floor, she is on 2 L per nasal cannula and her pulse ox is 97%, she denies any distress, she has a strong cough , is able to clear secretions, lung sounds are positive for coarse rhonchi throughout, which partially clear with coughing. No wheezing noted on today's exam. No fever, no chills, no chest pain. Patient has evidence of mild oral candidiasis, for which she will be started on IV fluconazole. Empiric antibiotic coverage has been started in the form of Zosyn. On 01/28/2018, seeing this patient in follow-up. The patient is essentially the same compared to yesterday. No signs of any significant respiratory distress. Swallow evaluation will be repeated today. The patient also will have a EGD by gastroenterology. Meanwhile, the patient was placed on Diflucan regarding her oropharyngeal candidiasis. Her COPD is being treated with a combination of bronchodilators and systemic steroids pages also on empiric antibiotic coverage with IV Zosyn. MRI of the brain as ordered by neurology showed no acute abnormalities other than some nonspecific white matter changes. The input from neurology was also appreciated. The patient has dysphagia and MRI of the brain came back negative. She also has history of MS. On 01/29/2018 patient seen in follow-up on selective care unit. Reportedly patient went into atrial fibrillation last night, and was transferred to selective care monitoring, however it was not confirmed, and patient is in sinus rhythm with frequent PACs. Patient underwent EGD yesterday on 01/28/2018 and there was some narrowing of the proximal cervical circumferential esophagitis, which was gently dilated with passage of the scope, and small dose sliding hiatal hernia was noted. Patient has been initiated on clear liquid diet which she is tolerating well. Lung sounds reveal scattered rhonchi, and patient has a strong cough and is able to clear secretions, she remains on 3 L per nasal cannula and her pulse ox is 95%, she is afebrile, vital signs are stable. His labs were noted, no leukocytosis, WBCs 10.5, hemoglobin is 9.2, potassium is 3.0, and this is being replaced. BUN is 18, creatinine 0.67. He is in no acute distress, and she is adamant about going back to [facility] today. MRI of the brain was completed, and showed no acute intracranial process, it showed degenerative an extensive remote ischemic changes, and nonspecific white matter changes. Patient was started on IV Solu-Medrol per neurology. MBS was completed, and showed mildly delayed swallow, transient penetration with thin liquids, no aspiration noted. Blood cultures are negative, and the patient remains on empiric antibiotics in the form of Zosyn. Objective - Vital Signs Vital signs: Vital Signs Temp 98.1 F 01/29/18 08:00 Pulse 72 01/29/18 08:00 Resp 16 01/29/18 08:00 BP 126/73 01/29/18 08:00 Pulse Ox 95 01/29/18 08:00 Intake & Output 01/28/18 01/29/18 01/29/18 18:59 06:59 18:59 Intake Total 950 150 Balance 950 150 Weight 73.5 kg 73.7 kg Intake: IV 150 Intake, IV Titration 550 Amount Dextrose 5%-0.45% NaCl 1, 350 000 ml @ 50 mls/hr IV . Q20H [facility] Rx#:[id number] Fluconazole in NaCl,Iso- 50 Osm 100 mg In Saline 1 50ml.bag @ 50 mls/hr IVPB DAILY@1200 [facility] Rx#: [id number] Piperacillin-Tazobactam 3 50 .375 gm In Dextrose/Water 1 50ml.bag @ 12.5 mls/hr IVPB Q8HR [facility] Rx#: [id number] methylPREDNISolone SOD 100 SUCCI 250 mg In Sodium Chloride 0.9% 100 ml @ 100 mls/hr IVPB Q8H [facility] Rx#:[id number] Oral 400 Other: Voiding Method Toilet Toilet Bedside Commode Bedside Commode # Voids 3 - Exam GENERAL EXAM: Alert, 77-year-old white female, comfortable in no apparent distress. Patient has mild slurring of speech at times HEAD: Normocephalic/atraumatic. EYES: Normal reaction of pupils, equal size. Conjunctiva pink, sclera white. NOSE: Clear with pink turbinates. THROAT: No erythema or exudates. Evidence of mild oral candidiasis and posterior oropharynx NECK: No masses, no JVD, no thyroid enlargement, no adenopathy. CHEST: No chest wall deformity. Symmetrical expansion. LUNGS: Equal air entry with no crackles, coarse scattered rhonchi, no wheezing CVS: Regular rate and rhythm, normal S1 and S2, no gallops, no murmurs, no rubs ABDOMEN: Soft, nontender. No hepatosplenomegaly, normal bowel sounds, no guarding or rigidity. EXTREMITIES: No clubbing, no cyanosis, 2+ pulses and upper and lower extremities. She has chronic venous stasis changes in bilateral lower extremities, and there is trace edema, overall improved compared previous admission MUSCULOSKELETAL: Muscle strength and tone normal. SPINE: No scoliosis or deformity SKIN: No rashes CENTRAL NERVOUS SYSTEM: Alert and oriented -3. No focal deficits, tone is normal in all 4 extremities. PSYCHIATRIC: Alert and oriented -3. Appropriate affect. - Labs CBC & Chem 7: 01/29/18 07:46 01/29/18 07:46 Labs: Abnormal Lab Results - Last 24 Hours (Table) 01/28/18 01/28/18 01/28/18 Range/Units 11:53 17:29 20:49 Hgb (11.4-16.0) gm/dL Hct (34.0-46.0) % MCV (80.0-100.0) fL MCH (25.0-35.0) pg MCHC (31.0-37.0) g/dL RDW (11.5-15.5) % Potassium (3.5-5.1) mmol/L BUN (7-17) mg/dL Glucose (74-99) mg/dL POC Glucose (mg/dL) 151 H 169 H 130 H (75-99) mg/dL Calcium (8.4-10.2) mg/dL 01/29/18 01/29/18 01/29/18 Range/Units 06:26 07:46 07:46 Hgb 9.2 L (11.4-16.0) gm/dL Hct 31.9 L (34.0-46.0) % MCV 74.4 L (80.0-100.0) fL MCH 21.4 L (25.0-35.0) pg MCHC 28.8 L (31.0-37.0) g/dL RDW 22.4 H (11.5-15.5) % Potassium 3.0 L* (3.5-5.1) mmol/L BUN 18 H (7-17) mg/dL Glucose 162 H (74-99) mg/dL POC Glucose (mg/dL) 175 H (75-99) mg/dL Calcium 8.1 L (8.4-10.2) mg/dL Microbiology - Last 24 Hours (Table) 01/26/18 23:14 Blood Culture - Preliminary Blood No Growth after 48 hours Assessment and Plan Plan: Assessment: #1. Dysphagia under investigation, MRI of the brain was negative, patient had some oropharyngeal candidiasis, being treated with Diflucan, EGD was completed, and showed some narrowing of the proximal cervical circumferential esophagus status post dilation with passage of the scope, and small sliding hiatal hernia. #2. History of CVA, with right sided weakness, and difficulty swallowing. Most recent MBS on 01/22/2018 showed transient penetration with thin liquids, low oral transit, but no aspiration. And patient was placed on a modified diet #3. Multiple sclerosis #4. Chronic obstructive pulmonary disease #5. History of bilateral segmental pulmonary embolism, on chronic anticoagulation on Xarelto #6. Chronic CHF, with diastolic dysfunction #7. Hypertension, hyperlipidemia #8. Pulmonary hypertension, cor pulmonale #9. Chronic pain syndrome #10. History of nicotine dependence, currently in remission Plan: Patient denies any dyspnea, MBS was repeated, and showed mildly delayed swallow , and transient penetration with thin liquids, no aspiration. EGD results were noted, the narrowing of the esophagus was dilated with passing of the scope. She is on clear liquid diet, tolerating well. She remains in sinus rhythm with frequent PACs. Her serum potassium is being replaced. She states she is feeling well, and would like to return to [facility] in today. From pulmonary standpoint patient is stable for discharge today. I performed a history & physical examination of the patient and discussed their management with my nurse practitioner, Yesica rGeen. I reviewed the nurse practitioner's note and agree with the documented findings and plan of care. Lung sounds are positive for diffuse rhonchi, diminished breath sounds at the bases. The findings and the impression was discussed with the patient. I attest to the documentation by the nurse practitioner. Time with Patient: Less than 30
[2018-01-29 11:53] LABS: Glucose,Whole Blood 180 mg/dL (75-99)
[2018-01-29] MEDS: FLUCONAZOLE IN NACL,ISO-OSM 100 MG in SALINE 1 50ML.BAG IVPB SCH (12:58)
--- NOTE | 2018-01-29 13:20 | P.DS ---
Providers Date of admission: 01/27/18 00:23 Expected date of discharge: 01/29/18 Attending physician: Jenn Acosta DO Consults: 01/27/18 00:21 Consult Physician Routine Consulting Provider: Wyatt Collazo Consult Reason/Comments: chf Do you want consulting provider notified?: Yes Consult Physician Routine Consulting Provider: Giovani Lopez Consult Reason/Comments: dyspnea Do you want consulting provider notified?: Yes 01/27/18 11:53 Consult Physician Routine Consulting Provider: Donal Hill Consult Reason/Comments: inability to swallow with hx of MS Do you want consulting provider notified?: Yes Primary care physician: Jakob Dozier Hospital Course: Discharge Diagnosis: Esophageal ring Dysphagia MS flair Multifocal atrial tachycardia. Hypokalemia Iron deficiency anemia- will need outpatient colonoscopy for further evaluation Multiple sclerosis COPD without acute exacerbation Hypertension History of pulmonary embolism Compensated diastolic congestive heart failure Dyslipidemia Chronic venous insufficiency Cognitive impairment Hospital Course: Patient is a 77-year-old female with long-standing history of COPD with chronic respiratory failure on 2 L of home oxygen around the clock, dyslipidemia, prior stroke with residual slow speech and right-sided weakness who was recently hospitalized here from 01/19 through 01/25 for acute exacerbation of COPD and acute exacerbation of CHF. She re-presented on 01/26 from [facility] after having a choking episode at dinner with coughing up green sputum. In the ER she underwent an extensive evaluation. Her initial vital signs were within normal limits and she was satting 91% on her typical 2 L nasal cannula. Initial laboratory analysis showed a slightly elevated white blood cell count of 11.5. Hemoglobin was stable at 8.5. Sodium level was at her baseline of the 133. There were concerns for shortness of breath and chest pain. She was given steroids, bronchodilators, and the nitro patch was placed. Arrangements were made for admission. Upon admission patient was seen by speech therapy noted absent swallow study and recommended the patient be strict nothing by mouth with the neurology evaluation and GI evaluation. The patient' s shortness of breath was resolved, and she did not appear to have either CHF or COPD exacerbations, she was seen by both pulmonology and cardiology. Neurology was consulted and this can certainly that this could be possible acute exacerbation of her MS. They started her on IV Solu-Medrol 250 mg. Her swallow function normalized by the next morning. On the night of 01/28 her HR increased and she was found to have MAT vs A fib. She converted back to normal sinus rhythm with PACs after i dose of oral cardizem. It was felt this occured due to her being off verapamil for 2 days. She was seen by GI and underwent EGD 01/29 which showed and esophageal right which was dilated. She was able to tolerate a diet and was subsequently determined stable for discharge. 1. Appears that her possible MS haydee was short duration and she will be discharged off steroids with complete resolution of her symptoms 2. Last admission she was found to have microcytic anemia and she will still need an outpatient colonoscopy to complete her work up 3. Her hypokalmeia was felt to be due to NPO status and this was replaced and K + was restarted 4. Went into tachycardia due to cardizem, with 1 dose of calcium channel efra her heart rate was controlled. Patient seen and examined at bedside. Denies any complaints. No chest pain from dilation, no shortness of breath, no unusual cough. Feeling well and wants to return to [facility]. Vital signs reviewed and stable. General: non toxic, no distress, appears at stated age Derm: warm, dry, chronic venous stasis changes Head: atraumatic, normocephalic, symmetric Eyes: EOMI, no lid lag, anicteric sclera Mouth: no lip lesion, mucus membranes moist Cardiovascular: S1-S2 irregular, no murmur, positive posterior tibial pulse bilateral, Lungs: Coarse breath sounds bilateral, no rhonchi, no rales , no accessory muscle use Abdominal: soft, nontender to palpation, no guarding, no appreciable organomegaly Ext: no gross muscle atrophy, 1+, no contractures Neuro: CN II-XI grossly intact, no focal neuro deficits Psych: Alert, oriented, appropriate affect A total of 25 minutes of time were spent preparing this complex discharge summary . Plan - Discharge Summary New Discharge Prescriptions: Continue Atorvastatin [Lipitor] 40 mg PO HS Budesonide/Formoterol Fumarate [Symbicort 160-4.5 Mcg Inhaler] 2 puff INHALATION RT-BID DULoxetine HCL [Cymbalta] 60 mg PO DAILY Aspirin 81 mg PO DAILY Rivaroxaban [Xarelto] 20 mg PO HS risperiDONE [RisperDAL] 0.5 mg PO HS rOPINIRole HCL [Requip] 0.25 mg PO HS #30 tab Albuterol Inhaler [Ventolin Hfa Inhaler] 1 - 2 puff INHALATION RT-QID Gabapentin [Neurontin] 300 mg PO 5XD Ferrous Sulfate [Iron (65 MG Elemental)] 325 mg PO TID-W/MEALS tab Furosemide [Lasix] 20 mg PO DAILY #30 tab Ipratropium-Albuterol Nebulize [Duoneb 0.5 mg-3 mg/3 ml Soln] 3 ml INHALATION RT-QID PRN ampul.neb PRN Reason: Wheezing Magnesium Oxide [Mag-Ox] 400 mg PO DAILY tab Nicotine 14Mg/24Hr Patch [Habitrol] 1 patch TRANSDERM DAILY patch Potassium Chloride ER [K-Dur 20] 20 meq PO DAILY tab.er.prt Verapamil Sr [Isoptin Sr] 120 mg PO DAILY tablet.er Lactose-Reduced Food [Ensure Plus] 1 can PO TID LORazepam [Ativan] 0.5 mg PO HS #7 tab Morphine Sulfate/Naltrexone [Embeda ER 60-2.4 mg Capsule] 1 cap PO DAILY PRN #7 cap.er.po PRN Reason: Pain Discontinued Cephalexin [Keflex] 500 mg PO BID #6 cap Discharge Medication List Atorvastatin [Lipitor] 40 mg PO HS 12/04/16 [History] Aspirin 81 mg PO DAILY 08/30/17 [History] Budesonide/Formoterol Fumarate [Symbicort 160-4.5 Mcg Inhaler] 2 puff INHALATION RT-BID 08/30/17 [History] DULoxetine HCL [Cymbalta] 60 mg PO DAILY 08/30/17 [History] Rivaroxaban [Xarelto] 20 mg PO HS 08/30/17 [History] risperiDONE [RisperDAL] 0.5 mg PO HS 08/30/17 [History] rOPINIRole HCL [Requip] 0.25 mg PO HS #30 tab 09/02/17 [Rx] Albuterol Inhaler [Ventolin Hfa Inhaler] 1 - 2 puff INHALATION RT-QID 01/19/18 [ History] Gabapentin [Neurontin] 300 mg PO 5XD 01/19/18 [History] Ferrous Sulfate [Iron (65 MG Elemental)] 325 mg PO TID-W/MEALS tab 01/25/18 [Rx ] Furosemide [Lasix] 20 mg PO DAILY #30 tab 01/25/18 [Rx] Ipratropium-Albuterol Nebulize [Duoneb 0.5 mg-3 mg/3 ml Soln] 3 ml INHALATION RT -QID PRN ampul.neb 01/25/18 [Rx] Magnesium Oxide [Mag-Ox] 400 mg PO DAILY tab 01/25/18 [Rx] Nicotine 14Mg/24Hr Patch [Habitrol] 1 patch TRANSDERM DAILY patch 01/25/18 [Rx] Potassium Chloride ER [K-Dur 20] 20 meq PO DAILY tab.er.prt 01/25/18 [Rx] Verapamil Sr [Isoptin Sr] 120 mg PO DAILY tablet.er 01/25/18 [Rx] Lactose-Reduced Food [Ensure Plus] 1 can PO TID 01/26/18 [History] LORazepam [Ativan] 0.5 mg PO HS #7 tab 01/29/18 [Rx] Morphine Sulfate/Naltrexone [Embeda ER 60-2.4 mg Capsule] 1 cap PO DAILY PRN #7 cap.er.po 01/29/18 [Rx] Follow up Appointment(s)/Referral(s): Jakob Dozier MD [Primary Care Provider] - 1-2 days Ashwini Guerrero MD [STAFF PHYSICIAN] - 6 Weeks Donal Hill MD [STAFF PHYSICIAN] - 4 Weeks Activity/Diet/Wound Care/Special Instructions: Heart healthy diet, activity as tolerated Physicanand occupational therapy, speech therapy evaluation BMP in 1week DX: hypokalemia Discharge Disposition: TRANSFER TO SNF/ECF
[2018-01-29 15:22] VITALS: BP 129/73; PULSE 115; TEMP 98.7
[2018-01-29] MEDS ORDERED: SYMBICORT 160-4.5 MCG INHALER INHALATION SCH (20:00)
== END 2018-01-29 15:30 | DRG 58 ==
LOC: EC 22:28 → 5MS5E 01-27 00:23 → 6SEL 01-28 18:32
PROVIDERS: ADMIT Internal Medicine; ATTEND Internal Medicine
PROC: 0DJ08ZZ Inspection of Upper Intestinal Tract, Via Natural or Artificial Opening Endoscopic (ICD-10-PCS; principal; 2018-01-29 07:00)
DX: G35 Multiple sclerosis (principal); Q39.4 Esophageal web; B37.0 Candidal stomatitis; I47.1 Supraventricular tachycardia; I50.32 Chronic diastolic (congestive) heart failure; I69.351 Hemiplegia and hemiparesis following cerebral infarction affecting right dominant side; J96.11 Chronic respiratory failure with hypoxia; D50.9 Iron deficiency anemia, unspecified; E78.5 Hyperlipidemia, unspecified; E87.6 Hypokalemia; F17.200 Nicotine dependence, unspecified, uncomplicated; G89.4 Chronic pain syndrome; I11.0 Hypertensive heart disease with heart failure; I27.29 Other secondary pulmonary hypertension; I35.8 Other nonrheumatic aortic valve disorders; I87.2 Venous insufficiency (chronic) (peripheral); J06.9 Acute upper respiratory infection, unspecified; J44.9 Chronic obstructive pulmonary disease, unspecified; K21.0 Gastro-esophageal reflux disease with esophagitis; K22.2 Esophageal obstruction; K44.9 Diaphragmatic hernia without obstruction or gangrene; R47.02 Dysphasia; Z79.01 Long term (current) use of anticoagulants; Z79.51 Long term (current) use of inhaled steroids; Z79.82 Long term (current) use of aspirin; Z79.899 Other long term (current) drug therapy; Z86.711 Personal history of pulmonary embolism; Z86.718 Personal history of other venous thrombosis and embolism; Z90.710 Acquired absence of both cervix and uterus; Z99.81 Dependence on supplemental oxygen; Z82.61 Family history of arthritis; R47.89 Other speech disturbances; Z98.42 Cataract extraction status, left eye; Z98.41 Cataract extraction status, right eye; I49.1 Atrial premature depolarization; Z87.01 Personal history of pneumonia (recurrent)
CPT/HCPCS: 36415; 43235; 70551; 71046; 74230; 80048; 80053; 82550; 82553; 83036; 83735; 83880; 84484; 85025; 85027; 85610; 85730; 87040; 93005; 94640; 96374; 99285

== ENCOUNTER 2018-02-09 15:30 | Emergency (ER) | payer MEDICARE ==
[2018-02-09] MEDS ORDERED: SODIUM CHLORIDE 0.9% 1,000 ML IV STA (15:45)
[2018-02-09] MEDS ORDERED: PANTOPRAZOLE 40 MG/10 ML VIAL IVP STA (15:45)
--- NOTE | 2018-02-09 16:05 | ED ---
General Adult HPI - General Chief complaint: Recheck/Abnormal Lab/Rx Stated complaint: abnormal labs Time Seen by Provider: 02/09/18 15:41 Source: patient, EMS, RN notes reviewed, old records reviewed Mode of arrival: EMS Limitations: no limitations - History of Present Illness Initial comments: This is a 77-year-old female the ER today for evaluation. Patient herself has no complaints with who sent ER for evaluation of anemia. Patient has no pain no chest pain or shortness of breath. He denies nausea vomiting denies diarrhea denies blood in her stool. Patient states that she does not have any shortness of breath or chest pain - Related Data Home Medications Medication Instructions Recorded Confirmed Atorvastatin [Lipitor] 40 mg PO HS 12/04/16 02/09/18 Aspirin 81 mg PO DAILY@1700 08/30/17 02/09/18 Budesonide/Formoterol Fumarate 2 puff INHALATION RT-BID@,08/30/17 02/09/18 [Symbicort 160-4.5 Mcg Inhaler] DULoxetine HCL [Cymbalta] 60 mg PO DAILY 08/30/17 02/09/18 Rivaroxaban [Xarelto] 20 mg PO HS 08/30/17 02/09/18 risperiDONE [RisperDAL] 0.5 mg PO HS 08/30/17 02/09/18 Albuterol Inhaler [Ventolin Hfa 2 puff INHALATION 01/19/18 02/09/18 Inhaler] RT-QID@,,, Gabapentin [Neurontin] 300 mg PO 5XD@,,,,01/19/18 02/09/18 Bisacodyl [Dulcolax] 10 mg RECTAL DAILY PRN 02/09/18 02/09/18 Ensure Clear 240 ml PO TID@,,02/09/18 02/09/18 Ferrous Sulfate [Iron (65 MG 325 mg PO TID@,,02/09/18 02/09/18 Elemental)] Furosemide [Lasix] 40 mg PO DAILY 02/09/18 02/09/18 Magnesium Hydroxide [Milk of 7,200 mg PO ONCE PRN 02/09/18 02/09/18 Magnesia Concentrate] Magnesium Oxide [Mag-Ox] 400 mg PO DAILY@1700 02/09/18 02/09/18 Na Phos,M-B/Na Phos,Di-Ba [Fleet 133 ml RECTAL ONCE PRN 02/09/18 02/09/18 Adult] Potassium Chloride ER [K-Dur 20] 20 meq PO DAILY@1700 02/09/18 02/09/18 Previous Rx's Medication Instructions Recorded rOPINIRole HCL [Requip] 0.25 mg PO HS #30 tab 09/02/17 Ipratropium-Albuterol Nebulize 3 ml INHALATION RT-QID PRN 01/25/18 [Duoneb 0.5 mg-3 mg/3 ml Soln] ampul.neb Nicotine 14Mg/24Hr Patch [Habitrol] 1 patch TRANSDERM DAILY patch 01/25/18 Verapamil Sr [Isoptin Sr] 120 mg PO DAILY tablet.er 01/25/18 LORazepam [Ativan] 0.5 mg PO HS #7 tab 01/29/18 Morphine Sulfate/Naltrexone 1 cap PO DAILY PRN #7 cap.er.po 01/29/18 [Embeda ER 60-2.4 mg Capsule] Allergies Allergy/AdvReac Type Severity Reaction Status Date / Time No Known Allergies Allergy Verified 02/09/18 16:39 Review of Systems ROS Statement: Those systems with pertinent positive or pertinent negative responses have been documented in the HPI. ROS Other: All systems not noted in ROS Statement are negative. 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 Past Anesthesia/Blood Transfusion Reactions: No Reported Reaction Past Psychological History: No Psychological Hx Reported Smoking Status: Former smoker Past Alcohol Use History: None Reported Past Drug Use History: None Reported - Past Family History Mother History Unknown: Yes Family Medical History: No Reported History, Renal Disease Additional Family Medical History / Comment(s): Mother was healthy and lived to be 88yrs old. Father History Unknown: Yes Family Medical History: Osteoarthritis (OA) Additional Family Medical History / Comment(s): Pt states her father at the age of 68yrs due to his debilitating arthritis. General Exam Limitations: no limitations General appearance: alert, in no apparent distress Head exam: Present: atraumatic, normocephalic, normal inspection Eye exam: Present: normal appearance, PERRL, EOMI. Absent: scleral icterus, conjunctival injection, periorbital swelling ENT exam: Present: normal exam, mucous membranes moist Neck exam: Present: normal inspection. Absent: tenderness, meningismus, lymphadenopathy Respiratory exam: Present: normal lung sounds bilaterally. Absent: respiratory distress, wheezes, rales, rhonchi, stridor Cardiovascular Exam: Present: regular rate, normal rhythm, normal heart sounds. Absent: systolic murmur, diastolic murmur, rubs, gallop, clicks GI/Abdominal exam: Present: soft, normal bowel sounds. Absent: distended, tenderness, guarding, rebound, rigid Extremities exam: Present: normal inspection, full ROM, normal capillary refill. Absent: tenderness, pedal edema, joint swelling, calf tenderness Back exam: Present: normal inspection Neurological exam: Present: alert, oriented X3, CN II-XII intact Psychiatric exam: Present: normal affect, normal mood Skin exam: Present: warm, dry, intact, normal color. Absent: rash Course Vital Signs 02/09/18 02/09/18 02/09/18 15:32 16:31 18:50 Temperature 99.0 F 98.6 F Pulse Rate 93 85 81 Respiratory 20 18 18 Rate Blood Pressure 138/108 99/56 112/59 O2 Sat by Pulse 94 L 95 96 Oximetry - Reevaluation(s) Reevaluation #1: A she does make her own medical decisions, we did speak with Jeanmarie who is aware of patient's wishes EKG Findings - EKG Comments: EKG Findings:: EKG shows sinus rhythm rate of 92, [place] 140, QRS 80, QTC 432 Medical Decision Making - Medical Decision Making 77 female the ER for evaluation. Patient presents from [place], patient's very argumentative angry throughout ER stay. Refusing any treatment or admission, - Lab Data Result diagrams: 02/09/18 16:00 02/09/18 16:00 Lab Results 02/09/18 02/09/18 02/09/18 Range/Units 16:00 16:00 16:00 WBC 8.8 (3.8-10.6) k/uL RBC 3.25 L (3.80-5.40) m/uL Hgb 7.7 L (11.4-16.0) gm/dL Hct 25.3 L (34.0-46.0) % MCV 77.8 L (80.0-100.0) fL MCH 23.6 L (25.0-35.0) pg MCHC 30.3 L (31.0-37.0) g/dL RDW 29.0 H (11.5-15.5) % Plt Count 171 (150-450) k/uL Neutrophils % 80 % Lymphocytes % 11 % Monocytes % 6 % Eosinophils % 1 % Basophils % 0 % Neutrophils # 7.0 (1.3-7.7) k/uL Lymphocytes # 1.0 (1.0-4.8) k/uL Monocytes # 0.5 (0-1.0) k/uL Eosinophils # 0.1 (0-0.7) k/uL Basophils # 0.0 (0-0.2) k/uL Hypochromasia Marked Poikilocytosis Slight Anisocytosis Marked Microcytosis Marked PT (9.0-12.0) sec INR (<1.2) APTT (22.0-30.0) sec Sodium 133 L (137-145) mmol/L Potassium 4.0 (3.5-5.1) mmol/L Chloride 97 L (98-107) mmol/L Carbon Dioxide 30 (22-30) mmol/L Anion Gap 6 mmol/L BUN 18 H (7-17) mg/dL Creatinine 0.73 (0.52-1.04) mg/dL Est GFR (CKD-EPI)AfAm >90 (>60 ml/min/1.73 sqM) Est GFR (CKD-EPI)NonAf 81 (>60 ml/min/1.73 sqM) Glucose 95 (74-99) mg/dL Calcium 7.8 L (8.4-10.2) mg/dL Magnesium 1.9 (1.6-2.3) mg/dL Total Bilirubin 0.4 (0.2-1.3) mg/dL AST 18 (14-36) U/L ALT 29 (9-52) U/L Alkaline Phosphatase 79 (38-126) U/L Total Creatine Kinase <20 L (30-135) U/L CK-MB (CK-2) 0.6 (0.0-2.4) ng/mL CK-MB (CK-2) Rel Index Troponin I <0.012 (0.000-0.034) ng/mL Total Protein 4.6 L (6.3-8.2) g/dL Albumin 2.4 L (3.5-5.0) g/dL Lipase 21 L (23-300) U/L Blood Type Blood Type Recheck Antibody Screen Spec Expiration Date 02/09/18 02/09/18 Range/Units 16:00 16:00 WBC (3.8-10.6) k/uL RBC (3.80-5.40) m/uL Hgb (11.4-16.0) gm/dL Hct (34.0-46.0) % MCV (80.0-100.0) fL MCH (25.0-35.0) pg MCHC (31.0-37.0) g/dL RDW (11.5-15.5) % Plt Count (150-450) k/uL Neutrophils % % Lymphocytes % % Monocytes % % Eosinophils % % Basophils % % Neutrophils # (1.3-7.7) k/uL Lymphocytes # (1.0-4.8) k/uL Monocytes # (0-1.0) k/uL Eosinophils # (0-0.7) k/uL Basophils # (0-0.2) k/uL Hypochromasia Poikilocytosis Anisocytosis Microcytosis PT 12.5 H (9.0-12.0) sec INR 1.3 H (<1.2) APTT 26.4 (22.0-30.0) sec Sodium (137-145) mmol/L Potassium (3.5-5.1) mmol/L Chloride (98-107) mmol/L Carbon Dioxide (22-30) mmol/L Anion Gap mmol/L BUN (7-17) mg/dL Creatinine (0.52-1.04) mg/dL Est GFR (CKD-EPI)AfAm (>60 ml/min/1.73 sqM) Est GFR (CKD-EPI)NonAf (>60 ml/min/1.73 sqM) Glucose (74-99) mg/dL Calcium (8.4-10.2) mg/dL Magnesium (1.6-2.3) mg/dL Total Bilirubin (0.2-1.3) mg/dL AST (14-36) U/L ALT (9-52) U/L Alkaline Phosphatase (38-126) U/L Total Creatine Kinase (30-135) U/L CK-MB (CK-2) (0.0-2.4) ng/mL CK-MB (CK-2) Rel Index Troponin I (0.000-0.034) ng/mL Total Protein (6.3-8.2) g/dL Albumin (3.5-5.0) g/dL Lipase (23-300) U/L Blood Type O Positive Blood Type Recheck No Antibody Screen NEGATIVE Spec Expiration Date 02/12/2018 - 230 Disposition Clinical Impression: Anemia Disposition: Left Against Medical Advice Condition: Undetermined Is patient prescribed a controlled substance at d/c from ED?: No Referrals: Jakob Dozier MD [Primary Care Provider] - 1-2 days
[2018-02-09 16:35] VITALS: RESP 18
[2018-02-09 16:36] LABS: Anisocytosis Marked; Basophils % (A) 0 %; Eosinophils # (A) 0.1 k/uL (0-0.7); Eosinophils % (A) 1 %; HCT 25.3 % (34.0-46.0); HGB 7.7 gm/dL (11.4-16.0); Hypochromasia Marked; Lymphocytes % (A) 11 %; MCH 23.6 pg (25.0-35.0); MCHC 30.3 g/dL (31.0-37.0); MCV 77.8 fL (80.0-100.0); Mean Platelet Volume 6.7; Microcytosis Marked; Monocytes # (A) 0.5 k/uL (0-1.0); Monocytes % (A) 6 %; Neutrophils % (A) 80 %; Platelet Count 171 k/uL (150-450); Poikilocytosis Slight; RBC 3.25 m/uL (3.80-5.40); WBC 8.8 k/uL (3.8-10.6)
[2018-02-09] MEDS ORDERED: IPRATROPIUM-ALBUTEROL 3 ML NEB INHALATION STA (16:41)
[2018-02-09] MEDS ORDERED: cefTRIAXone 2,000 MG in SODIUM CHLORIDE 0.9% 100 ML IVPB STA (16:41)
[2018-02-09] MEDS ORDERED: FUROSEMIDE 10 MG/ML 4 ML VIAL IV STA (16:41)
[2018-02-09 16:44] LABS: ALT 29 U/L (9-52); AST 18 U/L (14-36); Albumin 2.4 g/dL (3.5-5.0); Alkaline Phosphatase 79 U/L (38-126); Anion Gap 6 mmol/L; Blood Urea Nitrogen 18 mg/dL (7-17); Calcium 7.8 mg/dL (8.4-10.2); Carbon Dioxide 30 mmol/L (22-30); Chloride 97 mmol/L (98-107); Glucose 95 mg/dL (74-99); Lipase 21 U/L (23-300); Magnesium 1.9 mg/dL (1.6-2.3); Sodium 133 mmol/L (137-145); Total Bilirubin 0.4 mg/dL (0.2-1.3); Total Protein 4.6 g/dL (6.3-8.2)
[2018-02-09 16:45] LABS: INR 1.3 (<1.2); Partial Thromboplastin Time 26.4 sec (22.0-30.0); Prothrombin Time 12.5 sec (9.0-12.0)
[2018-02-09 16:46] LABS: Creatine Kinase <20 U/L (30-135)
[2018-02-09] MEDS ORDERED: cefTRIAXone IN SWFI 2,000 MG/20 ML SYRINGE IVP STA (16:47)
[2018-02-09 16:59] LABS: Creatine Kinase MB 0.6 ng/mL (0.0-2.4); Troponin I <0.012 ng/mL (0.000-0.034)
[2018-02-09 18:54] VITALS: BP 112/59; PULSE 81; TEMP 98.6
== END 2018-02-09 18:50 | disposition left against medical advice (07) ==
LOC: EC 15:30
DX: D64.9 Anemia, unspecified (principal); E78.5 Hyperlipidemia, unspecified; I10 Essential (primary) hypertension; M19.90 Unspecified osteoarthritis, unspecified site; J44.9 Chronic obstructive pulmonary disease, unspecified; G35 Multiple sclerosis; K21.9 Gastro-esophageal reflux disease without esophagitis; Z79.82 Long term (current) use of aspirin; Z79.01 Long term (current) use of anticoagulants; Z79.899 Other long term (current) drug therapy; Z86.711 Personal history of pulmonary embolism; Z86.73 Personal history of transient ischemic attack (TIA), and cerebral infarction without residual deficits; Z87.891 Personal history of nicotine dependence
CPT/HCPCS: 36415; 80053; 82550; 82553; 83690; 83735; 84484; 85025; 85610; 85730; 86850; 86900; 86901; 93005; 99284

== ENCOUNTER 2018-06-27 21:11 | Inpatient (IN) | payer MEDICARE ==
[2018-06-27] MEDS ORDERED: FUROSEMIDE 10 MG/ML 4 ML VIAL IV STA (21:17)
--- NOTE | 2018-06-27 21:42 | ED ---
General Adult HPI - General Stated complaint: Difficulty Breathing Time Seen by Provider: 06/27/18 21:15 Source: patient Mode of arrival: EMS Limitations: physical limitation - History of Present Illness Initial comments: Maida is a 77-year-old female with history of CHF and COPD who presents the ED today via EMS for evaluation of respiratory distress. Patient called 911 for progressively worsening difficulty breathing. Upon EMS arrival they report that she isn't tripoding position with audible rails. Decision was made to immediately place the patient on CPAP. Patient's oxygenation on CPAP was in the low 90s, she was tachypneic with increased work of breathing. An out-of- hospital she was given 2 DuoNeb's and 125 of Solu-Medrol. On arrival patient has one-word dyspnea history is limited due to the patient's respiratory distress but she is able to nod yes or no. She denies fevers and chest pain. - Related Data Home Medications Medication Instructions Recorded Confirmed Budesonide/Formoterol Fumarate 2 puff INHALATION RT-BID@08/30/17 02/09/18 [Symbicort 160-4.5 Mcg Inhaler] DULoxetine HCL [Cymbalta] 60 mg PO DAILY 08/30/17 02/09/18 risperiDONE [RisperDAL] 0.5 mg PO HS 08/30/17 02/09/18 Albuterol Inhaler [Ventolin Hfa 2 puff INHALATION 01/19/18 02/09/18 Inhaler] RT-QID@,,, Diltiazem Cd [Cardizem CD] 180 mg PO DAILY 06/27/18 06/27/18 Furosemide [Lasix] 40 mg PO BID 06/27/18 06/27/18 Melatonin 5 mg PO HS 06/27/18 06/27/18 Potassium Chloride ER [K-Dur 20] 20 meq PO BID 06/27/18 06/27/18 Spironolactone [Aldactone] 25 mg PO DAILY 06/27/18 06/27/18 Previous Rx's Medication Instructions Recorded Ipratropium-Albuterol Nebulize 3 ml INHALATION RT-QID PRN 01/25/18 [Duoneb 0.5 mg-3 mg/3 ml Soln] ampul.neb LORazepam [Ativan] 0.5 mg PO HS #7 tab 01/29/18 Morphine Sulfate/Naltrexone 1 cap PO DAILY PRN #7 cap.er.po 01/29/18 [Embeda ER 60-2.4 mg Capsule] Allergies Allergy/AdvReac Type Severity Reaction Status Date / Time No Known Allergies Allergy Verified 06/27/18 22:39 Review of Systems ROS Statement: Those systems with pertinent positive or pertinent negative responses have been documented in the HPI. ROS Other: All systems not noted in ROS Statement are negative. 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 Past Anesthesia/Blood Transfusion Reactions: No Reported Reaction Past Psychological History: No Psychological Hx Reported Smoking Status: Former smoker Past Alcohol Use History: None Reported Past Drug Use History: None Reported - Past Family History Mother History Unknown: Yes Family Medical History: No Reported History, Renal Disease Additional Family Medical History / Comment(s): Mother was healthy and lived to be 88yrs old. Father History Unknown: Yes Family Medical History: Osteoarthritis (OA) Additional Family Medical History / Comment(s): Pt states her father at the age of 68yrs due to his debilitating arthritis. General Exam - General Exam Comments Initial Comments: Physical Exam GENERAL: Chronically ill-appearing and in moderate respiratory distress HENT: Normocephalic, Atraumatic. EYES: PERRL, EOMI PULMONARY: Tachypnea, tachycardia, wheezing in all lung [place], CARDIOVASCULAR: There is a regular rate and rhythm without any murmurs gallops or rubs. ABDOMEN: Soft and nontender with normal bowel sounds. SKIN: Pale, skin changes of bilateral lower extremities consistent with chronic venous stasis : Deferred NEUROLOGIC: Awake and alert MUSCULOSKELETAL: 3+ pitting edema of lower extremity PSYCHIATRIC: Normal psychiatric evaluation. Limitations: no limitations Limitations: physical limitation Course Vital Signs 06/27/18 06/27/18 06/27/18 21:20 21:23 21:42 Pulse Rate 78 Pulse Rate [ 80 Traffic Rate Computer ] Respiratory 28 H 26 H Rate Blood Pressure 98/68 O2 Sat by Pulse 97 Oximetry 06/27/18 06/27/18 06/27/18 21:44 21:55 22:09 Pulse Rate 79 78 79 Pulse Rate [ Traffic Rate Computer ] Respiratory 15 Rate Blood Pressure 123/99 O2 Sat by Pulse 96 Oximetry 06/27/18 06/27/18 22:19 22:45 Pulse Rate 79 80 Pulse Rate [ Traffic Rate Computer ] Respiratory 18 Rate Blood Pressure 100/74 O2 Sat by Pulse 96 Oximetry EKG Findings - EKG Comments: EKG Findings:: EKG obtained at 2123, rate is 80 rhythm is sinus, there is normal axis, normal intervals, no acute ST elevations or depressions no evidence of acute ischemia or infarction. Medical Decision Making - Medical Decision Making The patient was seen and evaluated history was obtained from the patient and EMS Patient in moderate respiratory distress with decreased breath sounds at the bases, obvious rails, expiratory wheezing Repeat troponin DuoNeb, BiPAP ordered Lasix ordered Chest x-ray suggestive of right lower lobe infiltrate, pulmonary vascular congestion consistent with CHF Labs with mild leukocytosis as well as acute kidney injury Rocephin and azithromycin ordered for community-acquired pneumonia as the patient has not had an inpatient stay in the past 3 months. In addition Lasix was held due to acute kidney injury and mild hypotension with a systolic only 100. Patient's respiratory effort is improving on BiPAP, oxygen saturation in the high 90s. Patient very anxious and agitated, states that she tends to pull at her lines and become confused. Ativan ordered. Patient care was discussed with the admitting physician Dr. Vargas of [facility] who is covering for Dr. Valera who the patient's primary care physician Dr. Nunez admits to. Dr. Vargas accepts the admission for CHF, COPD , right lower lobe pneumonia and acute kidney injury. - Lab Data Result diagrams: 06/27/18 21:35 12/30/18 21:35 Lab Results 06/27/18 06/27/18 06/27/18 Range/Units 21:35 21:35 21:35 WBC 13.1 H (3.8-10.6) k/uL RBC 4.52 (3.80-5.40) m/uL Hgb 9.9 L (11.4-16.0) gm/dL Hct 34.0 (34.0-46.0) % MCV 75.3 L (80.0-100.0) fL MCH 21.8 L (25.0-35.0) pg MCHC 29.0 L (31.0-37.0) g/dL RDW 20.1 H (11.5-15.5) % Plt Count 445 (150-450) k/uL Neutrophils % 69 % Lymphocytes % 19 % Monocytes % 6 % Eosinophils % 3 % Basophils % 1 % Neutrophils # 9.0 H (1.3-7.7) k/uL Lymphocytes # 2.4 (1.0-4.8) k/uL Monocytes # 0.8 (0-1.0) k/uL Eosinophils # 0.4 (0-0.7) k/uL Basophils # 0.1 (0-0.2) k/uL Hypochromasia Marked Anisocytosis Moderate Microcytosis Moderate PT (9.0-12.0) sec INR (<1.2) APTT (22.0-30.0) sec Sodium 136 L (137-145) mmol/L Potassium 5.6 H (3.5-5.1) mmol/L Chloride 100 (98-107) mmol/L Carbon Dioxide 29 (22-30) mmol/L Anion Gap 7 mmol/L BUN 24 H (7-17) mg/dL Creatinine 1.44 H (0.52-1.04) mg/dL Est GFR (CKD-EPI)AfAm 41 (>60 ml/min/1.73 sqM) Est GFR (CKD-EPI)NonAf 35 (>60 ml/min/1.73 sqM) Glucose 111 H (74-99) mg/dL Calcium 8.4 (8.4-10.2) mg/dL Magnesium 1.8 (1.6-2.3) mg/dL Total Bilirubin 0.6 (0.2-1.3) mg/dL AST 16 (14-36) U/L ALT 26 (9-52) U/L Alkaline Phosphatase 154 H (38-126) U/L Total Creatine Kinase 31 (30-135) U/L CK-MB (CK-2) 0.6 (0.0-2.4) ng/mL CK-MB (CK-2) Rel Index 1.9 Troponin I <0.012 (0.000-0.034) ng/mL NT-Pro-B Natriuret Pep pg/mL Total Protein 6.4 (6.3-8.2) g/dL Albumin 3.0 L (3.5-5.0) g/dL Urine Color Urine Appearance (Clear) Urine pH (5.0-8.0) Ur Specific [place] (1.001-1.035) Urine Protein (Negative) Urine Glucose (UA) (Negative) Urine Ketones (Negative) Urine Blood (Negative) Urine Nitrite (Negative) Urine Bilirubin (Negative) Urine Urobilinogen (<2.0) mg/dL Ur Leukocyte Esterase (Negative) Urine RBC (0-5) /hpf Urine WBC (0-5) /hpf Urine Bacteria (None) /hpf Hyaline Casts (0-2) /lpf 06/27/18 06/27/18 06/27/18 Range/Units 21:35 21:35 21:54 WBC (3.8-10.6) k/uL RBC (3.80-5.40) m/uL Hgb (11.4-16.0) gm/dL Hct (34.0-46.0) % MCV (80.0-100.0) fL MCH (25.0-35.0) pg MCHC (31.0-37.0) g/dL RDW (11.5-15.5) % Plt Count (150-450) k/uL Neutrophils % % Lymphocytes % % Monocytes % % Eosinophils % % Basophils % % Neutrophils # (1.3-7.7) k/uL Lymphocytes # (1.0-4.8) k/uL Monocytes # (0-1.0) k/uL Eosinophils # (0-0.7) k/uL Basophils # (0-0.2) k/uL Hypochromasia Anisocytosis Microcytosis PT 10.7 (9.0-12.0) sec INR 1.0 (<1.2) APTT 24.7 (22.0-30.0) sec Sodium (137-145) mmol/L Potassium (3.5-5.1) mmol/L Chloride (98-107) mmol/L Carbon Dioxide (22-30) mmol/L Anion Gap mmol/L BUN (7-17) mg/dL Creatinine (0.52-1.04) mg/dL Est GFR (CKD-EPI)AfAm (>60 ml/min/1.73 sqM) Est GFR (CKD-EPI)NonAf (>60 ml/min/1.73 sqM) Glucose (74-99) mg/dL Calcium (8.4-10.2) mg/dL Magnesium (1.6-2.3) mg/dL Total Bilirubin (0.2-1.3) mg/dL AST (14-36) U/L ALT (9-52) U/L Alkaline Phosphatase (38-126) U/L Total Creatine Kinase (30-135) U/L CK-MB (CK-2) (0.0-2.4) ng/mL CK-MB (CK-2) Rel Index Troponin I (0.000-0.034) ng/mL NT-Pro-B Natriuret Pep 514 pg/mL Total Protein (6.3-8.2) g/dL Albumin (3.5-5.0) g/dL Urine Color Yellow Urine Appearance Clear (Clear) Urine pH 5.0 (5.0-8.0) Ur Specific [place] 1.009 (1.001-1.035) Urine Protein Negative (Negative) Urine Glucose (UA) Negative (Negative) Urine Ketones Negative (Negative) Urine Blood Negative (Negative) Urine Nitrite Positive H (Negative) Urine Bilirubin Negative (Negative) Urine Urobilinogen <2.0 (<2.0) mg/dL Ur Leukocyte Esterase Negative (Negative) Urine RBC 1 (0-5) /hpf Urine WBC <1 (0-5) /hpf Urine Bacteria Rare H (None) /hpf Hyaline Casts 25 H (0-2) /lpf Disposition Clinical Impression: CHF (congestive heart failure), COPD (chronic obstructive pulmonary disease), Pneumonia, Respiratory distress, HARSHIL (acute kidney injury) Disposition: ADMITTED IP TO THIS HOSP Condition: Serious Referrals: Bob Nunez MD [Primary Care Provider] - 1-2 days
[2018-06-27 22:00] LABS: Anisocytosis Moderate; Basophils # (A) 0.1 k/uL (0-0.2); Basophils % (A) 1 %; Eosinophils # (A) 0.4 k/uL (0-0.7); Eosinophils % (A) 3 %; HGB 9.9 gm/dL (11.4-16.0); Hypochromasia Marked; Lymphocytes # (A) 2.4 k/uL (1.0-4.8); Lymphocytes % (A) 19 %; MCH 21.8 pg (25.0-35.0); MCV 75.3 fL (80.0-100.0); Mean Platelet Volume 5.8; Microcytosis Moderate; Monocytes # (A) 0.8 k/uL (0-1.0); Monocytes % (A) 6 %; Neutrophils % (A) 69 %; Platelet Count 445 k/uL (150-450); RBC 4.52 m/uL (3.80-5.40); RDW 20.1 % (11.5-15.5); WBC 13.1 k/uL (3.8-10.6)
[2018-06-27] MEDS: IPRATROPIUM-ALBUTEROL 3 ML NEB INHALATION SCH (22:07)
[2018-06-27 22:08] LABS: Partial Thromboplastin Time 24.7 sec (22.0-30.0); Prothrombin Time 10.7 sec (9.0-12.0)
--- NOTE | 2018-06-27 22:09 | XR ---
EXAMINATION TYPE: XR chest 1V portable DATE OF EXAM: 06/27/2018 COMPARISON: 01/26/2018 HISTORY: Difficulty breathing TECHNIQUE: Single frontal view of the chest is obtained. FINDINGS: Heart is enlarged. There is some pulmonary vascular congestion. There is blunting of the c ostophrenic angles. There are infiltrates at the lung bases. Thoracic aorta is atheromatous. IMPRESSION: Mild congestive heart failure. Atheromatous aorta. Cardiomegaly. There is increased airs pace infiltrate right lower lobe compared to old exam.
[2018-06-27 22:14] LABS: Calcium 8.4 mg/dL (8.4-10.2); Magnesium 1.8 mg/dL (1.6-2.3); Potassium 5.6 mmol/L (3.5-5.1); Total Bilirubin 0.6 mg/dL (0.2-1.3); Total Protein 6.4 g/dL (6.3-8.2)
[2018-06-27 22:14] LABS: Appearance,Urine Clear (Clear); Bacteria,Urine Rare /hpf; Bilirubin,Urine Negative (Negative); Blood,Urine Negative (Negative); Color,Urine Yellow; Glucose,Urine (UA) Negative (Negative); Hyaline Casts,Urine 25 /lpf (0-2); Ketones,Urine Negative (Negative); Leukocyte Esterase,Urine Negative (Negative); Nitrite,Urine Positive (Negative); Protein,Urine Negative (Negative); RBC,Urine 1 /hpf (0-5); Specific Gravity,Urine 1.009 (1.001-1.035); Urobilinogen,Urine <2.0 mg/dL (<2.0); WBC,Urine <1 /hpf (0-5)
[2018-06-27 22:24] LABS: Creatine Kinase 31 U/L (30-135)
[2018-06-27 22:38] LABS: Creatine Kinase MB 0.6 ng/mL (0.0-2.4); Troponin I <0.012 ng/mL (0.000-0.034)
[2018-06-27] MEDS ORDERED: AZITHROMYCIN 500 MG in SODIUM CHLORIDE 0.9% 250 ML IVPB STA (22:40)
[2018-06-27] MEDS ORDERED: LORazepam 2 MG/ML INJ IV STA (23:22)
[2018-06-28] MEDS ORDERED: NALTREXONE PO PRN (01:05)
[2018-06-28] MEDS ORDERED: MORPHINE SULFATE PO PRN (01:05)
[2018-06-28] MEDS: NALOXONE 0.4 MG/ML 1 ML VIAL IV PRN ×4 (01:43→06:30)
[2018-06-28 02:07] LABS: ABG Base Excess 4.4 mmol/L; ABG HCO3 29 mmol/L (21-25); ABG Oxygen Saturation 98.4 % (94-97); ABG PCO2 47 mmHg (35-45); ABG PO2 106 mmHg (83-108); ABG TCO2 31 mmol/L (19-24)
[2018-06-28] MEDS ORDERED: INSULIN REGULAR 100 UNIT/ML VIAL IV ONE (02:13)
[2018-06-28] MEDS ORDERED: DEXTROSE 50%-WATER 50 ML SYRINGE IVP STA (02:13)
--- NOTE | 2018-06-28 02:31 | P.HPIM ---
History of Present Illness H&P Date: 06/28/18 Chief Complaint: respiratorydistress 77-year-old female with history of diastolic heart failure and COPD with chronic hypoxic respiratory failure on 2 L of oxygen via nasal cannula Patient is unable to provide any meaningful history at this time due to being dependent on BiPAP initially had depressed mentation which became alert and awake after a dose of Narcan. History was obtained by reviewing medical records Seems like the patient was not doing well at home with some respiratory distress and audible rales todaypatient called EMS who found the patient in severe respiratory distress, tripod position trying to catch her breath. EMS put her immediately on BiPAP and she was still having oxygen saturation of 90% despite supplemental oxygen and BiPAP.. She was given a dose of IV Solu-Medrol and Route due to audible wheezes and crackles. She was also given a nebulizer and Route. In the ER chest x-ray revealed possible right lower lobe infiltrates with obliteration of Costophrenic angles. Patient wasn' t able to get Lasix due to marginal blood pressure on the medical floor while I was evaluating the patient she was having depressed mentation lethargic but was easily arousable however her respiratory rate was down to 8, however this was reversed by dose of Narcan I discussed with the nurse transferring the patient to stepdown unit for close monitoring. Patient also to receive a dose of D50 and insulin for her mild hyperkalemia. 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 Past Anesthesia/Blood Transfusion Reactions: No Reported Reaction Past Psychological History: No Psychological Hx Reported Smoking Status: Former smoker Past Alcohol Use History: None Reported Past Drug Use History: None Reported - Past Family History Mother History Unknown: Yes Family Medical History: No Reported History, Renal Disease Additional Family Medical History / Comment(s): Mother was healthy and lived to be 88yrs old. Father History Unknown: Yes Family Medical History: Osteoarthritis (OA) Additional Family Medical History / Comment(s): Pt states her father at the age of 68yrs due to his debilitating arthritis. Medications and Allergies Home Medications Medication Instructions Recorded Confirmed Type Budesonide/Formoterol Fumarate 2 puff INHALATION RT-BID@,08/30/17 06/27/18 History [Symbicort 160-4.5 Mcg Inhaler] DULoxetine HCL [Cymbalta] 60 mg PO DAILY 08/30/17 06/27/18 History risperiDONE [RisperDAL] 0.5 mg PO HS 08/30/17 06/27/18 History Albuterol Inhaler [Ventolin Hfa 2 puff INHALATION 01/19/18 06/27/18 History Inhaler] RT-QID@08,,, Ipratropium-Albuterol Nebulize 3 ml INHALATION RT-QID PRN 01/25/18 06/27/18 Rx [Duoneb 0.5 mg-3 mg/3 ml Soln] ampul.neb LORazepam [Ativan] 0.5 mg PO HS #7 tab 01/29/18 06/27/18 Rx Morphine Sulfate/Naltrexone 1 cap PO DAILY PRN #7 cap.er.po 01/29/18 06/27/18 Rx [Embeda ER 60-2.4 mg Capsule] Diltiazem Cd [Cardizem CD] 180 mg PO DAILY 06/27/18 06/27/18 History Furosemide [Lasix] 40 mg PO BID 06/27/18 06/27/18 History Melatonin 5 mg PO HS 06/27/18 06/27/18 History Potassium Chloride ER [K-Dur 20] 20 meq PO BID 06/27/18 06/27/18 History Spironolactone [Aldactone] 25 mg PO DAILY 06/27/18 06/27/18 History Allergies Allergy/AdvReac Type Severity Reaction Status Date / Time No Known Allergies Allergy Verified 06/27/18 22:39 Physical Exam Vitals: Vital Signs Temp Pulse Pulse Resp BP Pulse Ox 06/28/18 00:38 98.3 F 75 19 96/58 95 06/27/18 23:53 79 18 101/75 95 06/27/18 22:45 80 18 100/74 96 06/27/18 22:19 79 06/27/18 22:09 79 06/27/18 21:55 78 06/27/18 21:44 79 15 123/99 96 06/27/18 21:42 80 06/27/18 21:23 26 H 06/27/18 21:20 78 28 H 98/68 97 Intake and Output 06/27/18 06/27/18 06/28/18 14:59 22:59 06:59 Other: Weight 79.379 kg Constitutional: patient looks tired, on BiPAP, initially had respiratory depression reversed with Narcan now alert and awake, following commands. She is not talking just nodding head indicating yes or no keeping the BiPAP mask on Eyes: Anicteric sclerae, moist conjunctiva, no lid-lag Pupils equal round reactive to light ENMT: NC/AT could not examine the mouth due to having the BiPAP mask on Neck: Supple, FROM, no masses, or JVD No carotid bruits No thyromegaly Lungs: decreased breath sounds bilateral lung basis, diffuse crackles, with basal inspiratory rales, prolonged expiratory phase with wheezing dull to percussion at lung bases bilaterally Cardiovascular: Heart regular in rate and rhythm, soft systolic murmur,no gallops, or rubs +2 peripheral edemabilaterally Abdominal: Soft Nontender, no guarding, rebound or rigidity Abdomen moving with respiration Normoactive bowel sounds No hepatomegaly, No splenomegaly No palpable mass Skin: plan she redness over the buttock no skin breakage Normal temperature, tone, texture, turgor No induration No subcutaneous nodules No rash, lesions No ulcers Extremities: No digital cyanosis No clubbing Pedal pulses intact and symmetrical Radial pulses intact and symmetrical No calf tenderness Psychiatric: initially patient was lethargic, became awake and alert after Narcan Neuro very limited neuro exam at this time due to patient dependent on BiPAP initially was lethargic became more awake and alert after Narcan dose. Patient moving all 4 extremities spontaneously Lymphatics: no palpable cervical or supraclavicular , or inguinal lymph nodes Results CBC & Chem 7: 06/27/18 21:35 06/27/18 21:35 Labs: Abnormal Lab Results - Last 24 Hours (Table) 06/27/18 06/27/18 06/27/18 Range/Units 21:35 21:35 21:54 WBC 13.1 H (3.8-10.6) k/uL Hgb 9.9 L (11.4-16.0) gm/dL MCV 75.3 L (80.0-100.0) fL MCH 21.8 L (25.0-35.0) pg MCHC 29.0 L (31.0-37.0) g/dL RDW 20.1 H (11.5-15.5) % Neutrophils # 9.0 H (1.3-7.7) k/uL Sodium 136 L (137-145) mmol/L Potassium 5.6 H (3.5-5.1) mmol/L BUN 24 H (7-17) mg/dL Creatinine 1.44 H (0.52-1.04) mg/dL Glucose 111 H (74-99) mg/dL Alkaline Phosphatase 154 H (38-126) U/L Albumin 3.0 L (3.5-5.0) g/dL Urine Nitrite Positive H (Negative) Urine Bacteria Rare H (None) /hpf Hyaline Casts 25 H (0-2) /lpf Assessment and Plan Assessment: 77-year-old female with history of diastolic heart failure and COPD on home oxygen admitted as an inpatient with anticipated length of stay more than 48 hours due to increased work of breathing with respiratory distress and audible rales patient was brought in by EMS found to have right lower lobe infiltrates on chest x-ray and mild congestive changes along with acute kidney injury and hyperkalemia patient admitted for further care. She then developed respiratory depression on the medical floor which was reversed by Narcan and patient was transferred to stepdown unit for close monitoring. ABGs reviewed and showed PaCO2 of 31 but compensated otherwise unremarkable Plan: acute on chronic hypoxic respiratory failure Sepsis (leukocytosis and tachypnea ) due to Community acquired penumonia with RLLL infilterate Respiratory depression , reversed by Narcan acute COPD exacerbation 2/2 to above CXR showed congestion and obliteration of costophrenic angles Diuresis on hold due to marginal blood pressure BIPAP duoneb systemic steroids rocephine and azithromycine resume home inhalers supplemental oxygen as needed to keep Oxygen sat >92% transfer patient to step down, due to respiratory depression , reversed with narcan , for close monitoring in step down unit History of diastolic congestive heart failure with mild exacerbation manifested with bilateral leg edema and obliteration of costophrenic angles on CXR along with evidence of congestion diuresis when blood pressure allows HARSHIL hold diuretics and nephrotoxic meds marginal blood pressure monitor urine output and renal function hyperkalemia mild, with no ekg changes D50 and insulin , repeat labs in 4 hours (at 6 am ) right upper extremity swelling check doppler US Chronic microcytic anemia currently at baseline No reported GI bleeding History of MS currently stable History of CVA and hyperlipidemia currently stable Preformed a thorough record review from recent hospitalization patient had been hospitalized in December 2017 for COPD and CHF exacerbation and then later on was hospitalized a week after for MS flareup Surrogate decision-maker: Patient CODE STATUS: Full code DVT prophylaxis: Heparin subcu 3 times a day Discussed with: Patient, ER, RN Anticipated discharge: 48-[address]: *Pending clinical course A total of 80 minutes was spent (initial evaluation , then subsequent evaluation ) on the care of this complex patient more than 50% of the time was spent in counseling and care coordination.
[2018-06-28 03:48] LABS: Glucose,Whole Blood 201 mg/dL (75-99)
[2018-06-28 06:09] VITALS: BMI 32.2
[2018-06-28 06:50] LABS: Anisocytosis Moderate; HCT 29.6 % (34.0-46.0); HGB 8.6 gm/dL (11.4-16.0); Hypochromasia Marked; MCH 21.8 pg (25.0-35.0); MCHC 29.1 g/dL (31.0-37.0); MCV 75.2 fL (80.0-100.0); Mean Platelet Volume 6.3; Microcytosis Moderate; Platelet Count 403 k/uL (150-450); RBC 3.93 m/uL (3.80-5.40); RDW 20.1 % (11.5-15.5); WBC 8.8 k/uL (3.8-10.6)
[2018-06-28 07:25] LABS: Albumin 2.5 g/dL (3.5-5.0); Calcium 8.2 mg/dL (8.4-10.2); Magnesium 1.9 mg/dL (1.6-2.3); Phosphorus 4.6 mg/dL (2.5-4.5); Potassium 5.4 mmol/L (3.5-5.1); Total Bilirubin 0.5 mg/dL (0.2-1.3); Total Protein 5.5 g/dL (6.3-8.2)
--- NOTE | 2018-06-28 07:25 | XR ---
EXAM: XR Chest, 1 View CLINICAL HISTORY: ITS.REASON XR Reason: CHF TECHNIQUE: Frontal view of the chest. COMPARISON: 06/27/18 FINDINGS: Lungs: Slight increase in pulmonary vascular congestion and interstitial infiltrates suggestive of worsening failure. Bibasilar atelectasis. Pleural space: Bilateral small pleural effusions. No pneumothorax. Heart: Stable cardiomegaly. Mediastinum: Unremarkable. Bones/joints: Unremarkable. Vasculature: Atherosclerosis of the aorta. IMPRESSION: 1. Slight increase in pulmonary vascular congestion and interstitial infiltrates suggestive of worsening failure. 2. Stable cardiomegaly.
[2018-06-28] MEDS: IPRATROPIUM-ALBUTEROL 3 ML NEB INHALATION PRN ×4 (07:58→20:19)
[2018-06-28] MEDS: SYMBICORT 160-4.5 MCG INHALER INHALATION SCH ×2 (07:59→20:19)
--- NOTE | 2018-06-28 08:27 | US ---
EXAMINATION TYPE: US venous doppler duplex UE RT DATE OF EXAM: 06/28/2018 COMPARISON: NONE CLINICAL HISTORY: swelling. SIDE PERFORMED: Right Grayscale, color doppler, spectral doppler imaging performed of the deep veins of the right upper ext remity. There is normal flow, compressibility and vascular waveforms. ICU patient done portable who could not adduct her arm, technically difficult and limited study. Right Arm: Negative for DVT Could not reach patients left arm to do contralateral picture. Subcutaneous edema is noted throughout the lower aspect of the right upper extremity. IMPRESSION: Technically limited exam, however no sonographic evidence of right upper extremity deep venous thromb osis. Subcutaneous edema is noted.
[2018-06-28] MEDS ORDERED: FUROSEMIDE 40 MG TAB PO SCH (09:00)
[2018-06-28] MEDS ORDERED: SPIRONOLACTONE 25 MG TAB PO SCH (09:00)
[2018-06-28] MEDS ORDERED: POTASSIUM CHLORIDE ER 20 MEQ TAB.ER PO SCH (09:00)
[2018-06-28] MEDS ORDERED: FUROSEMIDE 10 MG/ML 4 ML VIAL IV STA (09:16)
[2018-06-28] MEDS: HEPARIN SODIUM,PORCINE 5,000 UNIT/ML 1 ML VIAL SQ SCH ×2 (09:28→17:29)
[2018-06-28] MEDS: DULoxetine HCL 60 MG CAPSULE.DR PO SCH (09:28)
[2018-06-28] MEDS: AZITHROMYCIN 500 MG TAB PO SCH (09:28)
[2018-06-28] MEDS: DILTIAZEM CD 180 MG CAP.ER.24H PO SCH (09:28)
--- NOTE | 2018-06-28 12:09 | P.PN ---
Subjective Progress Note Date: 06/28/18 Principal diagnosis: shortness of breath Patient is a 77-year-old female with a past medical history of COPD on chronic oxygen at 2 L, diastolic congestive heart failure, prior stroke, dyslipidemia, and hypertension who presented to the emergency department with complaints of shortness of breath. At our initial evaluation the patient had been on BiPAP and had decreased mentation became awake and alert after a dose of Narcan. EMS was notified after the patient had respiratory distress. She was immediately placed on BiPap. She was given a dose of solu-medrol and a nebulizer in route. In the ED CXR revealed RLL PNA. She did not receive a dose of lasix due to marginal blood pressure. She became lethargic while being evaluated on the medical floor and her respiratory rate decreased. This was reversed by dose of Narcan and the patient was subsequently transferred to the ICU as selective overflow. She also received a dose of D50 and insulin for her hyperkalemia. ABG was obtained which showed compensated hypercapnic respiratory failure. Patient seen and examined at bedside. Still has BiPAP in place. She is slightly confused. She tells me she is not short of breath. She is unsure why she came to the hospital. Duran any recent changes in the dosing of her pain medications or taking extra pain medications. She denies any nausea or vomiting. She is able to follow simple commands but is unable to tell me where she is or the year. Nursing present at bedside. No other acute events overnight. Objective - Vital Signs Vital signs: Vital Signs Temp 98.3 F 06/28/18 09:00 Pulse 89 06/28/18 10:30 Resp 10 L 06/28/18 10:30 BP 102/84 06/28/18 10:30 Pulse Ox 95 06/28/18 10:30 Intake & Output 06/27/18 06/28/18 06/28/18 18:59 06:59 18:59 Intake Total 0 Output Total 300 730 Balance -300 -730 Weight 87.9 kg Intake: Oral 0 Output: Urine 300 730 Other: Voiding Method Indwelling Catheter - Exam General: ill appearing, mild distress, appears at stated age Derm: warm, dry Head: atraumatic, normocephalic, symmetric Eyes: EOMI, no lid lag, anicteric sclera Mouth: no lip lesion, mucus membranes moist Cardiovascular: S1S2 reg, no murmur, positive posterior tibial pulse bilateral, Lungs: rhonchi bilaterall, no rhonchi, no rales , no accessory muscle use Abdominal: soft, nontender to palpation, no guarding, no appreciable organomegaly Ext: no gross muscle atrophy, 1+ edema, no contractures Neuro: CN II-XI grossly intact, no focal neuro deficits Psych: Alert, oriented to self only, slightly lethargic - Labs CBC & Chem 7: 06/28/18 06:25 06/28/18 06:25 Labs: Abnormal Lab Results - Last 24 Hours (Table) 06/27/18 06/27/18 06/27/18 Range/Units 21:35 21:35 21:54 WBC 13.1 H (3.8-10.6) k/uL Hgb 9.9 L (11.4-16.0) gm/dL Hct (34.0-46.0) % MCV 75.3 L (80.0-100.0) fL MCH 21.8 L (25.0-35.0) pg MCHC 29.0 L (31.0-37.0) g/dL RDW 20.1 H (11.5-15.5) % Neutrophils # 9.0 H (1.3-7.7) k/uL ABG pCO2 (35-45) mmHg ABG HCO3 (21-25) mmol/L ABG Total CO2 (19-24) mmol/L ABG O2 Saturation (94-97) % Sodium 136 L (137-145) mmol/L Potassium 5.6 H (3.5-5.1) mmol/L BUN 24 H (7-17) mg/dL Creatinine 1.44 H (0.52-1.04) mg/dL Glucose 111 H (74-99) mg/dL POC Glucose (mg/dL) (75-99) mg/dL Calcium (8.4-10.2) mg/dL Phosphorus (2.5-4.5) mg/dL Alkaline Phosphatase 154 H (38-126) U/L Total Protein (6.3-8.2) g/dL Albumin 3.0 L (3.5-5.0) g/dL Urine Nitrite Positive H (Negative) Urine Bacteria Rare H (None) /hpf Hyaline Casts 25 H (0-2) /lpf 06/28/18 06/28/18 06/28/18 Range/Units 02:00 03:36 06:25 WBC (3.8-10.6) k/uL Hgb (11.4-16.0) gm/dL Hct (34.0-46.0) % MCV (80.0-100.0) fL MCH (25.0-35.0) pg MCHC (31.0-37.0) g/dL RDW (11.5-15.5) % Neutrophils # (1.3-7.7) k/uL ABG pCO2 47 H (35-45) mmHg ABG HCO3 29 H (21-25) mmol/L ABG Total CO2 31 H (19-24) mmol/L ABG O2 Saturation 98.4 H (94-97) % Sodium (137-145) mmol/L Potassium 5.4 H (3.5-5.1) mmol/L BUN 25 H (7-17) mg/dL Creatinine 1.25 H (0.52-1.04) mg/dL Glucose 136 H (74-99) mg/dL POC Glucose (mg/dL) 201 H (75-99) mg/dL Calcium 8.2 L (8.4-10.2) mg/dL Phosphorus 4.6 H (2.5-4.5) mg/dL Alkaline Phosphatase (38-126) U/L Total Protein 5.5 L (6.3-8.2) g/dL Albumin 2.5 L (3.5-5.0) g/dL Urine Nitrite (Negative) Urine Bacteria (None) /hpf Hyaline Casts (0-2) /lpf 06/28/18 Range/Units 06:25 WBC (3.8-10.6) k/uL Hgb 8.6 L (11.4-16.0) gm/dL Hct 29.6 L (34.0-46.0) % MCV 75.2 L (80.0-100.0) fL MCH 21.8 L (25.0-35.0) pg MCHC 29.1 L (31.0-37.0) g/dL RDW 20.1 H (11.5-15.5) % Neutrophils # (1.3-7.7) k/uL ABG pCO2 (35-45) mmHg ABG HCO3 (21-25) mmol/L ABG Total CO2 (19-24) mmol/L ABG O2 Saturation (94-97) % Sodium (137-145) mmol/L Potassium (3.5-5.1) mmol/L BUN (7-17) mg/dL Creatinine (0.52-1.04) mg/dL Glucose (74-99) mg/dL POC Glucose (mg/dL) (75-99) mg/dL Calcium (8.4-10.2) mg/dL Phosphorus (2.5-4.5) mg/dL Alkaline Phosphatase (38-126) U/L Total Protein (6.3-8.2) g/dL Albumin (3.5-5.0) g/dL Urine Nitrite (Negative) Urine Bacteria (None) /hpf Hyaline Casts (0-2) /lpf Assessment and Plan Assessment: Acute exacerbation of diastolic congestive heart failure with ejection fraction 55-60% -Lasix 1 -Patient is not chronically on Roberto or beta efra and we'll not initiate at this point in time -Follow fluid status, daily weights Acute exacerbation of COPD with acute on chronic hypoxic respiratory failure, community-acquired pneumonia -Trial off BiPAP -Pulmonary consultation -Bronchodilators, IV steroid, pulmonary hygiene, continue with Rocephin and Zithromax - wean O2 as able Sirs criteria - met due to respiratory distress and reflective of AE of COPD not infection Acute toxic encephalopathy -Likely secondary to chronic pain medication use -Continue whole to hold long-acting morphine -Tylenol as needed for pain Hyperkalemia -Hold home Aldactone and potassium -Lasix IV 1 today -Repeat potassium level in a.m. HARSHIL, undetermined cause -Improvement from on admission -Lasix 1 today, repeat labs in a.m. -Avoid additional nephrotoxic agents Chronic microcutic anemia pripor CVA MS HLD DVT prophylaxis: Heparin Discussed with: Patient, nursing Anticipated discharge: 3-[address]: home A total of 45 minutes was spent on the care of this complex patient more than 50 % of the time was spent in counseling and care coordination.
[2018-06-28] MEDS: methylPREDNISolone SOD SUCCI 125 MG/2 ML VIAL IV SCH (17:29)
[2018-06-28] MEDS ORDERED: LORazepam 0.5 MG TAB PO SCH (21:00)
[2018-06-28] MEDS ORDERED: MELATONIN 5 MG TABLET PO SCH (21:00)
[2018-06-28] MEDS: risperiDONE 0.5 MG TAB PO SCH (21:50)
[2018-06-29] MEDS: HEPARIN SODIUM,PORCINE 5,000 UNIT/ML 1 ML VIAL SQ SCH ×4 (00:48→23:41)
[2018-06-29] MEDS: methylPREDNISolone SOD SUCCI 125 MG/2 ML VIAL IV SCH ×4 (00:48→23:40)
[2018-06-29 05:29] LABS: Anisocytosis Moderate; HCT 28.6 % (34.0-46.0); HGB 8.6 gm/dL (11.4-16.0); Hypochromasia Marked; MCH 22.1 pg (25.0-35.0); MCHC 30.1 g/dL (31.0-37.0); MCV 73.6 fL (80.0-100.0); Mean Platelet Volume 6.1; Microcytosis Marked; Platelet Count 395 k/uL (150-450); RBC 3.89 m/uL (3.80-5.40); RDW 20.4 % (11.5-15.5); WBC 7.3 k/uL (3.8-10.6)
[2018-06-29 05:42] LABS: Calcium 8.2 mg/dL (8.4-10.2); Phosphorus 3.3 mg/dL (2.5-4.5); Potassium 4.3 mmol/L (3.5-5.1)
--- NOTE | 2018-06-29 07:00 | XR ---
EXAMINATION TYPE: XR chest 1V portable DATE OF EXAM: 06/29/2018 COMPARISON: 06/28/2018 HISTORY: Shortness of breath TECHNIQUE: Single frontal view of the chest is obtained. FINDINGS: The heart is enlarged and there is bilateral consolidation and pleural effusions. Atherosc lerotic. Underlying COPD not excluded. IMPRESSION: 1. Bilateral consolidation and pleural effusion are stable. Differential diagnosis includes CHF. Unde rlying pneumonia excluded.
[2018-06-29] MEDS: IPRATROPIUM-ALBUTEROL 3 ML NEB INHALATION PRN ×4 (07:17→19:26)
[2018-06-29] MEDS: SYMBICORT 160-4.5 MCG INHALER INHALATION SCH ×3 (07:17→19:26)
[2018-06-29] MEDS: DILTIAZEM CD 180 MG CAP.ER.24H PO SCH (08:34)
[2018-06-29] MEDS: DULoxetine HCL 60 MG CAPSULE.DR PO SCH (08:34)
[2018-06-29] MEDS: AZITHROMYCIN 500 MG TAB PO SCH (08:34)
--- NOTE | 2018-06-29 11:36 | P.PN ---
Subjective Progress Note Date: 06/29/18 Principal diagnosis: shortness of breath Patient is a 77-year-old female with a past medical history of COPD on chronic oxygen at 2 L, diastolic congestive heart failure, prior stroke, dyslipidemia, and hypertension who presented to the emergency department with complaints of shortness of breath. At our initial evaluation the patient had been on BiPAP and had decreased mentation became awake and alert after a dose of Narcan. EMS was notified after the patient had respiratory distress. She was immediately placed on BiPap. She was given a dose of solu-medrol and a nebulizer in route. In the ED CXR revealed RLL PNA. She did not receive a dose of lasix due to marginal blood pressure. She became lethargic while being evaluated on the medical floor and her respiratory rate decreased. This was reversed by dose of Narcan and the patient was subsequently transferred to the ICU as selective overflow. She also received a dose of D50 and insulin for her hyperkalemia. ABG was obtained which showed compensated hypercapnic respiratory failure. She was taken off bipap the morning of 06/28 and did well. Her hyperkalemia improved with her aldactone and potassium being held. Patient seen and examined at bedside. Feeling fine this morning. No shortness of breath unless moving. No nausea. No vomiting. Still feeling tired. Slept very little last night. Objective - Vital Signs Vital signs: Vital Signs Temp 98.1 F 06/29/18 08:00 Pulse 105 H 06/29/18 11:14 Resp 17 06/29/18 11:14 BP 122/95 06/29/18 08:00 Pulse Ox 95 06/29/18 08:00 Intake & Output 06/28/18 06/29/18 06/29/18 18:59 06:59 18:59 Intake Total 480 600 Output Total 2390 1200 190 Balance -1910 -600 -190 Weight 87.9 kg 87.8 kg Intake: Intake, IV Titration 100 Amount cefTRIAXone 1,000 mg In 100 Sodium Chloride 0.9% 50 ml @ 100 mls/hr IVPB Q24H [facility] Rx#:[id number] Oral 480 500 Output: Urine 2390 1200 190 Other: Voiding Method Indwelling Catheter Indwelling Catheter - Exam General: non toxic appearing, no distress, appears at stated age Derm: warm, dry Head: atraumatic, normocephalic, symmetric Eyes: EOMI, no lid lag, anicteric sclera Mouth: no lip lesion, mucus membranes moist Cardiovascular: S1S2 reg, no murmur, positive posterior tibial pulse bilateral, Lungs: rhonchi right base and apex, no rhonchi, no rales , no accessory muscle use Abdominal: soft, nontender to palpation, no guarding, no appreciable organomegaly Ext: no gross muscle atrophy, 1+ edema, no contractures Neuro: CN II-XI grossly intact, no focal neuro deficits Psych: Alert, oriented X3 - Labs CBC & Chem 7: 06/29/18 05:00 06/29/18 04:55 Labs: Abnormal Lab Results - Last 24 Hours (Table) 06/29/18 06/29/18 Range/Units 04:55 05:00 Hgb 8.6 L (11.4-16.0) gm/dL Hct 28.6 L (34.0-46.0) % MCV 73.6 L (80.0-100.0) fL MCH 22.1 L (25.0-35.0) pg MCHC 30.1 L (31.0-37.0) g/dL RDW 20.4 H (11.5-15.5) % Sodium 134 L (137-145) mmol/L BUN 26 H (7-17) mg/dL Glucose 162 H (74-99) mg/dL Calcium 8.2 L (8.4-10.2) mg/dL Microbiology - Last 24 Hours (Table) 06/27/18 21:35 Blood Culture - Preliminary Blood No Growth after 24 hours Assessment and Plan Assessment: Acute exacerbation of diastolic congestive heart failure with ejection fraction 55-60% -Lasix IV BID, aldactone on hold -Patient is not chronically on Roberto or beta efra and we'll not initiate at this point in time -Follow fluid status, daily weights - repeat echo last one 6 months ago Acute exacerbation of COPD with acute on chronic hypoxic respiratory failure, community-acquired pneumonia -Bronchodilators, IV steroid, pulmonary hygiene, continue with Rocephin and Zithromax - wean O2 as able - rapid improvement will hold off pulm consult - follow CXR till clear - sputum culture Sirs criteria, resolved Acute toxic encephalopathy, resolved Hyperkalemia, resolved HARSHIL,resolved. Chronic microcytic anemia prior CVA MS HLD DVT prophylaxis: Heparin Discussed with: Patient, nursing Anticipated discharge: 2-[address]: home vs snf A total of 45 minutes was spent on the care of this complex patient more than 50 % of the time was spent in counseling and care coordination.
[2018-06-29] MEDS: FUROSEMIDE 10 MG/ML 4 ML VIAL IV SCH ×2 (13:24→23:49)
[2018-06-29] MEDS: HYDROcodone/APAP 5-325MG 1 EACH TAB PO PRN ×2 (15:45→22:13)
[2018-06-29] MEDS: risperiDONE 0.5 MG TAB PO SCH (22:14)
[2018-06-29] MEDS ORDERED: POTASSIUM CHLORIDE ER 20 MEQ TAB.ER PO STA (23:27)
[2018-06-30] MEDS ORDERED: POTASSIUM CHLORIDE ER 20 MEQ TAB.ER PO STA (02:49)
[2018-06-30] MEDS: HYDROcodone/APAP 5-325MG 1 EACH TAB PO PRN ×2 (03:21→09:10)
[2018-06-30 05:19] LABS: Anisocytosis Moderate; HGB 8.6 gm/dL (11.4-16.0); Hypochromasia Marked; MCH 20.6 pg (25.0-35.0); MCHC 28.6 g/dL (31.0-37.0); MCV 71.8 fL (80.0-100.0); Mean Platelet Volume 6.5; Microcytosis Marked; Platelet Count 327 k/uL (150-450); RBC 4.17 m/uL (3.80-5.40); RDW 20.1 % (11.5-15.5); WBC 5.8 k/uL (3.8-10.6)
[2018-06-30 05:28] LABS: Anion Gap 8 mmol/L; Calcium 8.1 mg/dL (8.4-10.2); Carbon Dioxide 28 mmol/L (22-30); Chloride 99 mmol/L (98-107); Glucose 141 mg/dL (74-99); Sodium 135 mmol/L (137-145)
[2018-06-30 05:30] LABS: Blood Urea Nitrogen 25 mg/dL (7-17); Magnesium 2.1 mg/dL (1.6-2.3); Potassium 4.3 mmol/L (3.5-5.1)
[2018-06-30 06:58] LABS: Glucose,Whole Blood 147 mg/dL (75-99)
--- NOTE | 2018-06-30 07:24 | XR ---
EXAMINATION TYPE: XR chest 1V portable DATE OF EXAM: 06/30/2018 Comparison: 06/29/2018 Clinical History: 77-year-old female CHF Findings: Heart mildly enlarged. Mild diffuse interstitial and vascular prominence. Small left urinary pleural effusions with prominent bibasilar patchy opacities persist. Impression: Stable exam with CHF and mild interstitial pulmonary edema. Continued left greater right pleural effu sions with adjacent atelectasis and/or consolidation.
[2018-06-30] MEDS: IPRATROPIUM-ALBUTEROL 3 ML NEB INHALATION PRN ×3 (08:30→15:57)
[2018-06-30] MEDS: SYMBICORT 160-4.5 MCG INHALER INHALATION SCH ×2 (08:30→20:32)
[2018-06-30] MEDS: DILTIAZEM CD 180 MG CAP.ER.24H PO SCH (09:10)
[2018-06-30] MEDS: HEPARIN SODIUM,PORCINE 5,000 UNIT/ML 1 ML VIAL SQ SCH ×3 (09:10→23:25)
[2018-06-30] MEDS: AZITHROMYCIN 500 MG TAB PO SCH (09:11)
[2018-06-30] MEDS: predniSONE 20 MG TAB PO SCH (09:11)
[2018-06-30] MEDS: FUROSEMIDE 10 MG/ML 4 ML VIAL IV SCH ×2 (09:11→20:39)
[2018-06-30] MEDS: DULoxetine HCL 60 MG CAPSULE.DR PO SCH (09:12)
[2018-06-30 13:45] LABS: Potassium 3.3 mmol/L (3.5-5.1)
[2018-06-30] MEDS ORDERED: Potassium Replacement Protocol 1 EACH MISC MISCELLANE PRN (14:14)
[2018-06-30] MEDS: POTASSIUM BICARBONATE/CIT AC 20 MEQ TABLET.EFF NG-TUBE SCH ×2 (14:59→16:05)
[2018-06-30] MEDS: HYDROcodone/APAP 7.5-325MG 1 EACH TAB PO PRN ×2 (15:00→20:39)
--- NOTE | 2018-06-30 15:53 | P.PN ---
Subjective Progress Note Date: 06/30/18 Principal diagnosis: shortness of breath Patient is a 77-year-old female with a past medical history of COPD on chronic oxygen at 2 L, diastolic congestive heart failure, prior stroke, dyslipidemia, and hypertension who presented to the emergency department with complaints of shortness of breath. At our initial evaluation the patient had been on BiPAP and had decreased mentation became awake and alert after a dose of Narcan. EMS was notified after the patient had respiratory distress. She was immediately placed on BiPap. She was given a dose of solu-medrol and a nebulizer in route. In the ED CXR revealed RLL PNA. She did not receive a dose of lasix due to marginal blood pressure. She became lethargic while being evaluated on the medical floor and her respiratory rate decreased. This was reversed by dose of Narcan and the patient was subsequently transferred to the ICU as selective overflow. She also received a dose of D50 and insulin for her hyperkalemia. ABG was obtained which showed compensated hypercapnic respiratory failure. She was taken off bipap the morning of 06/28 and did well. Her hyperkalemia improved with her aldactone and potassium being held. She had slow improvement in her breathing and edema with lasix and the antibiotics. Patient seen and examined at bedside. Doing well, other than not sleeping at night. Breathing is much better. Has not been out of bed. No chest pain. Had a BM yesterday. Objective - Vital Signs Vital signs: Vital Signs Temp 98.6 F 06/30/18 08:00 Pulse 102 H 06/30/18 08:40 Resp 13 06/30/18 08:00 BP 119/62 06/30/18 08:00 Pulse Ox 94 L 06/30/18 08:00 Intake & Output 06/29/18 06/30/18 06/30/18 18:59 06:59 18:59 Intake Total 100 Output Total 1350 1690 Balance -1350 -1590 Weight 84.7 kg Intake: Intake, IV Titration 100 Amount cefTRIAXone 1,000 mg In 100 Sodium Chloride 0.9% 50 ml @ 100 mls/hr IVPB Q24H [facility] Rx#:[id number] Output: Urine 1350 1690 Other: Voiding Method Indwelling Catheter Indwelling Catheter - Exam General: non toxic appearing, no distress, appears at stated age Derm: warm, dry Head: atraumatic, normocephalic, symmetric Eyes: EOMI, no lid lag, anicteric sclera Mouth: no lip lesion, mucus membranes moist Cardiovascular: S1S2 reg, no murmur, positive posterior tibial pulse bilateral, Lungs: rhonchi right base, no rhonchi, no rales , no accessory muscle use Abdominal: soft, nontender to palpation, no guarding, no appreciable organomegaly Ext: no gross muscle atrophy, trace edema, no contractures Neuro: CN II-XI grossly intact, no focal neuro deficits Psych: Alert, oriented X3 - Labs CBC & Chem 7: 06/30/18 04:52 06/30/18 12:52 Labs: Abnormal Lab Results - Last 24 Hours (Table) 06/29/18 06/30/18 06/30/18 Range/Units 22:04 04:52 04:52 Hgb 8.6 L (11.4-16.0) gm/dL Hct 30.0 L (34.0-46.0) % MCV 71.8 L (80.0-100.0) fL MCH 20.6 L (25.0-35.0) pg MCHC 28.6 L (31.0-37.0) g/dL RDW 20.1 H (11.5-15.5) % Sodium 135 L (137-145) mmol/L Potassium 3.4 L (3.5-5.1) mmol/L BUN 25 H (7-17) mg/dL Glucose 141 H (74-99) mg/dL POC Glucose (mg/dL) (75-99) mg/dL Calcium 8.1 L (8.4-10.2) mg/dL 06/30/18 Range/Units 06:47 Hgb (11.4-16.0) gm/dL Hct (34.0-46.0) % MCV (80.0-100.0) fL MCH (25.0-35.0) pg MCHC (31.0-37.0) g/dL RDW (11.5-15.5) % Sodium (137-145) mmol/L Potassium (3.5-5.1) mmol/L BUN (7-17) mg/dL Glucose (74-99) mg/dL POC Glucose (mg/dL) 147 H (75-99) mg/dL Calcium (8.4-10.2) mg/dL Microbiology - Last 24 Hours (Table) 06/27/18 21:35 Blood Culture Gram Stain - Preliminary Blood 06/27/18 21:35 Blood Culture - Preliminary Blood No Growth after 48 hours Assessment and Plan Assessment: Acute exacerbation of diastolic congestive heart failure with ejection fraction 55-60% -Lasix IV BID, resume aldactone -Patient is not chronically on Roberto or beta efra and we'll not initiate at this point in time -Follow fluid status, daily weights - repeat echo last one 6 months ago- pending Acute exacerbation of COPD with acute on chronic hypoxic respiratory failure, community-acquired pneumonia -Bronchodilators, IV steroids to PO, pulmonary hygiene, continue with Rocephin and Zithromax - wean O2 as able - rapid improvement will hold off pulm consult - follow CXR till clear - sputum culture microcytic anemia - check iron studies - follow CBC Sirs criteria, resolved Acute toxic encephalopathy, resolved Hyperkalemia, resolved HARSHIL,resolved. Chronic prior CVA MS HLD DVT prophylaxis: Heparin Discussed with: Patient, nursing Anticipated discharge: 1-[address]: snf A total of 45 minutes was spent on the care of this complex patient more than 50 % of the time was spent in counseling and care coordination.
[2018-06-30] MEDS ORDERED: POTASSIUM BICARBONATE/CIT AC 20 MEQ TABLET.EFF NG-TUBE SCH (21:00)
[2018-06-30] MEDS: risperiDONE 0.5 MG TAB PO SCH (22:31)
[2018-07-01] MEDS ORDERED: MELATONIN 5 MG TABLET PO STA (00:59)
[2018-07-01] MEDS ORDERED: MELATONIN 5 MG TABLET PO ONE (01:03)
[2018-07-01] MEDS: HYDROcodone/APAP 7.5-325MG 1 EACH TAB PO PRN ×3 (01:50→13:57)
[2018-07-01] MEDS ORDERED: POTASSIUM BICARBONATE/CIT AC 20 MEQ TABLET.EFF NG-TUBE SCH (02:00)
[2018-07-01 06:14] LABS: Anisocytosis Moderate; HCT 31.8 % (34.0-46.0); HGB 9.5 gm/dL (11.4-16.0); Hypochromasia Marked; MCH 21.7 pg (25.0-35.0); MCHC 29.9 g/dL (31.0-37.0); MCV 72.6 fL (80.0-100.0); Mean Platelet Volume 6.1; Microcytosis Marked; Platelet Count 385 k/uL (150-450); RBC 4.38 m/uL (3.80-5.40); RDW 20.1 % (11.5-15.5); WBC 6.4 k/uL (3.8-10.6)
[2018-07-01 06:23] LABS: Potassium 4.3 mmol/L (3.5-5.1)
[2018-07-01 06:24] LABS: Calcium 8.3 mg/dL (8.4-10.2); Magnesium 2.1 mg/dL (1.6-2.3)
--- NOTE | 2018-07-01 08:03 | XR ---
EXAMINATION TYPE: XR chest 1V portable DATE OF EXAM: 07/01/2018 COMPARISON: 06/30/2018 HISTORY: Congestive heart failure. Follow-up exam. Shortness of breath. TECHNIQUE: Single frontal view of the chest is obtained. FINDINGS: There is similar-appearing mild interstitial edema and bibasilar airspace disease with sma ll left and trace right pleural effusions. Heart is again enlarged. Osseous structures are grossly in tact. IMPRESSION: Similar-appearing sequela of congestive heart failure with mild interstitial pulmonary e aishwarya, small left pleural effusion, trace right pleural effusion and right basilar airspace disease th at may relate to atelectasis, confluent edema or less likely superimposed pneumonia.
[2018-07-01] MEDS: predniSONE 20 MG TAB PO SCH (08:16)
[2018-07-01] MEDS: DULoxetine HCL 60 MG CAPSULE.DR PO SCH (08:16)
[2018-07-01] MEDS: DILTIAZEM CD 180 MG CAP.ER.24H PO SCH (08:17)
[2018-07-01] MEDS: AZITHROMYCIN 500 MG TAB PO SCH (08:17)
[2018-07-01] MEDS: FUROSEMIDE 10 MG/ML 4 ML VIAL IV SCH (08:17)
[2018-07-01] MEDS: HEPARIN SODIUM,PORCINE 5,000 UNIT/ML 1 ML VIAL SQ SCH ×3 (08:17→22:57)
[2018-07-01] MEDS: SPIRONOLACTONE 25 MG TAB PO SCH (08:17)
[2018-07-01] MEDS: SYMBICORT 160-4.5 MCG INHALER INHALATION SCH ×2 (10:57→19:23)
[2018-07-01] MEDS: IPRATROPIUM-ALBUTEROL 3 ML NEB INHALATION PRN (10:59)
[2018-07-01 14:20] LABS: Iron Saturation 6.32 (12.00-45.00)
--- NOTE | 2018-07-01 14:33 | ECHOF ---
Referral Reason:chf MEASUREMENTS -------- HEIGHT: 165.1 cm WEIGHT: 84.4 kg BP: 118/69 RVIDd: 3.1 cm (< 3.3) IVSd: 1.1 cm (0.6 - 1.1) LVIDd: 5.0 cm (3.9 - 5.3) LVPWd: 1.1 cm (0.6 - 1.1) IVSs: 1.2 cm LVIDs: 3.2 cm LVPWs: 1.2 cm LA Diam: 2.5 cm (2.7 - 3.8) Ao Diam: 3.7 cm (2.0 - 3.7) AV Cusp: 1.7 cm (1.5 - 2.6) LA Diam: 4.1 cm (2.7 - 3.8) MV EXCURSION: 21.518 mm (> 18.000) MV EF SLOPE: 164 mm/s (70 - 150) EPSS: 0.9 cm MV E Camron: 1.30 m/s MV DecT: 272 ms MV A Camron: 1.37 m/s MV E/A Ratio: 0.95 RAP: 5.00 mmHg RVSP: 41.26 mmHg FINDINGS -------- Sinus rhythm. This was a technically adequate study. Test terminated at patient's request. The left ventricular size is normal. There is borderline concentric left ventricular hypertrophy. Overall left ventricular systolic function is normal with, an EF between 55 - 60 %. The right ventricle is normal in size and function. Normal LA size by volume 22+/-6 ml/m2. RA appears enlarged. Aortic valve is trileaflet and is mildly thickened. There is no evidence of aortic regurgitation. There is no evidence of aortic stenosis. The mitral valve leaflets are mildly thickened. Mild mitral regurgitation is present. [id number] tricuspid regurgitation present. There is mild pulmonary hypertension. The right ventricular systolic pressure, as measured by Doppler, is 41.26mmHg. The pulmonic valve was not well visualized. The aortic root size is normal. IVC Not well visulized. There is no pericardial effusion. CONCLUSIONS -------- 1. Sinus rhythm. 2. This was a technically adequate study. 3. Test terminated at patient's request. 4. The left ventricular size is normal. 5. There is borderline concentric left ventricular hypertrophy. 6. Overall left ventricular systolic function is normal with, an EF between 55 - 60 %. 7. Normal LA size by volume 22+/-6 ml/m2. 8. RA appears enlarged. 9. Aortic valve is trileaflet and is mildly thickened. 10. The mitral valve leaflets are mildly thickened. 11. Mild mitral regurgitation is present. 12. [id number]-[id number] tricuspid regurgitation present. 13. There is mild pulmonary hypertension. 14. The right ventricular systolic pressure, as measured by Doppler, is 41.26mmHg. 15. The pulmonic valve was not well visualized. 16. The aortic root size is normal. 17. IVC Not well visulized. 18. There is no pericardial effusion. DOUGH MIXING MACHINE OPERATOR: Ryder Alexis RDCS
[2018-07-01] MEDS: FUROSEMIDE 40 MG TAB PO SCH (17:24)
--- NOTE | 2018-07-01 17:35 | P.PN ---
Subjective Progress Note Date: 07/01/18 Principal diagnosis: shortness of breath Patient is a 77-year-old female with a past medical history of COPD on chronic oxygen at 2 L, diastolic congestive heart failure, prior stroke, dyslipidemia, and hypertension who presented to the emergency department with complaints of shortness of breath. At our initial evaluation the patient had been on BiPAP and had decreased mentation became awake and alert after a dose of Narcan. EMS was notified after the patient had respiratory distress. She was immediately placed on BiPap. She was given a dose of solu-medrol and a nebulizer in route. In the ED CXR revealed RLL PNA. She did not receive a dose of lasix due to marginal blood pressure. She became lethargic while being evaluated on the medical floor and her respiratory rate decreased. This was reversed by dose of Narcan and the patient was subsequently transferred to the ICU as selective overflow. She also received a dose of D50 and insulin for her hyperkalemia. ABG was obtained which showed compensated hypercapnic respiratory failure. She was taken off bipap the morning of 06/28 and did well. Her hyperkalemia improved with her aldactone and potassium being held. She had slow improvement in her breathing and edema with lasix and the antibiotics. She continues to improve daily. Refuses rehab but agreeable to home health. Patient seen and examined at bedside. Breathing well, complains of her chronic pain, no chest pain, no shortness of breath, no nausea, BM yestrday, still poor sleep, upset that she will be discharge tomorrow. Objective - Vital Signs Vital signs: Vital Signs Temp 98.4 F 07/01/18 08:00 Pulse 77 07/01/18 08:00 Resp 14 07/01/18 08:00 BP 127/68 07/01/18 08:00 Pulse Ox 94 L 07/01/18 08:00 Intake & Output 06/30/18 07/01/18 07/01/18 18:59 06:59 18:59 Output Total 1365 1475 150 Balance -1365 -1475 -150 Output: Urine 1365 1475 150 Other: Voiding Method Indwelling Catheter Indwelling Catheter Indwelling Catheter # Bowel Movements 1 - Exam General: non toxic appearing, no distress, appears at stated age Derm: warm, dry Head: atraumatic, normocephalic, symmetric Eyes: EOMI, no lid lag, anicteric sclera Mouth: no lip lesion, mucus membranes moist Cardiovascular: S1S2 reg, no murmur, positive posterior tibial pulse bilateral, Lungs: CTA b/l, no rhonchi, no rales , no accessory muscle use Abdominal: soft, nontender to palpation, no guarding, no appreciable organomegaly Ext: no gross muscle atrophy, trace edema, no contractures Neuro: CN II-XI grossly intact, no focal neuro deficits Psych: Alert, oriented X3 - Labs CBC & Chem 7: 07/01/18 05:45 07/01/18 12:22 Labs: Abnormal Lab Results - Last 24 Hours (Table) 06/30/18 07/01/18 07/01/18 Range/Units 12:52 05:45 05:45 Hgb 9.5 L (11.4-16.0) gm/dL Hct 31.8 L (34.0-46.0) % MCV 72.6 L (80.0-100.0) fL MCH 21.7 L (25.0-35.0) pg MCHC 29.9 L (31.0-37.0) g/dL RDW 20.1 H (11.5-15.5) % Sodium 136 L 134 L (137-145) mmol/L Potassium 3.3 L (3.5-5.1) mmol/L Chloride 95 L 96 L (98-107) mmol/L Carbon Dioxide 33 H 36 H (22-30) mmol/L BUN 23 H (7-17) mg/dL Glucose 110 H (74-99) mg/dL Calcium 8.3 L (8.4-10.2) mg/dL Microbiology - Last 24 Hours (Table) 06/30/18 04:52 Blood Culture - Preliminary Blood No Growth after 24 hours 06/27/18 21:35 Blood Culture - Final Blood 06/27/18 21:35 Blood Culture Gram Stain - Preliminary Blood Assessment and Plan Assessment: Acute exacerbation of diastolic congestive heart failure with ejection fraction 55-60% -Lasix to PO, aldactone -Patient is not chronically on Roberto or beta efra and we'll not initiate at this point in time -Follow fluid status, daily weights -Echo with preserved EF and mild pulm edema Acute exacerbation of COPD with acute on chronic hypoxic respiratory failure, community-acquired pneumonia -Bronchodilators, PO steroids, pulmonary hygiene, continue with Rocephin and Zithromax X 1 more day - wean O2 as able - follow CXR in 1 week with PCP - sputum culture microcytic anemia due to iron deficiency - ferrous sulfate - will need outpatient follow-up for further eval Sirs criteria, resolved Acute toxic encephalopathy, resolved Hyperkalemia, resolved HARSHIL,resolved. Chronic prior CVA MS HLD home in AM DVT prophylaxis: Heparin Discussed with: Patient, nursing Anticipated discharge: 1-[address]: snf A total of 45 minutes was spent on the care of this complex patient more than 50 % of the time was spent in counseling and care coordination.
[2018-07-01] MEDS: HYDROcodone/APAP 10-325MG 1 EACH TAB PO PRN (21:55)
[2018-07-01] MEDS: risperiDONE 0.5 MG TAB PO SCH (22:37)
[2018-07-02] MEDS: HYDROcodone/APAP 10-325MG 1 EACH TAB PO PRN ×4 (04:11→22:11)
[2018-07-02 05:47] LABS: Anisocytosis Slight; HCT 34.9 % (34.0-46.0); HGB 10.1 gm/dL (11.4-16.0); Hypochromasia Marked; MCH 21.3 pg (25.0-35.0); MCV 73.4 fL (80.0-100.0); Mean Platelet Volume 6.1; Microcytosis Moderate; Platelet Count 387 k/uL (150-450); RBC 4.75 m/uL (3.80-5.40); RDW 19.3 % (11.5-15.5); WBC 8.5 k/uL (3.8-10.6)
[2018-07-02 05:59] LABS: Calcium 8.1 mg/dL (8.4-10.2); Potassium 3.6 mmol/L (3.5-5.1)
[2018-07-02] MEDS ORDERED: POTASSIUM CHLORIDE ER 20 MEQ TAB.ER PO SCH (07:00)
[2018-07-02] MEDS: FERROUS SULFATE 325 MG TAB PO SCH ×2 (07:04→17:48)
[2018-07-02] MEDS: predniSONE 20 MG TAB PO SCH (08:45)
[2018-07-02] MEDS: FUROSEMIDE 40 MG TAB PO SCH ×2 (08:45→16:00)
[2018-07-02] MEDS: AZITHROMYCIN 500 MG TAB PO SCH (08:45)
[2018-07-02] MEDS: DILTIAZEM CD 180 MG CAP.ER.24H PO SCH (08:45)
[2018-07-02] MEDS: HEPARIN SODIUM,PORCINE 5,000 UNIT/ML 1 ML VIAL SQ SCH ×3 (08:45→22:12)
[2018-07-02] MEDS: DULoxetine HCL 60 MG CAPSULE.DR PO SCH (08:45)
[2018-07-02] MEDS: SPIRONOLACTONE 25 MG TAB PO SCH (08:45)
[2018-07-02] MEDS: SYMBICORT 160-4.5 MCG INHALER INHALATION SCH ×2 (09:21→20:46)
[2018-07-02] MEDS: IPRATROPIUM-ALBUTEROL 3 ML NEB INHALATION PRN (09:21)
--- NOTE | 2018-07-02 18:17 | P.PN ---
Subjective Progress Note Date: 07/02/18 Principal diagnosis: shortness of breath Patient is a 77-year-old female with a past medical history of COPD on chronic oxygen at 2 L, diastolic congestive heart failure, prior stroke, dyslipidemia, and hypertension who presented to the emergency department with complaints of shortness of breath. At our initial evaluation the patient had been on BiPAP and had decreased mentation became awake and alert after a dose of Narcan. EMS was notified after the patient had respiratory distress. She was immediately placed on BiPap. She was given a dose of solu-medrol and a nebulizer in route. In the ED CXR revealed RLL PNA. She did not receive a dose of lasix due to marginal blood pressure. She became lethargic while being evaluated on the medical floor and her respiratory rate decreased. This was reversed by dose of Narcan and the patient was subsequently transferred to the ICU as selective overflow. She also received a dose of D50 and insulin for her hyperkalemia. ABG was obtained which showed compensated hypercapnic respiratory failure. She was taken off bipap the morning of 06/28 and did well. Her hyperkalemia improved with her aldactone and potassium being held. She had slow improvement in her breathing and edema with lasix and the antibiotics. She continues to improve daily. Refuses rehab but agreeable to home health. Still with some shortness of breath 1/4 but improving. Patient seen and examined at bedside. Still wtih SOB when walking yesterday. Asking for pain medications I spoke with her and let her know future pain meds as outpatient will need to be directed by Dr. Jain. No chest pain, nausea, vomiting, diarrhea. Objective - Vital Signs Vital signs: Vital Signs Temp 98.4 F 07/02/18 08:00 Pulse 88 07/02/18 09:34 Resp 20 07/02/18 08:00 BP 124/74 07/02/18 08:00 Pulse Ox 98 07/02/18 08:00 Intake & Output 07/01/18 07/02/18 07/02/18 18:59 06:59 18:59 Intake Total 250 Output Total 1450 1180 Balance -1200 -1180 Weight 77.4 kg Intake: Oral 250 Output: Urine 1450 1180 Other: Voiding Method Indwelling Catheter Indwelling Catheter # Voids 0 # Bowel Movements 1 - Exam General: non toxic appearing, no distress, appears at stated age Derm: warm, dry Head: atraumatic, normocephalic, symmetric Eyes: EOMI, no lid lag, anicteric sclera Mouth: no lip lesion, mucus membranes moist Cardiovascular: S1S2 reg, no murmur, positive posterior tibial pulse bilateral, Lungs: decreased bs b/l bases, no rhonchi, no rales , no accessory muscle use Abdominal: soft, nontender to palpation, no guarding, no appreciable organomegaly Ext: no gross muscle atrophy, trace edema, no contractures Neuro: CN II-XI grossly intact, no focal neuro deficits Psych: Alert, oriented X3 - Labs CBC & Chem 7: 07/02/18 05:24 07/02/18 05:24 Labs: Abnormal Lab Results - Last 24 Hours (Table) 07/01/18 07/02/18 07/02/18 Range/Units 05:45 05:24 05:24 Hgb 10.1 L (11.4-16.0) gm/dL MCV 73.4 L (80.0-100.0) fL MCH 21.3 L (25.0-35.0) pg MCHC 29.0 L (31.0-37.0) g/dL RDW 19.3 H (11.5-15.5) % Sodium 135 L (137-145) mmol/L Chloride 96 L (98-107) mmol/L Carbon Dioxide 33 H (22-30) mmol/L BUN 22 H (7-17) mg/dL Calcium 8.1 L (8.4-10.2) mg/dL Iron 17 L (50-170) ug/dL Iron Saturation 6.32 L (12.00-45.00) Microbiology - Last 24 Hours (Table) 06/27/18 21:35 Blood Culture Gram Stain - Final Blood Blood Culture - Final Gram Positive Bacilli Isolated 06/30/18 04:52 Blood Culture - Preliminary Blood No Growth after 48 hours Assessment and Plan Assessment: Acute exacerbation of diastolic congestive heart failure with ejection fraction 55-60% -Lasix PO, aldactone -Patient is not chronically on Roberto or beta efra and will not initiate at this point in time -Follow fluid status, daily weights -Echo with preserved EF and mild pulm edema Acute exacerbation of COPD with acute on chronic hypoxic respiratory failure, community-acquired pneumonia -Bronchodilators, PO steroids, pulmonary hygiene, continue with Rocephin and Zithromax for 3 more days as patient has complicate PNA due to COPD - wean O2 as able - follow CXR in 1 week with PCP - sputum culture microcytic anemia due to iron deficiency - ferrous sulfate - will need outpatient follow-up for further eval Sirs criteria, resolved Acute toxic encephalopathy, resolved Hyperkalemia, resolved HARSHIL,resolved. Chronic prior CVA MS HLD home in AM DVT prophylaxis: Heparin Discussed with: Patient, nursing Anticipated discharge: in AM Anticipated discharge place: home with home health A total of 25 minutes was spent on the care of this complex patient more than 50 % of the time was spent in counseling and care coordination.
[2018-07-02] MEDS: risperiDONE 0.5 MG TAB PO SCH (21:12)
[2018-07-03 05:56] VITALS: RESP 16
[2018-07-03] MEDS: HYDROcodone/APAP 10-325MG 1 EACH TAB PO PRN (06:35)
[2018-07-03] MEDS: FERROUS SULFATE 325 MG TAB PO SCH (06:35)
[2018-07-03 07:52] LABS: Calcium 8.2 mg/dL (8.4-10.2); Magnesium 2.3 mg/dL (1.6-2.3); Potassium 3.9 mmol/L (3.5-5.1)
[2018-07-03] MEDS: SYMBICORT 160-4.5 MCG INHALER INHALATION SCH (08:09)
[2018-07-03 08:51] VITALS: BP 104/58; PULSE 80; TEMP 98.8
[2018-07-03] MEDS: FUROSEMIDE 40 MG TAB PO SCH (09:25)
[2018-07-03] MEDS: AZITHROMYCIN 500 MG TAB PO SCH (09:25)
[2018-07-03] MEDS: predniSONE 20 MG TAB PO SCH (09:25)
[2018-07-03] MEDS: SPIRONOLACTONE 25 MG TAB PO SCH (09:25)
[2018-07-03] MEDS: HEPARIN SODIUM,PORCINE 5,000 UNIT/ML 1 ML VIAL SQ SCH (09:25)
[2018-07-03] MEDS: DILTIAZEM CD 180 MG CAP.ER.24H PO SCH (09:25)
[2018-07-03] MEDS: DULoxetine HCL 60 MG CAPSULE.DR PO SCH (09:25)
--- NOTE | 2018-07-03 19:12 | P.DS ---
Providers Date of admission: 06/27/18 23:18 Expected date of discharge: 07/03/18 Attending physician: Imani Saunders MD [facility] Course: Discharge Diagnosis: Acute exacerbation of diastolic congestive heart failure with ejection fraction 50-60% Acute exacerbation of COPD Acute on chronic hypoxic respiratory failure chronically on 2 L nasal cannula Complicated community-acquired pneumonia Iron deficiency anemia SIRS criteria Acute toxic encephalopathy Hyperkalemia Acute kidney injury Hospital Course: Patient is a 77-year-old female with a past medical history of COPD on chronic oxygen at 2 L, diastolic congestive heart failure, prior stroke, dyslipidemia, and hypertension who presented to the emergency department with complaints of shortness of breath. On initial evaluation the patient had been on BiPAP and had decreased mentation became awake and alert after a dose of Narcan. EMS was notified after the patient had respiratory distress. She was immediately placed on BiPap. She was given a dose of solu-medrol and a nebulizer in route. In the ED CXR revealed RLL PNA. She did not receive a dose of lasix due to marginal blood pressure. She became lethargic while being evaluated on the medical floor and her respiratory rate decreased. This was reversed by dose of Narcan and the patient was subsequently transferred to the ICU as selective overflow. She also received a dose of D50 and insulin for her hyperkalemia. ABG was obtained which showed compensated hypercapnic respiratory failure. She was taken off bipap the morning of 06/28 and did well. Her hyperkalemia improved with her aldactone and potassium being held. She had slow improvement in her breathing and edema with lasix and the antibiotics. She continues to improve daily. Refuses rehab but agreeable to home health. Still with some shortness of breath 07/02 but improving. Her Aldactone was restarted and potassium remained within normal limits. She continued to slowly improve. She was determined stable for discharge on 07/03. She will complete a course of Zithromax, Vantin, and prednisone. She was found to have some iron deficiency anemia and was started on ferrous sulfate. She will require further evaluation as an outpatient into causes of her iron deficiency. This was expressed to the patient. Repat CXR in 1 week to ensure clearing of PNA. Patient seen and examined at bedside. No chest pain, shortness of breath, no nausea, pain controlled, asking to go home. Vital signs reviewed and stable. General: non toxic, no distress, appears at stated age Derm: warm, dry Head: atraumatic, normocephalic, symmetric Eyes: EOMI, no lid lag, anicteric sclera Mouth: no lip lesion, mucus membranes moist Cardiovascular: S1S2 reg, no murmur, positive posterior tibial pulse bilateral, Lungs: faint wheeze bilateral, no rhonchi, no rales , no accessory muscle use Abdominal: soft, nontender to palpation, no guarding, no appreciable organomegaly Ext: no gross muscle atrophy, trace edema, no contractures Neuro: CN II-XI grossly intact, no focal neuro deficits Psych: Alert, oriented, appropriate affect A total of 45 minutes of time were spent preparing this complex discharge summary . Pertinent Studies: Echocardiogram-ejection fraction 55-60%, concentric left ventricular hypertrophy , mild pulmonary hypertension, mild to moderate mitral regurgitation Chest [id number] CHF with mild interstitial pulmonary edema, continued left greater than right pleural effusion with adjacent atelectasis and/or consolidation Venous Doppler-right upper extremity venous Doppler without thrombosis Patient Condition at Discharge: Serious Plan - Discharge Summary Discharge Rx Participant: Yes New Discharge Prescriptions: New Azithromycin [Zithromax] 500 mg PO DAILY #3 tab Ferrous Sulfate [Iron (65 MG Elemental)] 325 mg PO BID-W/MEALS #60 tab predniSONE 40 mg PO DAILY #10 tab Cefpodoxime Proxetil [Vantin] 200 mg PO Q12HR #6 tab Continue Budesonide/Formoterol Fumarate [Symbicort 160-4.5 Mcg Inhaler] 2 puff INHALATION RT-BID@,17 DULoxetine HCL [Cymbalta] 60 mg PO DAILY risperiDONE [RisperDAL] 0.5 mg PO HS Albuterol Inhaler [Ventolin Hfa Inhaler] 2 puff INHALATION RT-QID@08,12,17,21 Ipratropium-Albuterol Nebulize [Duoneb 0.5 mg-3 mg/3 ml Soln] 3 ml INHALATION RT-QID PRN ampul.neb PRN Reason: Wheezing Morphine Sulfate/Naltrexone [Embeda ER 60-2.4 mg Capsule] 1 cap PO DAILY PRN #7 cap.er.po PRN Reason: Pain Spironolactone [Aldactone] 25 mg PO DAILY Diltiazem Cd [Cardizem CD] 180 mg PO DAILY Melatonin 5 mg PO HS Furosemide [Lasix] 40 mg PO BID Discontinued LORazepam [Ativan] 0.5 mg PO HS #7 tab Potassium Chloride ER [K-Dur 20] 20 meq PO BID Discharge Medication List Budesonide/Formoterol Fumarate [Symbicort 160-4.5 Mcg Inhaler] 2 puff INHALATION RT-BID@,17 08/30/17 [History] DULoxetine HCL [Cymbalta] 60 mg PO DAILY 08/30/17 [History] risperiDONE [RisperDAL] 0.5 mg PO HS 08/30/17 [History] Albuterol Inhaler [Ventolin Hfa Inhaler] 2 puff INHALATION RT-QID@,,, [History] Ipratropium-Albuterol Nebulize [Duoneb 0.5 mg-3 mg/3 ml Soln] 3 ml INHALATION RT -QID PRN ampul.neb 01/25/18 [Rx] Morphine Sulfate/Naltrexone [Embeda ER 60-2.4 mg Capsule] 1 cap PO DAILY PRN #7 cap.er.po 01/29/18 [Rx] Diltiazem Cd [Cardizem CD] 180 mg PO DAILY 06/27/18 [History] Furosemide [Lasix] 40 mg PO BID 06/27/18 [History] Melatonin 5 mg PO HS 06/27/18 [History] Spironolactone [Aldactone] 25 mg PO DAILY 06/27/18 [History] Azithromycin [Zithromax] 500 mg PO DAILY #3 tab 07/02/18 [Rx] Cefpodoxime Proxetil [Vantin] 200 mg PO Q12HR #6 tab 07/02/18 [Rx] Ferrous Sulfate [Iron (65 MG Elemental)] 325 mg PO BID-W/MEALS #60 tab 07/02/18 [Rx] predniSONE 40 mg PO DAILY #10 tab 07/02/18 [Rx] Follow up Appointment(s)/Referral(s): [facility], [NON-STAFF] - 1-2 Days Bob Nunez MD [Primary Care Provider] - 1-2 days Ambulatory/Diagnostic Orders: XR chest 2V [RAD.AMB] Time Frame: 1 Week, Location: None Selected Patient Instructions/Handouts: Heart Failure (DC), COPD (Chronic Obstructive Pulmonary Disease) (DC), Pneumonia (DC) Activity/Diet/Wound Care/Special Instructions: heart healthy diet, 2L fluid restriction Acitivty as tolerated Repeat Chest x-ray in 1 week Discharge Disposition: HOME WITH HOME HEALTH SERVICES
== END 2018-07-03 11:32 | disposition home health service (06) | DRG 291 ==
LOC: EC 21:11 → SUPCPDRO 21:11 → 4SSUR 23:18 → 2SICU 06-28 05:37 → 3SCARD 07-02 06:41
PROVIDERS: ADMIT Internal Medicine; ATTEND Internal Medicine
PROC: 5A09457 Assistance with Respiratory Ventilation, 24-96 Consecutive Hours, Continuous Positive Airway Pressure (ICD-10-PCS; principal; 2018-06-27)
DX: I11.0 Hypertensive heart disease with heart failure (principal); J96.21 Acute and chronic respiratory failure with hypoxia; G92 Toxic encephalopathy; J18.9 Pneumonia, unspecified organism; I69.851 Hemiplegia and hemiparesis following other cerebrovascular disease affecting right dominant side; N17.9 Acute kidney failure, unspecified; J44.1 Chronic obstructive pulmonary disease with (acute) exacerbation; J44.0 Chronic obstructive pulmonary disease with (acute) lower respiratory infection; J96.12 Chronic respiratory failure with hypercapnia; R65.10 Systemic inflammatory response syndrome (SIRS) of non-infectious origin without acute organ dysfunction; I50.33 Acute on chronic diastolic (congestive) heart failure; I95.9 Hypotension, unspecified; G35 Multiple sclerosis; E87.5 Hyperkalemia; G93.89 Other specified disorders of brain; I27.20 Pulmonary hypertension, unspecified; T50.7X5A Adverse effect of analeptics and opioid receptor antagonists, initial encounter; R40.2142 Coma scale, eyes open, spontaneous, at arrival to emergency department; R40.2362 Coma scale, best motor response, obeys commands, at arrival to emergency department; R40.2242 Coma scale, best verbal response, confused conversation, at arrival to emergency department; E78.5 Hyperlipidemia, unspecified; D50.9 Iron deficiency anemia, unspecified; K21.9 Gastro-esophageal reflux disease without esophagitis; M19.90 Unspecified osteoarthritis, unspecified site; G89.29 Other chronic pain; M79.605 Pain in left leg; M79.604 Pain in right leg; Z99.81 Dependence on supplemental oxygen; Z79.51 Long term (current) use of inhaled steroids; Z79.899 Other long term (current) drug therapy; Z87.891 Personal history of nicotine dependence; Z90.710 Acquired absence of both cervix and uterus; Z86.711 Personal history of pulmonary embolism; Z98.42 Cataract extraction status, left eye; Z98.41 Cataract extraction status, right eye; Z84.1 Family history of disorders of kidney and ureter; Z82.61 Family history of arthritis
CPT/HCPCS: 36415; 36600; 71045; 80048; 80051; 80053; 81001; 82550; 82553; 82728; 82805; 83540; 83550; 83735; 83880; 84100; 84132; 84484; 85025; 85027; 85610; 85730; 87040; 87150; 93005; 93306; 94640; 94644; 94660; 96365; 96367; 96375; 99285